=== PATIENT | female | born 1940 | race Caucasian/White ===

== ENCOUNTER 2016-12-04 13:03 | Emergency (ER) | payer MEDICARE, OTHER ==
--- NOTE | 2016-12-04 13:19 | ER Document Report ---
ED Syncope and Near Syncope - General Mode of Arrival: Wheelchair Information source: Patient, Relative TRAVEL OUTSIDE OF THE [place] IN LAST 30 DAYS: No - HPI Patient complains to provider of: Fainting Episode witnessed (by whom): Yes - nursing staff upstairs Position/Activity at time of episode: Standing Context: Collapsed, Lost consciousness Injury location: None Current symptoms: Breathing difficulty, Chest pain, Nausea Similar symptoms previously: No Recently seen / treated by doctor: No <MARTIN SUAZO - Last Filed: 12/04/16 13:48> <GRETCHEN GUERRERO - Last Filed: 12/04/16 16:18> - General Chief Complaint: Syncope Stated Complaint: SYNCOPE Time Seen by Provider: 12/04/16 13:18 Notes: Patient is a 76 year old female presenting to the ED for syncope. Patient states her is upstairs in the hospital and she got quite upset when she saw "home hospice" written on his board. Patient states her has been in the ED for 2 weeks and he is "dying." Patient states she does not quite know what her 's diagnosis is. Patient is present with a family member who states that she has been quite upset and she walked out in the hallway and was leaning on the wall. Patient then collapsed to the ground and the nursing staff came to her and were trying to wake her up. Patient is quite anxious and tearful during exam. Patient states she has not been able to stop crying. Patient states she also has had some increased difficulty breathing from her asthma and allergies. Patient has not had her inhaler refilled due to the weekend and she states she is having some tightness in her chest when she breaths. Patient has no known medical allergies. Patient's PCP is Dr. Mendez [facility] [address]. (MARTIN SUAZO) The patient was upstairs visiting her spouse who has been in the hospital about 10 days. She saw on a bed board that he was being discharged on home hospice. She felt that meant he was being sent home to . She states she has never been told his diagnosis. She had walked out of the room, leaning his alcohol and crying when she collapsed. The patient denies any pain. She complains of feeling short of breath and states she needs her inhaler. Her lungs are quite clear to auscultate. Her BUN is 58 with a creatinine of 1.46, 5 months ago the BUN was 12 with a creatinine of 0.82. I suspect she is somewhat dehydrated from spitting all her time upstairs and not caring for herself. This coupled with this sudden realization of her spouse's condition probably led to the syncope. (GRETCHEN GUERRERO) - Related Data Allergies/Adverse Reactions: No Known Allergies Allergy (Verified 11/20/16 16:32) Past Medical History - General Information source: Patient - Social History Smoking Status: Never Smoker Cigarette use (# per day): No Chew tobacco use (# tins/day): No Frequency of alcohol use: None Drug Abuse: None Family History: None Patient has suicidal ideation: No Patient has homicidal ideation: No - Past Medical History Cardiac Medical History: Reports: Hx Coronary Artery Disease, Hx Heart Attack, Hx Hypercholesterolemia, Hx Hypertension Pulmonary Medical History: Reports: Hx Asthma, Hx Sleep Apnea Neurological Medical History: Reports: Hx Migraine Endocrine Medical History: Reports: Hx Hypothyroidism GI Medical History: Reports: Hx Gastroesophageal Reflux Disease, Hx Irritable Bowel Musculoskeltal Medical History: Reports Hx Arthritis, Reports Hx Fibromyalgia Psychiatric Medical History: Reports: Hx Depression Past Surgical History: Reports: Hx Cardiac Catheterization - Stenting 2006 [place] , Hx Cholecystectomy, Hx Hysterectomy - Immunizations Hx Diphtheria, Pertussis, Tetanus Vaccination: Yes Hx Pneumococcal Vaccination: 08/25/10 <MARTIN SUAZO - Last Filed: 12/04/16 13:48> Review of Systems - Review of Systems Constitutional: No symptoms reported EENT: No symptoms reported Cardiovascular: No symptoms reported Respiratory: See HPI Gastrointestinal: No symptoms reported Genitourinary: No symptoms reported Female Genitourinary: No symptoms reported Musculoskeletal: No symptoms reported Skin: No symptoms reported Hematologic/Lymphatic: No symptoms reported Neurological/Psychological: See HPI -: Yes All other systems reviewed and negative <MARTIN SUAZO - Last Filed: 12/04/16 13:48> Physical Exam - General General appearance: Alert, Anxious In distress: Mild - HEENT Head: Normocephalic, Atraumatic Eyes: Normal Pupils: PERRL Mucous membranes: Moist - Respiratory Respiratory status: No respiratory distress Chest status: Nontender Breath sounds: Normal Chest palpation: Normal - Cardiovascular Rhythm: Regular Heart sounds: Normal auscultation Murmur: No - Abdominal Inspection: Normal Distension: No distension Bowel sounds: Normal Tenderness: Nontender Organomegaly: No organomegaly - Back Back: Normal, Nontender - Extremities General upper extremity: Normal inspection, Normal ROM, Normal strength General lower extremity: Normal inspection, Normal ROM, Normal strength - Neurological Neuro grossly intact: Yes Cognition: Normal Orientation: AAOx4 [place] Coma Scale Eye Opening: Spontaneous [place] Coma Scale Verbal: Oriented [place] Coma Scale Motor: Obeys Commands [place] Coma Scale Total: 15 Speech: Normal - Psychological Associated symptoms: Anxious, Tearful - Skin Skin Temperature: Warm Skin Moisture: Dry <MARTIN SUAZO - Last Filed: 12/04/16 13:48> Course <MARTIN SUAZO - Last Filed: 12/04/16 13:48> - Laboratory Result Diagrams: 12/04/16 13:27 12/04/16 13:27 - EKG Interpretation by Me EKG shows normal: Sinus rhythm, [place], Intervals, QRS Complexes, ST-T Waves Rate: Normal - 57 Rhythm: NSR, PVC's [place]/QRS: LAHB/LAFB <GRETCHEN GUERRERO - Last Filed: 12/04/16 16:18> - Re-evaluation Re-evalutation: 12/04/16 16:18 After the Ativan IV fluids, patient resting comfortably and does feel much better. (GRETCHEN GUERRERO) - Vital Signs Vital signs: Temp Pulse Resp BP Pulse Ox 14 134/64 H 100 12/04/16 15:03 12/04/16 15:03 12/04/16 15:03 - Laboratory Laboratory results interpreted by me: 12/04/16 13:27 Sodium 145.3 H BUN 58 H Creatinine 1.46 H Est GFR ( Amer) 42 L Est GFR (Non-Af Amer) 35 L Glucose 112 H Magnesium 2.4 H Discharge <MARTIN SUAZO - Last Filed: 12/04/16 13:48> <GRETCHEN GUERRERO - Last Filed: 12/04/16 16:18> - Discharge Clinical Impression: Syncope and collapse, Dehydration, Emotional distress Condition: Stable Disposition: HOME, SELF-CARE Additional Instructions: Your syncopal episode today was most likely due to being dehydrated and being under considerable emotional distress. You should go home and get some this rest and sleep. You should drink plenty of fluids today and eat well-balanced meals. Continue your regular medications. Follow-up with your doctor tomorrow if not feeling better. RETURN TO THE EMERGENCY ROOM IF ANY NEW OR WORSENING SYMPTOMS. Scribe Attestation: 12/04/16 16:16 I personally performed the services described in the documentation, reviewed and edited the documentation which was dictated to the scribe in my presence, and it accurately records my words and actions. (GRETCHEN GUERRERO) Scribe Documentation - Scribe Written by Scrluis daniel:: Martin Suazo 12/04/16 13:35 acting as scribe for :: Monica <MARTIN SUAZO - Last Filed: 12/04/16 13:48>
[2016-12-04] MEDS ORDERED: LORAZEPAM INJ 2 MG/1 ML VIAL IV ONE (13:31)
[2016-12-04] MEDS ORDERED: ALBUTEROL SULFATE 0.083% NEB 2.5 MG/3 ML AMPUL NEB ONE (13:31)
[2016-12-04 13:57] LABS: ABSOLUTE EOSINOPHILS # (AUTO) 0.2 10^3/uL (0.0-0.6); ABSOLUTE MONOCYTES (AUTO) 0.7 10^3/uL (0.1-1.4); ABSOLUTE NEUT (AUTO) 4.5 10^3/uL (1.7-8.2); BASOPHILS % (AUTO) 0.6 % (0-2); HEMATOCRIT 38.2 % (36.0-47.0); HEMOGLOBIN 12.9 g/dL (12.0-15.5); HGB HCT DIFFERENCE 0.5; LYMPHOCYTES % (AUTO) 15.5 % (13-45); MEAN CORPUSCULAR HEMOGLOBIN 31.7 pg (27.0-33.4); MEAN CORPUSCULAR HGB CONC 33.7 g/dL (32.0-36.0); MEAN CORPUSCULAR VOLUME 94 fl (80-97); MONOCYTES % (AUTO) 11.2 % (3-13); RED BLOOD COUNT 4.06 10^6/uL (3.72-5.28); RED CELL DISTRIBUTION WIDTH 13.3 % (11.5-14.0); SEGMENTED NEUTROPHILS % (AUTO) 69.7 % (42-78); WHITE BLOOD COUNT 6.4 10^3/uL (4.0-10.5)
[2016-12-04 14:17] LABS: ALANINE AMINOTRANSFERASE 27 U/L (9-52); ALBUMIN 4.2 g/dL (3.5-5.0); ALKALINE PHOSPHATASE 103 U/L (38-126); ANION GAP 13 (5-19); ASPARTATE AMINO TRANSFERASE 27 U/L (14-36); BILIRUBIN,DIRECT 0.2 mg/dL (0.0-0.4); BILIRUBIN,TOTAL 0.9 mg/dL (0.2-1.3); BLOOD UREA NITROGEN 58 mg/dL (7-20); CALCIUM 10.2 mg/dL (8.4-10.2); CARBON DIOXIDE 25 mmol/L (22-30); CHLORIDE 107 mmol/L (98-107); CREATINE KINASE 126 U/L (30-135); CREATININE RESULT 1.46 mg/dL (0.52-1.25); GLUCOSE 112 mg/dL (75-110); MAGNESIUM 2.4 mg/dL (1.6-2.3); POTASSIUM 4.7 mmol/L (3.6-5.0); SODIUM 145.3 mmol/L (137-145); TOTAL PROTEIN 7.5 g/dL (6.3-8.2)
[2016-12-04] MEDS ORDERED: NORMAL SALINE 1000 ML 1,000 ML IV ONE (14:35)
[2016-12-04 15:24] LABS: APPEARANCE,URINE CLEAR; BILIRUBIN,URINE NEGATIVE (NEGATIVE); GLUCOSE, URINE NEGATIVE (NEGATIVE); KETONES,URINE NEGATIVE (NEGATIVE); LEUKOCYTE ESTERASE,URINE NEGATIVE (NEGATIVE); NITRITE,URINE NEGATIVE (NEGATIVE); PROTEIN,URINE NEGATIVE (NEGATIVE); URINE SPECIFIC GRAVITY 1.011; UROBILINOGEN,URINE NEGATIVE mg/dL (<2.0)
[2016-12-04 17:44] VITALS: BP 130/70
--- NOTE | 2016-12-04 21:03 | EKG REPORT ---
SEVERITY:- ABNORMAL ECG - SINUS BRADYCARDIA VENTRICULAR BIGEMINY LEFT ANTERIOR FASCICULAR BLOCK PVC : Confirmed by: Julia Stoll MD 04-Dec-2016 21:03:09
== END 2016-12-04 17:42 | disposition home or self-care (01) ==
LOC: ER 13:03
DX: R55 Syncope and collapse (principal); E86.0 Dehydration; R06.02 Shortness of breath
CPT/HCPCS: 93005; 94640; 99284; 96374; 36415; 82962; 82550; 83735; 85025; 80053; 81001; 84484; 85379; 71010; 93010; J2060; J7030; A9270

== ENCOUNTER 2017-04-22 17:07 | Observation (INO) | payer MEDICARE, OTHER ==
[2017-04-22 17:48] LABS: ABSOLUTE EOSINOPHILS # (AUTO) 0.2 10^3/uL (0.0-0.6); ABSOLUTE LYMPHOCYTES (AUTO) 1.5 10^3/uL (0.5-4.7); ABSOLUTE MONOCYTES (AUTO) 0.6 10^3/uL (0.1-1.4); ABSOLUTE NEUT (AUTO) 3.1 10^3/uL (1.7-8.2); BASOPHILS % (AUTO) 0.9 % (0-2); EOSINOPHILS % (AUTO) 4.4 % (0-6); HEMATOCRIT 36.6 % (36.0-47.0); HEMOGLOBIN 12.7 g/dL (12.0-15.5); HGB HCT DIFFERENCE 1.5; LYMPHOCYTES % (AUTO) 26.7 % (13-45); MEAN CORPUSCULAR HEMOGLOBIN 32.9 pg (27.0-33.4); MEAN CORPUSCULAR HGB CONC 34.8 g/dL (32.0-36.0); MEAN CORPUSCULAR VOLUME 95 fl (80-97); MONOCYTES % (AUTO) 11.3 % (3-13); RED BLOOD COUNT 3.87 10^6/uL (3.72-5.28); RED CELL DISTRIBUTION WIDTH 12.7 % (11.5-14.0); SEGMENTED NEUTROPHILS % (AUTO) 56.7 % (42-78); WHITE BLOOD COUNT 5.5 10^3/uL (4.0-10.5)
--- NOTE | 2017-04-22 17:54 | ER Document Report ---
ED General - General Chief Complaint: Chest Pain Stated Complaint: CHEST PAIN Time Seen by Provider: 04/22/17 17:40 Mode of Arrival: Stretcher Information source: Patient TRAVEL OUTSIDE OF THE [place] IN LAST 30 DAYS: No - HPI Notes: 76-year-old female with past history of coronary disease, 3 cardiac stents, and atrial fibrillation (now in sinus) presents emergency department reporting she feels fullness in her chest, as though it is swelling on the inside. This is been occurring for approximately 3 days. She also reports feeling "lightheaded " with possible near syncopal type episodes. She reports occasional nausea, though none now. She reports increased dyspnea on exertion. She does have a history of using oxygen at home in the past, but she has not needed it recently. Patient reports she has had similar symptoms in the past. When she has these feelings with chest fullness and shortness of breath, she reports her voice always shifts and changes some. She denies any excess secretions. She is coughing but it is not significantly productive. She denies any fever or chills. She reports she has chronic swelling in her ankles. This is been going on for years. No acute changes. She does have a history of atrial fibrillation and is on Eliquis. - Related Data Allergies/Adverse Reactions: No Known Allergies Allergy (Verified 04/22/17 19:00) Home Medications: Current Home Medications Apixaban [Eliquis 5 mg Tablet] 5 mg PO BID 04/22/17 [History] Atorvastatin Calcium [Lipitor 10 mg Tablet] 10 mg PO QHS 04/22/17 [History] Calcium Carbonate/Vitamin D3 [Calcium 500 + Vit D Caplet] 1 each PO DAILY [History] Docusate Sodium [Colace 100 mg Capsule] 100 mg PO DAILY 04/22/17 [History] Hydrochlorothiazide 12.5 mg PO DAILY 04/22/17 [History] Sotalol HCl [Betapace 80 mg Tablet] 1 tab PO BID 04/22/17 [History] Tolterodine Tartrate [Tolterodine Tartrate ER] 2 mg PO DAILY 04/22/17 [History] Past Medical History - Social History Smoking Status: Never Smoker Chew tobacco use (# tins/day): No Frequency of alcohol use: None Drug Abuse: None Family History: None, Reviewed & Not Pertinent Patient has suicidal ideation: No Patient has homicidal ideation: No - Past Medical History Cardiac Medical History: Reports: Hx Coronary Artery Disease, Hx Heart Attack, Hx Hypercholesterolemia, Hx Hypertension Pulmonary Medical History: Reports: Hx Asthma, Hx Sleep Apnea Denies: Hx Tuberculosis Neurological Medical History: Reports: Hx Migraine Endocrine Medical History: Reports: Hx Hypothyroidism Renal/ Medical History: Denies: Hx Peritoneal Dialysis GI Medical History: Reports: Hx Gastroesophageal Reflux Disease, Hx Irritable Bowel Musculoskeltal Medical History: Reports Hx Arthritis, Reports Hx Fibromyalgia Psychiatric Medical History: Reports: Hx Depression Past Surgical History: Reports: Hx Cardiac Catheterization - Stenting 2006 [place] , Hx Cholecystectomy, Hx Hysterectomy - Immunizations Hx Diphtheria, Pertussis, Tetanus Vaccination: Yes Hx Pneumococcal Vaccination: 08/25/10 Review of Systems - Review of Systems Notes: REVIEW OF SYSTEMS: CONSTITUTIONAL : Denies fever, chills, or sweats. Denies recent illness. EENT: Denies eye, ear, or mouth pain or symptoms. Denies nasal or sinus congestion or discharge. Denies throat, tongue, or mouth swelling or difficulty swallowing. She does report she has changes in her voice, consistent with past episodes. See HPI CARDIOVASCULAR: Patient reports she has fullness in her chest as though it was swelling on the inside. Patient has a history of atrial fibrillation. She is currently in sinus with occasional PVC, which she appears to be aware of. See HPI. RESPIRATORY: Patient does report increased dyspnea on exertion and some coughing.. GASTROINTESTINAL: Denies abdominal pain or distention. Denies nausea, vomiting , or diarrhea. Denies blood in vomitus, stools, or per rectum. Denies black, tarry stools. Denies constipation. GENITOURINARY: Denies difficulty urinating, painful urination, burning, frequency, blood in urine, or discharge. MUSCULOSKELETAL: Denies back or neck pain or stiffness. Denies joint pain or swelling. SKIN: Denies rash, lesions or sores. HEMATOLOGIC : Patient is on Eliquis. LYMPHATIC: Denies swollen, enlarged glands. NEUROLOGICAL: Denies confusion or altered mental status. Denies passing out or loss of consciousness. Denies dizziness or lightheadedness. Denies headache. Denies weakness or paralysis or loss of use of either side. Denies problems with gait or speech. Denies sensory loss, numbness, or tingling. Denies seizures. PSYCHIATRIC: Denies anxiety or stress. Denies depression, suicidal ideation, or homicidal ideation. ALL OTHER SYSTEMS REVIEWED AND NEGATIVE. PHYSICAL EXAMINATION: GENERAL: Pleasant 76-year-old female who appears stated age. She has a slightly raspy voice. She has mild increased work of breathing at times, but appears in no acute distress. HEAD: Atraumatic, normocephalic. ENT: Nares patent, oropharynx clear without exudates. Moist mucous membranes. NECK: Normal range of motion, supple without lymphadenopathy LUNGS: Breath sounds clear to auscultation bilaterally and equal. No wheezes rales or rhonchi. HEART: Normal heart sounds. Overall regular rate and rhythm, but with occasional PVC. She will have long periods of time with no PVCs and then switch into multiple PVCs with occasional bigeminy. ABDOMEN: Soft, nontender, nondistended abdomen. No guarding, no rebound. No masses appreciated. Musculoskeletal: Normal range of motion, no pitting or edema. No cyanosis. NEUROLOGICAL: Cranial nerves grossly intact. Normal speech, normal gait. Normal sensory, motor exams PSYCH: Normal mood, normal affect. SKIN: Warm, Dry, no rashes or lesions noted. Physical Exam - Vital signs Vitals: Resp Pulse Ox 20 95 04/22/17 17:19 04/22/17 17:19 Course - Re-evaluation Re-evalutation: 04/22/17 17:59 76-year-old female with a known history of coronary disease with [address] She has a history of atrial fibrillation and is on Eliquis. She is not in atrial fibrillation currently, but is throwing numerous PVCs at times. This appears to be quite intermittent. Given her age and her history, it is difficult to rule out significant cardiac disease and her stay in the emergency department. While she appears stable, she may warrant admission to the hospital for further evaluation. I discussed this with the patient and she reports she does not want to be admitted to the hospital. She is concerned about her dog at home. She does live alone. She has a daughter Oswaldo Conway who is coming to the hospital soon. I have further outlined my concerns for her, that even with normal blood tests she may need further observation and evaluation. The patient is contemplating this and we will readdress the disposition once we have more clinical information. 04/22/17 19:29 Blood tests are overall unremarkable. Chest x-ray looks reasonable. Patient reports she still has fullness in her chest. Given her discomfort, history for coronary artery disease, and advanced age, we have moved to admit her to the hospital. I discussed this with Dr. Saenz. He is asking the patient to have a telemetry bed reserved. I think this is appropriate. - Vital Signs Vital signs: Temp Pulse Resp BP Pulse Ox 98.3 F 69 17 169/90 H 91 L 04/22/17 17:23 04/22/17 17:23 04/22/17 19:00 04/22/17 17:23 04/22/17 19:00 - Laboratory Result Diagrams: 04/22/17 17:15 04/22/17 17:15 Laboratory results interpreted by me: 04/22/17 17:15 Sodium 135.6 L BUN 23 H Est GFR (Non-Af Amer) 53 L Discharge - Discharge Clinical Impression: Chest discomfort, Bigeminy Disposition: ADMITTED OBSERVATION Admitting Provider: Hospitalist
[2017-04-22 18:03] LABS: ALANINE AMINOTRANSFERASE 22 U/L (9-52); ALBUMIN 3.7 g/dL (3.5-5.0); ALKALINE PHOSPHATASE 83 U/L (38-126); ANION GAP 7 (5-19); ASPARTATE AMINO TRANSFERASE 18 U/L (14-36); BILIRUBIN,DIRECT 0.3 mg/dL (0.0-0.4); BLOOD UREA NITROGEN 23 mg/dL (7-20); CALCIUM 9.7 mg/dL (8.4-10.2); CARBON DIOXIDE 29 mmol/L (22-30); CHLORIDE 100 mmol/L (98-107); CREATINE KINASE 45 U/L (30-135); CREATININE RESULT 1.01 mg/dL (0.52-1.25); GLUCOSE 94 mg/dL (75-110); POTASSIUM 4.5 mmol/L (3.6-5.0); SODIUM 135.6 mmol/L (137-145); TOTAL PROTEIN 6.3 g/dL (6.3-8.2)
[2017-04-22] MEDS ORDERED: ASPIRIN 325 MG TABLET PO ONE (18:03)
[2017-04-22 18:15] LABS: CREATINE KINASE MB 0.58 ng/mL (<4.55)
[2017-04-22 18:16] LABS: TROPONIN I < 0.012 ng/mL
--- NOTE | 2017-04-22 19:00 | RADIOLOGY REPORT (SQ) ---
EXAM DESCRIPTION: CHEST SINGLE VIEW COMPLETED DATE/TIME: 04/22/2017 6:31 pm REASON FOR STUDY: chest pain COMPARISON: AP chest 12/04/2016, 06/22/2016, 06/07/2016 EXAM PARAMETERS: NUMBER OF VIEWS: One view. TECHNIQUE: Single frontal radiographic view of the chest acquired. RADIATION DOSE: NA LIMITATIONS: None. FINDINGS: LUNGS AND PLEURA: No opacities, masses or pneumothorax. No pleural effusion. MEDIASTINUM AND HILAR STRUCTURES: No masses. Contour normal. HEART AND VASCULAR STRUCTURES: Stable mild cardiomegaly BONES: No acute findings. HARDWARE: None in the chest. OTHER: No other significant finding. IMPRESSION: NO ACUTE RADIOGRAPHIC FINDING IN THE CHEST. TECHNICAL DOCUMENTATION: JOB ID: [id number]
[2017-04-22] MEDS ORDERED: NITROGLYCERIN 0.4 MG/TAB 25 TAB/BOTTLE SL PRN (19:30)
[2017-04-22] MEDS ORDERED: ENALAPRILAT DIHYDRATE INJ/PF 1.25 MG/1 ML SDV IV PRN (19:35)
[2017-04-22 19:44] LABS: APPEARANCE,URINE CLEAR; BILIRUBIN,URINE NEGATIVE (NEGATIVE); GLUCOSE, URINE NEGATIVE (NEGATIVE); KETONES,URINE NEGATIVE (NEGATIVE); LEUKOCYTE ESTERASE,URINE NEGATIVE (NEGATIVE); NITRITE,URINE NEGATIVE (NEGATIVE); PROTEIN,URINE NEGATIVE (NEGATIVE); URINE SPECIFIC GRAVITY 1.006; UROBILINOGEN,URINE NEGATIVE mg/dL (<2.0)
[2017-04-22] MEDS ORDERED: SOTALOL HCL 80 MG TABLET PO ONE (19:45)
[2017-04-22] MEDS ORDERED: IPRATROPIUM/ALBUTEROL 0.5-2.5 MG/3 ML AMPUL NEB ONE (19:45)
[2017-04-22 20:35] VITALS: BP 151/70
[2017-04-22] MEDS ORDERED: ATORVASTATIN CALCIUM 10 MG TABLET PO SCH (22:00)
[2017-04-23] MEDS ORDERED: IPRATROPIUM/ALBUTEROL 0.5-2.5 MG/3 ML AMPUL NEB SCH
--- NOTE | 2017-04-23 07:25 | EKG REPORT ---
SEVERITY:- ABNORMAL ECG - SINUS RHYTHM FIRST DEGREE AV BLOCK INFERIOR INFARCT, OLD CONSIDER ANTERIOR INFARCT : Confirmed by: Jean Carlos Monet MD 23-Apr-2017 07:24:31
[2017-04-23] MEDS ORDERED: HYDROCHLOROTHIAZIDE 12.5 MG CAPSULE PO SCH (10:00)
[2017-04-23] MEDS ORDERED: CALCIUM CARBONATE 500 MG TABLET PO SCH (10:00)
[2017-04-23] MEDS ORDERED: SOTALOL HCL 80 MG TABLET PO SCH (10:00)
[2017-04-23] MEDS ORDERED: APIXABAN 5 MG TABLET PO SCH (10:00)
[2017-04-23] MEDS ORDERED: (PENDING PHARMACY ID) (Calcium Carbonate/Vitamin D3 [Calcium 500 + Vit D Caplet] 1 EACH) PO SCH (10:00)
[2017-04-23] MEDS ORDERED: DULOXETINE HCL 30 MG CAPSULE.DR PO SCH (10:00)
[2017-04-23] MEDS ORDERED: DOCUSATE SODIUM 100 MG CAPSULE PO SCH (10:00)
[2017-04-23] MEDS ORDERED: LISINOPRIL 5 MG TABLET PO SCH (10:00)
[2017-04-23] MEDS ORDERED: GABAPENTIN 300 MG CAPSULE PO SCH (10:00)
== END 2017-04-22 20:36 | disposition left against medical advice (07) ==
LOC: ER 17:07 → EH 19:30
PROVIDERS: ADMIT Internal Medicine; ATTEND Internal Medicine
DX: R07.89 Other chest pain (principal); R00.8 Other abnormalities of heart beat; Z53.21 Procedure and treatment not carried out due to patient leaving prior to being seen by health care provider; I25.10 Atherosclerotic heart disease of native coronary artery without angina pectoris; R42 Dizziness and giddiness; R06.09 Other forms of dyspnea; R05 Cough; I48.91 Unspecified atrial fibrillation; M25.472 Effusion, left ankle; M25.471 Effusion, right ankle; I25.2 Old myocardial infarction; I10 Essential (primary) hypertension; I49.3 Ventricular premature depolarization; E78.00 Pure hypercholesterolemia, unspecified; Z79.01 Long term (current) use of anticoagulants; Z95.5 Presence of coronary angioplasty implant and graft; Z79.899 Other long term (current) drug therapy; Z60.2 Problems related to living alone
CPT/HCPCS: 36415; 71010; 80053; 81001; 82550; 82553; 83880; 84443; 84484; 85025; 93005; 93010; 99285

== ENCOUNTER 2018-09-24 00:20 | Inpatient (IN) | payer MEDICARE, OTHER ==
[2018-09-24] MEDS ORDERED: IPRATROPIUM/ALBUTEROL 0.5-2.5 MG/3 ML AMPUL NEB ONE (00:28)
[2018-09-24] MEDS ORDERED: METHYLPREDNISOLONE INJ 125 MG/2 ML SDV IV ONE (00:29)
--- NOTE | 2018-09-24 00:35 | ER Document Report ---
ED General - General Chief Complaint: Shortness Of Breath Stated Complaint: SHORTNESS OF BREATH Time Seen by Provider: 09/24/18 00:27 Mode of Arrival: Medic Information source: Patient, Emergency Med Personnel, [facility] Records Notes: 77-year-old female with coronary artery disease, hypertension, hyperlipidemia, asthma, fibromyalgia presents via EMS from home with complaint of shortness of breath and chest pain. Patient reports a recent admission to [facility] where she was found to have an OH which required revision of already placed stent. Patient reports that she also was diagnosed with influenza and pneumonia and spent approximately 2 weeks in the hospital and was discharged 5 days prior to this visit. Patient states that she was discharged with left-sided chest pain that she experienced just prior to arrival. Patient shortness of breath has been ongoing for 3 days with worsening today. Patient was sent home on Eliquis, Plavix and Levaquin for which she has not yet completed. Upon EMS arrival patient was on 3 L which is her normal oxygen requirement and satting 91%. EMS reports after one albuterol treatment patient's oxygen saturation greatly improved. Patient reports improvement of shortness of breath and chest pain upon arrival. TRAVEL OUTSIDE OF THE [place] IN LAST 30 DAYS: No - HPI Onset: Other Onset/Duration: Gradual, Persistent, Gone Quality of pain: Pressure Severity: Moderate Pain Level: 0 Associated symptoms: Chest pain, Productive cough, Shortness of breath, Weakness. denies: Fever, Headache, Hurts to breath, Nausea, Vomiting Exacerbated by: Movement, Walking Relieved by: Remaining still Similar symptoms previously: Yes Recently seen / treated by doctor: Yes - Related Data Allergies/Adverse Reactions: No Known Allergies Allergy (Verified 09/24/18 00:29) Past Medical History - General Information source: Patient, Emergency Med Personnel, [facility] Records - Social History Smoking Status: Never Smoker Frequency of alcohol use: None Drug Abuse: None Lives with: Family Family History: None, Reviewed & Not Pertinent Patient has suicidal ideation: No Patient has homicidal ideation: No - Past Medical History Cardiac Medical History: Reports: Hx Coronary Artery Disease, Hx Heart Attack, Hx Hypercholesterolemia, Hx Hypertension Pulmonary Medical History: Reports: Hx Asthma, Hx Sleep Apnea Denies: Hx Tuberculosis Neurological Medical History: Reports: Hx Migraine Endocrine Medical History: Reports: Hx Hypothyroidism Renal/ Medical History: Denies: Hx Peritoneal Dialysis GI Medical History: Reports: Hx Gastroesophageal Reflux Disease, Hx Irritable Bowel Musculoskeletal Medical History: Reports Hx Arthritis, Reports Hx Fibromyalgia Psychiatric Medical History: Reports: Hx Depression Past Surgical History: Reports: Hx Cardiac Catheterization - Stenting 2006 [place], Hx Cholecystectomy, Hx Hysterectomy - Immunizations Hx Diphtheria, Pertussis, Tetanus Vaccination: Yes Hx Pneumococcal Vaccination: 08/25/10 Review of Systems - Review of Systems Notes: REVIEW OF SYSTEMS: CONSTITUTIONAL : Denies fever, chills, or sweats. EENT: Denies visual changes, eye pain. Denies sore throat, oral lesions, difficulty swallowing. CARDIOVASCULAR: Denies palpitations. Denies lower extremity edema. RESPIRATORY: + Cough, shortness of breath, wheezing GASTROINTESTINAL: Denies abdominal pain or distention. Denies nausea, vomiting, or diarrhea. Denies blood in vomitus, stools, or per rectum. Denies black, tarry stools. Denies constipation. GENITOURINARY: Denies difficulty urinating, painful urination, frequency, blood in urine, or vaginal discharge. MUSCULOSKELETAL: Denies back or neck pain or stiffness. Denies joint pain or swelling. SKIN: Denies rash, lesions or sores. HEMATOLOGIC : Denies easy bruising or bleeding. LYMPHATIC: Denies swollen glands. NEUROLOGICAL: Denies confusion or altered mental status. Denies loss of consciousness. Denies dizziness or lightheadedness. Denies headache. Denies weakness or paralysis. Denies problems difficulty with ambulation, slurred speech. Denies sensory loss, numbness, or tingling. Denies seizures. PSYCHIATRIC: Denies anxiety or stress. Denies depression, suicidal ideation, or homicidal ideation. Denies visual or auditory hallucinations. Physical Exam - Vital signs Vitals: Pulse Ox 91 L 09/24/18 00:27 - Notes Notes: PHYSICAL EXAMINATION: GENERAL: Presents via stretcher receiving breathing treatment moderate distress. HEAD: Atraumatic, normocephalic. EYES: Pupils equal round and reactive to light, extraocular movements intact, conjunctiva are normal. ENT: Nares patent, oropharynx clear without exudates. Moist mucous membranes. NECK: Normal range of motion, supple without lymphadenopathy LUNGS: Coarse breath sounds bilaterally with expiratory wheezing. Reproducible anterior chest wall tenderness HEART: Regular rate and rhythm without murmurs ABDOMEN: Soft, nontender, nondistended abdomen. No guarding, no rebound. No masses appreciated. Female : deferred Musculoskeletal: Normal range of motion, no pitting or edema. No cyanosis. NEUROLOGICAL: Cranial nerves grossly intact. Normal speech, normal gait. Normal sensory, motor exams PSYCH: Normal mood, normal affect. SKIN: Warm, Dry, normal turgor, no rashes or lesions noted. Course - Re-evaluation Re-evalutation: Laboratory 09/24/18 09/24/18 09/24/18 00:38 00:38 00:38 WBC 17.4 H RBC 3.62 L Hgb 11.0 L Hct 33.7 L MCV 93 MCH 30.5 MCHC 32.8 RDW 14.7 H Plt Count 475 H Total Counted 100 Seg Neutrophils % Not Reportable Seg Neuts % (Manual) 89 H Lymphocytes % Not Reportable Lymphocytes % (Manual) 6 L Monocytes % Not Reportable Monocytes % (Manual) 5 Eosinophils % Not Reportable Eosinophils % (Manual) 0 Basophils % Not Reportable Basophils % (Manual) 0 Absolute Neutrophils Not Reportable Abs Neuts (Manual) 15.5 H Absolute Lymphocytes Not Reportable Abs Lymphs (Manual) 1.0 Absolute Monocytes Not Reportable Abs Monocytes (Manual) 0.9 Absolute Eosinophils Not Reportable Absolute Eos (Manual) 0.0 Absolute Basophils Not Reportable Abs Basophils (Manual) 0.0 Toxic Granulation SLIGHT Toxic Vacuolation PRESENT Platelet Comment ADEQUATE RBC Morph Comment NORMO-CYTIC/CHROMIC PT INR APTT VBG pH VBG pCO2 VBG HCO3 VBG Base Excess Sodium 135.4 L Potassium 5.0 Chloride 98 Carbon Dioxide 32 H Anion Gap 5 BUN 24 H Creatinine 0.84 Est GFR ( Amer) > 60 Est GFR (Non-Af Amer) > 60 Glucose 134 H Calcium 9.4 Total Bilirubin 1.1 Direct Bilirubin 0.5 H Neonat Total Bilirubin Not Reportable Neonat Direct Bilirubin Not Reportable Neonat Indirect Bili Not Reportable AST 61 H ALT 35 Alkaline Phosphatase 89 Creatine Kinase 37 CK-MB (CK-2) 1.67 Troponin I 0.074 NT-Pro-B Natriuret Pep 30196 H Total Protein 7.1 Albumin 3.9 Urine Color Urine Appearance Urine pH Ur Specific Col[place] Urine Protein Urine Glucose (UA) Urine Ketones Urine Blood Urine Nitrite Urine Bilirubin Urine Urobilinogen Ur Leukocyte Esterase Urine WBC (Auto) Squamous Epi Cells Auto Urine Ascorbic Acid 09/24/18 09/24/18 09/24/18 00:38 02:35 02:35 WBC RBC Hgb Hct MCV MCH MCHC RDW Plt Count Total Counted Seg Neutrophils % Seg Neuts % (Manual) Lymphocytes % Lymphocytes % (Manual) Monocytes % Monocytes % (Manual) Eosinophils % Eosinophils % (Manual) Basophils % Basophils % (Manual) Absolute Neutrophils Abs Neuts (Manual) Absolute Lymphocytes Abs Lymphs (Manual) Absolute Monocytes Abs Monocytes (Manual) Absolute Eosinophils Absolute Eos (Manual) Absolute Basophils Abs Basophils (Manual) Toxic Granulation Toxic Vacuolation Platelet Comment RBC Morph Comment PT 13.4 INR 0.97 APTT 30.0 VBG pH 7.50 H VBG pCO2 34.3 L VBG HCO3 26.4 VBG Base Excess 3.4 Sodium Potassium Chloride Carbon Dioxide Anion Gap BUN Creatinine Est GFR ( Amer) Est GFR (Non-Af Amer) Glucose Calcium Total Bilirubin Direct Bilirubin Neonat Total Bilirubin Neonat Direct Bilirubin Neonat Indirect Bili AST ALT Alkaline Phosphatase Creatine Kinase CK-MB (CK-2) Troponin I NT-Pro-B Natriuret Pep Total Protein Albumin Urine Color YELLOW Urine Appearance CLEAR Urine pH 7.0 Ur Specific [place] 1.011 Urine Protein NEGATIVE Urine Glucose (UA) NEGATIVE Urine Ketones NEGATIVE Urine Blood NEGATIVE Urine Nitrite NEGATIVE Urine Bilirubin NEGATIVE Urine Urobilinogen NEGATIVE Ur Leukocyte Esterase NEGATIVE Urine WBC (Auto) 0 Squamous Epi Cells Auto <1 Urine Ascorbic Acid NEGATIVE 09/24/18 03:01 WBC RBC Hgb Hct MCV MCH MCHC RDW Plt Count Total Counted Seg Neutrophils % Seg Neuts % (Manual) Lymphocytes % Lymphocytes % (Manual) Monocytes % Monocytes % (Manual) Eosinophils % Eosinophils % (Manual) Basophils % Basophils % (Manual) Absolute Neutrophils Abs Neuts (Manual) Absolute Lymphocytes Abs Lymphs (Manual) Absolute Monocytes Abs Monocytes (Manual) Absolute Eosinophils Absolute Eos (Manual) Absolute Basophils Abs Basophils (Manual) Toxic Granulation Toxic Vacuolation Platelet Comment RBC Morph Comment PT INR APTT VBG pH VBG pCO2 VBG HCO3 VBG Base Excess Sodium Potassium Chloride Carbon Dioxide Anion Gap BUN Creatinine Est GFR ( Amer) Est GFR (Non-Af Amer) Glucose Calcium Total Bilirubin Direct Bilirubin Neonat Total Bilirubin Neonat Direct Bilirubin Neonat Indirect Bili AST ALT Alkaline Phosphatase Creatine Kinase CK-MB (CK-2) Troponin I 0.078 NT-Pro-B Natriuret Pep Total Protein Albumin Urine Color Urine Appearance Urine pH Ur Specific [place] Urine Protein Urine Glucose (UA) Urine Ketones Urine Blood Urine Nitrite Urine Bilirubin Urine Urobilinogen Ur Leukocyte Esterase Urine WBC (Auto) Squamous Epi Cells Auto Urine Ascorbic Acid Chest X-Ray 09/24/18 00:27 IMPRESSION: Moderate mixed interstitial and airpace opacities. Differential diagnosis includes pulmonary edema, multifocal pneumonia, and chronic interstitial lung disease. Recommend CR/CT surveillance including at 7-12 weeks following initiation of any clinically warranted therapy. 09/24/18 00:40 77-year-old female presents via EMS from home with complaint of shortness of breath that has been ongoing since discharge from the hospital last week. EMS reported that upon arrival patient was on her normal 3 L of home oxygen and satting 90-91%. They report that after increasing her oxygen to 4 L and administering a breathing treatment patient's oxygen saturation improved. Patient reports that she has been having left-sided chest pain since being discharged from the hospital 5 days ago. She states that the cma or lpn was aware and told her that she would likely continue to have some pain for the next few weeks. At that time patient was diagnosed with an OH and stent placement was performed. She later was diagnosed with pneumonia and influenza for which she has completed most of her antibiotic treatment. 09/24/18 01:33 Patient reevaluated and is alert, awake but with total body shaking. Patient states that this has occurred before and started during her last hospital admission. Patient did receive 0.5 mg of Ativan and had improvement of her shaking. 09/24/18 01:42 Patient with mildly elevated troponin. I did reach out to [facility] since she was just discharged after cardiac cath placement to see if this was an improvement or worsening but they were unable to tell me the patient's last troponin was upon discharge. 09/24/18 02:04 Spoke to the nurse practitioner covering cardiology [facility] who states that the patient had an echocardiogram which was performed during her recent admission and showed a ejection fraction of 75%. BNP was not drawn during her course so I cannot compare. He reports negative troponins upon discharge. He does state that she had no home-going diagnosis of congestive heart failure. He also reports that home-going white count was 8. Patient was discharged home on Eliquis, Plavix, doxycycline, Augmentin,, Lipitor. Bedside ultrasound was performed and significant for B-lines in all lung avalos. Patient was placed on BiPAP, Lasix was administered, Nitropaste paste given. 09/24/18 02:44 [address] did attempt to [address] BiPAP on the patient but she was intolerant of it. She is a very anxious. I did explain to her that this was necessary to help remove the fluid on her lungs but she states that she is claustrophobic and cannot even wear her home CPAP machine. 09/24/18 04:21 Patient has been accepted by Dr. Saenz the hospitalist for new onset heart failure and healthcare associated pneumonia. Patient will be admitted to the [facility] 09/24/18 04:23 - Vital Signs Vital signs: Temp Pulse Resp BP Pulse Ox 32 H 117/63 96 09/24/18 04:01 09/24/18 04:01 09/24/18 04:01 - Laboratory Result Diagrams: 09/24/18 00:38 09/24/18 00:38 Laboratory results interpreted by me: 09/24/18 09/24/18 09/24/18 00:38 00:38 00:38 WBC 17.4 H RBC 3.62 L Hgb 11.0 L Hct 33.7 L RDW 14.7 H Plt Count 475 H Seg Neuts % (Manual) 89 H Lymphocytes % (Manual) 6 L Abs Neuts (Manual) 15.5 H VBG pH VBG pCO2 Sodium 135.4 L Carbon Dioxide 32 H BUN 24 H Glucose 134 H Direct Bilirubin 0.5 H AST 61 H NT-Pro-B Natriuret Pep 90056 H 09/24/18 02:35 WBC RBC Hgb Hct RDW Plt Count Seg Neuts % (Manual) Lymphocytes % (Manual) Abs Neuts (Manual) VBG pH 7.50 H VBG pCO2 34.3 L Sodium Carbon Dioxide BUN Glucose Direct Bilirubin AST NT-Pro-B Natriuret Pep - Diagnostic Test Radiology reviewed: Image reviewed, Reports reviewed - EKG Interpretation by Me Rate: Normal Rhythm: PVC's [place]/QRS: Left axis deviation When compared to previous EKG there are: Changes noted Procedures - Ultrasound/Bedside Ultrasound/Bedside Time completed: 04:26 - Cardiac bedside ultrasound was performed and without pericardial effusion. Patient did have B-lines diffusely in both the right and left lung avalos consistent with interstitial edema. Critical Care Note - Critical Care Note Total time excluding time spent on procedures (mins): 45 - Minutes of critical care time spent in direct contact evaluating and reevaluating the patient, treating symptoms, reviewing labs and studies and speaking with family and consultants excluding any procedures Discharge - Discharge Clinical Impression: New onset of congestive heart failure, Hospital-acquired pneumonia, Shortness of breath, Bilateral pleural effusion, Respiratory distress Leukocytosis Qualifiers: Leukocytosis type: unspecified Qualified Code(s): D72.829 - Elevated white blood cell count, unspecified Chest pain Qualifiers: Chest pain type: unspecified Qualified Code(s): R07.9 - Chest pain, unspecified Condition: Fair Disposition: ADMITTED INPATIENT Admitting Provider: Hospitalist Unit Admitted: IMCU Referrals: TAQUERIA RICHARDS MD [Primary Care Provider] - Follow up as needed
[2018-09-24 00:50] LABS: HEMATOCRIT 33.7 % (36.0-47.0); MEAN CORPUSCULAR HEMOGLOBIN 30.5 pg (27.0-33.4); MEAN CORPUSCULAR HGB CONC 32.8 g/dL (32.0-36.0); MEAN CORPUSCULAR VOLUME 93 fl (80-97); PLATELET COUNT 475 10^3/uL (150-450); RED BLOOD COUNT 3.62 10^6/uL (3.72-5.28); RED CELL DISTRIBUTION WIDTH 14.7 % (11.5-14.0); WHITE BLOOD COUNT 17.4 10^3/uL (4.0-10.5)
[2018-09-24 00:53] LABS: INTERNATIONAL RATION (INR) 0.97; PROTHROMBIN TIME 13.4 SEC (11.4-15.4)
[2018-09-24 01:11] LABS: ALANINE AMINOTRANSFERASE 35 U/L (9-52); ALBUMIN 3.9 g/dL (3.5-5.0); ALKALINE PHOSPHATASE 89 U/L (38-126); ANION GAP 5 (5-19); ASPARTATE AMINO TRANSFERASE 61 U/L (14-36); BILIRUBIN,DIRECT 0.5 mg/dL (0.0-0.4); BILIRUBIN,TOTAL 1.1 mg/dL (0.2-1.3); BLOOD UREA NITROGEN 24 mg/dL (7-20); CALCIUM 9.4 mg/dL (8.4-10.2); CARBON DIOXIDE 32 mmol/L (22-30); CHLORIDE 98 mmol/L (98-107); CREATINE KINASE 37 U/L (30-135); GLUCOSE 134 mg/dL (75-110); SODIUM 135.4 mmol/L (137-145); TOTAL PROTEIN 7.1 g/dL (6.3-8.2)
[2018-09-24 01:13] LABS: ABSOLUTE MONOCYTES # (MANUAL) 0.9 10^3/uL (0.1-1.4); ABSOLUTE NEUTROPHILS# (MANUAL) 15.5 10^3/uL (1.7-8.2); BASOPHILS % (MANUAL) 0 % (0-2); EOSINOPHILS % (MANUAL) 0 % (0-6); LYMPHOCYTES % (MANUAL) 6 % (13-45); MONOCYTES % (MANUAL) 5 % (3-13); SEGMENTED NEUTROPHILS % (MAN) 89 % (42-78); TOTAL CELLS COUNTED 100
[2018-09-24 01:14] LABS: TOXIC GRANULATION SLIGHT; TOXIC VACUOLATION PRESENT
[2018-09-24 01:15] LABS: PLATELET COMMENT ADEQUATE; RBC MORPHOLOGY COMMENT NORMO-CYTIC/CHROMIC
[2018-09-24] MEDS ORDERED: LORAZEPAM INJ 2 MG/1 ML VIAL IV ONE ×2 (01:17→01:42)
[2018-09-24 01:23] LABS: CREATINE KINASE MB 1.67 ng/mL (<4.55)
[2018-09-24 01:25] LABS: TROPONIN I 0.074 ng/mL
--- NOTE | 2018-09-24 01:25 | RADIOLOGY REPORT (SQ) ---
EXAM DESCRIPTION: XR CHEST 1 VIEW COMPLETED DATE/TME: 09/24/2018 00:27 CLINICAL HISTORY: 77 years Female, sob chest pain COMPARISON: 05/23/2017 NUMBER OF VIEWS/TECHNIQUE: 1/AP FINDINGS: Moderate mixed airspace and interstitial opacities. Adequate lung volume, normal cardiac silhouette, and intact bony thorax. IMPRESSION: Moderate mixed interstitial and airpace opacities. Differential diagnosis includes pulmonary edema, multifocal pneumonia, and chronic interstitial lung disease. Recommend CR/CT surveillance including at 7-12 weeks following initiation of any clinically warranted therapy.
[2018-09-24] MEDS ORDERED: NITROGLYCERIN 2% OINTMENT 1 GM PACKET TP ONE (01:47)
[2018-09-24] MEDS ORDERED: FUROSEMIDE INJ/PF 20 MG/2 ML SDV IV ONE (01:47)
[2018-09-24 02:49] LABS: VENOUS BLOOD BASE EXCESS 3.4 mmol/L; VENOUS BLOOD HCO3 26.4 mmol/L (20-32); VENOUS BLOOD PCO2 34.3 mmHg (35-63); VENOUS BLOOD PH 7.5 (7.30-7.42)
[2018-09-24 03:20] LABS: APPEARANCE,URINE CLEAR; BILIRUBIN,URINE NEGATIVE (NEGATIVE); COLOR,URINE YELLOW; GLUCOSE, URINE NEGATIVE (NEGATIVE); KETONES,URINE NEGATIVE (NEGATIVE); LEUKOCYTE ESTERASE,URINE NEGATIVE (NEGATIVE); NITRITE,URINE NEGATIVE (NEGATIVE); PROTEIN,URINE NEGATIVE (NEGATIVE); URINE SPECIFIC GRAVITY 1.011; UROBILINOGEN,URINE NEGATIVE mg/dL (<2.0)
--- NOTE | 2018-09-24 03:46 | RADIOLOGY REPORT (SQ) ---
EXAM DESCRIPTION: CT ABDOMEN PELVIS WITH IV CONTRAST, CT CHEST ANGIOGRAPHY WITHOUT THEN WITH IV CONTRAST COMPLETED DATE/TME: 09/24/2018 02:22 CLINICAL HISTORY: 77 years Female, sob fluid overload Comparison: None. Technique: IV contrast. Coronal and sagittal reformat. 3d reconstruction. This exam was performed according to our departmental dose-optimization program, which includes automated exposure control, adjustment of the mA and/or kV according to patient size and/or use of iterative reconstruction technique.[facility]: Dose Right [facility]: CareDose [facility]: Dose Right [facility]: Teradose 4D [facility]: Smart Boost My Ads LIMITATIONS: Motion artifact. Findings: Moderate mixed airspace and interstitial opacity and small bilateral pleural effusions. No pulmonary embolus. Mild dilated cardiomyopathy. Coronary arterial calcification/stent. Atherosclerotic vascular disease. Cholecystectomy. Old granulomatous disease. Degenerative disc disease. Perdue appears adequate. Mild fat streaking of the mid abdomen. Colonic diverticulosis. No ascites. No pneumoperitoneum. No bowel obstruction. No hydronephrosis or hydroureter. No renal/ureteral stone. No evidence of appendicitis. Appendix not definitively discerned. Inferior neck, axillae, mediastinum, airway, heart, liver, pancreas, spleen, adrenals, renal system, gastrointestinal tract, pelvic organs, lymphatics, vasculature, and musculoskeleton appear otherwise unremarkable. . Impression: 1. Moderate mixed interstitial and airpace opacities. Differential diagnosis includes pulmonary edema, multifocal pneumonia, and chronic interstitial lung disease. 2. No acute abdominal or pelvic process.
[2018-09-24] MEDS ORDERED: PIPERACILLIN/TAZOBACTAM 3.375 GM VIAL IV ONE (04:16)
[2018-09-24] MEDS ORDERED: CIPROFLOXACIN 400 MG/D5W RTU 400 MG/200 ML RTUPB IV SCH ×3 (04:30→18:00)
[2018-09-24] MEDS ORDERED: LACTULOSE SYRUP 20 GM/30 ML UDCUP PO ONE (04:35)
[2018-09-24] MEDS ORDERED: HYDRALAZINE HCL INJ/PF 20 MG/1 ML SDV IV PRN (04:35)
[2018-09-24] MEDS ORDERED: GUAIFENESIN SYRP 200 MG/10 ML UDC PO PRN (04:38)
[2018-09-24] MEDS ORDERED: IPRATROPIUM/ALBUTEROL 0.5-2.5 MG/3 ML AMPUL NEB PRN (04:38)
[2018-09-24] MEDS ORDERED: VANCOMYCIN HCL 1,000 MG in DEXTROSE 5%-WATER 250 ML IV ONE (04:44)
[2018-09-24] MEDS ORDERED: VANCOMYCIN HCL 0 MG in DEXTROSE 5%-WATER 250 ML IV NR (04:45)
[2018-09-24] MEDS ORDERED: FLUTICASONE NASAL SPRAY 50 MCG/SPRY 120 SPRAY/16 GM NASL ONE (05:00)
[2018-09-24] MEDS ORDERED: VANCOMYCIN HCL INJ 1000 MG VIAL IV PRN (05:02)
[2018-09-24] MEDS ORDERED: VANCOMYCIN HCL 1,500 MG in DEXTROSE 5%-WATER 250 ML IV ONE (05:15)
[2018-09-24] MEDS: HEPARIN SOD (PORCINE) 5,000 UNIT/ML 1 ML SYRINGE SUBCUT SCH ×3 (05:18→21:07)
[2018-09-24] MEDS ORDERED: FLUTICASONE NASAL SPRAY 50 MCG/SPRY 120 SPRAY/16 GM ONE (05:30)
[2018-09-24] MEDS ORDERED: CEFEPIME 2 GM/D5W RTU 2 GM/50 ML RTUPB IV SCH (06:00)
[2018-09-24 06:15] LABS: HEMATOCRIT 31.4 % (36.0-47.0); HEMOGLOBIN 10.4 g/dL (12.0-15.5); MEAN CORPUSCULAR HEMOGLOBIN 30.7 pg (27.0-33.4); MEAN CORPUSCULAR HGB CONC 33.1 g/dL (32.0-36.0); MEAN CORPUSCULAR VOLUME 93 fl (80-97); PLATELET COUNT 399 10^3/uL (150-450); RED BLOOD COUNT 3.39 10^6/uL (3.72-5.28); RED CELL DISTRIBUTION WIDTH 14.5 % (11.5-14.0)
[2018-09-24 06:33] LABS: ALANINE AMINOTRANSFERASE 41 U/L (9-52); ALBUMIN 3.5 g/dL (3.5-5.0); ALKALINE PHOSPHATASE 92 U/L (38-126); ANION GAP 11 (5-19); ASPARTATE AMINO TRANSFERASE 27 U/L (14-36); BILIRUBIN,DIRECT 0.4 mg/dL (0.0-0.4); BILIRUBIN,TOTAL 1.2 mg/dL (0.2-1.3); BLOOD UREA NITROGEN 22 mg/dL (7-20); CALCIUM 9.1 mg/dL (8.4-10.2); CARBON DIOXIDE 29 mmol/L (22-30); CHLORIDE 97 mmol/L (98-107); GLUCOSE 184 mg/dL (75-110); SODIUM 136.9 mmol/L (137-145); TOTAL PROTEIN 6.2 g/dL (6.3-8.2)
[2018-09-24 06:48] LABS: FREE T4 (FREE THYROXINE) 1.5 ng/dL (0.78-2.19)
--- NOTE | 2018-09-24 06:51 | PDOC H&P ---
History of Present Illness Admission Date/PCP: 09/24/18 04:27 TAQUERIA RICHARDS MD Patient complains of: Shortness of breath and nonproductive cough History of Present Illness: BENJI MCGEE is a 77 year old female with a past medical history of sleep apnea, hypothyroidism, hypertension, coronary artery disease with stent revision 7 days ago at [facility] where she was admitted with chest pain. During her admission she was also diagnosed with influenza pneumonia and subsequently discharged 5 days ago with Augmentin. She complains of worsening shortness of breath and nonproductive cough prompting evaluation emergency room where she is found to have bilateral infiltrates, leukocytosis of 17,000, and a chest CT suggestive of pulmonary edema in addition to pneumonia. She is started on BiPAP, Lasix, empiric antibiotics and referred to the hospitalist for admission. Patient admits to noncompliance with BiPAP at home and is unclear whether or not she filled her prescription for Augmentin. Past Medical History Cardiac Medical History: Reports: Atrial Fibrillation, Coronary Artery Disease, Myocardial Infarction, Hyperlipidema, Hypertension Pulmonary Medical History: Reports: Asthma, Sleep Apnea Denies: Tuberculosis Neurological Medical History: Reports: Migraine Endocrine Medical History: Reports: Hypothyroidism GI Medical History: Reports: Gastroesophageal Reflux Disease Musculoskeltal Medical History: Reports: Arthritis, Fibromyalgia Psychiatric Medical History: Reports: Depression Hematology: Reports: Anemia Past Surgical History Past Surgical History: Reports: Cardiac Catheterization - Stenting 2007 [place], Cholecystectomy, Hysterectomy Social History Information Source: Patient Lives with: Family Smoking Status: Never Smoker Hx Recreational Drug Use: No Hx Prescription Drug Abuse: No - Advance Directive Resuscitation Status: Full Code Family History Family History: COPD Parental Family History Reviewed: Yes Children Family History Reviewed: Yes Sibling(s) Family History Reviewed.: Yes Medication/Allergy Home Medications: Lisinopril [Prinivil 5 mg Tablet] 10 mg PO BID 09/18/11 Celecoxib [Celebrex 200 mg Capsule] 200 mg PO DAILY 08/25/12 Ropinirole HCl [Requip] 4 mg PO QHS 08/25/12 Duloxetine HCl [Cymbalta 30 mg Capsule.dr] 30 mg PO DAILY 05/25/13 Gabapentin 600 mg PO TID 05/25/13 Apixaban [Eliquis 5 mg Tablet] 5 mg PO BID 04/22/17 Atorvastatin Calcium [Lipitor 10 mg Tablet] 10 mg PO QHS 04/22/17 Calcium Carbonate/Vitamin D3 [Calcium 500 + Vit D Caplet] 1 each PO DAILY 04/22/17 Docusate Sodium [Colace 100 mg Capsule] 100 mg PO DAILY 04/22/17 Hydrochlorothiazide 12.5 mg PO DAILY 04/22/17 Sotalol HCl [Betapace 80 mg Tablet] 1 tab PO BID 04/22/17 Tolterodine Tartrate [Tolterodine Tartrate ER] 2 mg PO DAILY 04/22/17 Allergies/Adverse Reactions: No Known Allergies Allergy (Verified 09/24/18 00:29) Review of Systems Constitutional: PRESENT: as per HPI, fatigue, fever(s), weakness, weight gain Eyes: ABSENT: visual disturbances Ears: ABSENT: hearing changes Cardiovascular: PRESENT: as per HPI, dyspnea on exertion, edema, palpitations Respiratory: PRESENT: as per HPI, cough, dyspnea. ABSENT: sputum Gastrointestinal: PRESENT: constipation. ABSENT: abdominal pain, diarrhea, hematemesis, hematochezia, nausea, vomiting Genitourinary: ABSENT: dysuria, hematuria Musculoskeletal: ABSENT: joint swelling Integumentary: ABSENT: rash, wounds Neurological: ABSENT: abnormal gait, abnormal speech, confusion, dizziness, focal weakness, syncope Psychiatric: ABSENT: anxiety, depression, homidical ideation, suicidal ideation Endocrine: ABSENT: cold intolerance, heat intolerance, polydipsia, polyuria Hematologic/Lymphatic: ABSENT: easy bleeding, easy bruising Physical Exam Vital Signs: Temp Pulse Resp BP Pulse Ox 17 128/79 H 97 09/24/18 05:31 09/24/18 05:31 09/24/18 05:31 Intake & Output 09/22/18 09/23/18 09/24/18 11:59 11:59 11:59 Output Total 650 Balance -650 Weight 94.7 kg General appearance: PRESENT: cooperative, mild distress, morbidly obese Head exam: PRESENT: atraumatic, normocephalic Eye exam: PRESENT: conjunctiva pink, EOMI, PERRLA. ABSENT: scleral icterus Ear exam: PRESENT: normal external ear exam Mouth exam: PRESENT: moist, tongue midline Neck exam: ABSENT: carotid bruit, JVD, lymphadenopathy, thyromegaly Respiratory exam: PRESENT: accessory muscle use, crackles, decreased breath sounds, prolonged expiratory phas, retraction, rhonchi Cardiovascular exam: PRESENT: irregular rhythm, +S1, +S2, tachycardia Pulses: PRESENT: normal dorsalis pedis pul Vascular exam: PRESENT: normal capillary refill GI/Abdominal exam: PRESENT: hypoactive bowel sounds, normal bowel sounds, soft. ABSENT: distended, guarding, mass, organolmegaly, rebound, tenderness Rectal exam: PRESENT: deferred Extremities exam: PRESENT: full ROM, +1 edema. ABSENT: calf tenderness, c lubbing, pedal edema Neurological exam: PRESENT: alert, awake, oriented to person, oriented to place, oriented to time, oriented to situation, CN II-XII grossly intact. ABSENT: motor sensory deficit Psychiatric exam: PRESENT: appropriate affect, normal mood. ABSENT: homicidal ideation, suicidal ideation Skin exam: PRESENT: dry, intact, warm. ABSENT: cyanosis, rash Results Laboratory Results: 09/24/18 09/24/18 09/24/18 00:38 00:38 02:35 WBC 17.4 H RBC 3.62 L Hgb 11.0 L Hct 33.7 L MCV 93 MCH 30.5 MCHC 32.8 RDW 14.7 H Plt Count 475 H Seg Neutrophils % Not Reportable Lymphocytes % Not Reportable Monocytes % Not Reportable Eosinophils % Not Reportable Basophils % Not Reportable Absolute Neutrophils Not Reportable Absolute Lymphocytes Not Reportable Absolute Monocytes Not Reportable Absolute Eosinophils Not Reportable Absolute Basophils Not Reportable VBG pH 7.50 H VBG pCO2 34.3 L VBG HCO3 26.4 VBG Base Excess 3.4 Sodium 135.4 L Potassium 5.0 Chloride 98 Carbon Dioxide 32 H Anion Gap 5 BUN 24 H Creatinine 0.84 Est GFR ( Amer) > 60 Est GFR (Non-Af Amer) > 60 Glucose 134 H Calcium 9.4 Total Bilirubin 1.1 AST 61 H ALT 35 Alkaline Phosphatase 89 Total Protein 7.1 Albumin 3.9 Urine Color Urine Appearance Urine pH Ur Specific [place] Urine Protein Urine Glucose (UA) Urine Ketones Urine Blood Urine Nitrite Ur Leukocyte Esterase Urine WBC (Auto) 09/24/18 02:35 WBC RBC Hgb Hct MCV MCH MCHC RDW Plt Count Seg Neutrophils % Lymphocytes % Monocytes % Eosinophils % Basophils % Absolute Neutrophils Absolute Lymphocytes Absolute Monocytes Absolute Eosinophils Absolute Basophils VBG pH VBG pCO2 VBG HCO3 VBG Base Excess Sodium Potassium Chloride Carbon Dioxide Anion Gap BUN Creatinine Est GFR ( Amer) Est GFR (Non-Af Amer) Glucose Calcium Total Bilirubin AST ALT Alkaline Phosphatase Total Protein Albumin Urine Color YELLOW Urine Appearance CLEAR Urine pH 7.0 Ur Specific [place] 1.011 Urine Protein NEGATIVE Urine Glucose (UA) NEGATIVE Urine Ketones NEGATIVE Urine Blood NEGATIVE Urine Nitrite NEGATIVE Ur Leukocyte Esterase NEGATIVE Urine WBC (Auto) 0 09/24/18 09/24/18 09/24/18 00:38 00:38 03:01 Creatine Kinase 37 CK-MB (CK-2) 1.67 Troponin I 0.074 0.078 NT-Pro-B Natriuret Pep 10750 H Impressions: Chest X-Ray 09/24/18 00:27 IMPRESSION: Moderate mixed interstitial and airpace opacities. Differential diagnosis includes pulmonary edema, multifocal pneumonia, and chronic interstitial lung disease. Recommend CR/CT surveillance including at 7-12 weeks following initiation of any clinically warranted therapy. Assessment & Plan - Diagnosis (1) Hospital-acquired pneumonia Is this a current diagnosis for this admission?: Yes Plan: Patient received treatment for influenza pneumonia 6 days ago while hospitalized and was initially improved however had a significant worsening over the last 3 days. Will treat for nosocomial pneumonia. Pneumonia care set deployed. Incentive spirometry. Follow-up CBC and blood culture (2) New onset of congestive heart failure Is this a current diagnosis for this admission?: Yes Plan: Likely secondary to #1, uncontrolled hypertension and decompensated obstructive sleep apnea. BiPAP and blood pressure control initiated. (3) Obstructive sleep apnea Is this a current diagnosis for this admission?: Yes Plan: BiPAP. - Time Time Spent: 50 to 70 Minutes - Inpatient Certification Medical Necessity: Need Close Monitoring Due to Risk of Patient Decompensation
[2018-09-24 06:58] LABS: ABSOLUTE LYMPHOCYTES# (MANUAL) 0.2 10^3/uL (0.5-4.7); ABSOLUTE MONOCYTES # (MANUAL) 0.5 10^3/uL (0.1-1.4); ABSOLUTE NEUTROPHILS# (MANUAL) 16.3 10^3/uL (1.7-8.2); BASOPHILS % (MANUAL) 0 % (0-2); EOSINOPHILS % (MANUAL) 0 % (0-6); LYMPHOCYTES % (MANUAL) 1 % (13-45); MONOCYTES % (MANUAL) 3 % (3-13); SEGMENTED NEUTROPHILS % (MAN) 96 % (42-78); TOTAL CELLS COUNTED 100
[2018-09-24 07:00] LABS: ANISOCYTOSIS SLIGHT; OVALOCYTES SLIGHT; PLATELET COMMENT ADEQUATE; POIKILOCYTOSIS SLIGHT; TOXIC GRANULATION SLIGHT
--- NOTE | 2018-09-24 07:00 | EKG REPORT ---
SEVERITY:- ABNORMAL ECG - A FIB LEFT AXIS DEVIATION ANTERIOR INFARCT, AGE INDETERMINATE : Confirmed by: Baltazar Mcnulty 24-Sep-2018 06:59:26
--- NOTE | 2018-09-24 07:01 | EKG REPORT ---
SEVERITY:- ABNORMAL ECG - PROBABLE SINUS WITH FREQUENT APCs, CANNOT R/O A FIB, REC REPEAT EKG LEFT AXIS DEVIATION ANTERIOR INFARCT, AGE INDETERMINATE : Confirmed by: Baltazar Mcnulty 24-Sep-2018 07:01:11
[2018-09-24 07:02] LABS: THYROID STIMULATING HORMONE 3.49 uIU/mL (0.47-4.68)
[2018-09-24] MEDS: IPRATROPIUM/ALBUTEROL 0.5-2.5 MG/3 ML AMPUL NEB SCH ×3 (08:05→23:43)
[2018-09-24 10:22] LABS: ARTERIAL BLOOD BASE EXCESS 8.5 mmol/L; ARTERIAL BLOOD H2CO3 1.38 mmol/L (1.05-1.35); ARTERIAL BLOOD O2 SATURATION 96.1 % (94-98); ARTERIAL BLOOD PCO2 45.9 mmHg (35-45); ARTERIAL BLOOD PH 7.48 (7.35-7.45); ARTERIAL BLOOD PO2 77.6 mmHg (80-100); ARTERIAL BLOOD TOTAL CO2 34.4 mmol/L (21-25)
[2018-09-24 10:23] LABS: ARTERIAL BLOOD FIO2 30%
[2018-09-24] MEDS: CEFEPIME 2 GM/D5W RTU 2 GM/50 ML RTUPB IV SCH ×2 (11:45→21:07)
[2018-09-24 16:03] LABS: ARTERIAL BLOOD BASE EXCESS 10.6 mmol/L; ARTERIAL BLOOD FIO2 32%; ARTERIAL BLOOD H2CO3 1.63 mmol/L (1.05-1.35); ARTERIAL BLOOD HCO3 36.2 mmol/L (20-24); ARTERIAL BLOOD O2 SATURATION 97.2 % (94-98); ARTERIAL BLOOD PCO2 54.2 mmHg (35-45); ARTERIAL BLOOD PH 7.44 (7.35-7.45); ARTERIAL BLOOD TOTAL CO2 37.8 mmol/L (21-25)
--- NOTE | 2018-09-24 18:16 | Progress Note ---
Provider Note Provider Note: patient admitted after midnight- please see H&P for full A&P went to see patient briefly at bedside- she's sitting up- tells me "i feel much much better now". daughter at bedside. tells me her legs are swollen- tells me she had stent placed recently at [facility] and was there for over a week- i have asked our nursing to get records. she has no complaints at this time. she denies chest pain, SOB, abdominal pain, n/v or dizziness. she's on oxygen at home c/w ABx for suspected HCAP will consider given lasix as needed for fluid overload repeat labs in AM will f/u with patient in AM
[2018-09-24] MEDS: FLUTICASONE NASAL SPRAY 50 MCG/SPRY 120 SPRAY/16 GM NASL SCH (21:07)
[2018-09-24] MEDS: VANCOMYCIN HCL 750 MG in DEXTROSE 5%-WATER 250 ML IV SCH (21:08)
[2018-09-25 05:03] LABS: ABSOLUTE LYMPHOCYTES (AUTO) 0.9 10^3/uL (0.5-4.7); ABSOLUTE MONOCYTES (AUTO) 1.2 10^3/uL (0.1-1.4); ABSOLUTE NEUT (AUTO) 12.9 10^3/uL (1.7-8.2); BASOPHILS % (AUTO) 0.1 % (0-2); EOSINOPHILS % (AUTO) 0.1 % (0-6); HEMATOCRIT 28.6 % (36.0-47.0); HEMOGLOBIN 9.7 g/dL (12.0-15.5); LYMPHOCYTES % (AUTO) 5.9 % (13-45); MEAN CORPUSCULAR HEMOGLOBIN 31.3 pg (27.0-33.4); MEAN CORPUSCULAR VOLUME 92 fl (80-97); MONOCYTES % (AUTO) 8.2 % (3-13); PLATELET COUNT 350 10^3/uL (150-450); RED BLOOD COUNT 3.11 10^6/uL (3.72-5.28); RED CELL DISTRIBUTION WIDTH 14.4 % (11.5-14.0); SEGMENTED NEUTROPHILS % (AUTO) 85.7 % (42-78); TOTAL CELLS COUNTED % (AUTO) 100 %
[2018-09-25] MEDS: HEPARIN SOD (PORCINE) 5,000 UNIT/ML 1 ML SYRINGE SUBCUT SCH (05:10)
[2018-09-25 05:40] LABS: ALANINE AMINOTRANSFERASE 35 U/L (9-52); ALBUMIN 3.4 g/dL (3.5-5.0); ALKALINE PHOSPHATASE 81 U/L (38-126); ANION GAP 5 (5-19); ASPARTATE AMINO TRANSFERASE 24 U/L (14-36); BILIRUBIN,DIRECT 0.4 mg/dL (0.0-0.4); BILIRUBIN,TOTAL 1.1 mg/dL (0.2-1.3); BLOOD UREA NITROGEN 24 mg/dL (7-20); CARBON DIOXIDE 33 mmol/L (22-30); CHLORIDE 98 mmol/L (98-107); GLUCOSE 110 mg/dL (75-110); POTASSIUM 4.2 mmol/L (3.6-5.0); SODIUM 135.9 mmol/L (137-145); TOTAL PROTEIN 5.9 g/dL (6.3-8.2)
[2018-09-25] MEDS: IPRATROPIUM/ALBUTEROL 0.5-2.5 MG/3 ML AMPUL NEB SCH ×2 (08:30→16:09)
[2018-09-25] MEDS ORDERED: MORPHINE SULFATE 10 MG/ML INJ IV PRN (09:14)
[2018-09-25] MEDS ORDERED: NITROGLYCERIN 0.4 MG/TAB 25 TAB/BOTTLE ONE (09:16)
[2018-09-25] MEDS ORDERED: MORPHINE SULFATE 10 MG/ML INJ ONE (09:17)
[2018-09-25] MEDS: AMIODARONE HCL 200 MG TABLET PO SCH (09:40)
[2018-09-25] MEDS: CLOPIDOGREL BISULFATE 75 MG TABLET PO SCH (09:41)
[2018-09-25] MEDS: ASPIRIN 81 MG TABLET, ENT COATED PO SCH (09:41)
[2018-09-25] MEDS: APIXABAN 5 MG TABLET PO SCH ×2 (09:41→23:44)
--- NOTE | 2018-09-25 09:43 | RADIOLOGY REPORT (SQ) ---
EXAM DESCRIPTION: CHEST SINGLE VIEW COMPLETED DATE/TIME: 09/25/2018 9:23 am REASON FOR STUDY: chest pain COMPARISON: 09/24/2018 EXAM PARAMETERS: NUMBER OF VIEWS: One view. TECHNIQUE: Single frontal radiographic view of the chest acquired. RADIATION DOSE: NA LIMITATIONS: None. FINDINGS: LUNGS AND PLEURA: Lungs demonstrate grossly stable mixed interstitial and airspace opaciti es greatest within the left mid lung. No significant pleural effusion. No pneumothorax. MEDIASTINUM AND HILAR STRUCTURES: No masses. Contour normal. HEART AND VASCULAR STRUCTURES: Stable heart size. Atherosclerotic aorta. BONES: No acute findings. HARDWARE: None in the chest. OTHER: No other significant finding. IMPRESSION: Grossly stable mixed interstitial and alveolar opacities bilaterally. TECHNICAL DOCUMENTATION: JOB ID: [id number] [employer]- All Rights Reserved Reading location - IP/workstation name: [email or web address]
[2018-09-25] MEDS: FLUTICASONE NASAL SPRAY 50 MCG/SPRY 120 SPRAY/16 GM NASL SCH ×2 (09:44→23:45)
[2018-09-25] MEDS: CEFEPIME 2 GM/D5W RTU 2 GM/50 ML RTUPB IV SCH ×2 (09:44→23:45)
--- NOTE | 2018-09-25 09:47 | PDOC PROGRESS REPORT ---
Subjective Progress Note for:: 09/25/18 Subjective:: c/o chest pain - center of chest- pressure like- states its not like her chest pain that she had when she had a Heart attack. denies sob, jaw pain, dizziness, abdominal pain, or n/v. Reason For Visit: PNEUMONIA,DIASTOLIC HF Physical Exam Vital Signs: Temp Pulse Resp BP Pulse Ox 98.5 F 101 H 22 H 140/55 H 91 L 09/25/18 08:57 09/25/18 08:57 09/25/18 08:57 09/25/18 08:57 09/25/18 08:57 Intake & Output 09/24/18 09/25/18 09/26/18 06:59 06:59 06:59 Intake Total 1655 Output Total 650 1200 Balance -650 455 Weight 208 lb 12.444 oz 459 lb 10.621 oz General appearance: PRESENT: no acute distress Head exam: PRESENT: atraumatic, normocephalic Eye exam: PRESENT: EOMI. ABSENT: conjunctival injection, scleral icterus Ear exam: PRESENT: normal external ear exam Mouth exam: PRESENT: moist, tongue midline Neck exam: ABSENT: tracheal deviation Respiratory exam: PRESENT: clear to auscultation maci, symmetrical Cardiovascular exam: PRESENT: +S1, +S2 Pulses: PRESENT: +1 pedal pulses bilateral GI/Abdominal exam: PRESENT: normal bowel sounds, soft. ABSENT: tenderness Extremities exam: PRESENT: pedal edema - minimal bilaterally Neurological exam: PRESENT: alert, awake, oriented to person, oriented to place, oriented to time, oriented to situation, CN II-XII grossly intact Skin exam: PRESENT: dry, warm Results Laboratory Results: 09/25/18 04:35 09/25/18 04:35 09/24/18 09/24/18 09/25/18 10:05 14:30 04:35 WBC 15.0 H RBC 3.11 L Hgb 9.7 L Hct 28.6 L MCV 92 MCH 31.3 MCHC 34.0 RDW 14.4 H Plt Count 350 Seg Neutrophils % 85.7 H Lymphocytes % 5.9 L Monocytes % 8.2 Eosinophils % 0.1 Basophils % 0.1 Absolute Neutrophils 12.9 H Absolute Lymphocytes 0.9 Absolute Monocytes 1.2 Absolute Eosinophils 0.0 Absolute Basophils 0.0 Carbonic Acid 1.38 H 1.63 H HCO3/H2CO3 Ratio 23:1 22:1 ABG pH 7.48 H 7.44 ABG pCO2 45.9 H 54.2 H ABG pO2 77.6 L 93.0 ABG HCO3 33.0 H 36.2 H ABG O2 Saturation 96.1 97.2 ABG Base Excess 8.5 10.6 FiO2 30% 32% Sodium Potassium Chloride Carbon Dioxide Anion Gap BUN Creatinine Est GFR ( Amer) Est GFR (Non-Af Amer) Glucose Calcium Magnesium Total Bilirubin AST ALT Alkaline Phosphatase Total Protein Albumin 09/25/18 04:35 WBC RBC Hgb Hct MCV MCH MCHC RDW Plt Count Seg Neutrophils % Lymphocytes % Monocytes % Eosinophils % Basophils % Absolute Neutrophils Absolute Lymphocytes Absolute Monocytes Absolute Eosinophils Absolute Basophils Carbonic Acid HCO3/H2CO3 Ratio ABG pH ABG pCO2 ABG pO2 ABG HCO3 ABG O2 Saturation ABG Base Excess FiO2 Sodium 135.9 L Potassium 4.2 Chloride 98 Carbon Dioxide 33 H Anion Gap 5 BUN 24 H Creatinine 0.96 Est GFR ( Amer) > 60 Est GFR (Non-Af Amer) 56 L Glucose 110 Calcium 9.0 Magnesium 1.9 Total Bilirubin 1.1 AST 24 ALT 35 Alkaline Phosphatase 81 Total Protein 5.9 L Albumin 3.4 L 09/24/18 09/24/18 09/24/18 00:38 00:38 03:01 Creatine Kinase 37 CK-MB (CK-2) 1.67 Troponin I 0.074 0.078 NT-Pro-B Natriuret Pep 41080 H Assessment & Plan - Diagnosis (1) Hospital-acquired pneumonia Is this a current diagnosis for this admission?: Yes Plan: she was recently admitted in [facility] for chest pain, AZ and stents placement her patient. pending records. she's on cefepime and vanco for now. will get MRSA screen- if she neg then we can d/c vanco. at [facility] she was diagnosed with flu and pneumonia and had been on amoxicillin after discharge. (2) Obstructive sleep apnea Is this a current diagnosis for this admission?: Yes Plan: noted- will likely need cpap at night (3) Hypertension Qualifiers: Hypertension type: unspecified secondary hypertension Qualified Code(s): I15.9 - Secondary hypertension, unspecified Is this a current diagnosis for this admission?: Yes Plan: stable, noted (4) Atrial fibrillation Qualifiers: Atrial fibrillation type: paroxysmal Qualified Code(s): I48.0 - Paroxysmal atrial fibrillation Is this a current diagnosis for this admission?: Yes Plan: she tells me she was in Atrial fib at [facility] about 2-3 weeks- per patient she was going to get cardioverted but she converted to sinus on her own- states she goes in and out of atrial fib. her amio was not started after admission- med rec was pending- i have restarted her home meds of amio, eliquis, plavix and ASA. (5) CAD (coronary artery disease) Is this a current diagnosis for this admission?: Yes Plan: per patient she was in [facility] about 2-3 weeks ago- had AZ and had ?stents place. i have ordered her records-still pending. will consult cardiology (6) New onset of congestive heart failure Is this a current diagnosis for this admission?: Yes Plan: i do not appreciate much edema of the LE- per patient she's volume overloaded. she had ECHO at [facility] within last month when she as admitted. i have [facility] records- still pending. she had one dose of lasix IV 20mg. without knowing her ECHO results it is difficult to start her on lasix scheduled. will monitor her volume status. CXR ordered and pending read this morning. (7) Chest pain Qualifiers: Chest pain type: unspecified Qualified Code(s): R07.9 - Chest pain, unspecified Is this a current diagnosis for this admission?: Yes Plan: having chest pain this morning- got EKG, Chest xray and troponin stat. gave her 1mg IV morphine and Nitro stat. her home meds were not ordered on admission- i have reordered her home meds of amio, plavix, eliquis, statin, and ASA. will consult cardiology for assistance. - Time Time Spent with patient: 35 or more minutes
[2018-09-25] MEDS ORDERED: (PENDING PHARMACY ID) (Ranitidine Hcl [Zantac 150 Mg Tablet] 150 MG) PO SCH (10:00)
[2018-09-25] MEDS ORDERED: CELECOXIB 200 MG CAPSULE PO SCH ×2 (10:00)
[2018-09-25] MEDS: NITROGLYCERIN 0.4 MG/TAB 25 TAB/BOTTLE SL PRN ×2 (10:19→20:22)
[2018-09-25] MEDS: VANCOMYCIN HCL 750 MG in DEXTROSE 5%-WATER 250 ML IV SCH ×2 (10:25→23:46)
[2018-09-25] MEDS: FAMOTIDINE 20 MG TABLET PO SCH ×2 (10:53→23:44)
[2018-09-25 11:15] LABS: CREATINE KINASE MB 1.63 ng/mL (<4.55); TROPONIN I 0.074 ng/mL
[2018-09-25] MEDS: ALPRAZOLAM 0.25 MG TABLET PO PRN (14:45)
[2018-09-25] MEDS: GABAPENTIN 300 MG CAPSULE PO SCH (17:13)
--- NOTE | 2018-09-25 19:36 | EKG REPORT ---
SEVERITY:- DEFECTIVE ECG - VENTRICULAR PREMATURE COMPLEX LEFT ANTERIOR FASCICULAR BLOCK ANTERIOR INFARCT, AGE INDETERMINATE MOST LIKELY SINUS RHYTHM.BASELINE ARTIFACT.REPEAT EKG. : Confirmed by: Julia Stoll MD 25-Sep-2018 19:35:33
[2018-09-25] MEDS: ACETAMINOPHEN 325 MG TABLET PO PRN (20:30)
[2018-09-25] MEDS ORDERED: ROPINIROLE HCL 4 MG PO SCH (22:00)
--- NOTE | 2018-09-25 23:27 | PDOC CONSULTATION ---
Consultation-Blank Consultation: CARDIOLOGY CONSULTATION by Dr. Julia Stoll. Patient at seen at 10:30 AM on 09/25/2018. 60 minutes spent on this patient, with more than 50% of time spent in direct patient care. REASON FOR CONSULTATION: Patient had a history of LAD stent after unstable angina with chest pain. HISTORY OF PRESENT ILLNESS: Patient is a 77-year-old female with known history of hypertension, history of asthma, history of sleep apnea and hypothyroidism, and history of coronary artery disease who recently about 7 days prior to this admission was admitted to [facility] with chest pain and symptoms suggestive of unstable angina. It is not clear if she had a non-ST elevation [place] or not. At that time she had a cardiac catheterization and had a stent placed in the distal LAD. The hospital course was complicated by her developing influenza pneumonia for which she had treatment, and also had atrial fibrillation which converted to sinus rhythm on amiodarone. The patient states since the past 3 days prior to this admission here and also she started having increasing shortness of breath with wheezing and cough which is nonproductive. She has orthopnea but no PND. She came she had wheezing, and cough which is nonproductive of any sputum. There is no hemoptysis. There is no pleuritic chest pain. There is no fever chills or rigors. And the patient has been admitted and was found to have a high white count, with leukocytosis, and chest x-ray consistent with bilateral pneumonia with superadded pneumonia congestive heart failure. She was treated with Lasix breathing treatments antibiotics. The patient this morning states had some chest pain in the lower front of the chest which lasted for about few for a few hours. She states that movements of the extremities or the chest wall did not increase the pain. She states that this chest pain which is like a heavy sens ation was different from her symptoms that led to her stent placement in the LAD. At that time she had left bilateral arm pain which led to having a stent to the LAD. The patient states that she was given 3 units sublingual nitroglycerin and also morphine with no relief. Subsequently 45 minutes after the third nitroglycerin the pain spontaneous subsided. She definitely states that this chest pain is different from her other pain. She is she does have shortness of breath. She does have orthopnea but no PND and no leg edema.. She denies any fevers or chills or chills. PAST MEDICAL HISTORY: History of coronary artery disease as per patient she states that she had an myocardial infarction about 7 days ago [not documented by her by me go to medical records obtained] and had a stent placed in the distal LAD. She also had proximal atrial fibrillation converted to sinus rhythm on amiodarone. She has a history of hypertension. She has a history of hypothyroidism. She has a history of asthma and also has sleep apnea but is noncompliant with CPAP. She has no history of TIA or CVA. She does seem to have some depression and anxiety. Although there is no prior history of chronic kidney disease her GFR today is 56 from 60 mL on admission. This may be due to overdiuresis. The patient recently was diagnosed with influenza pneumonia and treated for that in [facility]. Past surgical history cholecystectomy hysterectomy, she had a cardiac catheterization and stent in 2006 at [facility]. She also had most likely restenosis in stenting of the distal LAD about 7 days ago in [facility]. FAMILY HISTORY is positive for coronary artery disease and multiple members of the family. ALLERGIES: She has no known allergies. SOCIAL HISTORY: The patient is a non-smoker. There is no history of EtOH abuse. DISPOSITION the patient is a full code her daughter is her surrogate healthcare decision maker. REVIEW OF SYSTEMS: CONSTITUTIONAL: Complains of generalized fatigue and weakness, but no fever chills or rigors. HEAD: Denies headaches or head injury. EYES: No history of amblyopia or diplopia, and no amaurosis fugax. EARS: No history of hearing loss. No history of tinnitus. No history of vertigo. NOSE: No history of hayfever. No history of nosebleeds. MOUTH: No history of altered taste sensation. No ulcers in the mouth. THROAT: No history of odynophagia or dysphagia. No history of recurrent sore throats. SKIN: No history of psoriasis. No history of pruritus. No history of yellowish discoloration of the skin. No history of skin cancer. NECK: No history of neck pain. No swelling in the neck. LUNGS: History of asthma and COPD. Recent influenza pneumonia. Patient now admitted with bilateral pneumonia. History of sleep apnea noncompliant with CPAP. No history of pulmonary embolism. No history of pleuritic chest pain or hemoptysis. History of wheezing and shortness of breath with orthopnea. History of cough which is nonproductive of any sputum. HEART: History of hypertension present history of proximal atrial fibrillation present. History of coronary artery disease history of stents as mentioned earlier. Noncardiac chest pain this admission. Her anginal symptoms are bilateral arm pain and weakness and shortness of breath. There is orthopnea present but no PND or leg edema. No history of congestive heart failure. No history of syncope. No recurrence of atrial fibrillation. No history of sudden . No history of leg edema. GI: No history of GI bleed. No history of fatty food intolerance. No history of ascites. No history of jaundice. No history of altered bowel movements. No history of peptic ulcer disease or GERD. No history of GI bleed. RENAL: No prior history of chronic kidney disease, but her GFR today is slightly reduced at 56 mL/min. This may be due to overdiuresis. No symptoms a UTI. No history of hematuria pyuria or dysuria. MUSCULOSKELETAL: Denies arthritis or collagen vascular disease. ENDOCRINE: Denies diabetes mellitus. History of hypothyroidism on replacement. No polydipsia polyuria. No history of heat or cold intolerance. No hirsutism. No history of excessive sweating. HADOOP CONSULTANT: No history of TIA CVA no history of headaches migraines or seizures. PSYCHIATRIC: Patient appears to be slightly anxious. Also appears to be depressed. No history of suicidal ideation. No history of homicidal ideation. VASCULAR: No history of calf or buttock claudication. No history of peripheral vascular disease. No history of DVT. Hematological: No history of bleeding diathesis. No history of cardiac disorders. REVIEW of her recent medical records from [facility]: History of stenting in the distal LAD, most likely [id number]. Patient on dual antiplatelet therapy. Her echocardiogram showed normal left atrial systolic function., With LV diastolic dysfunction. No aortic stenosis or aortic regurgitation. There is trivial pericardial effusion seen. There is trivial tricuspid regurgitation and no pulmonary hypertension. There is trace mitral regurgitation. And mitral valve is structurally normal. PHYSICAL EXAMINATION: The patient is moderately obese. In no acute distress. At present has no chest pain. She is well-groomed. Selected Entries 09/25/18 10:38 Temperature 98.5 F Temperature Oral Source Pulse Rate 89 Respiratory 18 Rate Blood Pressure 114/45 L Blood Pressure 68 Mean BP Location Left Arm BP Position Supine O2 Sat by Pulse 95 Oximetry Oxygen Flow 5.00 Rate Oxygen Delivery Nasal Cannula Method HEAD: Head is atraumatic normocephalic. EYES: Pupils are equal round regular react to light and accommodation. Extraocular movements are normal. There is no conjunctival pallor. There is no scleral icterus. EARS: Tympanic membranes are intact. External auditory canals are clear. NOSE: There is no deviated nasal septum. There is no inflammation and there is a mucous membrane. MOUTH: Mucous membranes of the mouth are slightly dry. Tongue is slightly dry. There is no ulcers in the mouth. There is no bleeding from the gums. THROAT: There is no redness of the oropharynx. There is no exudates. SKIN: There is no skin lesions or skin rashes. There is no petechia or ecchymosis. NECK: Is supple. There is no JVD carotids are equal there is no bruit. There is no lymphadenopathy. There is no goiter. There is no accessory muscles of respiration use. Trachea central. LUNGS: There is bilateral dry crackles present there is no rales of CHF. There is no chest wall tenderness. There is no rhonchi or wheezing. HEART: S1-S2 is heard there is no S3 gallop. There is no S4 gallop. There is systolic murmur left sternal border and the apex without radiation. There is no rub. ABDOMEN: Is obese. Nontender. Bowel sounds are well heard. There is no hepatosplenomegaly. THERE IS NO REBOUND GUARDING OR RIGIDITY. EXTREMITIES: FEMORALS ARE SLIGHTLY DIMINISHED THERE IS NO FEMORAL BRUITS LEG PULSES ARE WELL FELT. THERE IS NO PEDAL EDEMA THERE IS NO DVT OR CELLULITIS PRESENT. THERE IS NO CYANOSIS OR CLUBBING. CAPILLARY REFILL IS NORMAL. HADOOP CONSULTANT: THE PATIENT IS CONSCIOUS AWAKE ALERT ORIENTED X3 WITH NO FOCAL DEFICITS. Psychiatric: The patient appears to be slightly anxious and depressed. But she is in no major distress.. In spite of this a judgment and insight are intact. Affect is normal. 09/24/18 09/24/18 09/24/18 00:38 03:01 06:00 WBC RBC Hgb Hct MCV MCH MCHC RDW Plt Count Total Counted Seg Neutrophils % Carbonic Acid HCO3/H2CO3 Ratio ABG pH ABG pCO2 ABG pO2 ABG HCO3 ABG Total CO2 ABG O2 Saturation ABG Base Excess FiO2 Sodium Potassium Chloride Carbon Dioxide Anion Gap BUN Creatinine Est GFR (Non-Af Amer) Glucose Calcium Total Bilirubin Direct Bilirubin Neonat Total Bilirubin Neonat Direct Bilirubin Neonat Indirect Bili AST ALT Alkaline Phosphatase Creatine Kinase CK-MB (CK-2) 1.67 Troponin I 0.074 0.078 NT-Pro-B Natriuret Pep 70468 H Total Protein Albumin TSH 3.49 Free T4 1.50 09/24/18 09/24/18 09/24/18 06:00 06:00 10:05 WBC 17.0 H RBC 3.39 L Hgb 10.4 L Hct 31.4 L MCV 93 MCH 30.7 MCHC 33.1 RDW 14.5 H Plt Count 399 Total Counted 100 Seg Neutrophils % Carbonic Acid 1.38 H HCO3/H2CO3 Ratio 23:1 ABG pH 7.48 H ABG pCO2 45.9 H ABG pO2 77.6 L ABG HCO3 33.0 H ABG Total CO2 34.4 H ABG O2 Saturation 96.1 ABG Base Excess 8.5 FiO2 30% Sodium 136.9 L Potassium 4.0 D Chloride Carbon Dioxide 29 Anion Gap 11 BUN 22 H Creatinine 0.90 Est GFR (Non-Af Amer) > 60 Glucose 184 H Calcium 9.1 Total Bilirubin 1.2 Direct Bilirubin 0.4 Neonat Total Bilirubin Not Reportable Neonat Direct Bilirubin Not Reportable Neonat Indirect Bili Not Reportable AST 27 ALT 41 Alkaline Phosphatase 92 Creatine Kinase CK-MB (CK-2) Troponin I NT-Pro-B Natriuret Pep Total Protein 6.2 L Albumin 3.5 TSH Free T4 09/24/18 09/25/18 09/25/18 14:30 04:35 04:35 WBC 15.0 H RBC 3.11 L Hgb 9.7 L Hct 28.6 L MCV 92 MCH 31.3 MCHC 34.0 RDW 14.4 H Plt Count 350 Total Counted Seg Neutrophils % 85.7 H Carbonic Acid 1.63 H HCO3/H2CO3 Ratio 22:1 ABG pH 7.44 ABG pCO2 54.2 H ABG pO2 93.0 ABG HCO3 36.2 H ABG Total CO2 37.8 H ABG O2 Saturation 97.2 ABG Base Excess 10.6 FiO2 32% Sodium 135.9 L Potassium 4.2 Chloride 98 Carbon Dioxide 33 H Anion Gap 5 BUN 24 H Creatinine 0.96 Est GFR (Non-Af Amer) 56 L Glucose Calcium Total Bilirubin Direct Bilirubin Neonat Total Bilirubin Not Reportable Neonat Direct Bilirubin Not Reportable Neonat Indirect Bili Not Reportable AST 24 ALT 35 Alkaline Phosphatase 81 Creatine Kinase CK-MB (CK-2) Troponin I NT-Pro-B Natriuret Pep Total Protein 5.9 L Albumin 3.4 L TSH Free T4 09/25/18 09/25/18 09/25/18 10:13 10:13 19:16 WBC RBC Hgb Hct MCV MCH MCHC RDW Plt Count Total Counted Seg Neutrophils % Carbonic Acid HCO3/H2CO3 Ratio ABG pH ABG pCO2 ABG pO2 ABG HCO3 ABG Total CO2 ABG O2 Saturation ABG Base Excess FiO2 Sodium Potassium Chloride Carbon Dioxide Anion Gap BUN Creatinine Est GFR (Non-Af Amer) Glucose Calcium Total Bilirubin Direct Bilirubin Neonat Total Bilirubin Neonat Direct Bilirubin Neonat Indirect Bili AST ALT Alkaline Phosphatase Creatine Kinase 22 L CK-MB (CK-2) 1.63 Troponin I 0.074 0.073 NT-Pro-B Natriuret Pep Total Protein Albumin TSH Free T4 09/24/18 00:28 Ipratropium/Albuterol Sulfate [Duoneb 3 ml Ampul] 6 ml NEB NOW ONE 09/24/18 00:29 Methylprednisolone Sod Succ/Pf [Solu-Medrol Inj/Pf 125 mg/2 ml Sdv] 125 mg IV NOW ONE 09/24/18 01:17 Lorazepam [Ativan Inj 2 mg/1 ml Vial] 0.5 mg IV NOW ONE 09/24/18 01:42 Lorazepam [Ativan Inj 2 mg/1 ml Vial] 0.5 mg IV NOW ONE 09/24/18 01:47 Furosemide [Lasix Inj/Pf 20 mg/2 ml Sdv] 20 mg IV NOW ONE Nitroglycerin [Nitrol 2% Ointment 1Gm Packet] 1 gm TP NOW ONE 09/24/18 04:16 Piperacillin Sodium/Tazobactam [Zosyn Inj 3.375 gm Vial] 3.375 gm IV IVBAG (ED) ONE 09/24/18 04:35 Hydralazine HCl [Apresoline Inj/Pf 20 mg/1 ml Sdv] 10 mg IV Q6HP PRN Lactulose [Cephulac Syrup 20 gm/30 ml Udcup] 20 gm PO NOW ONE 09/24/18 04:38 Acetaminophen [Tylenol 325 mg Tablet] 650 mg PO Q4HP PRN Guaifenesin [Robitussin Syrup 200 mg/10 ml Ud Cup] 200 mg PO Q4HP PRN Ipratropium/Albuterol Sulfate [Duoneb 3 ml Ampul] 3 ml NEB [id number] PRN 09/24/18 05:00 Fluticasone Propionate [Flonase Nasal Zoe 50 Mcg/Zoe 16 gm] 2 spray NASL NOW ONE 09/24/18 05:15 Vancomycin HCl [Vancocin Inj 1000 mg Vial] 1,500 mg Dextrose 5%-Water [D5w 250 ml IV Soln] 250 ml IV NOW 09/24/18 05:30 Fluticasone Propionate [Flonase Nasal Zoe 50 Mcg/Zoe 16 gm] 120 spray .ROUTE .STK-MED ONE 09/24/18 06:00 Normal Saline [Saline Flush 2.5 ml Monoject Prefil Syrin] 2.5 ml IV Q8 09/24/18 08:00 Ipratropium/Albuterol Sulfate [Duoneb 3 ml Ampul] 3 ml NEB RTQ8 09/24/18 10:00 Cefepime 2 gm/D5w RTU [Maxipime RTU 2 gm-D5w 50 ml Premix Bag] 2 gm in 50 ml IV Q12 09/24/18 14:00 Flu Vacc [id number](6Mos Up)/Pf [Fluarix Adlt Quad Vac 0.5 ml Syr] 0.5 ml IM .DISCHARGE PRN 09/24/18 22:00 Fluticasone Propionate [Flonase Nasal Zoe 50 Mcg/Zoe 16 gm] 2 spray NASL Q12 Vancomycin HCl [Vancocin Inj 1000 mg Vial] 750 mg Dextrose 5%-Water [D5w 250 ml IV Soln] 250 ml IV Q12 09/25/18 09:14 Morphine Sulfate [Morphine 10 mg/ml Inj] 1 mg IV Q4HP PRN Nitroglycerin [Nitrostat 0.4 mg (1/150 Gr) Tabs 25/Bottle] 1 tab SL Q5MP PRN 09/25/18 09:16 Nitroglycerin [Nitrostat 0.4 mg (1/150 Gr) Tabs 25/Bottle] 25 tab .ROUTE .[facility] ONE 09/25/18 09:17 Morphine Sulfate [Morphine 10 mg/ml Inj] 10 mg .ROUTE .[facility] ONE 09/25/18 10:00 Amiodarone HCl [Cordarone 200 mg Tablet] 200 mg PO DAILY Apixaban [Eliquis 5 mg Tablet] 5 mg PO Q12 Aspirin [Ecotrin 81 mg EC Tablet] 81 mg PO DAILY Clopidogrel Bisulfate [Plavix 75 mg Tablet] 75 mg PO DAILY Famotidine [Pepcid 20 mg Tablet] 20 mg PO Q12 09/25/18 14:18 Alprazolam [Xanax 0.25 mg Tablet] 0.25 mg PO BIDP PRN 09/25/18 18:00 Gabapentin [Neurontin 300 mg Capsule] 600 mg PO QPM 09/25/18 22:00 Atorvastatin Calcium [Lipitor 40 mg Tablet] 40 mg PO QHS Ropinirole HCl [Requip 2 mg Tablet] 4 mg PO QHS IMPRESSION/RECOMMENDATION: 1. Noncardiac chest pain. 2. Acute hypercapnic and hypoxic respiratory failure: Improving 3. Bilateral pneumonia: Continue antibiotics. Would recommend switch to Xopenex instead of DuoNeb's. 4. History of coronary artery disease history of [place] in the past. History of LAD stent. Continue the patient and and dual antiplatelet therapy such as Plavix and aspirin. Would recommend adding a small dose of amlodipine 2.5 mg p.o. daily. Continue the patient sublingual nitroglycerin. 5. Paroxysmal atrial fibrillation: Patient on amiodarone. Continue the patient's Eliquis. 6. Hypertension: Seems to be well-controlled 7. Hypothyroidism: Continue thyroid replacement. 8. History of obstructive sleep apnea: Noncompliant to CPAP. 9. History of asthma: Uses nebulizer treatments as needed. 10. History of anxiety and depression: Continue anti-anxiolytics. 11. Mild prerenal azotemia: Would avoid diuretics. Gently rehydrate the patient orally. Medications reviewed. Management plan discussed with attending physicians, and also changes in medication discussed. Medical decision making is of a car of high complexity. 60 minutes spent on this patient, with more than 50% time spent in direct patient care. We will follow with you
[2018-09-25] MEDS: ROPINIROLE HCL 2 MG TABLET PO SCH (23:44)
[2018-09-25] MEDS: ATORVASTATIN CALCIUM 40 MG TABLET PO SCH (23:44)
[2018-09-26] MEDS: IPRATROPIUM/ALBUTEROL 0.5-2.5 MG/3 ML AMPUL NEB SCH ×3 (00:30→16:03)
[2018-09-26] MEDS: ACETAMINOPHEN 325 MG TABLET PO PRN ×2 (02:42→14:58)
[2018-09-26] MEDS: FAMOTIDINE 20 MG TABLET PO SCH ×2 (09:18→22:22)
[2018-09-26] MEDS: ASPIRIN 81 MG TABLET, ENT COATED PO SCH (09:19)
[2018-09-26] MEDS: CLOPIDOGREL BISULFATE 75 MG TABLET PO SCH (09:19)
[2018-09-26] MEDS: AMIODARONE HCL 200 MG TABLET PO SCH (09:19)
[2018-09-26] MEDS: AMLODIPINE BESYLATE 2.5 MG TABLET PO SCH (09:19)
[2018-09-26] MEDS: FLUTICASONE NASAL SPRAY 50 MCG/SPRY 120 SPRAY/16 GM NASL SCH ×2 (09:20→22:23)
[2018-09-26] MEDS: APIXABAN 5 MG TABLET PO SCH ×2 (09:20→22:22)
[2018-09-26] MEDS: CEFEPIME 2 GM/D5W RTU 2 GM/50 ML RTUPB IV SCH ×2 (09:21→22:21)
[2018-09-26 10:31] LABS: ABSOLUTE EOSINOPHILS # (AUTO) 0.1 10^3/uL (0.0-0.6); ABSOLUTE NEUT (AUTO) 7.8 10^3/uL (1.7-8.2); BASOPHILS % (AUTO) 0.3 % (0-2); EOSINOPHILS % (AUTO) 1.1 % (0-6); HEMATOCRIT 29.7 % (36.0-47.0); LYMPHOCYTES % (AUTO) 10.2 % (13-45); MEAN CORPUSCULAR HEMOGLOBIN 31.2 pg (27.0-33.4); MEAN CORPUSCULAR HGB CONC 33.7 g/dL (32.0-36.0); MEAN CORPUSCULAR VOLUME 93 fl (80-97); MONOCYTES % (AUTO) 9.6 % (3-13); PLATELET COUNT 292 10^3/uL (150-450); RED CELL DISTRIBUTION WIDTH 14.7 % (11.5-14.0); SEGMENTED NEUTROPHILS % (AUTO) 78.8 % (42-78); TOTAL CELLS COUNTED % (AUTO) 100 %; WHITE BLOOD COUNT 9.9 10^3/uL (4.0-10.5)
[2018-09-26] MEDS: VANCOMYCIN HCL 750 MG in DEXTROSE 5%-WATER 250 ML IV SCH (10:38)
[2018-09-26 10:54] LABS: ANION GAP 5 (5-19); BLOOD UREA NITROGEN 26 mg/dL (7-20); CALCIUM 8.9 mg/dL (8.4-10.2); CARBON DIOXIDE 32 mmol/L (22-30); CHLORIDE 97 mmol/L (98-107); GLUCOSE 120 mg/dL (75-110); POTASSIUM 3.6 mmol/L (3.6-5.0); SODIUM 134.1 mmol/L (137-145)
[2018-09-26 10:59] LABS: VANCOMYCIN,TROUGH 17.8 ug/mL (5.0-20.0)
[2018-09-26] MEDS: ALPRAZOLAM 0.25 MG TABLET PO PRN (16:46)
--- NOTE | 2018-09-26 17:35 | PDOC PROGRESS REPORT ---
Subjective Progress Note for:: 09/26/18 Subjective:: Saw patient at bedside today. She had no complaints of chest pain today. She states she had a good night. States that she said she is in the hospital again. Otherwise she denies shortness of breath, abdominal pain, nausea/vomiting or dizziness. I discussed with her about her pneumonia and our plan of care. Reason For Visit: PNEUMONIA,DIASTOLIC HF Physical Exam Vital Signs: Temp Pulse Resp BP Pulse Ox 99.4 F 81 16 127/63 H 93 09/26/18 15:41 09/26/18 16:03 09/26/18 16:03 09/26/18 15:41 09/26/18 16:03 Intake & Output 09/25/18 09/26/18 09/27/18 06:59 06:59 06:59 Intake Total 1655 1675 655 Output Total 1200 500 500 Balance 455 1175 155 Weight 459 lb 10.621 oz Results Laboratory Results: 09/26/18 10:03 09/26/18 10:03 09/26/18 09/26/18 09/26/18 10:03 10:03 10:03 WBC 9.9 RBC 3.20 L Hgb 10.0 L Hct 29.7 L MCV 93 MCH 31.2 MCHC 33.7 RDW 14.7 H Plt Count 292 Seg Neutrophils % 78.8 H Lymphocytes % 10.2 L Monocytes % 9.6 Eosinophils % 1.1 Basophils % 0.3 Absolute Neutrophils 7.8 Absolute Lymphocytes 1.0 Absolute Monocytes 1.0 Absolute Eosinophils 0.1 Absolute Basophils 0.0 Sodium 134.1 L Potassium 3.6 Chloride 97 L Carbon Dioxide 32 H Anion Gap 5 BUN 26 H Creatinine 0.95 0.95 Est GFR ( Amer) > 60 > 60 Est GFR (Non-Af Amer) 57 L 57 L Glucose 120 H Calcium 8.9 09/24/18 09/24/18 09/24/18 00:38 00:38 03:01 Creatine Kinase 37 CK-MB (CK-2) 1.67 Troponin I 0.074 0.078 NT-Pro-B Natriuret Pep 01950 H 09/25/18 09/25/18 09/25/18 10:13 10:13 19:16 Creatine Kinase 22 L CK-MB (CK-2) 1.63 Troponin I 0.074 0.073 NT-Pro-B Natriuret Pep Impressions: Chest X-Ray 09/25/18 08:57 IMPRESSION: Grossly stable mixed interstitial and alveolar opacities bilaterally. Assessment & Plan - Diagnosis (1) Hospital-acquired pneumonia Is this a current diagnosis for this admission?: Yes Plan: she was recently admitted in [facility] for chest pain, LA and stents placement her patient. pending records. she's on cefepime and today I will de-escalate her care and stop vancomycin. She tells me that at [facility] she was diagnosed with flu and pneumonia and had been on amoxicillin after discharge. (2) Obstructive sleep apnea Is this a current diagnosis for this admission?: Yes Plan: noted- will likely need cpap at night (3) Hypertension Qualifiers: Hypertension type: unspecified secondary hypertension Qualified Code(s): I15.9 - Secondary hypertension, unspecified Is this a current diagnosis for this admission?: Yes Plan: stable, noted, continue with antihypertensive regimen (4) Atrial fibrillation Qualifiers: Atrial fibrillation type: paroxysmal Qualified Code(s): I48.0 - Paroxysmal atrial fibrillation Is this a current diagnosis for this admission?: Yes Plan: Continue with amiodarone and Eliquis. She tells me she was in Atrial fib at [facility] about 2-3 weeks- per patient she was going to get cardioverted but she converted to sinus on her own- states she goes in and out of atrial fib. (5) CAD (coronary artery disease) Is this a current diagnosis for this admission?: Yes Plan: Continue with Plavix and aspirin. Per patient she was in [facility] about 2-3 weeks ago- had LA and had ?stents placed. i have ordered her records- still pending. I have consulted cardiology and I appreciate their assistance. (6) New onset of congestive heart failure Is this a current diagnosis for this admission?: Yes Plan: She is not on any diuretics at home-I do not appreciate much edema of the LE- per patient she's volume overloaded. she had ECHO at [facility] within last month when she as admitted. i have ordered records- still pending. she had one dose of lasix IV 20mg. without knowing her ECHO results it is difficult to start her on lasix scheduled. will monitor her volume status. Chest x-ray done yesterday showed mixed interstitial opacities-? Pulmonary edema (7) Chest pain Qualifiers: Chest pain type: unspecified Qualified Code(s): R07.9 - Chest pain, unspecified Is this a current diagnosis for this admission?: Yes Plan: Yesterday she did have some chest pain in the morning but which resolved with morphine and nitro. Continue with nitro as needed. We have restarted all her home meds and she had no repeat episodes of chest pain in the last 24 hours. (8) Acute and chronic respiratory failure with hypoxia Is this a current diagnosis for this admission?: Yes Plan: At home she was discharged on 2-3 L of oxygen after she left the hospital [facility] a few weeks ago. Here she is requiring a little bit more at 3-4 L. We will try to wean her off of the oxygen as much as we can back to her baseline of 2-3 L. I think her exacerbation secondary to pneumonia and hopefully once that her pneumonia resolved that she will feel better. Still also try to find her records for echocardiogram to evaluate her EF to see if she has heart failure or not.
[2018-09-26] MEDS ORDERED: POTASSIUM CHLORIDE 10 MEQ CAPSULE.ER PO ONE (18:10)
[2018-09-26] MEDS: GABAPENTIN 300 MG CAPSULE PO SCH (18:23)
--- NOTE | 2018-09-26 22:15 | Progress Note ---
Provider Note Provider Note: CARDIOLOGY PROGRESS NOTE by Dr. Julia Stoll on 09/26/2018. SUBJECTIVE: The patient continues to be short of breath and has orthopnea. She is on a BiPAP intermittently. She is now on nasal cannula. She does have occasional wheezing. She has cough but not able to produce any sputum. The patient has no anginal symptoms or chest pain cardiac or noncardiac. She has no PND. There is no leg edema. As per records from [facility] they recommended that the patient be on a short term of amiodarone. In view the patient's lung problems, would recommend discontinuing amiodarone since this could add to the patient's lung problems. The patient's troponin I is not consistent with a non-ST elevation FL. There is no heart failure on exam. There is no TIA CVA symptoms. PHYSICAL EXAMINATION: The patient is moderately obese. She appears to be chronically ill. Selected Entries 09/26/18 12:17 Temperature 98.9 F Temperature Oral Source Pulse Rate 82 Respiratory 16 Rate Blood Pressure 116/50 L Blood Pressure 72 Mean BP Location Left Arm BP Position Supine O2 Sat by Pulse 96 Oximetry Oxygen Flow 2.50 Rate Oxygen Delivery Nasal Cannula Method HEAD: Head is atraumatic normocephalic. EYES: Pupils are equal round regular react to light and accommodation. Extraocular movements are normal. There is no conjunctival pallor. There is no scleral icterus. EARS: Tympanic membranes are intact. External auditory canals are clear. NOSE: There is no deviated nasal septum. There is no inflammation and there is a mucous membrane. MOUTH: Mucous membranes of the mouth are slightly dry. Tongue is slightly dry. There is no ulcers in the mouth. There is no bleeding from the gums. THROAT: There is no redness of the oropharynx. There is no exudates. SKIN: There is no skin lesions or skin rashes. There is no petechia or ecchymosis. NECK: Is supple. There is no JVD carotids are equal there is no bruit. There is no lymphadenopathy. There is no goiter. There is no accessory muscles of respiration use. Trachea central. LUNGS: There is bilateral dry crackles present there is no rales of CHF. There is no chest wall tenderness. There is no rhonchi or wheezing. HEART: S1-S2 is heard there is no S3 gallop. There is no S4 gallop. There is systolic murmur left sternal border and the apex without radiation. There is no rub. ABDOMEN: Is obese. Nontender. Bowel sounds are well heard. There is no hepatosplenomegaly. THERE IS NO REBOUND GUARDING OR RIGIDITY. EXTREMITIES: FEMORALS ARE SLIGHTLY DIMINISHED THERE IS NO FEMORAL BRUITS LEG PULSES ARE WELL FELT. THERE IS NO PEDAL EDEMA THERE IS NO DVT OR CELLULITIS PRESENT. THERE IS NO CYANOSIS OR CLUBBING. CAPILLARY REFILL IS NORMAL. CORPORATE SPECIALIST: THE PATIENT IS CONSCIOUS AWAKE ALERT ORIENTED X3 WITH NO FOCAL DEFICITS. Psychiatric: The patient appears to be slightly anxious and depressed. But she is in no major distress.. In spite of this a judgment and insight are intact. Affect is normal 09/25/18 09/25/18 09/25/18 10:13 10:13 19:16 WBC RBC Hgb Hct MCV MCH MCHC RDW Plt Count Seg Neutrophils % Lymphocytes % Monocytes % Eosinophils % Basophils % Absolute Neutrophils Absolute Lymphocytes Absolute Monocytes Absolute Eosinophils Absolute Basophils Sodium Potassium Chloride Carbon Dioxide BUN Creatinine Est GFR (Non-Af Amer) Glucose Calcium Creatine Kinase 22 L CK-MB (CK-2) 1.63 Troponin I 0.074 0.073 09/26/18 09/26/18 10:03 10:03 WBC 9.9 RBC 3.20 L Hgb 10.0 L Hct 29.7 L MCV 93 MCH 31.2 MCHC 33.7 RDW 14.7 H Plt Count 292 Seg Neutrophils % 78.8 H Lymphocytes % 10.2 L Monocytes % 9.6 Eosinophils % 1.1 Basophils % 0.3 Absolute Neutrophils 7.8 Absolute Lymphocytes 1.0 Absolute Monocytes 1.0 Absolute Eosinophils 0.1 Absolute Basophils 0.0 Sodium 134.1 L Potassium 3.6 Chloride 97 L Carbon Dioxide 32 H BUN 26 H Creatinine 0.95 Est GFR (Non-Af Amer) 57 L Glucose 120 H Calcium 8.9 Creatine Kinase CK-MB (CK-2) Troponin I IMPRESSION/RECOMMENDATION: 1. Noncardiac chest pain. No evidence of non-ST elevation FL. 2. Acute hypercapnic and hypoxic respiratory failure: Improving 3. Bilateral pneumonia: Continue antibiotics. Would recommend switch to Xop enex instead of DuoNeb's. 4. History of coronary artery disease history of FL in the past. History of LAD stent. Continue the patient and and dual antiplatelet therapy such as Plavix and aspirin. Would recommend adding a small dose of amlodipine 2.5 mg p.o. daily. Continue the patient sublingual nitroglycerin. 5. Paroxysmal atrial fibrillation: Patient on amiodarone. Continue the patient's Eliquis. Would recommend discontinue the patient's amiodarone. Since in view of the patient's existing lung condition, amiodarone may provoke further pulmonary toxicity. 6. Hypertension: Seems to be well-controlled 7. Hypothyroidism: Continue thyroid replacement. 8. History of obstructive sleep apnea: Noncompliant to CPAP. 9. History of asthma: Patient has severe COPD. Uses nebulizer treatments as needed. Pulmonary on consult 10. History of anxiety and depression: Continue anti-anxiolytics. 11. Mild prerenal azotemia: Would avoid diuretics. Gently rehydrate the patient orally. 12. Clinically no evidence of congestive heart failure. Medications reviewed. Management plan discussed with attending physicians, and also changes in medication discussed. Medical decision making is of a car of high complexity cardiac status appears to be stable. Will sign off. Please call me if my services are required. Discussed this with the hospitalist. 40 minutes spent with patient with more than 50% of the time spent in direct patient care cardiology medical decision making is of moderate complexity.
[2018-09-26] MEDS: ATORVASTATIN CALCIUM 40 MG TABLET PO SCH (22:22)
[2018-09-26] MEDS: ROPINIROLE HCL 2 MG TABLET PO SCH (22:22)
[2018-09-27] MEDS: ACETAMINOPHEN 325 MG TABLET PO PRN ×2 (04:11→15:05)
[2018-09-27] MEDS: LEVALBUTEROL HCL NEB 0.63 MG/3 ML AMPUL NEB SCH ×2 (08:14→16:19)
[2018-09-27] MEDS: AMLODIPINE BESYLATE 2.5 MG TABLET PO SCH (09:00)
[2018-09-27] MEDS: FAMOTIDINE 20 MG TABLET PO SCH ×2 (09:00→23:31)
[2018-09-27] MEDS: FLUTICASONE NASAL SPRAY 50 MCG/SPRY 120 SPRAY/16 GM NASL SCH ×2 (09:00→23:30)
[2018-09-27] MEDS: CLOPIDOGREL BISULFATE 75 MG TABLET PO SCH (09:00)
[2018-09-27] MEDS: ASPIRIN 81 MG TABLET, ENT COATED PO SCH (09:00)
[2018-09-27] MEDS: AMIODARONE HCL 200 MG TABLET PO SCH (09:00)
[2018-09-27] MEDS: APIXABAN 5 MG TABLET PO SCH ×2 (09:00→23:31)
[2018-09-27] MEDS: CEFEPIME 2 GM/D5W RTU 2 GM/50 ML RTUPB IV SCH ×2 (09:01→23:30)
--- NOTE | 2018-09-27 14:40 | PDOC PROGRESS REPORT ---
Subjective Progress Note for:: 09/27/18 Subjective:: Slowly doing better, but still feels "sick." Feels tired and rundown. Still with cough, but improving. No fever or chills, no nausea or vomiting. She is excited that she will be 78 years old tomorrow. Reason For Visit: PNEUMONIA,DIASTOLIC HF Physical Exam Vital Signs: Temp Pulse Resp BP Pulse Ox 98.7 F 75 18 120/42 L 98 09/27/18 11:39 09/27/18 11:39 09/27/18 11:39 09/27/18 11:39 09/27/18 11:39 Intake & Output 09/26/18 09/27/18 09/28/18 06:59 06:59 06:59 Intake Total 1675 1642 536 Output Total 500 1700 Balance 1175 -58 536 Weight 97.2 kg GEN: NAD, well-developed, well-nourished CV: RRR, NL S1S2 LUNGS: Few expiratory wheezings bilaterally ABDOMEN Soft, NT, +BS EXTERMITIES: No e/c/c NEURO: Alert, oriented x3, nonfocal Results Laboratory Results: 09/26/18 10:03 09/26/18 10:03 09/24/18 09/24/18 09/24/18 00:38 00:38 03:01 Creatine Kinase 37 CK-MB (CK-2) 1.67 Troponin I 0.074 0.078 NT-Pro-B Natriuret Pep [id number] H 09/25/18 09/25/18 09/25/18 10:13 10:13 19:16 Creatine Kinase 22 L CK-MB (CK-2) 1.63 Troponin I 0.074 0.073 NT-Pro-B Natriuret Pep Impressions: Chest X-Ray 09/25/18 08:57 IMPRESSION: Grossly stable mixed interstitial and alveolar opacities bilaterally. Assessment & Plan - Diagnosis (1) Hospital-acquired pneumonia Is this a current diagnosis for this admission?: Yes (2) Paroxysmal A-fib Is this a current diagnosis for this admission?: Yes (3) CAD (coronary artery disease) Is this a current diagnosis for this admission?: Yes (4) New onset of congestive heart failure Is this a current diagnosis for this admission?: Yes (5) Obstructive sleep apnea Is this a current diagnosis for this admission?: Yes (6) Hypertension Qualifiers: Hypertension type: unspecified secondary hypertension Qualified Code(s): I15.9 - Secondary hypertension, unspecified Is this a current diagnosis for this admission?: Yes - Plan Summary Plan Summary: Continue cefepime for now. Blood cultures no growth times 72 hours. Leukocytosis has also improved. Unsure of patient's EF, recent echo result pending. Cardiology follow-up appreciated. Follow-up CBC in Chem-7 in a.m. Patient reports history of asthma, will continue nebulizers as tolerated. Will add low-dose steroids, giving wheezing.
[2018-09-27] MEDS: PREDNISONE 20 MG TABLET PO SCH (15:29)
[2018-09-27] MEDS: GABAPENTIN 300 MG CAPSULE PO SCH (17:35)
[2018-09-27] MEDS: ROPINIROLE HCL 2 MG TABLET PO SCH (23:30)
[2018-09-27] MEDS: ATORVASTATIN CALCIUM 40 MG TABLET PO SCH (23:30)
[2018-09-28] MEDS: LEVALBUTEROL HCL NEB 0.63 MG/3 ML AMPUL NEB SCH ×3 (00:14→16:46)
[2018-09-28 05:23] LABS: HEMATOCRIT 29.1 % (36.0-47.0); HEMOGLOBIN 9.7 g/dL (12.0-15.5); MEAN CORPUSCULAR HEMOGLOBIN 31.2 pg (27.0-33.4); MEAN CORPUSCULAR HGB CONC 33.5 g/dL (32.0-36.0); MEAN CORPUSCULAR VOLUME 93 fl (80-97); PLATELET COUNT 250 10^3/uL (150-450); RED BLOOD COUNT 3.12 10^6/uL (3.72-5.28); RED CELL DISTRIBUTION WIDTH 14.9 % (11.5-14.0); WHITE BLOOD COUNT 13.1 10^3/uL (4.0-10.5)
[2018-09-28 05:40] LABS: ANION GAP 5 (5-19); BLOOD UREA NITROGEN 19 mg/dL (7-20); CALCIUM 9.1 mg/dL (8.4-10.2); CARBON DIOXIDE 29 mmol/L (22-30); CHLORIDE 101 mmol/L (98-107); GLUCOSE 154 mg/dL (75-110); POTASSIUM 4.2 mmol/L (3.6-5.0); SODIUM 135.3 mmol/L (137-145)
[2018-09-28 05:51] LABS: ABSOLUTE LYMPHOCYTES# (MANUAL) 0.4 10^3/uL (0.5-4.7); ABSOLUTE MONOCYTES # (MANUAL) 0.8 10^3/uL (0.1-1.4); ABSOLUTE NEUTROPHILS# (MANUAL) 11.8 10^3/uL (1.7-8.2); BASOPHILS % (MANUAL) 0 % (0-2); EOSINOPHILS % (MANUAL) 1 % (0-6); LYMPHOCYTES % (MANUAL) 3 % (13-45); MONOCYTES % (MANUAL) 6 % (3-13); SEGMENTED NEUTROPHILS % (MAN) 90 % (42-78); TOTAL CELLS COUNTED 100
[2018-09-28 05:52] LABS: ANISOCYTOSIS SLIGHT; PLATELET CLUMPS PRESENT; PLATELET COMMENT ADEQUATE; TOXIC VACUOLATION PRESENT
[2018-09-28] MEDS: ONDANSETRON HCL INJ/PF 4 MG/2 ML SDV IV PRN (06:36)
[2018-09-28] MEDS: ALPRAZOLAM 0.25 MG TABLET PO PRN (06:39)
[2018-09-28] MEDS: CEFEPIME 2 GM/D5W RTU 2 GM/50 ML RTUPB IV SCH ×2 (12:03→21:32)
[2018-09-28] MEDS: AMLODIPINE BESYLATE 2.5 MG TABLET PO SCH (12:04)
[2018-09-28] MEDS: CLOPIDOGREL BISULFATE 75 MG TABLET PO SCH (12:04)
[2018-09-28] MEDS: FAMOTIDINE 20 MG TABLET PO SCH ×2 (12:04→21:32)
[2018-09-28] MEDS: APIXABAN 5 MG TABLET PO SCH ×2 (12:05→21:32)
[2018-09-28] MEDS: FLUTICASONE NASAL SPRAY 50 MCG/SPRY 120 SPRAY/16 GM NASL SCH ×2 (12:05→21:32)
[2018-09-28] MEDS: ASPIRIN 81 MG TABLET, ENT COATED PO SCH (12:05)
[2018-09-28] MEDS: PREDNISONE 20 MG TABLET PO SCH (12:05)
[2018-09-28] MEDS: AMIODARONE HCL 200 MG TABLET PO SCH (12:05)
--- NOTE | 2018-09-28 18:25 | PDOC PROGRESS REPORT ---
Subjective Progress Note for:: 09/28/18 Subjective:: She reports feeling tired and rundown. She gets short of breath with minimal activities. Still with cough, but nonproductive. No fever or chills, no nausea or vomiting. I congratulated her on today being her birthday and wished her a happy birthday--she turned 78 today. Reason For Visit: PNEUMONIA,DIASTOLIC HF Physical Exam Vital Signs: Temp Pulse Resp BP Pulse Ox 97.6 F 77 20 117/74 99 09/28/18 11:45 09/28/18 11:45 09/28/18 11:45 09/28/18 11:45 09/28/18 11:45 Intake & Output 09/27/18 09/28/18 09/29/18 06:59 06:59 06:59 Intake Total 1642 1295 350 Output Total 1700 Balance -58 1295 350 Weight 97.2 kg 94.4 kg GEN: NAD, well-developed, well-nourished CV: RRR, NL S1S2 LUNGS: Few basilar crackles, good air movement ABDOMEN Soft, NT, +BS EXTERMITIES: No e/c/c NEURO: Alert, oriented x3, generalized weakness, but no focal weakness Results Laboratory Results: 09/28/18 04:57 09/28/18 04:57 09/28/18 09/28/18 04:57 04:57 WBC 13.1 H RBC 3.12 L Hgb 9.7 L Hct 29.1 L MCV 93 MCH 31.2 MCHC 33.5 RDW 14.9 H Plt Count 250 Seg Neutrophils % Not Reportable Lymphocytes % Not Reportable Monocytes % Not Reportable Eosinophils % Not Reportable Basophils % Not Reportable Absolute Neutrophils Not Reportable Absolute Lymphocytes Not Reportable Absolute Monocytes Not Reportable Absolute Eosinophils Not Reportable Absolute Basophils Not Reportable Sodium 135.3 L Potassium 4.2 Chloride 101 Carbon Dioxide 29 Anion Gap 5 BUN 19 Creatinine 0.85 Est GFR ( Amer) > 60 Est GFR (Non-Af Amer) > 60 Glucose 154 H Calcium 9.1 09/24/18 09/24/18 09/24/18 00:38 00:38 03:01 Creatine Kinase 37 CK-MB (CK-2) 1.67 Troponin I 0.074 0.078 NT-Pro-B Natriuret Pep [id number] H 09/25/18 09/25/18 09/25/18 10:13 10:13 19:16 Creatine Kinase 22 L CK-MB (CK-2) 1.63 Troponin I 0.074 0.073 NT-Pro-B Natriuret Pep Impressions: Chest X-Ray 09/25/18 08:57 IMPRESSION: Grossly stable mixed interstitial and alveolar opacities bilaterally. Assessment & Plan - Diagnosis (1) Hospital-acquired pneumonia Is this a current diagnosis for this admission?: Yes (2) Paroxysmal A-fib Is this a current diagnosis for this admission?: Yes (3) CAD (coronary artery disease) Is this a current diagnosis for this admission?: Yes (4) New onset of congestive heart failure Is this a current diagnosis for this admission?: Yes (5) Obstructive sleep apnea Is this a current diagnosis for this admission?: Yes (6) Hypertension Qualifiers: Hypertension type: unspecified secondary hypertension Qualified Code(s): I15.9 - Secondary hypertension, unspecified Is this a current diagnosis for this admission?: Yes - Plan Summary Plan Summary: Continue cefepime for now. Blood cultures no growth times 4 days. Leukocytosis, which had improved, went up today, but patient was started on steroids yesterday for wheezing and a history of asthma. Follow-up chest x-ray in a.m. Patient with debility, will order PT/OT. Discussed possible placement intermediate facility but she seems more interested in being discharged home with home health PT when she is ready, although she feels she is not ready right now. Cardiology follow-up appreciated. Follow-up CBC in Chem-7 in a.m.
[2018-09-28] MEDS: GABAPENTIN 300 MG CAPSULE PO SCH (18:31)
[2018-09-28] MEDS: ROPINIROLE HCL 2 MG TABLET PO SCH (21:31)
[2018-09-28] MEDS: ATORVASTATIN CALCIUM 40 MG TABLET PO SCH (21:32)
[2018-09-29] MEDS: LEVALBUTEROL HCL NEB 0.63 MG/3 ML AMPUL NEB SCH ×4 (00:24→23:41)
[2018-09-29 05:32] LABS: HEMATOCRIT 26.5 % (36.0-47.0); HEMOGLOBIN 8.8 g/dL (12.0-15.5); MEAN CORPUSCULAR HEMOGLOBIN 31.5 pg (27.0-33.4); MEAN CORPUSCULAR HGB CONC 33.3 g/dL (32.0-36.0); MEAN CORPUSCULAR VOLUME 95 fl (80-97); PLATELET COUNT 225 10^3/uL (150-450); RED BLOOD COUNT 2.81 10^6/uL (3.72-5.28); RED CELL DISTRIBUTION WIDTH 15.1 % (11.5-14.0); WHITE BLOOD COUNT 13.9 10^3/uL (4.0-10.5)
[2018-09-29 05:49] LABS: BLOOD UREA NITROGEN 20 mg/dL (7-20); CALCIUM 8.8 mg/dL (8.4-10.2); GLUCOSE 120 mg/dL (75-110); POTASSIUM 4.7 mmol/L (3.6-5.0)
[2018-09-29 05:56] LABS: CARBON DIOXIDE 30 mmol/L (22-30); CHLORIDE 102 mmol/L (98-107); SODIUM 135.4 mmol/L (137-145)
[2018-09-29 06:19] LABS: ABSOLUTE LYMPHOCYTES# (MANUAL) 0.7 10^3/uL (0.5-4.7); ABSOLUTE MONOCYTES # (MANUAL) 1.1 10^3/uL (0.1-1.4); ABSOLUTE NEUTROPHILS# (MANUAL) 12.1 10^3/uL (1.7-8.2); ANISOCYTOSIS SLIGHT; BASOPHILS % (MANUAL) 0 % (0-2); EOSINOPHILS % (MANUAL) 0 % (0-6); LYMPHOCYTES % (MANUAL) 5 % (13-45); MONOCYTES % (MANUAL) 8 % (3-13); SEGMENTED NEUTROPHILS % (MAN) 87 % (42-78); TOTAL CELLS COUNTED 100
[2018-09-29 06:20] LABS: PLATELET COMMENT ADEQUATE
[2018-09-29 06:24] LABS: ANION GAP 3 (5-19)
[2018-09-29] MEDS: FAMOTIDINE 20 MG TABLET PO SCH ×2 (10:28→22:00)
[2018-09-29] MEDS: AMLODIPINE BESYLATE 2.5 MG TABLET PO SCH (10:29)
[2018-09-29] MEDS: APIXABAN 5 MG TABLET PO SCH (10:29)
[2018-09-29] MEDS: CEFEPIME 2 GM/D5W RTU 2 GM/50 ML RTUPB IV SCH ×2 (10:29→22:01)
[2018-09-29] MEDS: PREDNISONE 20 MG TABLET PO SCH (10:29)
[2018-09-29] MEDS: AMIODARONE HCL 200 MG TABLET PO SCH (10:29)
[2018-09-29] MEDS: FLUTICASONE NASAL SPRAY 50 MCG/SPRY 120 SPRAY/16 GM NASL SCH ×2 (10:29→22:00)
[2018-09-29] MEDS: CLOPIDOGREL BISULFATE 75 MG TABLET PO SCH (10:29)
--- NOTE | 2018-09-29 13:15 | RADIOLOGY REPORT (SQ) ---
EXAM DESCRIPTION: CHEST SINGLE VIEW COMPLETED DATE/TIME: 09/29/2018 12:11 pm REASON FOR STUDY: pneumonia COMPARISON: [facility] chest 04/22/2017, 09/24/2018, 09/25/2018 CT chest 09/24/2018 EXAM PARAMETERS: NUMBER OF VIEWS: One view. TECHNIQUE: Single frontal radiographic view of the chest acquired. RADIATION DOSE: NA LIMITATIONS: None. FINDINGS: LUNGS AND PLEURA: Increasing density and extent of the bilateral alveolar infiltrates comp ared to 09/25/2018 worrisome for worsening pneumonia. No gross pleural effusions or pneumothorax. MEDIASTINUM AND HILAR STRUCTURES: No masses. Contour normal. HEART AND VASCULAR STRUCTURES: Stable mild cardiomegaly BONES: No acute findings. HARDWARE: None in the chest. OTHER: No other significant finding. IMPRESSION: Increasing density and extent of bilateral alveolar infiltrates worrisome for worsening pneumonia or congestive failure. TECHNICAL DOCUMENTATION: JOB ID: [id number] [employer]- All Rights Reserved Reading location - IP/workstation name: [email or web address]
[2018-09-29 15:09] LABS: ARTERIAL BLOOD BASE EXCESS 1.9 mmol/L; ARTERIAL BLOOD H2CO3 1.29 mmol/L (1.05-1.35); ARTERIAL BLOOD HCO3 26.8 mmol/L (20-24); ARTERIAL BLOOD O2 SATURATION 95.1 % (94-98); ARTERIAL BLOOD PH 7.41 (7.35-7.45); ARTERIAL BLOOD PO2 74.4 mmHg (80-100); ARTERIAL BLOOD TOTAL CO2 28.1 mmol/L (21-25)
[2018-09-29 15:12] LABS: ARTERIAL BLOOD FIO2 6L
--- NOTE | 2018-09-29 15:27 | PDOC PROGRESS REPORT ---
Subjective Progress Note for:: 09/29/18 Subjective:: Patient was seen and examined today. She continued to have shortness of breath. She also hypoxic. Now she is on facemask 50% FiO2. Has persistent epistaxis. Reason For Visit: PNEUMONIA,DIASTOLIC HF Physical Exam Vital Signs: Temp Pulse Resp BP Pulse Ox 97.9 F 71 30 H 122/54 L 93 09/29/18 12:06 09/29/18 12:06 09/29/18 12:06 09/29/18 12:06 09/29/18 12:06 Intake & Output 09/28/18 09/29/18 09/30/18 06:59 06:59 06:59 Intake Total 1295 1237 50 Output Total 0 Balance 1295 1237 50 Weight 208 lb 1.862 oz 212 lb 4.882 oz General appearance: PRESENT: mild distress, obese Head exam: PRESENT: atraumatic, normocephalic Mouth exam: PRESENT: moist, neck supple Neck exam: ABSENT: meningismus, tenderness Respiratory exam: PRESENT: accessory muscle use, rales Cardiovascular exam: PRESENT: irregular rhythm GI/Abdominal exam: PRESENT: soft. ABSENT: mass, tenderness Extremities exam: PRESENT: pedal edema Musculoskeletal exam: PRESENT: normal inspection Neurological exam: PRESENT: alert, awake, oriented to person, oriented to place, oriented to time, oriented to situation Psychiatric exam: ABSENT: agitated, anxious Results Laboratory Results: 09/29/18 05:20 09/29/18 05:20 09/29/18 09/29/18 09/29/18 05:20 05:20 14:55 WBC 13.9 H RBC 2.81 L Hgb 8.8 L Hct 26.5 L MCV 95 MCH 31.5 MCHC 33.3 RDW 15.1 H Plt Count 225 Seg Neutrophils % Not Reportable Lymphocytes % Not Reportable Monocytes % Not Reportable Eosinophils % Not Reportable Basophils % Not Reportable Absolute Neutrophils Not Reportable Absolute Lymphocytes Not Reportable Absolute Monocytes Not Reportable Absolute Eosinophils Not Reportable Absolute Basophils Not Reportable Carbonic Acid 1.29 HCO3/H2CO3 Ratio 20:1 ABG pH 7.41 ABG pCO2 43.0 ABG pO2 74.4 L ABG HCO3 26.8 H ABG O2 Saturation 95.1 ABG Base Excess 1.9 FiO2 6L Sodium 135.4 L Potassium 4.7 Chloride 102 Carbon Dioxide 30 Anion Gap 3 L BUN 20 Creatinine 0.83 Est GFR ( Amer) > 60 Est GFR (Non-Af Amer) > 60 Glucose 120 H Calcium 8.8 09/24/18 00:24 Blood Blood Culture - Final NO GROWTH IN 5 DAYS 09/24/18 05:08 Blood Blood Culture - Final NO GROWTH IN 5 DAYS 09/24/18 09/24/18 09/24/18 00:38 00:38 03:01 Creatine Kinase 37 CK-MB (CK-2) 1.67 Troponin I 0.074 0.078 NT-Pro-B Natriuret Pep 47625 H 09/25/18 09/25/18 09/25/18 10:13 10:13 19:16 Creatine Kinase 22 L CK-MB (CK-2) 1.63 Troponin I 0.074 0.073 NT-Pro-B Natriuret Pep Impressions: Chest X-Ray 09/29/18 11:16 IMPRESSION: Increasing density and extent of bilateral alveolar infiltrates worrisome for worsening pneumonia or congestive failure. Assessment & Plan - Diagnosis (1) Acute and chronic respiratory failure with hypoxia Is this a current diagnosis for this admission?: Yes Plan: Likely due to CHF. Start IV Lasix. Check echocardiogram. Continue oxygen supplements as needed. (2) Atrial fibrillation Qualifiers: Atrial fibrillation type: paroxysmal Qualified Code(s): I48.0 - Paroxysmal atrial fibrillation Is this a current diagnosis for this admission?: Yes Plan: Currently rate controlled. Continue current treatment. Hold Eliquis for now due to epistaxis. (3) CAD (coronary artery disease) Is this a current diagnosis for this admission?: Yes Plan: Continue current management with aspirin and Plavix. She is status post stent in LAD recently. (4) New onset of congestive heart failure Is this a current diagnosis for this admission?: Yes Plan: Start IV Lasix. Check echocardiogram. Check I's and O's. Check daily weight (5) Obstructive sleep apnea Is this a current diagnosis for this admission?: Yes Plan: Continue current management. (6) Hypertension Qualifiers: Hypertension type: unspecified secondary hypertension Qualified Code(s): I15.9 - Secondary hypertension, unspecified Is this a current diagnosis for this admission?: Yes Plan: Continue current medications. Monitor blood pressure.
[2018-09-29] MEDS ORDERED: FUROSEMIDE INJ/PF 40 MG/4 ML SDV IV ONE (16:00)
[2018-09-29] MEDS: ASPIRIN 81 MG TABLET, ENT COATED PO SCH (16:11)
[2018-09-29] MEDS: GABAPENTIN 300 MG CAPSULE PO SCH (17:11)
[2018-09-29] MEDS: ROPINIROLE HCL 2 MG TABLET PO SCH (22:00)
[2018-09-29] MEDS: ATORVASTATIN CALCIUM 40 MG TABLET PO SCH (22:00)
[2018-09-30 05:39] LABS: HEMOGLOBIN 8.7 g/dL (12.0-15.5); MEAN CORPUSCULAR HEMOGLOBIN 31.4 pg (27.0-33.4); MEAN CORPUSCULAR HGB CONC 33.4 g/dL (32.0-36.0); MEAN CORPUSCULAR VOLUME 94 fl (80-97); PLATELET COUNT 228 10^3/uL (150-450); RED BLOOD COUNT 2.76 10^6/uL (3.72-5.28); RED CELL DISTRIBUTION WIDTH 15.1 % (11.5-14.0); WHITE BLOOD COUNT 12.6 10^3/uL (4.0-10.5)
[2018-09-30 06:10] LABS: ANION GAP 6 (5-19); BLOOD UREA NITROGEN 22 mg/dL (7-20); CALCIUM 8.9 mg/dL (8.4-10.2); CARBON DIOXIDE 32 mmol/L (22-30); CHLORIDE 98 mmol/L (98-107); GLUCOSE 88 mg/dL (75-110); POTASSIUM 4.1 mmol/L (3.6-5.0); SODIUM 135.6 mmol/L (137-145)
[2018-09-30] MEDS: LEVALBUTEROL HCL NEB 0.63 MG/3 ML AMPUL NEB SCH ×3 (08:15→23:56)
[2018-09-30] MEDS ORDERED: FUROSEMIDE INJ/PF 20 MG/2 ML SDV IV SCH (10:00)
[2018-09-30] MEDS: FAMOTIDINE 20 MG TABLET PO SCH ×2 (11:44→21:36)
[2018-09-30] MEDS: CLOPIDOGREL BISULFATE 75 MG TABLET PO SCH (11:44)
[2018-09-30] MEDS: ASPIRIN 81 MG TABLET, ENT COATED PO SCH (11:44)
[2018-09-30] MEDS: AMIODARONE HCL 200 MG TABLET PO SCH (11:44)
[2018-09-30] MEDS: PREDNISONE 20 MG TABLET PO SCH (11:44)
[2018-09-30] MEDS: CEFEPIME 2 GM/D5W RTU 2 GM/50 ML RTUPB IV SCH ×2 (11:45→21:35)
[2018-09-30] MEDS: AMLODIPINE BESYLATE 2.5 MG TABLET PO SCH (11:50)
[2018-09-30] MEDS: FLUTICASONE NASAL SPRAY 50 MCG/SPRY 120 SPRAY/16 GM NASL SCH ×2 (11:50→21:36)
--- NOTE | 2018-09-30 15:01 | PDOC PROGRESS REPORT ---
Subjective Progress Note for:: 09/30/18 Subjective:: Patient was seen and examined today. She improved with diuretics. we are holding eliquis due to persistent epistaxis. she has rodriguez and urine is slightly bloody Reason For Visit: PNEUMONIA,DIASTOLIC HF Physical Exam Vital Signs: Temp Pulse Resp BP Pulse Ox 97.6 F 81 24 H 127/54 H 100 09/30/18 08:31 09/30/18 08:31 09/30/18 08:31 09/30/18 08:31 09/30/18 08:31 Intake & Output 09/29/18 09/30/18 10/01/18 06:59 06:59 06:59 Intake Total 1237 587 50 Output Total 0 3130 Balance 1237 -2543 50 Weight 212 lb 4.882 oz 202 lb 13.204 oz General appearance: PRESENT: no acute distress, cooperative Head exam: PRESENT: atraumatic, normocephalic Eye exam: ABSENT: conjunctival injection Mouth exam: PRESENT: moist, neck supple Neck exam: ABSENT: meningismus, tenderness Respiratory exam: PRESENT: rales. ABSENT: accessory muscle use Cardiovascular exam: PRESENT: irregular rhythm Pulses: PRESENT: normal radial pulses GI/Abdominal exam: PRESENT: normal bowel sounds, soft. ABSENT: mass, tenderness Rectal exam: PRESENT: deferred Neurological exam: PRESENT: alert, awake, oriented to person, oriented to place, oriented to time, oriented to situation Psychiatric exam: ABSENT: agitated, anxious Results Laboratory Results: 09/30/18 05:28 09/30/18 05:28 09/29/18 09/30/18 09/30/18 14:55 05:28 05:28 WBC 12.6 H RBC 2.76 L Hgb 8.7 L Hct 26.0 L MCV 94 MCH 31.4 MCHC 33.4 RDW 15.1 H Plt Count 228 Carbonic Acid 1.29 HCO3/H2CO3 Ratio 20:1 ABG pH 7.41 ABG pCO2 43.0 ABG pO2 74.4 L ABG HCO3 26.8 H ABG O2 Saturation 95.1 ABG Base Excess 1.9 FiO2 6L Sodium 135.6 L Potassium 4.1 Chloride 98 Carbon Dioxide 32 H Anion Gap 6 BUN 22 H Creatinine 0.88 Est GFR ( Amer) > 60 Est GFR (Non-Af Amer) > 60 Glucose 88 Calcium 8.9 09/24/18 09/24/18 09/24/18 00:38 00:38 03:01 Creatine Kinase 37 CK-MB (CK-2) 1.67 Troponin I 0.074 0.078 NT-Pro-B Natriuret Pep 43190 H 09/25/18 09/25/18 09/25/18 10:13 10:13 19:16 Creatine Kinase 22 L CK-MB (CK-2) 1.63 Troponin I 0.074 0.073 NT-Pro-B Natriuret Pep Impressions: Chest X-Ray 09/29/18 11:16 IMPRESSION: Increasing density and extent of bilateral alveolar infiltrates worrisome for worsening pneumonia or congestive failure. Assessment & Plan - Diagnosis (1) Acute and chronic respiratory failure with hypoxia Is this a current diagnosis for this admission?: Yes Plan: Likely due to CHF. continue IV Lasix. follow echocardiogram results. Continue oxygen supplements as needed. (2) Atrial fibrillation Qualifiers: Atrial fibrillation type: paroxysmal Qualified Code(s): I48.0 - Paroxysmal atrial fibrillation Is this a current diagnosis for this admission?: Yes Plan: Currently rate controlled. Continue current treatment. continue to hold Eliquis for now due to epistaxis and hematuria. (3) CAD (coronary artery disease) Is this a current diagnosis for this admission?: Yes Plan: Continue current management with aspirin and Plavix. She is status post stent in LAD recently. (4) New onset of congestive heart failure Is this a current diagnosis for this admission?: Yes Plan: continue IV Lasix. follow results from echocardiogram. Check I's and O's. Check daily weight (5) Obstructive sleep apnea Is this a current diagnosis for this admission?: Yes Plan: Continue current management. (6) Hypertension Qualifiers: Hypertension type: unspecified secondary hypertension Qualified Code(s): I15.9 - Secondary hypertension, unspecified Is this a current diagnosis for this admission?: Yes Plan: Continue current medications. Monitor blood pressure.
--- NOTE | 2018-09-30 16:00 | XCELERA REPORT ---
[address] [address] Transthoracic Echocardiogram Report Name: BENJI MCGEE Age: 78 yrs Gender: Female : 1940 Patient Status: Inpatient Patient Location: [address] [place] [address] Study Date: 09/30/2018 11:44 AM Reason For Study: chf Ordering Physician: ANDRÉS NICOLE Performed By: Karl Miles Interpretation Summary Technologist Comment: patient extremely difficult to scan, heavy breathing, snoring and talking in sleep, moving arms constantly as well. Suboptimal study with off axis views and lack of contrast limits evaluation for thormbus/mass. LVEF appaers normal at 55-60% visually. RV size and systolic function appears normal. There is a trace amount of mitral regurgitation The aortic valve opens well. RVSP could not be estimated. There is a trace amount of pulmonic regurgitation There is no pericardial effusion. IVC not well visualized but likely normal sized. The aortic root is normal size. MMode/2D Measurements & Calculations RVDd: 3.3 cm LVIDd: 4.3 cm FS: 37.7 % Ao root diam: 3.0 cm IVSd: 1.0 cm LVIDs: 2.7 cm EDV(Teich): 83.5 ml Ao root area: LVPWd: 1.1 cm ESV(Teich): 26.6 ml 7.2 cm2 EF(Teich): 68.1 % LVOT diam: 1.5 cm EDV(MOD-sp4): SV(MOD-sp4): LVOT area: 40.3 ml 31.2 ml 1.8 cm2 ESV(MOD-sp4): 9.2 ml EF(MOD-sp4): 77.3 % Doppler Measurements & Calculations MV E max jose david: MV dec slope: Ao V2 max: LV V1 max P.5 cm/sec 571.7 cm/sec2 139.8 cm/sec 4.7 mmHg MV A max jose david: MV dec time: Ao max P.8 mmHg LV V1 mean P.3 cm/sec 0.19 sec Ao V2 mean: 3.1 mmHg MV E/A: 1.3 100.6 cm/sec LV V1 max: Ao mean P.4 cm/sec 4.4 mmHg LV V1 mean: Ao V2 VTI: 26.7 cm 85.8 cm/sec RANDY(I,D): 1.6 cm2 LV V1 VTI: 22.8 cm RANDY(V,D): 1.4 cm2 MR max jose david: SV(LVOT): 42.0 ml PI end-d jose david: 379.5 cm/sec 125.9 cm/sec MR max P.6 mmHg Left Ventricle The left ventricular ejection fraction is normal. Suboptimal doppler data provided. Right Ventricle A moderator band is seen in the right ventricle. The right ventricle is normal size. The right ventricular systolic function is normal. Atria The right atrium is normal. Mitral Valve MV leaflets appear thickened with preserved opening. There is a trace amount of mitral regurgitation. Aortic Valve The aortic valve is not well visualized secondary to technical limitations. The aortic valve opens well. There is a peak gradient of 7.82 mm of Hg. Tricuspid Valve The tricuspid valve is not well visualized secondary to technical limitations. Tricuspid regurgitation jet envelope not well defined to measure RV systolic pressure accurately. RVSP could not be estimated. Pulmonic Valve The pulmonic valve is not well visualized. There is a trace amount of pulmonic regurgitation. Great Vessels The aortic root is normal size. IVC not well visualized but likely normal sized. Effusions There is no pericardial effusion. : ANDRÉS NICOLE > Kvng Finney
[2018-09-30] MEDS: GABAPENTIN 300 MG CAPSULE PO SCH (17:44)
[2018-09-30] MEDS: FUROSEMIDE INJ/PF 20 MG/2 ML SDV IV SCH (21:35)
[2018-09-30] MEDS: ROPINIROLE HCL 2 MG TABLET PO SCH (21:36)
[2018-09-30] MEDS: ATORVASTATIN CALCIUM 40 MG TABLET PO SCH (21:36)
[2018-10-01 05:49] LABS: HEMATOCRIT 27.9 % (36.0-47.0); HEMOGLOBIN 9.3 g/dL (12.0-15.5); MEAN CORPUSCULAR HEMOGLOBIN 31.2 pg (27.0-33.4); MEAN CORPUSCULAR HGB CONC 33.5 g/dL (32.0-36.0); MEAN CORPUSCULAR VOLUME 93 fl (80-97); PLATELET COUNT 231 10^3/uL (150-450); WHITE BLOOD COUNT 11.7 10^3/uL (4.0-10.5)
[2018-10-01 06:10] LABS: ANION GAP 10 (5-19); BLOOD UREA NITROGEN 26 mg/dL (7-20); CALCIUM 8.8 mg/dL (8.4-10.2); CARBON DIOXIDE 33 mmol/L (22-30); CHLORIDE 95 mmol/L (98-107); GLUCOSE 101 mg/dL (75-110); POTASSIUM 3.8 mmol/L (3.6-5.0); SODIUM 137.5 mmol/L (137-145)
[2018-10-01] MEDS: ALPRAZOLAM 0.25 MG TABLET PO PRN ×2 (06:44→22:22)
[2018-10-01] MEDS: ONDANSETRON HCL INJ/PF 4 MG/2 ML SDV IV PRN ×2 (06:45→19:00)
[2018-10-01] MEDS: LEVALBUTEROL HCL NEB 0.63 MG/3 ML AMPUL NEB SCH ×2 (08:43→16:35)
[2018-10-01] MEDS: CLOPIDOGREL BISULFATE 75 MG TABLET PO SCH (09:40)
[2018-10-01] MEDS: AMIODARONE HCL 200 MG TABLET PO SCH (09:40)
[2018-10-01] MEDS: AMLODIPINE BESYLATE 2.5 MG TABLET PO SCH (09:40)
[2018-10-01] MEDS: ASPIRIN 81 MG TABLET, ENT COATED PO SCH (09:40)
[2018-10-01] MEDS: FLUTICASONE NASAL SPRAY 50 MCG/SPRY 120 SPRAY/16 GM NASL SCH ×2 (09:40→22:18)
[2018-10-01] MEDS: FAMOTIDINE 20 MG TABLET PO SCH ×2 (09:41→22:18)
[2018-10-01] MEDS: FUROSEMIDE INJ/PF 20 MG/2 ML SDV IV SCH ×3 (09:41→22:18)
[2018-10-01] MEDS: PREDNISONE 20 MG TABLET PO SCH (09:41)
[2018-10-01 11:11] LABS: ARTERIAL BLOOD BASE EXCESS 6.2 mmol/L; ARTERIAL BLOOD HCO3 31.2 mmol/L (20-24); ARTERIAL BLOOD O2 SATURATION 94.3 % (94-98); ARTERIAL BLOOD PCO2 46.4 mmHg (35-45); ARTERIAL BLOOD PH 7.45 (7.35-7.45); ARTERIAL BLOOD PO2 68.6 mmHg (80-100); ARTERIAL BLOOD TOTAL CO2 32.6 mmol/L (21-25)
[2018-10-01 11:12] LABS: ARTERIAL BLOOD FIO2 6L
--- NOTE | 2018-10-01 12:03 | RADIOLOGY REPORT (SQ) ---
EXAM DESCRIPTION: CHEST 2 VIEWS COMPLETED DATE/TIME: 10/01/2018 11:52 am REASON FOR STUDY: sob COMPARISON: 09/29/2018 NUMBER OF VIEWS: Two view TECHNIQUE: Frontal and lateral radiographic images of the chest acquired. LIMITATIONS: None. FINDINGS: LUNGS AND PLEURA: Bilateral airspace disease with relative sparing of the left apex not si gnificantly changed allowing for differences in technique. No large effusions. MEDIASTINUM AND HILAR STRUCTURES: Stable heart size and mediastinal structures. HEART AND VASCULAR STRUCTURES: Stable appearance. BONES: No acute findings. HARDWARE: None in the chest. OTHER: No other significant finding. IMPRESSION: Bilateral pneumonia or asymmetric edema. No significant change. TECHNICAL DOCUMENTATION: JOB ID: [id number] [employer]- All Rights Reserved Reading location - IP/workstation name: [email or web address]
--- NOTE | 2018-10-01 14:44 | PDOC PROGRESS REPORT ---
Subjective Progress Note for:: 10/01/18 Subjective:: Patient was seen and examined today. She was feeling better yesterday but today she is worse. She states she is weak and gets winded with minimal exertion. Is improving on diuretics. We are holding Eliquis due to persistent epistaxis. She had an episode of epistaxis again today. Her urine and Perdue catheter is clear now. Reason For Visit: PNEUMONIA,DIASTOLIC HF Physical Exam Vital Signs: Temp Pulse Resp BP Pulse Ox 97.7 F 77 20 101/56 L 91 L 10/01/18 11:40 10/01/18 11:40 10/01/18 11:40 10/01/18 11:40 10/01/18 11:40 Intake & Output 09/30/18 10/01/18 10/02/18 06:59 06:59 06:59 Intake Total 587 974 236 Output Total 3130 3200 1000 Balance -2543 -2226 -764 Weight 202 lb 13.204 oz 204 lb 12.951 oz General appearance: PRESENT: mild distress, obese Head exam: PRESENT: atraumatic, normocephalic Mouth exam: PRESENT: moist, neck supple Neck exam: ABSENT: meningismus, tenderness Respiratory exam: PRESENT: accessory muscle use, rales Cardiovascular exam: PRESENT: irregular rhythm Pulses: PRESENT: normal radial pulses GI/Abdominal exam: PRESENT: normal bowel sounds, soft. ABSENT: tenderness Rectal exam: PRESENT: deferred Neurological exam: PRESENT: alert, awake, oriented to person, oriented to place, oriented to time, oriented to situation Results Laboratory Results: 10/01/18 05:08 10/01/18 05:08 10/01/18 10/01/18 10/01/18 05:08 05:08 10:48 WBC 11.7 H RBC 3.00 L Hgb 9.3 L Hct 27.9 L MCV 93 MCH 31.2 MCHC 33.5 RDW 15.0 H Plt Count 231 Carbonic Acid 1.40 H HCO3/H2CO3 Ratio 22:1 ABG pH 7.45 ABG pCO2 46.4 H ABG pO2 68.6 L ABG HCO3 31.2 H ABG O2 Saturation 94.3 ABG Base Excess 6.2 FiO2 6L Sodium 137.5 Potassium 3.8 Chloride 95 L Carbon Dioxide 33 H Anion Gap 10 BUN 26 H Creatinine 0.95 Est GFR ( Amer) > 60 Est GFR (Non-Af Amer) 57 L Glucose 101 Calcium 8.8 09/24/18 09/24/18 09/24/18 00:38 00:38 03:01 Creatine Kinase 37 CK-MB (CK-2) 1.67 Troponin I 0.074 0.078 NT-Pro-B Natriuret Pep 21964 H 09/25/18 09/25/18 09/25/18 10:13 10:13 19:16 Creatine Kinase 22 L CK-MB (CK-2) 1.63 Troponin I 0.074 0.073 NT-Pro-B Natriuret Pep Impressions: Chest X-Ray 10/01/18 00:00 IMPRESSION: Bilateral pneumonia or asymmetric edema. No significant change. Assessment & Plan - Diagnosis (1) Acute and chronic respiratory failure with hypoxia Is this a current diagnosis for this admission?: Yes Plan: Likely due to CHF. continue IV Lasix. Normal EF on echocardiogram. Continue oxygen supplements as needed. (2) Atrial fibrillation Qualifiers: Atrial fibrillation type: paroxysmal Qualified Code(s): I48.0 - Paroxysmal atrial fibrillation Is this a current diagnosis for this admission?: Yes Plan: Currently rate controlled. Continue current treatment. continue to hold Eliquis for now due to epistaxis and hematuria. (3) CAD (coronary artery disease) Is this a current diagnosis for this admission?: Yes Plan: Continue current management with aspirin and Plavix. She is status post stent in LAD recently. (4) New onset of congestive heart failure Is this a current diagnosis for this admission?: Yes Plan: Increase IV Lasix to 20 mg 3 times daily. Normal EF on echocardiogram. Check I's and O's. Check daily weight (5) Obstructive sleep apnea Is this a current diagnosis for this admission?: Yes Plan: Continue current management. (6) Hypertension Qualifiers: Hypertension type: unspecified secondary hypertension Qualified Code(s): I 15.9 - Secondary hypertension, unspecified Is this a current diagnosis for this admission?: Yes Plan: Continue current medications. Monitor blood pressure.
[2018-10-01] MEDS: GABAPENTIN 300 MG CAPSULE PO SCH (17:29)
[2018-10-01] MEDS: ATORVASTATIN CALCIUM 40 MG TABLET PO SCH (22:18)
[2018-10-01] MEDS: ROPINIROLE HCL 2 MG TABLET PO SCH (22:18)
[2018-10-02] MEDS: LEVALBUTEROL HCL NEB 0.63 MG/3 ML AMPUL NEB SCH ×3 (00:48→19:57)
[2018-10-02 05:22] LABS: HEMATOCRIT 27.1 % (36.0-47.0); HEMOGLOBIN 9.1 g/dL (12.0-15.5); MEAN CORPUSCULAR HEMOGLOBIN 31.2 pg (27.0-33.4); MEAN CORPUSCULAR HGB CONC 33.5 g/dL (32.0-36.0); MEAN CORPUSCULAR VOLUME 93 fl (80-97); PLATELET COUNT 247 10^3/uL (150-450); RED BLOOD COUNT 2.91 10^6/uL (3.72-5.28); WHITE BLOOD COUNT 11.9 10^3/uL (4.0-10.5)
[2018-10-02] MEDS: FUROSEMIDE INJ/PF 20 MG/2 ML SDV IV SCH ×3 (05:45→21:20)
[2018-10-02 05:47] LABS: ANION GAP 9 (5-19); BLOOD UREA NITROGEN 29 mg/dL (7-20); CALCIUM 8.5 mg/dL (8.4-10.2); CARBON DIOXIDE 35 mmol/L (22-30); CHLORIDE 92 mmol/L (98-107); GLUCOSE 92 mg/dL (75-110); POTASSIUM 3.9 mmol/L (3.6-5.0); SODIUM 135.7 mmol/L (137-145)
[2018-10-02] MEDS: AMIODARONE HCL 200 MG TABLET PO SCH (09:48)
[2018-10-02] MEDS: AMLODIPINE BESYLATE 2.5 MG TABLET PO SCH (09:48)
[2018-10-02] MEDS: CLOPIDOGREL BISULFATE 75 MG TABLET PO SCH (09:48)
[2018-10-02] MEDS: FAMOTIDINE 20 MG TABLET PO SCH ×2 (09:48→21:22)
[2018-10-02] MEDS: PREDNISONE 20 MG TABLET PO SCH (09:49)
[2018-10-02] MEDS: ASPIRIN 81 MG TABLET, ENT COATED PO SCH (09:49)
[2018-10-02] MEDS: FLUTICASONE NASAL SPRAY 50 MCG/SPRY 120 SPRAY/16 GM NASL SCH ×2 (09:49→21:19)
--- NOTE | 2018-10-02 14:06 | PDOC PROGRESS REPORT ---
Subjective Progress Note for:: 10/02/18 Subjective:: Patient was seen and examined today. Patient continues to improve. She still has epistaxis but improved. Urine in the Perdue catheter has blood-tinged to it. We are holding Eliquis. Her rate is improved. She says she feels better and her lung cleared up when she received inhaled treatment. She received Xopenex every 8 hours will increase to every 6 hours. Reason For Visit: PNEUMONIA,DIASTOLIC HF Physical Exam Vital Signs: Temp Pulse Resp BP Pulse Ox 98.1 F 78 20 112/45 L 90 L 10/02/18 12:10 10/02/18 12:10 10/02/18 12:10 10/02/18 12:10 10/02/18 12:10 Intake & Output 10/01/18 10/02/18 10/03/18 06:59 06:59 06:59 Intake Total 974 1451 400 Output Total 3200 3350 775 Balance -2226 -1899 -375 Weight 204 lb 12.951 oz 203 lb 14.841 oz General appearance: PRESENT: cooperative, mild distress, obese Head exam: PRESENT: atraumatic, normocephalic Eye exam: ABSENT: conjunctival injection Mouth exam: PRESENT: moist, neck supple Neck exam: ABSENT: meningismus, tenderness Respiratory exam: PRESENT: rales. ABSENT: accessory muscle use Cardiovascular exam: PRESENT: irregular rhythm Pulses: PRESENT: normal radial pulses GI/Abdominal exam: PRESENT: normal bowel sounds, soft Rectal exam: PRESENT: deferred Musculoskeletal exam: ABSENT: deformity Neurological exam: PRESENT: alert, awake, oriented to person, oriented to place, oriented to time, oriented to situation Results Laboratory Results: 10/02/18 04:45 10/02/18 04:45 10/02/18 10/02/18 04:45 04:45 WBC 11.9 H RBC 2.91 L Hgb 9.1 L Hct 27.1 L MCV 93 MCH 31.2 MCHC 33.5 RDW 15.0 H Plt Count 247 Sodium 135.7 L Potassium 3.9 Chloride 92 L Carbon Dioxide 35 H Anion Gap 9 BUN 29 H Creatinine 1.04 Est GFR ( Amer) > 60 Est GFR (Non-Af Amer) 51 L Glucose 92 Calcium 8.5 Magnesium 2.1 09/24/18 09/24/18 09/24/18 00:38 00:38 03:01 Creatine Kinase 37 CK-MB (CK-2) 1.67 Troponin I 0.074 0.078 NT-Pro-B Natriuret Pep [id number] H 09/25/18 09/25/18 09/25/18 10:13 10:13 19:16 Creatine Kinase 22 L CK-MB (CK-2) 1.63 Troponin I 0.074 0.073 NT-Pro-B Natriuret Pep Impressions: Chest X-Ray 10/01/18 00:00 IMPRESSION: Bilateral pneumonia or asymmetric edema. No significant change. Assessment & Plan - Diagnosis (1) Acute and chronic respiratory failure with hypoxia Is this a current diagnosis for this admission?: Yes Plan: Likely due to CHF. continue IV Lasix. Normal EF on echocardiogram. Continue oxygen supplements as needed. Check chest x-ray in the morning. (2) Atrial fibrillation Qualifiers: Atrial fibrillation type: paroxysmal Qualified Code(s): I48.0 - Paroxysmal atrial fibrillation Is this a current diagnosis for this admission?: Yes Plan: Currently rate controlled. Continue current treatment. continue to hold Eliquis for now due to epistaxis and hematuria. (3) CAD (coronary artery disease) Is this a current diagnosis for this admission?: Yes Plan: Continue current management with aspirin and Plavix. She is status post stent in LAD recently. (4) New onset of congestive heart failure Is this a current diagnosis for this admission?: Yes Plan: Continue IV Lasix to 20 mg 3 times daily. Normal EF on echocardiogram. Check I's and O's. Check daily weight (5) Obstructive sleep apnea Is this a current diagnosis for this admission?: Yes Plan: Continue current management. (6) Hypertension Qualifiers: Hypertension type: unspecified secondary hypertension Qualified Code(s): I15.9 - Secondary hypertension, unspecified Is this a current diagnosis for this admission?: Yes Plan: Continue current medications. Monitor blood pressure.
[2018-10-02] MEDS: GABAPENTIN 300 MG CAPSULE PO SCH (17:00)
[2018-10-02] MEDS: ATORVASTATIN CALCIUM 40 MG TABLET PO SCH (21:21)
[2018-10-02] MEDS: ROPINIROLE HCL 2 MG TABLET PO SCH (21:23)
[2018-10-02] MEDS: ALPRAZOLAM 0.25 MG TABLET PO PRN (21:24)
[2018-10-03] MEDS: LEVALBUTEROL HCL NEB 0.63 MG/3 ML AMPUL NEB SCH ×4 (02:19→20:00)
[2018-10-03 05:04] LABS: HEMOGLOBIN 9.6 g/dL (12.0-15.5); MEAN CORPUSCULAR HEMOGLOBIN 30.8 pg (27.0-33.4); MEAN CORPUSCULAR HGB CONC 33.1 g/dL (32.0-36.0); MEAN CORPUSCULAR VOLUME 93 fl (80-97); PLATELET COUNT 288 10^3/uL (150-450); RED BLOOD COUNT 3.12 10^6/uL (3.72-5.28); RED CELL DISTRIBUTION WIDTH 14.9 % (11.5-14.0)
[2018-10-03 05:34] LABS: ANION GAP 9 (5-19); BLOOD UREA NITROGEN 37 mg/dL (7-20); CALCIUM 8.7 mg/dL (8.4-10.2); CARBON DIOXIDE 37 mmol/L (22-30); CHLORIDE 92 mmol/L (98-107); GLUCOSE 100 mg/dL (75-110); POTASSIUM 3.8 mmol/L (3.6-5.0); SODIUM 138.4 mmol/L (137-145)
[2018-10-03] MEDS: FUROSEMIDE INJ/PF 20 MG/2 ML SDV IV SCH ×3 (05:41→21:51)
[2018-10-03] MEDS: MORPHINE SULFATE 10 MG/ML INJ IV PRN ×2 (05:43→21:50)
--- NOTE | 2018-10-03 09:32 | RADIOLOGY REPORT (SQ) ---
EXAM DESCRIPTION: CHEST 2 VIEWS COMPLETED DATE/TIME: 10/03/2018 9:19 am REASON FOR STUDY: chf COMPARISON: CT chest 09/24/2018 Chest films 04/22/2017, 09/24/2018, 09/29/2018, 10/01/2018 EXAM PARAMETERS: NUMBER OF VIEWS: two views TECHNIQUE: Digital Frontal and Lateral radiographic views of the chest acquired. RADIATION DOSE: NA LIMITATIONS: none FINDINGS: LUNGS AND PLEURA: Volume loss with increased interstitial markings in the right upper lobe , left upper lobe, and both lung bases progressive since 2017. Question atypical pneumonia versus in terstitial lung disease with fibrosis which has developed since 2017. No pleural effusions. No pneumothorax. MEDIASTINUM AND HILAR STRUCTURES: No masses or contour abnormalities. HEART AND VASCULAR STRUCTURES: Heart normal size. No evidence for failure. BONES: No acute findings. HARDWARE: Clips right upper quadrant post cholecystectomy. OTHER: No other significant finding. IMPRESSION: Persistent bilateral alveolar and interstitial infiltrates unchanged from 10/01/[address] chest 09/24/2018. TECHNICAL DOCUMENTATION: JOB ID: [id number] [employer]- All Rights Reserved Reading location - IP/workstation name: [email or web address] [email or web address]
[2018-10-03] MEDS: AMIODARONE HCL 200 MG TABLET PO SCH (10:41)
[2018-10-03] MEDS: ASPIRIN 81 MG TABLET, ENT COATED PO SCH (10:41)
[2018-10-03] MEDS: PREDNISONE 20 MG TABLET PO SCH (10:41)
[2018-10-03] MEDS: CLOPIDOGREL BISULFATE 75 MG TABLET PO SCH (10:41)
[2018-10-03] MEDS: AMLODIPINE BESYLATE 2.5 MG TABLET PO SCH (10:41)
[2018-10-03] MEDS: FLUTICASONE NASAL SPRAY 50 MCG/SPRY 120 SPRAY/16 GM NASL SCH ×2 (10:41→21:55)
[2018-10-03] MEDS: FAMOTIDINE 20 MG TABLET PO SCH ×2 (10:48→21:50)
--- NOTE | 2018-10-03 18:12 | PDOC PROGRESS REPORT ---
Subjective Progress Note for:: 10/03/18 Subjective:: Patient was seen and examined today. Patient continues to improve. Eliquis was held due to epistaxis and transient hematuria. Her A. fib is controlled now. Creatinine is more elevated today. Reason For Visit: PNEUMONIA,DIASTOLIC HF Physical Exam Vital Signs: Temp Pulse Resp BP Pulse Ox 98.7 F 80 17 123/38 L 94 10/03/18 11:49 10/03/18 14:00 10/03/18 13:55 10/03/18 11:49 10/03/18 13:55 Intake & Output 10/02/18 10/03/18 10/04/18 06:59 06:59 06:59 Intake Total 1451 1114 50 Output Total 3350 2400 575 Balance -1899 -1286 -525 Weight 203 lb 14.841 oz 201 lb 11.567 oz General appearance: PRESENT: no acute distress, cooperative, obese, other - On 5 L of oxygen via nasal cannula Head exam: PRESENT: atraumatic, normocephalic Eye exam: PRESENT: EOMI. ABSENT: conjunctival injection Mouth exam: PRESENT: moist, neck supple Neck exam: ABSENT: meningismus, tenderness Respiratory exam: PRESENT: crackles, wheezes. ABSENT: accessory muscle use Cardiovascular exam: PRESENT: irregular rhythm Pulses: PRESENT: normal radial pulses GI/Abdominal exam: PRESENT: normal bowel sounds, soft. ABSENT: tenderness Rectal exam: PRESENT: deferred Neurological exam: PRESENT: alert, awake, oriented to person, oriented to place, oriented to time, oriented to situation Psychiatric exam: PRESENT: appropriate affect Results Laboratory Results: 10/03/18 04:33 10/03/18 04:33 10/03/18 10/03/18 04:33 04:33 WBC 12.0 H RBC 3.12 L Hgb 9.6 L Hct 29.0 L MCV 93 MCH 30.8 MCHC 33.1 RDW 14.9 H Plt Count 288 Sodium 138.4 Potassium 3.8 Chloride 92 L Carbon Dioxide 37 H Anion Gap 9 BUN 37 H Creatinine 1.27 H Est GFR ( Amer) 49 L Est GFR (Non-Af Amer) 40 L Glucose 100 Calcium 8.7 09/24/18 09/24/18 09/24/18 00:38 00:38 03:01 Creatine Kinase 37 CK-MB (CK-2) 1.67 Troponin I 0.074 0.078 NT-Pro-B Natriuret Pep 20557 H 09/25/18 09/25/18 09/25/18 10:13 10:13 19:16 Creatine Kinase 22 L CK-MB (CK-2) 1.63 Troponin I 0.074 0.073 NT-Pro-B Natriuret Pep Impressions: Chest X-Ray 10/03/18 06:00 IMPRESSION: Persistent bilateral alveolar and interstitial infiltrates unchanged from 10/01/[address] chest 09/24/2018. Assessment & Plan - Diagnosis (1) Acute and chronic respiratory failure with hypoxia Is this a current diagnosis for this admission?: Yes Plan: Likely due to CHF. Decrease dose of IV Lasix to 20 mg twice daily due to elevated creatinine. Normal EF on echocardiogram. Continue oxygen supplements as needed. Check chest x-ray in the morning. (2) Atrial fibrillation Qualifiers: Atrial fibrillation type: paroxysmal Qualified Code(s): I48.0 - Paroxysmal atrial fibrillation Is this a current diagnosis for this admission?: Yes Plan: Currently rate controlled. Continue current treatment. Resume Eliquis. Was held due to epistaxis and hematuria. (3) CAD (coronary artery disease) Is this a current diagnosis for this admission?: Yes Plan: Continue current management with aspirin and Plavix. She is status post stent in LAD recently. (4) New onset of congestive heart failure Is this a current diagnosis for this admission?: Yes Plan: Decrease IV Lasix to 20 mg twice daily due to increased creatinine. Normal EF on echocardiogram. Check I's and O's. Check daily weight (5) Obstructive sleep apnea Is this a current diagnosis for this admission?: Yes Plan: Continue current management. (6) Hypertension Qualifiers: Hypertension type: unspecified secondary hypertension Qualified Code(s): I15.9 - Secondary hypertension, unspecified Is this a current diagnosis for this admission?: Yes Plan: Continue current medications. Monitor blood pressure.
[2018-10-03] MEDS: GABAPENTIN 300 MG CAPSULE PO SCH (18:31)
[2018-10-03] MEDS: ROPINIROLE HCL 2 MG TABLET PO SCH (21:49)
[2018-10-03] MEDS: ALPRAZOLAM 0.25 MG TABLET PO PRN (21:49)
[2018-10-03] MEDS: ATORVASTATIN CALCIUM 40 MG TABLET PO SCH (21:50)
[2018-10-03] MEDS: APIXABAN 5 MG TABLET PO SCH (21:53)
[2018-10-04] MEDS: LEVALBUTEROL HCL NEB 0.63 MG/3 ML AMPUL NEB SCH ×4 (02:50→20:11)
[2018-10-04 05:38] LABS: HEMATOCRIT 30.9 % (36.0-47.0); HEMOGLOBIN 10.3 g/dL (12.0-15.5); MEAN CORPUSCULAR HEMOGLOBIN 30.9 pg (27.0-33.4); MEAN CORPUSCULAR HGB CONC 33.4 g/dL (32.0-36.0); MEAN CORPUSCULAR VOLUME 92 fl (80-97); PLATELET COUNT 268 10^3/uL (150-450); RED BLOOD COUNT 3.35 10^6/uL (3.72-5.28); RED CELL DISTRIBUTION WIDTH 14.7 % (11.5-14.0); WHITE BLOOD COUNT 11.3 10^3/uL (4.0-10.5)
[2018-10-04 05:58] LABS: ARTERIAL BLOOD BASE EXCESS 14.4 mmol/L; ARTERIAL BLOOD H2CO3 1.69 mmol/L (1.05-1.35); ARTERIAL BLOOD O2 SATURATION 93.1 % (94-98); ARTERIAL BLOOD PCO2 56.3 mmHg (35-45); ARTERIAL BLOOD PH 7.47 (7.35-7.45); ARTERIAL BLOOD PO2 63.9 mmHg (80-100); ARTERIAL BLOOD TOTAL CO2 41.7 mmol/L (21-25)
[2018-10-04 06:01] LABS: ARTERIAL BLOOD FIO2 40%
[2018-10-04 06:05] LABS: BLOOD UREA NITROGEN 40 mg/dL (7-20); CALCIUM 8.9 mg/dL (8.4-10.2); CHLORIDE 92 mmol/L (98-107); GLUCOSE 97 mg/dL (75-110); SODIUM 139.8 mmol/L (137-145)
[2018-10-04 06:12] LABS: ANION GAP 8 (5-19)
[2018-10-04 06:17] LABS: CARBON DIOXIDE 40 mmol/L (22-30)
[2018-10-04] MEDS: ASPIRIN 81 MG TABLET, ENT COATED PO SCH (10:34)
[2018-10-04] MEDS: AMLODIPINE BESYLATE 2.5 MG TABLET PO SCH (10:34)
[2018-10-04] MEDS: CLOPIDOGREL BISULFATE 75 MG TABLET PO SCH (10:34)
[2018-10-04] MEDS: FUROSEMIDE INJ/PF 20 MG/2 ML SDV IV SCH (10:34)
[2018-10-04] MEDS: APIXABAN 5 MG TABLET PO SCH ×2 (10:34→21:45)
[2018-10-04] MEDS: AMIODARONE HCL 200 MG TABLET PO SCH (10:34)
[2018-10-04] MEDS: FAMOTIDINE 20 MG TABLET PO SCH ×2 (10:34→21:44)
[2018-10-04] MEDS: FLUTICASONE NASAL SPRAY 50 MCG/SPRY 120 SPRAY/16 GM NASL SCH ×2 (10:35→21:45)
[2018-10-04] MEDS: PREDNISONE 20 MG TABLET PO SCH (10:35)
--- NOTE | 2018-10-04 14:50 | PDOC PROGRESS REPORT ---
Subjective Progress Note for:: 10/04/18 Subjective:: Patient was seen and examined today. Patient continues to improve. Creatinine is improving after we decreased Lasix dose. She says she is feeling better and able to get out of bed and not feel very winded. Reason For Visit: PNEUMONIA,DIASTOLIC HF Physical Exam Vital Signs: Temp Pulse Resp BP Pulse Ox 97.9 F 81 17 114/32 L 92 10/04/18 11:55 10/04/18 14:32 10/04/18 14:32 10/04/18 11:55 10/04/18 14:32 Intake & Output 10/03/18 10/04/18 10/05/18 06:59 06:59 06:59 Intake Total 1114 1087 Output Total 2400 2275 300 Balance -1286 -1188 -300 Weight 201 lb 11.567 oz 202 lb 9.677 oz General appearance: PRESENT: no acute distress, cooperative Head exam: PRESENT: atraumatic, normocephalic Mouth exam: PRESENT: moist, neck supple Neck exam: ABSENT: meningismus, tenderness Respiratory exam: PRESENT: clear to auscultation maci. ABSENT: accessory muscle use Cardiovascular exam: PRESENT: irregular rhythm Pulses: PRESENT: normal radial pulses GI/Abdominal exam: PRESENT: normal bowel sounds, soft. ABSENT: tenderness Rectal exam: PRESENT: deferred Neurological exam: PRESENT: alert, awake, oriented to person, oriented to place, oriented to time, oriented to situation Psychiatric exam: ABSENT: agitated, anxious Results Laboratory Results: 10/04/18 05:11 10/04/18 05:11 10/04/18 10/04/18 10/04/18 05:11 05:11 05:42 WBC 11.3 H RBC 3.35 L Hgb 10.3 L Hct 30.9 L MCV 92 MCH 30.9 MCHC 33.4 RDW 14.7 H Plt Count 268 Carbonic Acid 1.69 H HCO3/H2CO3 Ratio 23:1 ABG pH 7.47 H ABG pCO2 56.3 H ABG pO2 63.9 L ABG HCO3 40.0 H ABG O2 Saturation 93.1 L ABG Base Excess 14.4 FiO2 40% Sodium 139.8 Potassium 4.0 Chloride 92 L Carbon Dioxide 40 H* Anion Gap 8 BUN 40 H Creatinine 1.16 Est GFR ( Amer) 54 L Est GFR (Non-Af Amer) 45 L Glucose 97 Calcium 8.9 Magnesium 2.2 09/24/18 09/24/18 09/24/18 00:38 00:38 03:01 Creatine Kinase 37 CK-MB (CK-2) 1.67 Troponin I 0.074 0.078 NT-Pro-B Natriuret Pep [id number] H 09/25/18 09/25/18 09/25/18 10:13 10:13 19:16 Creatine Kinase 22 L CK-MB (CK-2) 1.63 Troponin I 0.074 0.073 NT-Pro-B Natriuret Pep Impressions: Chest X-Ray 10/03/18 06:00 IMPRESSION: Persistent bilateral alveolar and interstitial infiltrates unchange d from 10/01/[address] chest 09/24/2018. Assessment & Plan - Diagnosis (1) Acute and chronic respiratory failure with hypoxia Is this a current diagnosis for this admission?: Yes Plan: Likely due to CHF. Decreased dose of IV Lasix to 20 mg twice daily yesterday due to elevated creatinine. Normal EF on echocardiogram. Continue oxygen supplements as needed. Check chest x-ray in the morning. (2) Atrial fibrillation Qualifiers: Atrial fibrillation type: paroxysmal Qualified Code(s): I48.0 - Paroxysmal atrial fibrillation Is this a current diagnosis for this admission?: Yes Plan: Currently rate controlled. Continue current treatment. Resumed Eliquis yesterday. Was held due to epistaxis and hematuria. (3) CAD (coronary artery disease) Is this a current diagnosis for this admission?: Yes Plan: Continue current management with aspirin and Plavix. She is status post stent in LAD recently. (4) New onset of congestive heart failure Is this a current diagnosis for this admission?: Yes Plan: Decreased IV Lasix to 20 mg twice daily due to increased creatinine. We will switch to p.o. Lasix. Normal EF on echocardiogram. Check I's and O's. Check daily weight (5) Obstructive sleep apnea Is this a current diagnosis for this admission?: Yes Plan: Continue current management. (6) Hypertension Qualifiers: Hypertension type: unspecified secondary hypertension Qualified Code(s): I15.9 - Secondary hypertension, unspecified Is this a current diagnosis for this admission?: Yes Plan: Continue current medications. Monitor blood pressure.
--- NOTE | 2018-10-04 15:56 | RADIOLOGY REPORT (SQ) ---
EXAM DESCRIPTION: CHEST 2 VIEWS COMPLETED DATE/TIME: 10/04/2018 3:38 pm REASON FOR STUDY: chf COMPARISON: CT chest 10/02/2018 Chest films 09/25/2018, 09/29/2018, 10/01/2018, 10/03/2018 EXAM PARAMETERS: NUMBER OF VIEWS: two views TECHNIQUE: Digital Frontal and Lateral radiographic views of the chest acquired. RADIATION DOSE: NA LIMITATIONS: none FINDINGS: LUNGS AND PLEURA: Increased interstitial markings bilaterally, unchanged from prior studie s. No pleural effusion. No pneumothorax. MEDIASTINUM AND HILAR STRUCTURES: No masses or contour abnormalities. HEART AND VASCULAR STRUCTURES: Heart normal size. No evidence for failure. BONES: No acute findings. HARDWARE: Clips right upper quadrant post cholecystectomy OTHER: No other significant finding. IMPRESSION: NO ACUTE RADIOGRAPHIC FINDING IN THE CHEST. TECHNICAL DOCUMENTATION: JOB ID: [id number] [employer]- All Rights Reserved Reading location - IP/workstation name: [email or web address]
[2018-10-04] MEDS: FUROSEMIDE 20 MG TABLET PO SCH (17:55)
[2018-10-04] MEDS: GABAPENTIN 300 MG CAPSULE PO SCH (17:55)
[2018-10-04] MEDS: ATORVASTATIN CALCIUM 40 MG TABLET PO SCH (21:44)
[2018-10-04] MEDS: ALPRAZOLAM 0.25 MG TABLET PO PRN (21:44)
[2018-10-04] MEDS: CARVEDILOL 3.125 MG TABLET PO SCH (21:45)
[2018-10-04] MEDS: ROPINIROLE HCL 2 MG TABLET PO SCH (21:47)
[2018-10-05] MEDS: LEVALBUTEROL HCL NEB 0.63 MG/3 ML AMPUL NEB SCH ×4 (02:23→20:45)
[2018-10-05 06:28] LABS: HEMOGLOBIN 9.4 g/dL (12.0-15.5); MEAN CORPUSCULAR HEMOGLOBIN 31.3 pg (27.0-33.4); MEAN CORPUSCULAR HGB CONC 33.4 g/dL (32.0-36.0); MEAN CORPUSCULAR VOLUME 94 fl (80-97); PLATELET COUNT 248 10^3/uL (150-450); RED CELL DISTRIBUTION WIDTH 14.9 % (11.5-14.0); WHITE BLOOD COUNT 9.8 10^3/uL (4.0-10.5)
[2018-10-05 06:28] LABS: ARTERIAL BLOOD BASE EXCESS 13.3 mmol/L; ARTERIAL BLOOD H2CO3 1.61 mmol/L (1.05-1.35); ARTERIAL BLOOD HCO3 38.7 mmol/L (20-24); ARTERIAL BLOOD PCO2 53.4 mmHg (35-45); ARTERIAL BLOOD PH 7.48 (7.35-7.45); ARTERIAL BLOOD PO2 59.8 mmHg (80-100); ARTERIAL BLOOD TOTAL CO2 40.3 mmol/L (21-25)
[2018-10-05 06:29] LABS: ARTERIAL BLOOD FIO2 6L
[2018-10-05 06:49] LABS: ANION GAP 6 (5-19); BLOOD UREA NITROGEN 36 mg/dL (7-20); CALCIUM 8.6 mg/dL (8.4-10.2); CARBON DIOXIDE 39 mmol/L (22-30); CHLORIDE 93 mmol/L (98-107); GLUCOSE 93 mg/dL (75-110); SODIUM 137.5 mmol/L (137-145)
--- NOTE | 2018-10-05 09:04 | RADIOLOGY REPORT (SQ) ---
EXAM DESCRIPTION: CHEST SINGLE VIEW COMPLETED DATE/TIME: 10/05/2018 8:54 am REASON FOR STUDY: chf COMPARISON: 10/04/2018 NUMBER OF VIEWS: One view. TECHNIQUE: Single frontal radiographic image of the chest acquired. LIMITATIONS: None. FINDINGS: LUNGS AND PLEURA: Stable appearance. MEDIASTINUM AND HILAR STRUCTURES: Stable heart size and mediastinal structures. HEART AND VASCULAR STRUCTURES: Stable appearance. BONES: No acute findings. HARDWARE: None in the chest. OTHER: No other significant finding. IMPRESSION: No interval change in the chest allowing for slight differences in technique. TECHNICAL DOCUMENTATION: JOB ID: [id number] [employer]- All Rights Reserved Reading location - IP/workstation name: [email or web address]
[2018-10-05] MEDS: CARVEDILOL 3.125 MG TABLET PO SCH ×2 (11:14→21:08)
[2018-10-05] MEDS: AMIODARONE HCL 200 MG TABLET PO SCH (11:14)
[2018-10-05] MEDS: PREDNISONE 20 MG TABLET PO SCH (11:15)
[2018-10-05] MEDS: ASPIRIN 81 MG TABLET, ENT COATED PO SCH (11:16)
[2018-10-05] MEDS: APIXABAN 5 MG TABLET PO SCH (11:16)
[2018-10-05] MEDS: FAMOTIDINE 20 MG TABLET PO SCH ×3 (11:16→21:09)
[2018-10-05] MEDS: AMLODIPINE BESYLATE 2.5 MG TABLET PO SCH (11:16)
[2018-10-05] MEDS: CLOPIDOGREL BISULFATE 75 MG TABLET PO SCH (11:16)
[2018-10-05] MEDS: FUROSEMIDE 20 MG TABLET PO SCH ×2 (11:17→21:09)
[2018-10-05] MEDS: FLUTICASONE NASAL SPRAY 50 MCG/SPRY 120 SPRAY/16 GM NASL SCH ×2 (14:38→21:08)
[2018-10-05] MEDS: ALPRAZOLAM 0.25 MG TABLET PO PRN (15:31)
--- NOTE | 2018-10-05 17:02 | PDOC PROGRESS REPORT ---
Subjective Progress Note for:: 10/05/18 Subjective:: Patient was seen and examined today. Creatinine is improving after we decreased Lasix dose. She still requires a lot of oxygen. She continues to have persistent epistaxis. Reason For Visit: PNEUMONIA,DIASTOLIC HF Physical Exam Vital Signs: Temp Pulse Resp BP Pulse Ox 99.1 F 57 L 22 H 113/50 L 93 10/05/18 15:29 10/05/18 15:29 10/05/18 15:29 10/05/18 15:29 10/05/18 15:29 Intake & Output 10/04/18 10/05/18 10/06/18 06:59 06:59 06:59 Intake Total 1087 687 Output Total 2275 2150 150 Balance -1188 -1463 -150 Weight 202 lb 9.677 oz 198 lb 6.656 oz General appearance: PRESENT: cooperative, obese Head exam: PRESENT: atraumatic, normocephalic Mouth exam: PRESENT: moist, neck supple Throat exam: ABSENT: tonsillar exudate, tonsillogmegaly Neck exam: ABSENT: meningismus, tenderness Respiratory exam: PRESENT: accessory muscle use, crackles, rhonchi, wheezes Cardiovascular exam: PRESENT: irregular rhythm GI/Abdominal exam: PRESENT: normal bowel sounds, soft Rectal exam: PRESENT: deferred Neurological exam: PRESENT: alert, awake, oriented to person, oriented to place, oriented to time, oriented to situation Results Laboratory Results: 10/05/18 05:39 10/05/18 05:39 10/05/18 10/05/18 10/05/18 05:39 05:39 06:05 WBC 9.8 RBC 3.00 L Hgb 9.4 L Hct 28.0 L MCV 94 MCH 31.3 MCHC 33.4 RDW 14.9 H Plt Count 248 Carbonic Acid 1.61 H HCO3/H2CO3 Ratio 24:1 ABG pH 7.48 H ABG pCO2 53.4 H ABG pO2 59.8 L ABG HCO3 38.7 H ABG O2 Saturation 92.0 L ABG Base Excess 13.3 FiO2 6L Sodium 137.5 Potassium 4.0 Chloride 93 L Carbon Dioxide 39 H Anion Gap 6 BUN 36 H Creatinine 0.89 Est GFR ( Amer) > 60 Est GFR (Non-Af Amer) > 60 Glucose 93 Calcium 8.6 09/24/18 09/24/18 09/24/18 00:38 00:38 03:01 Creatine Kinase 37 CK-MB (CK-2) 1.67 Troponin I 0.074 0.078 NT-Pro-B Natriuret Pep [id number] H 09/25/18 09/25/18 09/25/18 10:13 10:13 19:16 Creatine Kinase 22 L CK-MB (CK-2) 1.63 Troponin I 0.074 0.073 NT-Pro-B Natriuret Pep Impressions: Chest X-Ray 10/05/18 06:00 IMPRESSION: No interval change in the chest allowing for slight differences in technique. Assessment & Plan - Diagnosis (1) Acute and chronic respiratory failure with hypoxia Is this a current diagnosis for this admission?: Yes Plan: Likely due to CHF. Decreased dose of IV Lasix to 20 mg twice daily yesterday due to elevated creatinine. Normal EF on echocardiogram. Continue oxygen supplements as needed. We will switch to p.o. Lasix yesterday 20 mg twice daily, increase dose to 3 times daily. (2) Atrial fibrillation Qualifiers: Atrial fibrillation type: paroxysmal Qualified Code(s): I48.0 - Paroxysmal atrial fibrillation Is this a current diagnosis for this admission?: Yes Plan: Currently rate controlled. Continue current treatment. Hold Eliquis due to persistent epistaxis. Hematuria resolved. (3) CAD (coronary artery disease) Is this a current diagnosis for this admission?: Yes Plan: Continue current management with aspirin and Plavix. She is status post stent in LAD recently. (4) New onset of congestive heart failure Is this a current diagnosis for this admission?: Yes Plan: As above. The need to check I's and O's and daily weight (5) Obstructive sleep apnea Is this a current diagnosis for this admission?: Yes Plan: Continue current management. (6) Hypertension Qualifiers: Hypertension type: unspecified secondary hypertension Qualified Code(s): I15.9 - Secondary hypertension, unspecified Is this a current diagnosis for this admission?: Yes Plan: Continue current medications. Monitor blood pressure.
[2018-10-05] MEDS: GABAPENTIN 300 MG CAPSULE PO SCH (17:57)
[2018-10-05] MEDS ORDERED: FUROSEMIDE 20 MG TABLET PO SCH (18:00)
[2018-10-05] MEDS: ATORVASTATIN CALCIUM 40 MG TABLET PO SCH (21:09)
[2018-10-05] MEDS: ROPINIROLE HCL 2 MG TABLET PO SCH (21:10)
[2018-10-06] MEDS: LEVALBUTEROL HCL NEB 0.63 MG/3 ML AMPUL NEB SCH ×4 (02:09→20:08)
[2018-10-06 05:41] LABS: ANION GAP 6 (5-19); BLOOD UREA NITROGEN 30 mg/dL (7-20); CALCIUM 8.7 mg/dL (8.4-10.2); CARBON DIOXIDE 38 mmol/L (22-30); CHLORIDE 94 mmol/L (98-107); GLUCOSE 107 mg/dL (75-110); POTASSIUM 3.6 mmol/L (3.6-5.0); SODIUM 138.4 mmol/L (137-145)
[2018-10-06] MEDS: FUROSEMIDE 20 MG TABLET PO SCH ×2 (06:08→17:45)
[2018-10-06] MEDS: FAMOTIDINE 20 MG TABLET PO SCH ×3 (06:09→21:48)
[2018-10-06] MEDS: CARVEDILOL 3.125 MG TABLET PO SCH ×2 (09:32→21:51)
[2018-10-06] MEDS: AMLODIPINE BESYLATE 2.5 MG TABLET PO SCH (09:33)
[2018-10-06] MEDS: CLOPIDOGREL BISULFATE 75 MG TABLET PO SCH (09:33)
[2018-10-06] MEDS: FLUTICASONE NASAL SPRAY 50 MCG/SPRY 120 SPRAY/16 GM NASL SCH ×2 (09:33→21:49)
[2018-10-06] MEDS: ASPIRIN 81 MG TABLET, ENT COATED PO SCH (09:33)
[2018-10-06] MEDS: AMIODARONE HCL 200 MG TABLET PO SCH (09:33)
--- NOTE | 2018-10-06 12:31 | PDOC PROGRESS REPORT ---
Subjective Progress Note for:: 10/06/18 Subjective:: Patient was seen and examined today. Creatinine is improving after we decreased Lasix dose. She still requires 5-6 L of oxygen via nasal cannula We had to stop Eliquis again due to persistent epistaxis. Reason For Visit: PNEUMONIA,DIASTOLIC HF Physical Exam Vital Signs: Temp Pulse Resp BP Pulse Ox 97.4 F 64 20 121/57 L 93 10/06/18 07:33 10/06/18 11:13 10/06/18 11:13 10/06/18 11:13 10/06/18 11:13 Intake & Output 10/05/18 10/06/18 10/07/18 06:59 06:59 06:59 Intake Total 687 450 Output Total 2150 1700 250 Balance -1463 -1250 -250 Weight 198 lb 6.656 oz 197 lb 15.602 oz General appearance: PRESENT: cooperative, obese Head exam: PRESENT: atraumatic, normocephalic Eye exam: PRESENT: EOMI, PERRLA. ABSENT: conjunctival injection Ear exam: ABSENT: bleeding, drainage Mouth exam: PRESENT: moist, neck supple Neck exam: ABSENT: meningismus, tenderness Respiratory exam: PRESENT: crackles, rhonchi. ABSENT: accessory muscle use Cardiovascular exam: PRESENT: irregular rhythm GI/Abdominal exam: PRESENT: normal bowel sounds, soft Rectal exam: PRESENT: deferred Neurological exam: PRESENT: alert, awake, oriented to person, oriented to place, oriented to time, oriented to situation Results Laboratory Results: 10/05/18 05:39 10/06/18 04:44 10/06/18 04:44 Sodium 138.4 Potassium 3.6 Chloride 94 L Carbon Dioxide 38 H Anion Gap 6 BUN 30 H Creatinine 0.99 Est GFR ( Amer) > 60 Est GFR (Non-Af Amer) 54 L Glucose 107 Calcium 8.7 Magnesium 2.2 09/24/18 09/24/18 09/24/18 00:38 00:38 03:01 Creatine Kinase 37 CK-MB (CK-2) 1.67 Troponin I 0.074 0.078 NT-Pro-B Natriuret Pep 43653 H 09/25/18 09/25/18 09/25/18 10:13 10:13 19:16 Creatine Kinase 22 L CK-MB (CK-2) 1.63 Troponin I 0.074 0.073 NT-Pro-B Natriuret Pep Impressions: Chest X-Ray 10/05/18 06:00 IMPRESSION: No interval change in the chest allowing for slight differences in technique. Assessment & Plan - Diagnosis (1) Acute and chronic respiratory failure with hypoxia Is this a current diagnosis for this admission?: Yes Plan: Likely due to CHF. Continue Lasix 20 mg 3 times daily. Continue oxygen supplements as needed. BiPAP at night. EF is 55-60%. Monitor renal function. (2) Atrial fibrillation Qualifiers: Atrial fibrillation type: paroxysmal Qualified Code(s): I48.0 - Paroxysmal atrial fibrillation Is this a current diagnosis for this admission?: Yes Plan: Currently rate controlled. Continue current treatment. Stop Eliquis due to per sistent epistaxis. Hematuria resolved. (3) CAD (coronary artery disease) Is this a current diagnosis for this admission?: Yes Plan: Continue current management with aspirin and Plavix. She is status post stent in LAD recently. (4) New onset of congestive heart failure Is this a current diagnosis for this admission?: Yes Plan: As above. The need to check I's and O's and daily weight (5) Obstructive sleep apnea Is this a current diagnosis for this admission?: Yes Plan: Continue current management. (6) Hypertension Qualifiers: Hypertension type: unspecified secondary hypertension Qualified Code(s): I15.9 - Secondary hypertension, unspecified Is this a current diagnosis for this admission?: Yes Plan: Continue current medications. Monitor blood pressure. - Plan Summary Plan Summary: Ambulate with physical therapy. Remove Perdue catheter. Hopefully discharge in 1-2 days.
[2018-10-06] MEDS: ALPRAZOLAM 0.25 MG TABLET PO PRN (15:51)
[2018-10-06] MEDS: GABAPENTIN 300 MG CAPSULE PO SCH (17:46)
[2018-10-06] MEDS: SODIUM CHLORIDE NASAL SPRAY 44 ML NASL SCH (17:49)
[2018-10-06] MEDS ORDERED: MORPHINE SULFATE 10 MG/ML INJ ONE (18:25)
[2018-10-06] MEDS ORDERED: MORPHINE SULFATE 10 MG/ML INJ IV ONE (19:00)
[2018-10-06] MEDS: ATORVASTATIN CALCIUM 40 MG TABLET PO SCH (21:48)
[2018-10-06] MEDS: ROPINIROLE HCL 2 MG TABLET PO SCH (21:50)
[2018-10-07] MEDS: MORPHINE SULFATE 10 MG/ML INJ IV PRN (00:12)
[2018-10-07] MEDS: ACETAMINOPHEN 325 MG TABLET PO PRN (02:43)
[2018-10-07] MEDS: LEVALBUTEROL HCL NEB 0.63 MG/3 ML AMPUL NEB SCH ×4 (03:09→20:09)
[2018-10-07] MEDS ORDERED: MORPHINE SULFATE 10 MG/ML INJ IV ONE (04:00)
[2018-10-07 05:01] LABS: HEMATOCRIT 28.3 % (36.0-47.0); HEMOGLOBIN 9.5 g/dL (12.0-15.5); MEAN CORPUSCULAR HEMOGLOBIN 31.3 pg (27.0-33.4); MEAN CORPUSCULAR HGB CONC 33.7 g/dL (32.0-36.0); MEAN CORPUSCULAR VOLUME 93 fl (80-97); PLATELET COUNT 265 10^3/uL (150-450); RED BLOOD COUNT 3.05 10^6/uL (3.72-5.28); WHITE BLOOD COUNT 11.5 10^3/uL (4.0-10.5)
[2018-10-07 05:27] LABS: ANION GAP 10 (5-19); BLOOD UREA NITROGEN 35 mg/dL (7-20); CALCIUM 8.4 mg/dL (8.4-10.2); CARBON DIOXIDE 33 mmol/L (22-30); CHLORIDE 95 mmol/L (98-107); GLUCOSE 109 mg/dL (75-110); POTASSIUM 3.7 mmol/L (3.6-5.0); SODIUM 138.1 mmol/L (137-145)
[2018-10-07] MEDS: FAMOTIDINE 20 MG TABLET PO SCH ×3 (05:29→22:25)
[2018-10-07 05:39] LABS: ARTERIAL BLOOD BASE EXCESS 10.1 mmol/L; ARTERIAL BLOOD HCO3 35.1 mmol/L (20-24); ARTERIAL BLOOD O2 SATURATION 94.3 % (94-98); ARTERIAL BLOOD PCO2 49.7 mmHg (35-45); ARTERIAL BLOOD PH 7.47 (7.35-7.45); ARTERIAL BLOOD PO2 67.7 mmHg (80-100); ARTERIAL BLOOD TOTAL CO2 36.6 mmol/L (21-25)
[2018-10-07 05:40] LABS: ARTERIAL BLOOD FIO2 6LNC
[2018-10-07] MEDS: FUROSEMIDE 20 MG TABLET PO SCH ×2 (09:23→17:06)
[2018-10-07] MEDS: CLOPIDOGREL BISULFATE 75 MG TABLET PO SCH (09:23)
[2018-10-07] MEDS: CARVEDILOL 3.125 MG TABLET PO SCH ×2 (09:23→22:25)
[2018-10-07] MEDS: AMLODIPINE BESYLATE 2.5 MG TABLET PO SCH (09:23)
[2018-10-07] MEDS: ASPIRIN 81 MG TABLET, ENT COATED PO SCH (09:24)
[2018-10-07] MEDS: FLUTICASONE NASAL SPRAY 50 MCG/SPRY 120 SPRAY/16 GM NASL SCH ×2 (09:24→22:25)
[2018-10-07] MEDS: AMIODARONE HCL 200 MG TABLET PO SCH (09:24)
[2018-10-07] MEDS: SODIUM CHLORIDE NASAL SPRAY 44 ML NASL SCH ×2 (09:25→17:07)
--- NOTE | 2018-10-07 10:31 | RADIOLOGY REPORT (SQ) ---
EXAM DESCRIPTION: CHEST 2 VIEWS COMPLETED DATE/TIME: 10/07/2018 10:15 am REASON FOR STUDY: chf COMPARISON: 10/05/2018 EXAM PARAMETERS: NUMBER OF VIEWS: two views TECHNIQUE: Digital Frontal and Lateral radiographic views of the chest acquired. RADIATION DOSE: NA LIMITATIONS: none FINDINGS: LUNGS AND PLEURA: 6 scattered parenchymal opacities. No significant improvement. Finding s appear to be related to interstitial lung disease. MEDIASTINUM AND HILAR STRUCTURES: No masses or contour abnormalities. HEART AND VASCULAR STRUCTURES: Heart normal size. No evidence for failure. BONES: No acute findings. HARDWARE: None in the chest. OTHER: No other significant finding. IMPRESSION: No radiographic evidence for congestive failure. Parenchymal opacities in the lungs who le largely interstitial and likely chronic. TECHNICAL DOCUMENTATION: JOB ID: [id number] [employer]- All Rights Reserved Reading location - IP/workstation name: [email or web address]
--- NOTE | 2018-10-07 11:55 | PDOC PROGRESS REPORT ---
Subjective Progress Note for:: 10/07/18 Subjective:: Patient was seen and examined today. Patient says she is feeling better. She is moving more. Perdue catheter was removed yesterday. She is still on 6 L of oxygen. Eliquis was stopped due to persistent epistaxis. Lasix was increased to 30 mg twice daily. Creatinine slightly increased today. Reason For Visit: PNEUMONIA,DIASTOLIC HF Physical Exam Vital Signs: Temp Pulse Resp BP Pulse Ox 97.4 F 65 16 120/52 L 95 10/07/18 08:00 10/07/18 08:22 10/07/18 08:22 10/07/18 08:00 10/07/18 08:22 Intake & Output 10/06/18 10/07/18 10/08/18 06:59 06:59 06:59 Intake Total 450 222 Output Total 1700 700 Balance -1250 -478 Weight 197 lb 15.602 oz 193 lb 5.526 oz General appearance: PRESENT: no acute distress, cooperative, obese Head exam: PRESENT: atraumatic, normocephalic Eye exam: PRESENT: EOMI Mouth exam: PRESENT: moist, neck supple Neck exam: ABSENT: meningismus, tenderness Respiratory exam: PRESENT: crackles, rhonchi. ABSENT: accessory muscle use Cardiovascular exam: PRESENT: RRR Pulses: PRESENT: normal radial pulses GI/Abdominal exam: PRESENT: normal bowel sounds, soft Rectal exam: PRESENT: deferred Musculoskeletal exam: ABSENT: deformity Neurological exam: PRESENT: alert, awake, oriented to person, oriented to place, oriented to time, oriented to situation Results Laboratory Results: 10/07/18 04:24 10/07/18 04:24 10/07/18 10/07/18 10/07/18 04:24 04:24 05:29 WBC 11.5 H RBC 3.05 L Hgb 9.5 L Hct 28.3 L MCV 93 MCH 31.3 MCHC 33.7 RDW 15.0 H Plt Count 265 Carbonic Acid 1.50 H HCO3/H2CO3 Ratio 23:1 ABG pH 7.47 H ABG pCO2 49.7 H ABG pO2 67.7 L ABG HCO3 35.1 H ABG O2 Saturation 94.3 ABG Base Excess 10.1 FiO2 6LNC Sodium 138.1 Potassium 3.7 Chloride 95 L Carbon Dioxide 33 H Anion Gap 10 BUN 35 H Creatinine 1.17 Est GFR ( Amer) 54 L Est GFR (Non-Af Amer) 45 L Glucose 109 Calcium 8.4 Magnesium 1.8 09/24/18 09/24/18 09/24/18 00:38 00:38 03:01 Creatine Kinase 37 CK-MB (CK-2) 1.67 Troponin I 0.074 0.078 NT-Pro-B Natriuret Pep 14582 H 09/25/18 09/25/18 09/25/18 10:13 10:13 19:16 Creatine Kinase 22 L CK-MB (CK-2) 1.63 Troponin I 0.074 0.073 NT-Pro-B Natriuret Pep Impressions: Chest X-Ray 10/07/18 06:00 IMPRESSION: No radiographic evidence for congestive failure. Parenchymal opacities in the lungs whole largely interstitial and likely chronic. Assessment & Plan - Diagnosis (1) Acute and chronic respiratory failure with hypoxia Is this a current diagnosis for this admission?: Yes Plan: Likely due to CHF. Continue Lasix 30 mg BID. Renal function is sensitive to Lasix. Creatinine slightly increased today. Monitor renal function closely. Continue oxygen supplements as needed. BiPAP at night. EF is 55-60%. (2) Atrial fibrillation Qualifiers: Atrial fibrillation type: paroxysmal Qualified Code(s): I48.0 - Paroxysmal atrial fibrillation Is this a current diagnosis for this admission?: Yes Plan: Currently rate controlled. Continue current treatment. Stop Eliquis due to persistent epistaxis. Hematuria resolved. (3) CAD (coronary artery disease) Is this a current diagnosis for this admission?: Yes Plan: Continue current management with aspirin and Plavix. She is status post stent in LAD recently. And Imdur (4) New onset of congestive heart failure Is this a current diagnosis for this admission?: Yes Plan: As above. The need to check I's and O's and daily weight (5) Obstructive sleep apnea Is this a current diagnosis for this admission?: Yes Plan: Continue current management. (6) Hypertension Qualifiers: Hypertension type: unspecified secondary hypertension Qualified Code(s): I15.9 - Secondary hypertension, unspecified Is this a current diagnosis for this admission?: Yes Plan: Continue current medications. Monitor blood pressure. - Plan Summary Plan Summary: Patient has poor prognosis. Continue oxygen supplements. Monitor renal function closely. If renal function is stable, continue current regimen and may be able to discharge to home with home care since she is refusing to go to rehab.
[2018-10-07] MEDS: ISOSORBIDE MONONITRATE 30 MG TAB.ER.24H PO SCH (13:19)
[2018-10-07] MEDS: GABAPENTIN 300 MG CAPSULE PO SCH (17:07)
[2018-10-07] MEDS: ATORVASTATIN CALCIUM 40 MG TABLET PO SCH (22:25)
[2018-10-07] MEDS: ROPINIROLE HCL 2 MG TABLET PO SCH (22:25)
[2018-10-08] MEDS: ACETAMINOPHEN 325 MG TABLET PO PRN ×2 (01:51→16:34)
[2018-10-08] MEDS: LEVALBUTEROL HCL NEB 0.63 MG/3 ML AMPUL NEB SCH ×4 (02:37→19:37)
[2018-10-08 05:56] LABS: ANION GAP 9 (5-19); BLOOD UREA NITROGEN 32 mg/dL (7-20); CALCIUM 8.4 mg/dL (8.4-10.2); CARBON DIOXIDE 34 mmol/L (22-30); CHLORIDE 94 mmol/L (98-107); GLUCOSE 114 mg/dL (75-110); POTASSIUM 3.3 mmol/L (3.6-5.0); SODIUM 137.1 mmol/L (137-145)
[2018-10-08] MEDS: FAMOTIDINE 20 MG TABLET PO SCH ×3 (06:14→22:59)
[2018-10-08] MEDS: CLOPIDOGREL BISULFATE 75 MG TABLET PO SCH (09:32)
[2018-10-08] MEDS: AMLODIPINE BESYLATE 2.5 MG TABLET PO SCH (09:32)
[2018-10-08] MEDS: ASPIRIN 81 MG TABLET, ENT COATED PO SCH (09:33)
[2018-10-08] MEDS: CARVEDILOL 3.125 MG TABLET PO SCH ×2 (09:33→22:59)
[2018-10-08] MEDS: AMIODARONE HCL 200 MG TABLET PO SCH (09:33)
[2018-10-08] MEDS: ISOSORBIDE MONONITRATE 30 MG TAB.ER.24H PO SCH (09:34)
[2018-10-08] MEDS: FUROSEMIDE 20 MG TABLET PO SCH ×2 (09:34→17:41)
[2018-10-08] MEDS: FLUTICASONE NASAL SPRAY 50 MCG/SPRY 120 SPRAY/16 GM NASL SCH ×2 (09:34→23:01)
[2018-10-08] MEDS: SODIUM CHLORIDE NASAL SPRAY 44 ML NASL SCH ×2 (09:35→17:40)
[2018-10-08] MEDS ORDERED: POTASSIUM CHLORIDE 20 MEQ/15 ML UDCUP PO ONE (09:45)
[2018-10-08] MEDS: SERTRALINE HCL 50 MG TABLET PO SCH (10:55)
[2018-10-08] MEDS: ALPRAZOLAM 0.25 MG TABLET PO PRN (10:57)
--- NOTE | 2018-10-08 15:08 | PDOC PROGRESS REPORT ---
Subjective Progress Note for:: 10/08/18 Subjective:: No acute events overnight. She has been refusing to use BiPAP of anxiety caused by her underlying claustrophobia. Still requiring 6 L of O2 to have normal oxygen saturation. She gets tearful when asked about her anxiety stating this has never happened to her before. Stating that she does not sleep very well denies being depressed. Denies daily activities, has a pet that she enjoys the company of, participates and enjoys outdoor activities. Still having epistaxis "moved one clot from 1 of her nostrils." Not having any chest pain, nausea, vomiting, diarrhea, constipation, urinary symptoms. Reason For Visit: PNEUMONIA,DIASTOLIC HF Physical Exam Vital Signs: Temp Pulse Resp BP Pulse Ox 98.6 F 74 18 97/46 L 95 10/08/18 12:01 10/08/18 14:00 10/08/18 13:20 10/08/18 12:01 10/08/18 13:20 Intake & Output 10/07/18 10/08/18 10/09/18 06:59 06:59 06:59 Intake Total 222 737 Output Total 700 Balance -478 737 Weight 87.7 kg 89.6 kg General appearance: PRESENT: no acute distress, well-developed, well-nourished Head exam: PRESENT: atraumatic, normocephalic Mouth exam: PRESENT: moist, tongue midline Neck exam: ABSENT: carotid bruit, JVD, lymphadenopathy, thyromegaly Respiratory exam: PRESENT: clear to auscultation maci. ABSENT: rales, rhonchi, wheezes Cardiovascular exam: PRESENT: RRR. ABSENT: diastolic murmur, rubs, systolic murmur GI/Abdominal exam: PRESENT: normal bowel sounds, soft. ABSENT: distended, guarding, mass, organolmegaly, rebound, tenderness Extremities exam: PRESENT: full ROM. ABSENT: calf tenderness, clubbing, pedal edema Neurological exam: PRESENT: alert, awake, oriented to person, oriented to place, oriented to time, oriented to situation, CN II-XII grossly intact. ABSENT: motor sensory deficit Psychiatric exam: PRESENT: anxious Results Laboratory Results: 10/07/18 04:24 10/08/18 04:26 10/08/18 04:26 Sodium 137.1 Potassium 3.3 L Chloride 94 L Carbon Dioxide 34 H Anion Gap 9 BUN 32 H Creatinine 1.12 Est GFR ( Amer) 57 L Est GFR (Non-Af Amer) 47 L Glucose 114 H Calcium 8.4 09/24/18 09/24/18 09/24/18 00:38 00:38 03:01 Creatine Kinase 37 CK-MB (CK-2) 1.67 Troponin I 0.074 0.078 NT-Pro-B Natriuret Pep [id number] H 09/25/18 09/25/18 09/25/18 10:13 10:13 19:16 Creatine Kinase 22 L CK-MB (CK-2) 1.63 Troponin I 0.074 0.073 NT-Pro-B Natriuret Pep Impressions: Chest X-Ray 10/07/18 06:00 IMPRESSION: No radiographic evidence for congestive failure. Parenchymal opacities in the lungs whole largely interstitial and likely chronic. Assessment & Plan - Diagnosis (1) Acute and chronic respiratory failure with hypoxia Is this a current diagnosis for this admission?: Yes Plan: Mild improvement. Start more than 95% on 6 L of oxygen FiO2 44% nasal cannula. Refuses to use BiPAP due to underlying anxiety caused by her claustrophobia. She was advised to use BiPAP while at the same time receiving her antianxiety pills. She agreed to give it a try. On home O2 2 L. September 2018. 2D echo ejection fraction 55-60%. Suboptimal study. BNP on admission 51043 up from 399 on 04/23/2017. TSH 3.49. Troponins on this admission 0.0742-0.773 Weight: 89.6 kg down from 94.7 on admission. Will DC home on supplemental oxygen if oxygen requirement drops by tomorrow. Resolved without oxygen, monitor in and out, daily weights, cardiac diet, continue current meds. (2) Depression Qualifiers: Major depression recurrence: unspecified whether recurrent Is this a current diagnosis for this admission?: Yes Plan: Started on sertraline. TSH within normal limit. Follow-up with PCP for evaluation of the need for continuation of SSRIs (3) Atrial fibrillation Qualifiers: Atrial fibrillation type: paroxysmal Qualified Code(s): I48.0 - Paroxysmal atrial fibrillation Is this a current diagnosis for this admission?: Yes Plan: Controlled. Continue current meds. Eliquis held due to persistent epistaxis. Counseled on risk and benefit of continuing anticoagulation. Still undecided. (4) Anxiety Is this a current diagnosis for this admission?: Yes (5) CAD (coronary artery disease) Is this a current diagnosis for this admission?: Yes Plan: Continue aspirin, statins, Plavix, and beta-blockers. Outpatient cardiology follow-up. (6) New onset of congestive heart failure Is this a current diagnosis for this admission?: Yes Plan: September 2018. 2D echo ejection fraction 55-60%. Suboptimal study. BNP on admission 78467 up from 399 on 04/23/2017. As per problem #1. (7) Obstructive sleep apnea Is this a current diagnosis for this admission?: Yes Plan: Pulmonary and outpatient nocturnal polysomnography. (8) Hypertension Qualifiers: Hypertension type: unspecified secondary hypertension Qualified Code(s): I15.9 - Secondary hypertension, unspecified Is this a current diagnosis for this admission?: Yes Plan: Normotensive. Continue current meds. Adjust meds as needed. Outpatient PCP follow-up.
[2018-10-08] MEDS: GABAPENTIN 300 MG CAPSULE PO SCH (17:42)
[2018-10-08] MEDS: ROPINIROLE HCL 2 MG TABLET PO SCH (22:59)
[2018-10-08] MEDS: ATORVASTATIN CALCIUM 40 MG TABLET PO SCH (22:59)
[2018-10-08 23:48] LABS: ARTERIAL BLOOD BASE EXCESS 10.5 mmol/L; ARTERIAL BLOOD H2CO3 1.52 mmol/L (1.05-1.35); ARTERIAL BLOOD HCO3 35.7 mmol/L (20-24); ARTERIAL BLOOD O2 SATURATION 93.7 % (94-98); ARTERIAL BLOOD PCO2 50.4 mmHg (35-45); ARTERIAL BLOOD PH 7.47 (7.35-7.45); ARTERIAL BLOOD PO2 65.4 mmHg (80-100); ARTERIAL BLOOD TOTAL CO2 37.2 mmol/L (21-25)
--- NOTE | 2018-10-08 23:54 | RADIOLOGY REPORT (SQ) ---
EXAM DESCRIPTION: XR CHEST 1 VIEW COMPLETED DATE/TME: 10/08/2018 00:00 CLINICAL HISTORY: 78 years, Female, ams Compared to 2-3-19. FINDINGS: Heart is borderline enlarged. Right upper lobe airspace disease consistent with pneumonia. Right lower lobe airspace disease as well. No pneumothorax. No pleural effusion. IMPRESSION: Multifocal pneumonia, similar to prior study..
[2018-10-09 00:06] LABS: ANION GAP 6 (5-19); BLOOD UREA NITROGEN 33 mg/dL (7-20); CALCIUM 8.4 mg/dL (8.4-10.2); CARBON DIOXIDE 34 mmol/L (22-30); CHLORIDE 97 mmol/L (98-107); GLUCOSE 129 mg/dL (75-110); POTASSIUM 3.8 mmol/L (3.6-5.0); SODIUM 137.4 mmol/L (137-145)
[2018-10-09 00:09] LABS: CREATINE KINASE < 20 U/L (30-135)
[2018-10-09 00:22] LABS: CREATINE KINASE MB 0.38 ng/mL (<4.55); TROPONIN I 0.039 ng/mL
[2018-10-09] MEDS: LEVALBUTEROL HCL NEB 0.63 MG/3 ML AMPUL NEB SCH ×4 (01:45→20:16)
[2018-10-09] MEDS ORDERED: ALPRAZOLAM 0.25 MG TABLET PO PRN (03:25)
[2018-10-09] MEDS: FAMOTIDINE 20 MG TABLET PO SCH ×3 (05:42→21:11)
[2018-10-09 06:38] LABS: HEMOGLOBIN 9.3 g/dL (12.0-15.5); MEAN CORPUSCULAR HEMOGLOBIN 30.4 pg (27.0-33.4); MEAN CORPUSCULAR HGB CONC 33.1 g/dL (32.0-36.0); MEAN CORPUSCULAR VOLUME 92 fl (80-97); PLATELET COUNT 243 10^3/uL (150-450); RED BLOOD COUNT 3.05 10^6/uL (3.72-5.28); RED CELL DISTRIBUTION WIDTH 14.7 % (11.5-14.0); WHITE BLOOD COUNT 11.1 10^3/uL (4.0-10.5)
[2018-10-09 07:08] LABS: ABSOLUTE LYMPHOCYTES# (MANUAL) 0.7 10^3/uL (0.5-4.7); ABSOLUTE MONOCYTES # (MANUAL) 0.3 10^3/uL (0.1-1.4); BASOPHILS % (MANUAL) 0 % (0-2); EOSINOPHILS % (MANUAL) 1 % (0-6); LYMPHOCYTES % (MANUAL) 6 % (13-45); MONOCYTES % (MANUAL) 3 % (3-13); SEGMENTED NEUTROPHILS % (MAN) 90 % (42-78); TOTAL CELLS COUNTED 100
[2018-10-09 07:09] LABS: ANISOCYTOSIS 1+; PLATELET COMMENT ADEQUATE; POLYCHROMASIA 1+
[2018-10-09 07:17] LABS: ALANINE AMINOTRANSFERASE 39 U/L (9-52); ALKALINE PHOSPHATASE 100 U/L (38-126); ANION GAP 8 (5-19); ASPARTATE AMINO TRANSFERASE 23 U/L (14-36); BILIRUBIN,DIRECT 0.3 mg/dL (0.0-0.4); BLOOD UREA NITROGEN 31 mg/dL (7-20); CALCIUM 8.4 mg/dL (8.4-10.2); CARBON DIOXIDE 33 mmol/L (22-30); CHLORIDE 98 mmol/L (98-107); GLUCOSE 117 mg/dL (75-110); POTASSIUM 3.9 mmol/L (3.6-5.0); SODIUM 139.3 mmol/L (137-145); TOTAL PROTEIN 5.8 g/dL (6.3-8.2)
[2018-10-09 07:19] LABS: CREATINE KINASE MB 0.38 ng/mL (<4.55); TROPONIN I 0.049 ng/mL
[2018-10-09 07:20] LABS: CREATINE KINASE < 20 U/L (30-135)
[2018-10-09] MEDS: CLOPIDOGREL BISULFATE 75 MG TABLET PO SCH (09:44)
[2018-10-09] MEDS: ASPIRIN 81 MG TABLET, ENT COATED PO SCH (09:44)
[2018-10-09] MEDS: AMIODARONE HCL 200 MG TABLET PO SCH (09:48)
[2018-10-09] MEDS: SERTRALINE HCL 50 MG TABLET PO SCH (09:48)
[2018-10-09] MEDS: FUROSEMIDE 20 MG TABLET PO SCH ×2 (09:48→17:18)
[2018-10-09] MEDS: SODIUM CHLORIDE NASAL SPRAY 44 ML NASL SCH ×2 (09:51→17:27)
[2018-10-09] MEDS: CARVEDILOL 3.125 MG TABLET PO SCH ×2 (09:51→21:10)
[2018-10-09] MEDS: ISOSORBIDE MONONITRATE 30 MG TAB.ER.24H PO SCH (09:51)
[2018-10-09] MEDS: FLUTICASONE NASAL SPRAY 50 MCG/SPRY 120 SPRAY/16 GM NASL SCH ×2 (09:51→21:12)
[2018-10-09] MEDS: AMLODIPINE BESYLATE 2.5 MG TABLET PO SCH (09:52)
[2018-10-09 12:41] LABS: CREATINE KINASE MB 0.41 ng/mL (<4.55); TROPONIN I 0.042 ng/mL
--- NOTE | 2018-10-09 16:18 | PDOC PROGRESS REPORT ---
Subjective Progress Note for:: 10/09/18 Subjective:: Patient was lethargic and less arousable last night. An ABG was done which showed persistent hypoxia. CXR no acute changes. May have been due to Xanax that she received because of her claustrophobia earlier in the day. In the morning patient alert oriented x3 sitting in bed in no apparent distress wearing supplemental oxygen through nasal cannula 6 L. She stating she is feeling better today compared to yesterday. She denies any chest pain, nausea, vomiting, diarrhea, constipation or any urinary symptoms. Has not had any repeat of her epistaxis. Stating she does not want to continue anticoagulation for her underlying A. fib because she feels very weak and she has a history of recurrent falls. Reason For Visit: PNEUMONIA,DIASTOLIC HF Physical Exam Vital Signs: Temp Pulse Resp BP Pulse Ox 98.9 F 69 28 H 113/51 L 96 10/09/18 11:54 10/09/18 14:00 10/09/18 13:49 10/09/18 11:54 10/09/18 13:49 Intake & Output 10/08/18 10/09/18 10/10/18 06:59 06:59 06:59 Intake Total 737 751 Balance 737 751 Weight 89.6 kg 89.9 kg Results Laboratory Results: 10/09/18 05:19 10/09/18 05:19 10/08/18 10/08/18 10/09/18 23:35 23:43 05:19 WBC 11.1 H RBC 3.05 L Hgb 9.3 L Hct 28.0 L MCV 92 MCH 30.4 MCHC 33.1 RDW 14.7 H Plt Count 243 Seg Neutrophils % Not Reportable Lymphocytes % Not Reportable Monocytes % Not Reportable Eosinophils % Not Reportable Basophils % Not Reportable Absolute Neutrophils Not Reportable Absolute Lymphocytes Not Reportable Absolute Monocytes Not Reportable Absolute Eosinophils Not Reportable Absolute Basophils Not Reportable Carbonic Acid 1.52 H HCO3/H2CO3 Ratio 23:1 ABG pH 7.47 H ABG pCO2 50.4 H ABG pO2 65.4 L ABG HCO3 35.7 H ABG O2 Saturation 93.7 L ABG Base Excess 10.5 FiO2 44% Sodium 137.4 Potassium 3.8 Chloride 97 L Carbon Dioxide 34 H Anion Gap 6 BUN 33 H Creatinine 1.22 Est GFR ( Amer) 51 L Est GFR (Non-Af Amer) 42 L Glucose 129 H Calcium 8.4 Magnesium Total Bilirubin AST ALT Alkaline Phosphatase Total Protein Albumin 10/09/18 05:19 WBC RBC Hgb Hct MCV MCH MCHC RDW Plt Count Seg Neutrophils % Lymphocytes % Monocytes % Eosinophils % Basophils % Absolute Neutrophils Absolute Lymphocytes Absolute Monocytes Absolute Eosinophils Absolute Basophils Carbonic Acid HCO3/H2CO3 Ratio ABG pH ABG pCO2 ABG pO2 ABG HCO3 ABG O2 Saturation ABG Base Excess FiO2 Sodium 139.3 Potassium 3.9 Chloride 98 Carbon Dioxide 33 H Anion Gap 8 BUN 31 H Creatinine 1.12 Est GFR ( Amer) 57 L Est GFR (Non-Af Amer) 47 L Glucose 117 H Calcium 8.4 Magnesium 2.0 Total Bilirubin 1.0 AST 23 ALT 39 Alkaline Phosphatase 100 Total Protein 5.8 L Albumin 3.0 L 09/24/18 09/24/18 09/24/18 00:38 00:38 03:01 Creatine Kinase 37 CK-MB (CK-2) 1.67 Troponin I 0.074 0.078 NT-Pro-B Natriuret Pep [id number] H 09/25/18 09/25/18 09/25/18 10:13 10:13 19:16 Creatine Kinase 22 L CK-MB (CK-2) 1.63 Troponin I 0.074 0.073 NT-Pro-B Natriuret Pep 10/08/18 10/08/18 10/09/18 23:43 23:43 05:19 Creatine Kinase < 20 L < 20 L CK-MB (CK-2) 0.38 Troponin I 0.039 NT-Pro-B Natriuret Pep 10/09/18 10/09/18 10/09/18 05:19 11:49 11:49 Creatine Kinase < 20 L CK-MB (CK-2) 0.38 0.41 Troponin I 0.049 0.042 NT-Pro-B Natriuret Pep Impressions: Chest X-Ray 10/08/18 00:00 IMPRESSION: Multifocal pneumonia, similar to prior study.. Assessment & Plan - Diagnosis (1) Acute and chronic respiratory failure with hypoxia Is this a current diagnosis for this admission?: Yes Plan: Mild improvement. O2 sat 96% on 6 L FiO2 50% nasal cannula. Refuses to use BiPAP due to underlying anxiety caused by her claustrophobia fortunately antianxiety pills makes her too lethargic and sleepy. On home O2 2 L. September 2018. 2D echo ejection fraction 55-60%. Suboptimal study. BNP on admission 44514 up from 399 on 04/23/2017. TSH 3.49. Troponins on this admission 0.0742-0.773 Weight: 89.6 kg down from 94.7 on admission. Will DC home on supplemental oxygen if oxygen requirement drops by tomorrow. (2) Pneumonia Is this a current diagnosis for this admission?: Yes Plan: Likely hospital-acquired. Persistent leukocytosis, hypoxia, fever, no chest x- ray changes. Completed a course of antibiotics since admission however no significant improvement. Start on levofloxacin and vancomycin for empiric nosocomial pneumonia treatment. Obtain sputum and blood culture. If no improvement consult pulmonary. (3) Depression Qualifiers: Major depression recurrence: unspecified whether recurrent Is this a current diagnosis for this admission?: Yes Plan: Started on sertraline. TSH within normal limit. Follow-up with PCP for evaluation of the need for continuation of SSRIs (4) Atrial fibrillation Qualifiers: Atrial fibrillation type: paroxysmal Qualified Code(s): I48.0 - Paroxysmal atrial fibrillation Is this a current diagnosis for this admission?: Yes Plan: Controlled. Continue current meds. Initially Eliquis was held due to persistent epistaxis after counseling patient about the risk and benefit of anticoagulation she has decided not to continue anticoagulation because of the risk of bleeding and also her underlying history of recurrent falls and weakness. (5) Anxiety Is this a current diagnosis for this admission?: Yes Plan: Benzo as needed decreased dosage. (6) CAD (coronary artery disease) Is this a current diagnosis for this admission?: Yes Plan: Continue aspirin, statins, Plavix, and beta-blockers. Outpatient cardiology follow-up. (7) New onset of congestive heart failure Is this a current diagnosis for this admission?: Yes Plan: September 2018. 2D echo ejection fraction 55-60%. Suboptimal study. BNP on admission 69600 up from 399 on 04/23/2017. As per problem #1. (8) Obstructive sleep apnea Is this a current diagnosis for this admission?: Yes Plan: Pulmonary and outpatient nocturnal polysomnography. (9) Hypertension Qualifiers: Hypertension type: unspecified secondary hypertension Qualified Code(s): I15.9 - Secondary hypertension, unspecified Is this a current diagnosis for this admission?: Yes Plan: Normotensive. Continue current meds. Adjust meds as needed. Outpatient PCP follow-up.
[2018-10-09] MEDS ORDERED: VANCOMYCIN HCL 0 MG in DEXTROSE 5%-WATER 250 ML IV NR (16:45)
[2018-10-09] MEDS: GABAPENTIN 300 MG CAPSULE PO SCH (17:19)
[2018-10-09] MEDS ORDERED: LEVOFLOXACIN 500 MG/D5W RTU 500 MG/100 ML RTUPB IV SCH (18:00)
[2018-10-09] MEDS: ROPINIROLE HCL 2 MG TABLET PO SCH (21:11)
[2018-10-09] MEDS: ATORVASTATIN CALCIUM 40 MG TABLET PO SCH (21:11)
[2018-10-09] MEDS: VANCOMYCIN HCL 750 MG in DEXTROSE 5%-WATER 250 ML IV SCH (21:12)
[2018-10-09] MEDS: ACETAMINOPHEN 325 MG TABLET PO PRN (21:13)
[2018-10-09] MEDS: ONDANSETRON HCL INJ/PF 4 MG/2 ML SDV IV PRN (21:13)
[2018-10-10] MEDS: LEVALBUTEROL HCL NEB 0.63 MG/3 ML AMPUL NEB SCH ×4 (01:42→20:51)
[2018-10-10 05:51] LABS: ABSOLUTE EOSINOPHILS # (AUTO) 0.4 10^3/uL (0.0-0.6); ABSOLUTE NEUT (AUTO) 9.3 10^3/uL (1.7-8.2); BASOPHILS % (AUTO) 0.4 % (0-2); EOSINOPHILS % (AUTO) 3.7 % (0-6); HEMOGLOBIN 8.8 g/dL (12.0-15.5); LYMPHOCYTES % (AUTO) 8.6 % (13-45); MEAN CORPUSCULAR HEMOGLOBIN 31.3 pg (27.0-33.4); MEAN CORPUSCULAR VOLUME 92 fl (80-97); MONOCYTES % (AUTO) 8.6 % (3-13); PLATELET COUNT 252 10^3/uL (150-450); RED BLOOD COUNT 2.82 10^6/uL (3.72-5.28); SEGMENTED NEUTROPHILS % (AUTO) 78.7 % (42-78); TOTAL CELLS COUNTED % (AUTO) 100 %; WHITE BLOOD COUNT 11.8 10^3/uL (4.0-10.5)
[2018-10-10] MEDS: FAMOTIDINE 20 MG TABLET PO SCH ×3 (05:57→21:39)
[2018-10-10 06:34] LABS: ARTERIAL BLOOD BASE EXCESS 9.5 mmol/L; ARTERIAL BLOOD H2CO3 1.63 mmol/L (1.05-1.35); ARTERIAL BLOOD HCO3 35.1 mmol/L (20-24); ARTERIAL BLOOD O2 SATURATION 95.8 % (94-98); ARTERIAL BLOOD PCO2 54.1 mmHg (35-45); ARTERIAL BLOOD PH 7.43 (7.35-7.45); ARTERIAL BLOOD PO2 79.7 mmHg (80-100); ARTERIAL BLOOD TOTAL CO2 36.8 mmol/L (21-25)
[2018-10-10 06:35] LABS: ARTERIAL BLOOD FIO2 40%
[2018-10-10 06:45] LABS: ALANINE AMINOTRANSFERASE 40 U/L (9-52); ALKALINE PHOSPHATASE 98 U/L (38-126); ANION GAP 9 (5-19); ASPARTATE AMINO TRANSFERASE 29 U/L (14-36); BILIRUBIN,DIRECT 0.2 mg/dL (0.0-0.4); BILIRUBIN,TOTAL 0.8 mg/dL (0.2-1.3); BLOOD UREA NITROGEN 26 mg/dL (7-20); CALCIUM 8.5 mg/dL (8.4-10.2); CARBON DIOXIDE 33 mmol/L (22-30); CHLORIDE 95 mmol/L (98-107); GLUCOSE 98 mg/dL (75-110); POTASSIUM 3.7 mmol/L (3.6-5.0); TOTAL PROTEIN 5.7 g/dL (6.3-8.2)
[2018-10-10] MEDS: AMLODIPINE BESYLATE 2.5 MG TABLET PO SCH (10:55)
--- NOTE | 2018-10-10 10:55 | RADIOLOGY REPORT (SQ) ---
EXAM DESCRIPTION: PICC INSERTION; FLUORO/CV PLACEMENT; U/S GUIDE FOR VASCULAR ACCESS COMPLETED DATE/TIME: 10/10/2018 10:29 am REASON FOR STUDY: Need IV antibiotic and Lab draws; IV ABX COMPARISON: AP chest 10/08/2018 FLUOROSCOPY TIME: 12 seconds 1 digital C-arm and 1 ultrasound images saved to PACS. TECHNIQUE: Fluoroscopic and ultrasound guided PICC placement. LIMITATIONS: None. PROCEDURE: After written consent and assessment were obtained, the patient was brought into the fluo roscopy room and placed supine on the table. Ultrasound evaluation of potential access sites were per formed. After successfully identifying a patent left basilic vein, the left arm was prepped and drape d in a sterile fashion along with the ultrasound probe. The entry site was anesthetized with 1% lidoc david. A 21 gauge 7 cm needle was advanced through the skin and into the basilic vein under live ultra sound guidance. An ultrasound image was saved to PACS confirming access site. A .018 guide wire was then inserted through the needle and into the venous system. The needle was then removed and an 11 b lade scalpel was used to make a 1cm skin incision. A 5 fr peel-away sheath was advanced over the wir e and into the venous system. A measurement was then made using the existing wire and live fluoroscop ic guidance. The wire was then removed and trimmed. The PICC was advanced through the peel-away sheat h and into the venous system. The peel-away sheath was removed and the catheter was adhered to the pa tients arm with a stat lock. The catheter was then aspirated and flushed and a sterile bandage was pl aced over the access site. A fluoroscopic spot image was saved to PACS confirming the catheter tip w ithin the superior vena cava. IMPRESSION: SUCCESSFUL PLACEMENT OF A 5 FR DUAL LUMEN 42 CM PICC IN THE LEFT BASILIC VEIN. COMMENT: Patient medication list reviewed: Yes- Quality ID# [id number]:Eligible professional attests to doc umenting in the medical record they obtained, updated, or reviewed the patient's current medications. . Quality ID 145: Final reports for procedures using fluoroscopy that document radiation exposure ying ana, or exposure time and number of fluorographic images (if radiation exposure indices are not avail able) Quality ID #76: The patient was prepped and draped using maximum sterile barrier technique including cap, mask, sterile gown, sterile gloves, a large sterile sheet, hand hygiene, and 2% Chlorhexidine fo r cutaneous antisepsis. When ultrasound is used, sterile ultrasound techniques are followed requiring sterile gel and sterile probes. TECHNICAL DOCUMENTATION: JOB ID: [id number] [employer]- All Rights Reserved rev-01/19 Reading location - IP/workstation name: [email or web address]
[2018-10-10] MEDS: CLOPIDOGREL BISULFATE 75 MG TABLET PO SCH (10:56)
[2018-10-10] MEDS: ASPIRIN 81 MG TABLET, ENT COATED PO SCH (10:56)
[2018-10-10] MEDS: AMIODARONE HCL 200 MG TABLET PO SCH (10:56)
[2018-10-10] MEDS: SERTRALINE HCL 50 MG TABLET PO SCH (10:56)
[2018-10-10] MEDS: ISOSORBIDE MONONITRATE 30 MG TAB.ER.24H PO SCH (10:56)
[2018-10-10] MEDS: SODIUM CHLORIDE NASAL SPRAY 44 ML NASL SCH ×2 (10:57→17:32)
[2018-10-10] MEDS: FLUTICASONE NASAL SPRAY 50 MCG/SPRY 120 SPRAY/16 GM NASL SCH ×2 (10:58→21:41)
[2018-10-10] MEDS: VANCOMYCIN HCL 750 MG in DEXTROSE 5%-WATER 250 ML IV SCH ×2 (11:00→21:39)
[2018-10-10] MEDS: CARVEDILOL 3.125 MG TABLET PO SCH ×2 (12:20→21:40)
[2018-10-10] MEDS: FUROSEMIDE 20 MG TABLET PO SCH (12:21)
[2018-10-10] MEDS ORDERED: NORMAL SALINE 10 ML SDV (AFTER EACH USE) IV PRN (13:30)
--- NOTE | 2018-10-10 13:38 | PDOC PROGRESS REPORT ---
Subjective Progress Note for:: 10/10/18 Subjective:: No significant improvement. No acute events overnight. Patient has been able to use BiPAP overnight. Still complaining of generalized weakness and shortness of breath. Denies any fever, chills, nausea, vomiting, diarrhea, constipation or any urinary symptoms. Reason For Visit: PNEUMONIA,DIASTOLIC HF Physical Exam Vital Signs: Temp Pulse Resp BP Pulse Ox 99.1 F 66 16 117/47 L 91 L 10/10/18 08:16 10/10/18 08:16 10/10/18 08:16 10/10/18 08:16 10/10/18 08:16 Intake & Output 10/09/18 10/10/18 10/11/18 06:59 06:59 06:59 Intake Total 751 764 Output Total 0 Balance 751 764 Weight 89.9 kg 92.9 kg General appearance: PRESENT: mild distress Head exam: PRESENT: atraumatic, normocephalic Respiratory exam: PRESENT: clear to auscultation maci. ABSENT: rales, rhonchi, wheezes Cardiovascular exam: PRESENT: RRR. ABSENT: diastolic murmur, rubs, systolic murmur GI/Abdominal exam: PRESENT: normal bowel sounds, soft. ABSENT: distended, guarding, mass, organolmegaly, rebound, tenderness Extremities exam: PRESENT: full ROM. ABSENT: calf tenderness, clubbing, pedal edema Neurological exam: PRESENT: alert, awake, oriented to person, oriented to place, oriented to time, oriented to situation, CN II-XII grossly intact. ABSENT: motor sensory deficit Results Laboratory Results: 10/10/18 05:24 10/10/18 05:24 10/10/18 10/10/18 10/10/18 05:24 05:24 06:05 WBC 11.8 H RBC 2.82 L Hgb 8.8 L Hct 26.0 L MCV 92 MCH 31.3 MCHC 34.0 RDW 15.0 H Plt Count 252 Seg Neutrophils % 78.7 H Lymphocytes % 8.6 L Monocytes % 8.6 Eosinophils % 3.7 Basophils % 0.4 Absolute Neutrophils 9.3 H Absolute Lymphocytes 1.0 Absolute Monocytes 1.0 Absolute Eosinophils 0.4 Absolute Basophils 0.0 Carbonic Acid 1.63 H HCO3/H2CO3 Ratio 21:1 ABG pH 7.43 ABG pCO2 54.1 H ABG pO2 79.7 L ABG HCO3 35.1 H ABG O2 Saturation 95.8 ABG Base Excess 9.5 FiO2 40% Sodium 137.0 Potassium 3.7 Chloride 95 L Carbon Dioxide 33 H Anion Gap 9 BUN 26 H Creatinine 1.15 Est GFR ( Amer) 55 L Est GFR (Non-Af Amer) 45 L Glucose 98 Calcium 8.5 Magnesium 2.0 Total Bilirubin 0.8 AST 29 ALT 40 Alkaline Phosphatase 98 Total Protein 5.7 L Albumin 3.0 L 09/24/18 09/24/18 09/24/18 00:38 00:38 03:01 Creatine Kinase 37 CK-MB (CK-2) 1.67 Troponin I 0.074 0.078 NT-Pro-B Natriuret Pep 69007 H 09/25/18 09/25/18 09/25/18 10:13 10:13 19:16 Creatine Kinase 22 L CK-MB (CK-2) 1.63 Troponin I 0.074 0.073 NT-Pro-B Natriuret Pep 10/08/18 10/08/18 10/09/18 23:43 23:43 05:19 Creatine Kinase < 20 L < 20 L CK-MB (CK-2) 0.38 Troponin I 0.039 NT-Pro-B Natriuret Pep 10/09/18 10/09/18 10/09/18 05:19 11:49 11:49 Creatine Kinase < 20 L CK-MB (CK-2) 0.38 0.41 Troponin I 0.049 0.042 NT-Pro-B Natriuret Pep Impressions: Chest X-Ray 10/08/18 00:00 IMPRESSION: Multifocal pneumonia, similar to prior study.. Guidance Fluoroscopy 10/10/18 00:00 IMPRESSION: SUCCESSFUL PLACEMENT OF A 5 FR DUAL LUMEN 42 CM PICC IN THE LEFT BASILIC VEIN. Interventional Vascular Procedure 10/10/18 00:00 IMPRESSION: SUCCESSFUL PLACEMENT OF A 5 FR DUAL LUMEN 42 CM PICC IN THE LEFT BASILIC VEIN. PICC Line Insertion 10/10/18 06:00 IMPRESSION: SUCCESSFUL PLACEMENT OF A 5 FR DUAL LUMEN 42 CM PICC IN THE LEFT BASILIC VEIN. Assessment & Plan - Diagnosis (1) Acute and chronic respiratory failure with hypoxia Is this a current diagnosis for this admission?: Yes Plan: No significant changes. SBP 103-113, T 99.1, sat 91-95 on 5-8 L FiO2 50%.O2 sat 96% on 6 L FiO2 50% nasal cannula. Continue BiPAP, nebs, supplemental oxygen, broad-spectrum antibiotics for possible multifocal pneumonia. On home O2 2 L. September 2018. 2D echo ejection fraction 55-60%. Suboptimal study. BNP on admission 75637 up from 399 on 04/23/2017. TSH 3.49. Troponins on this admission 0.0742-0.773 Weight: 89.6 kg down from 94.7 on admission. Will DC home on supplemental oxygen if oxygen requirement drops by tomorrow. (2) Pneumonia Is this a current diagnosis for this admission?: Yes Plan: Likely hospital-acquired. Persistent leukocytosis, hypoxia, fever, no chest x- ray changes. Completed a course of antibiotics since admission however no significant improvement. Start on empiric IV antibiotics to cover nosocomial pneumonia. Cultures no growth. If no improvement consult pulmonary. (3) Depression Qualifiers: Major depression recurrence: unspecified whether recurrent Is this a current diagnosis for this admission?: Yes Plan: Started on sertraline. TSH within normal limit. Follow-up with PCP for evaluation of the need for continuation of SSRIs (4) Atrial fibrillation Qualifiers: Atrial fibrillation type: paroxysmal Qualified Code(s): I48.0 - Paroxysmal atrial fibrillation Is this a current diagnosis for this admission?: Yes Plan: Controlled. Continue current meds. Initially Eliquis was held due to persistent epistaxis after counseling patient about the risk and benefit of anticoagulation she has decided not to continue anticoagulation because of the risk of bleeding and also her underlying history of recurrent falls and weakness. (5) Anxiety Is this a current diagnosis for this admission?: Yes Plan: Benzo as needed decreased dosage. (6) CAD (coronary artery disease) Is this a current diagnosis for this admission?: Yes Plan: Continue aspirin, statins, Plavix, and beta-blockers. Outpatient cardiology follow-up. (7) New onset of congestive heart failure Is this a current diagnosis for this admission?: Yes Plan: September 2018. 2D echo ejection fraction 55-60%. Suboptimal study. BNP on admission 18322 up from 399 on 04/23/2017. As per problem #1. (8) Obstructive sleep apnea Is this a current diagnosis for this admission?: Yes Plan: Pulmonary and outpatient nocturnal polysomnography. (9) Hypertension Qualifiers: Hypertension type: unspecified secondary hypertension Qualified Code(s): I15.9 - Secondary hypertension, unspecified Is this a current diagnosis for this admission?: Yes Plan: SBP 103-113, T 99.1, sat 91-95 on 5-8 L FiO2 50%. Normotensive. Continue current meds. Adjust meds as needed. Outpatient PCP follow-up. (10) Physical deconditioning Is this a current diagnosis for this admission?: Yes Plan: Continue PT. Outpatient rehab.
[2018-10-10] MEDS: ACETAMINOPHEN 325 MG TABLET PO PRN (13:54)
[2018-10-10] MEDS: PIPERACILLIN SODIUM/TAZOBACTAM 3.375 GM in NORMAL SALINE 100 ML IV SCH (17:33)
[2018-10-10] MEDS: GABAPENTIN 300 MG CAPSULE PO SCH (17:34)
[2018-10-10] MEDS: ROPINIROLE HCL 2 MG TABLET PO SCH (21:39)
[2018-10-10] MEDS: NORMAL SALINE 10 ML SDV (SCHEDULED) IV SCH (21:40)
[2018-10-10] MEDS: ATORVASTATIN CALCIUM 40 MG TABLET PO SCH (21:40)
[2018-10-11] MEDS: PIPERACILLIN SODIUM/TAZOBACTAM 3.375 GM in NORMAL SALINE 100 ML IV SCH ×4 (01:30→18:19)
[2018-10-11] MEDS: LEVALBUTEROL HCL NEB 0.63 MG/3 ML AMPUL NEB SCH ×4 (02:05→20:18)
[2018-10-11] MEDS: FAMOTIDINE 20 MG TABLET PO SCH ×3 (06:44→22:19)
[2018-10-11] MEDS: ASPIRIN 81 MG TABLET, ENT COATED PO SCH (09:52)
[2018-10-11] MEDS: CARVEDILOL 3.125 MG TABLET PO SCH ×2 (09:52→22:19)
[2018-10-11] MEDS: AMIODARONE HCL 200 MG TABLET PO SCH (09:52)
[2018-10-11] MEDS: AMLODIPINE BESYLATE 2.5 MG TABLET PO SCH (09:52)
[2018-10-11] MEDS: SERTRALINE HCL 50 MG TABLET PO SCH (09:52)
[2018-10-11] MEDS: CLOPIDOGREL BISULFATE 75 MG TABLET PO SCH (09:52)
[2018-10-11] MEDS: SODIUM CHLORIDE NASAL SPRAY 44 ML NASL SCH ×2 (09:55→18:31)
[2018-10-11] MEDS: FLUTICASONE NASAL SPRAY 50 MCG/SPRY 120 SPRAY/16 GM NASL SCH ×2 (09:55→22:21)
[2018-10-11] MEDS: VANCOMYCIN HCL 750 MG in DEXTROSE 5%-WATER 250 ML IV SCH ×2 (10:08→22:19)
[2018-10-11] MEDS: NORMAL SALINE 10 ML SDV (SCHEDULED) IV SCH ×2 (10:13→22:20)
[2018-10-11 10:38] LABS: ABSOLUTE EOSINOPHILS # (AUTO) 0.3 10^3/uL (0.0-0.6); ABSOLUTE LYMPHOCYTES (AUTO) 0.6 10^3/uL (0.5-4.7); ABSOLUTE MONOCYTES (AUTO) 0.9 10^3/uL (0.1-1.4); BASOPHILS % (AUTO) 0.4 % (0-2); EOSINOPHILS % (AUTO) 2.7 % (0-6); HEMATOCRIT 25.3 % (36.0-47.0); HEMOGLOBIN 8.5 g/dL (12.0-15.5); LYMPHOCYTES % (AUTO) 5.5 % (13-45); MEAN CORPUSCULAR HEMOGLOBIN 31.2 pg (27.0-33.4); MEAN CORPUSCULAR HGB CONC 33.5 g/dL (32.0-36.0); MEAN CORPUSCULAR VOLUME 93 fl (80-97); PLATELET COUNT 256 10^3/uL (150-450); RED BLOOD COUNT 2.72 10^6/uL (3.72-5.28); SEGMENTED NEUTROPHILS % (AUTO) 83.4 % (42-78); TOTAL CELLS COUNTED % (AUTO) 100 %; WHITE BLOOD COUNT 10.8 10^3/uL (4.0-10.5)
[2018-10-11 11:06] LABS: ANION GAP 10 (5-19); BLOOD UREA NITROGEN 20 mg/dL (7-20); CALCIUM 8.3 mg/dL (8.4-10.2); CARBON DIOXIDE 32 mmol/L (22-30); CHLORIDE 95 mmol/L (98-107); GLUCOSE 165 mg/dL (75-110); POTASSIUM 3.5 mmol/L (3.6-5.0); SODIUM 136.9 mmol/L (137-145)
--- NOTE | 2018-10-11 16:03 | PDOC PROGRESS REPORT ---
Subjective Progress Note for:: 10/11/18 Subjective:: Mild improvement. No acute events overnight. Patient has been in her BiPAP. Still complaining of generalized weakness and shortness of breath on exertion. Denies any fever, chills, nausea, vomiting, diarrhea, constipation or any urinary symptoms. Reason For Visit: PNEUMONIA,DIASTOLIC HF Physical Exam Vital Signs: Temp Pulse Resp BP Pulse Ox 98.2 F 65 15 106/51 L 95 10/11/18 11:41 10/11/18 13:56 10/11/18 13:56 10/11/18 11:41 10/11/18 13:56 Intake & Output 10/10/18 10/11/18 10/12/18 06:59 06:59 06:59 Intake Total 764 1281 825 Output Total 0 Balance 764 1281 825 Weight 92.9 kg 93.7 kg General appearance: PRESENT: no acute distress, well-developed, well-nourished Head exam: PRESENT: atraumatic, normocephalic Respiratory exam: PRESENT: clear to auscultation maci. ABSENT: rales, rhonchi, wheezes Cardiovascular exam: PRESENT: RRR. ABSENT: diastolic murmur, rubs, systolic murmur GI/Abdominal exam: PRESENT: normal bowel sounds, soft. ABSENT: distended, guarding, mass, organolmegaly, rebound, tenderness Extremities exam: PRESENT: full ROM. ABSENT: calf tenderness, clubbing, pedal edema Neurological exam: PRESENT: alert, awake, oriented to person, oriented to place, oriented to time, oriented to situation, CN II-XII grossly intact. ABSENT: motor sensory deficit Results Laboratory Results: 10/11/18 10:00 10/11/18 10:00 10/11/18 10/11/18 10:00 10:00 WBC 10.8 H RBC 2.72 L Hgb 8.5 L Hct 25.3 L MCV 93 MCH 31.2 MCHC 33.5 RDW 15.0 H Plt Count 256 Seg Neutrophils % 83.4 H Lymphocytes % 5.5 L Monocytes % 8.0 Eosinophils % 2.7 Basophils % 0.4 Absolute Neutrophils 9.0 H Absolute Lymphocytes 0.6 Absolute Monocytes 0.9 Absolute Eosinophils 0.3 Absolute Basophils 0.0 Sodium 136.9 L Potassium 3.5 L Chloride 95 L Carbon Dioxide 32 H Anion Gap 10 BUN 20 Creatinine 1.06 Est GFR ( Amer) > 60 Est GFR (Non-Af Amer) 50 L Glucose 165 H Calcium 8.3 L 09/24/18 09/24/18 09/24/18 00:38 00:38 03:01 Creatine Kinase 37 CK-MB (CK-2) 1.67 Troponin I 0.074 0.078 NT-Pro-B Natriuret Pep 24664 H 09/25/18 09/25/18 09/25/18 10:13 10:13 19:16 Creatine Kinase 22 L CK-MB (CK-2) 1.63 Troponin I 0.074 0.073 NT-Pro-B Natriuret Pep 10/08/18 10/08/18 10/09/18 23:43 23:43 05:19 Creatine Kinase < 20 L < 20 L CK-MB (CK-2) 0.38 Troponin I 0.039 NT-Pro-B Natriuret Pep 10/09/18 10/09/18 10/09/18 05:19 11:49 11:49 Creatine Kinase < 20 L CK-MB (CK-2) 0.38 0.41 Troponin I 0.049 0.042 NT-Pro-B Natriuret Pep Impressions: Chest X-Ray 10/08/18 00:00 IMPRESSION: Multifocal pneumonia, similar to prior study.. Guidance Fluoroscopy 10/10/18 00:00 IMPRESSION: SUCCESSFUL PLACEMENT OF A 5 FR DUAL LUMEN 42 CM PICC IN THE LEFT BASILIC VEIN. Interventional Vascular Procedure 10/10/18 00:00 IMPRESSION: SUCCESSFUL PLACEMENT OF A 5 FR DUAL LUMEN 42 CM PICC IN THE LEFT B ASILIC VEIN. PICC Line Insertion 10/10/18 06:00 IMPRESSION: SUCCESSFUL PLACEMENT OF A 5 FR DUAL LUMEN 42 CM PICC IN THE LEFT BASILIC VEIN. Assessment & Plan - Diagnosis (1) Acute and chronic respiratory failure with hypoxia Is this a current diagnosis for this admission?: Yes Plan: mild improvement. O2 sat 93-96, on 6 L, 44% Continue BiPAP, nebs, supplemental oxygen, broad-spectrum antibiotics for possible multifocal pneumonia. On home O2 2 L. September 2018. 2D echo ejection fraction 55-60%. Suboptimal study. BNP on admission 27313 up from 399 on 04/23/2017. TSH 3.49. Troponins on this admission 0.0742-0.773 Weight: 89.6 kg down from 94.7 on admission. Will DC home on supplemental oxygen if oxygen requirement drops by tomorrow. (2) Pneumonia Is this a current diagnosis for this admission?: Yes Plan: Likely hospital-acquired. Persistent leukocytosis, hypoxia, fever, no chest x- ray changes. Completed a course of antibiotics since admission however no significant improvement. Restarted on Vanco and Zosyn on 10/09/2018. Cultures no growth. Pulmonary consulted for possible bronchoscopy. (3) Depression Qualifiers: Major depression recurrence: unspecified whether recurrent Is this a current diagnosis for this admission?: Yes Plan: Started on sertraline. TSH within normal limit. Follow-up with PCP for evaluation of the need for continuation of SSRIs (4) Atrial fibrillation Qualifiers: Atrial fibrillation type: paroxysmal Qualified Code(s): I48.0 - Paroxysmal atrial fibrillation Is this a current diagnosis for this admission?: Yes Plan: Controlled. Continue current meds. Initially Eliquis was held due to persistent epistaxis after counseling patient about the risk and benefit of anticoagulation she has decided not to continue anticoagulation because of the risk of bleeding and also her underlying history of recurrent falls and weakness. (5) Anxiety Is this a current diagnosis for this admission?: Yes Plan: Benzo as needed decreased dosage. (6) CAD (coronary artery disease) Is this a current diagnosis for this admission?: Yes Plan: Continue aspirin, statins, Plavix, and beta-blockers. Outpatient cardiology follow-up. (7) New onset of congestive heart failure Is this a current diagnosis for this admission?: Yes Plan: September 2018. 2D echo ejection fraction 55-60%. Suboptimal study. BNP on admission 68121 up from 399 on 04/23/2017. As per problem #1. (8) Obstructive sleep apnea Is this a current diagnosis for this admission?: Yes Plan: Pulmonary and outpatient nocturnal polysomnography. (9) Hypertension Qualifiers: Hypertension type: unspecified secondary hypertension Qualified Code(s): I15.9 - Secondary hypertension, unspecified Is this a current diagnosis for this admission?: Yes Plan: Normotensive. Continue current meds. Adjust meds as needed. Outpatient PCP follow-up. (10) Physical deconditioning Is this a current diagnosis for this admission?: Yes Plan: Continue PT. Outpatient rehab.
[2018-10-11] MEDS ORDERED: POTASSIUM CHLORIDE 10 MEQ CAPSULE.ER PO ONE (16:30)
[2018-10-11] MEDS: GABAPENTIN 300 MG CAPSULE PO SCH (18:19)
[2018-10-11] MEDS: ATORVASTATIN CALCIUM 40 MG TABLET PO SCH (22:19)
[2018-10-11] MEDS: ROPINIROLE HCL 2 MG TABLET PO SCH (22:23)
[2018-10-12] MEDS: PIPERACILLIN SODIUM/TAZOBACTAM 3.375 GM in NORMAL SALINE 100 ML IV SCH ×5 (00:16→23:40)
[2018-10-12] MEDS: LEVALBUTEROL HCL NEB 0.63 MG/3 ML AMPUL NEB SCH ×4 (01:46→20:57)
[2018-10-12] MEDS: FAMOTIDINE 20 MG TABLET PO SCH ×3 (06:30→21:45)
--- NOTE | 2018-10-12 09:52 | CONSULTATION REPORT E ---
Consultation Report NAME: BENJI MCGEE : 1940 AGE: 77Y DATE: 10/11/2018 ROOM: 321 B TO: DIANA MATA M.D. FROM: SARAY WHATLEY M.D. Requesting Physician HISTORY OF PRESENT ILLNESS: The patient is a 77-year-old female who came in and was treated for pulmonary edema and pneumonia bilaterally. She claimed that she is not coughing out any phlegm. She denies any fever or chills, increasing cough, purulent sputum production, or hemoptysis. She claims that she is feeling a lot better and breathing better. No chest pain, no angina, no headache, no dizziness. The white count has been improving from 17,400 to 10,800 this morning, hemoglobin remains stable at 8.5, and hematocrit is 35.3. PAST MEDICAL HISTORY: Atrial fibrillation, coronary artery disease, myocardial infarction, hyperlipidemia, hypertension, asthma, sleep apnea, migraines, hypothyroidism, GERD, arthritis, fibromyalgia, depression, and anemia. PAST SURGICAL HISTORY: Cardiac cath and stenting in 2006, cholecystectomy, and hysterectomy. SOCIAL HISTORY: The patient lives with her family. Never smoked. Denies any illicit drug use or alcohol use. FAMILY HISTORY: History of COPD. MEDICATIONS: Medications at home include lisinopril, Celebrex, Requip, Cymbalta, gabapentin, Eliquis, atorvastatin, vitamin D3, hydrochlorothiazide, Sotalol and *------*. ALLERGIES: No known drug allergies. REVIEW OF SYSTEMS: CONSTITUTIONAL: No fever or chills. No weakness. EYES: There are no visual disturbances. EARS: No hearing changes or ear discharge. CARDIOVASCULAR: Increased exertional dyspnea, edema, palpitations. RESPIRATORY: Cough and dyspnea. No sputum production. GASTROINTESTINAL: Constipation. GENITOURINARY: Denies any dysuria or hematuria. MUSCULOSKELETAL: No joint swelling. SKIN: No rash or wounds. NERVOUS SYSTEM: No history of abnormal gait or abnormal speech. No history of confusion, dizziness, or focal weakness or any syncope. PHYSICAL EXAMINATION: GENERAL: The patient is awake, alert, coherent, oriented x3. VITAL SIGNS: Temperature is 98.8 with a T-max of 98.8. Heart rate is 78, blood pressure is 115/79, respiratory rate is 20, saturation is 94%. EYES: No jaundice or pallor. EARS, NOSE, AND THROAT: No ear drainage. No nasal discharge. CHEST AND LUNGS: No wheezing, no rhonchi, no coarse crackles. CARDIOVASCULAR: S1, S2 distinct. Normal rate, regular rhythm. ABDOMEN: Flabby. Positive bowel sounds. Soft, nondistended, and nontender. EXTREMITIES: No joint swelling and no cellulitis. LABORATORY: CBC done yesterday showed a white count of 10.8, hemoglobin is 8.5, hematocrit is 35.3, and platelet count is 256,000 with segmented neutrophils 83%, leukocytes 5.5%, no eosinophilia noted. Chest x-ray showed pulmonary infiltrate bilaterally. CAT scan of the chest done on September 24 showed bilateral pulmonary infiltrates, possibly pneumonia versus pulmonary edema. PLAN/RECOMMENDATIONS: Continue nebulizer treatment and DuoNeb every 6 hours as needed. Continue nebulizer treatments every 6 hours. Continue Zosyn 3.3 g IV every 6 hours and vancomycin 750 mg IV once every 12 hours. Recommend Pulmonary Clinic followup after 4 weeks from hospital discharge. DICTATING PHYSICIAN: DIANA MATA MD,TIMMY,MPH [id number] PHY#: [id number] 2010 ID: [id number] JOB#: [id number] ACCT: [id number] cc:DIANA MATA M.D. > MTDRed
[2018-10-12] MEDS: AMLODIPINE BESYLATE 2.5 MG TABLET PO SCH (10:00)
[2018-10-12] MEDS: CLOPIDOGREL BISULFATE 75 MG TABLET PO SCH (10:00)
[2018-10-12] MEDS: ASPIRIN 81 MG TABLET, ENT COATED PO SCH (10:00)
[2018-10-12] MEDS: SERTRALINE HCL 50 MG TABLET PO SCH (10:00)
[2018-10-12] MEDS ORDERED: METHYLPREDNISOLONE INJ 40 MG/1 ML SDV IV SCH (10:00)
[2018-10-12] MEDS: CARVEDILOL 3.125 MG TABLET PO SCH ×2 (10:01→21:38)
[2018-10-12] MEDS: VANCOMYCIN HCL 750 MG in DEXTROSE 5%-WATER 250 ML IV SCH ×2 (10:02→21:45)
[2018-10-12] MEDS: AMIODARONE HCL 200 MG TABLET PO SCH (10:02)
[2018-10-12] MEDS: FLUTICASONE NASAL SPRAY 50 MCG/SPRY 120 SPRAY/16 GM NASL SCH ×2 (10:31→21:41)
[2018-10-12] MEDS: SODIUM CHLORIDE NASAL SPRAY 44 ML NASL SCH ×2 (10:32→17:12)
--- NOTE | 2018-10-12 10:39 | PDOC PROGRESS REPORT ---
Subjective Progress Note for:: 10/12/18 Subjective:: No significant change since yesterday. No acute events overnight. Dependent on BiPAP complaining of shortness of breath and generalized weakness and shortness of breath on exertion. Denies any fever, chills, nausea, vomiting, diarrhea, constipation or any urinary symptoms. Reason For Visit: PNEUMONIA,DIASTOLIC HF Physical Exam Vital Signs: Temp Pulse Resp BP Pulse Ox 98.0 F 60 22 H 147/58 H 95 10/12/18 07:16 10/12/18 08:02 10/12/18 08:02 10/12/18 07:16 10/12/18 08:02 Intake & Output 10/11/18 10/12/18 10/13/18 06:59 06:59 06:59 Intake Total 1281 2152 Balance 1281 2152 Weight 93.7 kg 96.7 kg General appearance: PRESENT: no acute distress, well-developed, well-nourished Head exam: PRESENT: atraumatic, normocephalic Respiratory exam: PRESENT: accessory muscle use, crackles, prolonged expiratory phas, symmetrical, tachypnea. ABSENT: rales, rhonchi, wheezes Cardiovascular exam: PRESENT: irregular rhythm. ABSENT: diastolic murmur, rubs, systolic murmur GI/Abdominal exam: PRESENT: normal bowel sounds, soft. ABSENT: distended, guarding, mass, organolmegaly, rebound, tenderness Extremities exam: PRESENT: full ROM. ABSENT: calf tenderness, clubbing, pedal edema Neurological exam: PRESENT: alert, awake, oriented to person, oriented to place, oriented to time, oriented to situation, CN II-XII grossly intact. ABSENT: motor sensory deficit Results Laboratory Results: 10/11/18 10:00 10/11/18 10:00 10/11/18 10/11/18 10:00 10:00 WBC 10.8 H RBC 2.72 L Hgb 8.5 L Hct 25.3 L MCV 93 MCH 31.2 MCHC 33.5 RDW 15.0 H Plt Count 256 Seg Neutrophils % 83.4 H Lymphocytes % 5.5 L Monocytes % 8.0 Eosinophils % 2.7 Basophils % 0.4 Absolute Neutrophils 9.0 H Absolute Lymphocytes 0.6 Absolute Monocytes 0.9 Absolute Eosinophils 0.3 Absolute Basophils 0.0 Sodium 136.9 L Potassium 3.5 L Chloride 95 L Carbon Dioxide 32 H Anion Gap 10 BUN 20 Creatinine 1.06 Est GFR ( Amer) > 60 Est GFR (Non-Af Amer) 50 L Glucose 165 H Calcium 8.3 L 09/24/18 09/24/18 09/24/18 00:38 00:38 03:01 Creatine Kinase 37 CK-MB (CK-2) 1.67 Troponin I 0.074 0.078 NT-Pro-B Natriuret Pep 41899 H 09/25/18 09/25/18 09/25/18 10:13 10:13 19:16 Creatine Kinase 22 L CK-MB (CK-2) 1.63 Troponin I 0.074 0.073 NT-Pro-B Natriuret Pep 10/08/18 10/08/18 10/09/18 23:43 23:43 05:19 Creatine Kinase < 20 L < 20 L CK-MB (CK-2) 0.38 Troponin I 0.039 NT-Pro-B Natriuret Pep 10/09/18 10/09/18 10/09/18 05:19 11:49 11:49 Creatine Kinase < 20 L CK-MB (CK-2) 0.38 0.41 Troponin I 0.049 0.042 NT-Pro-B Natriuret Pep Impressions: Chest X-Ray 10/08/18 00:00 IMPRESSION: Multifocal pneumonia, similar to prior study.. Guidance Fluoroscopy 10/10/18 00:00 IMPRESSION: SUCCESSFUL PLACEMENT OF A 5 FR DUAL LUMEN 42 CM PICC IN THE LEFT BASILIC VEIN. Interventional Vascular Procedure 10/10/18 00:00 IMPRESSION: SUCCESSFUL PLACEMENT OF A 5 FR DUAL LUMEN 42 CM PICC IN THE LEFT BASILIC VEIN. PICC Line Insertion 10/10/18 06:00 IMPRESSION: SUCCESSFUL PLACEMENT OF A 5 FR DUAL LUMEN 42 CM PICC IN THE LEFT BASILIC VEIN. Assessment & Plan - Diagnosis (1) Acute and chronic respiratory failure with hypoxia Is this a current diagnosis for this admission?: Yes Plan: No significant change. Still dependent on BiPAP. O2 sat 93-96, on 6 L, 50% Continue BiPAP, nebs, supplemental oxygen, broad-spectrum antibiotics for possible multifocal pneumonia. On home O2 2 L. September 2018. 2D echo ejection fraction 55-60%. Suboptimal study. BNP on admission 04040 up from 399 on 04/23/2017. TSH 3.49. Troponins on this admission 0.0742-0.773 Weight: 89.6 kg down from 94.7 on admission. Will DC home on supplemental oxygen if oxygen requirement drops by tomorrow. (2) Pneumonia Is this a current diagnosis for this admission?: Yes Plan: Hospital-acquired. Patient was at [facility] hospitalized for PCI but ended up staying in the hospital for 12 days because she developed flu followed by pneumonia. She was sent home but presented here at [place] 2 days later for similar complaints. Persistent leukocytosis, hypoxia, fever, no chest x-ray changes. Completed a course of antibiotics since admission however no significant improvement. Day 4 of Vanco and Zosyn. Restarted on Vanco and Zosyn on 10/09/2018. Cultures no growth. Pulmonary on board. Possible bronchoscopy. (3) Depression Qualifiers: Major depression recurrence: unspecified whether recurrent Is this a current diagnosis for this admission?: Yes Plan: Started on sertraline. TSH within normal limit. Follow-up with PCP for evaluation of the need for continuation of SSRIs (4) Atrial fibrillation Qualifiers: Atrial fibrillation type: paroxysmal Qualified Code(s): I48.0 - Paroxysmal atrial fibrillation Is this a current diagnosis for this admission?: Yes Plan: Controlled. Continue current meds. Initially Eliquis was held due to persistent epistaxis after counseling patient about the risk and benefit of anticoagulation she has decided not to continue anticoagulation because of the risk of bleeding and also her underlying history of recurrent falls and weakness. (5) Anxiety Is this a current diagnosis for this admission?: Yes Plan: Benzo as needed decreased dosage. (6) CAD (coronary artery disease) Is this a current diagnosis for this admission?: Yes Plan: Status post PCI stent placement x4 Last 1 at [facility] September of this year. Continue aspirin, statins, Plavix, and beta-blockers. Outpatient cardiology follow-up. (7) New onset of congestive heart failure Is this a current diagnosis for this admission?: Yes Plan: September 2018. 2D echo ejection fraction 55-60%. Suboptimal study. BNP on admission 37408 up from 399 on 04/23/2017. As per problem #1. (8) Obstructive sleep apnea Is this a current diagnosis for this admission?: Yes Plan: Pulmonary and outpatient nocturnal polysomnography. (9) Hypertension Qualifiers: Hypertension type: unspecified secondary hypertension Qualified Code(s): I15.9 - Secondary hypertension, unspecified Is this a current diagnosis for this admission?: Yes Plan: Normotensive. Continue current meds. Adjust meds as needed. Outpatient PCP follow-up. (10) Physical deconditioning Is this a current diagnosis for this admission?: Yes Plan: Continue PT. Outpatient rehab.
[2018-10-12] MEDS: TRAMADOL HCL 50 MG TABLET PO PRN (11:28)
[2018-10-12] MEDS: NORMAL SALINE 10 ML SDV (SCHEDULED) IV SCH ×2 (11:35→21:43)
[2018-10-12 11:47] LABS: ALANINE AMINOTRANSFERASE 40 U/L (9-52); ALBUMIN 2.9 g/dL (3.5-5.0); ALKALINE PHOSPHATASE 110 U/L (38-126); ANION GAP 9 (5-19); ASPARTATE AMINO TRANSFERASE 41 U/L (14-36); BILIRUBIN,DIRECT 0.2 mg/dL (0.0-0.4); BLOOD UREA NITROGEN 14 mg/dL (7-20); CALCIUM 8.5 mg/dL (8.4-10.2); CARBON DIOXIDE 31 mmol/L (22-30); CHLORIDE 97 mmol/L (98-107); GLUCOSE 147 mg/dL (75-110); POTASSIUM 3.7 mmol/L (3.6-5.0); SODIUM 137.1 mmol/L (137-145); TOTAL PROTEIN 5.6 g/dL (6.3-8.2)
[2018-10-12 11:48] LABS: CREATINE KINASE < 20 U/L (30-135)
[2018-10-12 11:58] LABS: CREATINE KINASE MB 0.51 ng/mL (<4.55); TROPONIN I 0.032 ng/mL
[2018-10-12 13:24] LABS: ARTERIAL BLOOD BASE EXCESS 7.1 mmol/L; ARTERIAL BLOOD FIO2 50%; ARTERIAL BLOOD H2CO3 1.41 mmol/L (1.05-1.35); ARTERIAL BLOOD HCO3 31.7 mmol/L (20-24); ARTERIAL BLOOD O2 SATURATION 97.7 % (94-98); ARTERIAL BLOOD PCO2 46.7 mmHg (35-45); ARTERIAL BLOOD PH 7.45 (7.35-7.45); ARTERIAL BLOOD PO2 99.7 mmHg (80-100); ARTERIAL BLOOD TOTAL CO2 33.2 mmol/L (21-25)
[2018-10-12 14:02] LABS: ABSOLUTE EOSINOPHILS # (AUTO) 0.3 10^3/uL (0.0-0.6); ABSOLUTE LYMPHOCYTES (AUTO) 0.6 10^3/uL (0.5-4.7); ABSOLUTE MONOCYTES (AUTO) 1.1 10^3/uL (0.1-1.4); ABSOLUTE NEUT (AUTO) 8.6 10^3/uL (1.7-8.2); BASOPHILS % (AUTO) 0.4 % (0-2); EOSINOPHILS % (AUTO) 2.6 % (0-6); HEMATOCRIT 26.1 % (36.0-47.0); HEMOGLOBIN 8.6 g/dL (12.0-15.5); LYMPHOCYTES % (AUTO) 5.7 % (13-45); MEAN CORPUSCULAR HEMOGLOBIN 30.7 pg (27.0-33.4); MEAN CORPUSCULAR VOLUME 93 fl (80-97); MONOCYTES % (AUTO) 10.2 % (3-13); PLATELET COUNT 261 10^3/uL (150-450); RED BLOOD COUNT 2.81 10^6/uL (3.72-5.28); RED CELL DISTRIBUTION WIDTH 14.9 % (11.5-14.0); SEGMENTED NEUTROPHILS % (AUTO) 81.1 % (42-78); TOTAL CELLS COUNTED % (AUTO) 100 %; WHITE BLOOD COUNT 10.6 10^3/uL (4.0-10.5)
[2018-10-12] MEDS: ACETAMINOPHEN 325 MG TABLET PO PRN (17:09)
[2018-10-12] MEDS: GABAPENTIN 300 MG CAPSULE PO SCH (17:10)
[2018-10-12] MEDS ORDERED: FUROSEMIDE 20 MG TABLET PO SCH (21:15)
[2018-10-12] MEDS: ROPINIROLE HCL 2 MG TABLET PO SCH (21:39)
[2018-10-12] MEDS: ATORVASTATIN CALCIUM 40 MG TABLET PO SCH (21:39)
[2018-10-12] MEDS: METHYLPREDNISOLONE INJ 40 MG/1 ML SDV IV SCH (21:39)
[2018-10-12] MEDS: FLUTICASONE/SALMETEROL DISKUS 250-50 MCG/DOSE IH SCH (21:59)
[2018-10-13] MEDS: LEVALBUTEROL HCL NEB 0.63 MG/3 ML AMPUL NEB SCH ×4 (02:20→20:29)
[2018-10-13] MEDS: FAMOTIDINE 20 MG TABLET PO SCH ×3 (05:35→21:39)
[2018-10-13] MEDS: PIPERACILLIN SODIUM/TAZOBACTAM 3.375 GM in NORMAL SALINE 100 ML IV SCH ×3 (05:38→17:48)
[2018-10-13 05:53] LABS: ARTERIAL BLOOD BASE EXCESS 3.1 mmol/L; ARTERIAL BLOOD H2CO3 1.38 mmol/L (1.05-1.35); ARTERIAL BLOOD HCO3 28.2 mmol/L (20-24); ARTERIAL BLOOD O2 SATURATION 93.9 % (94-98); ARTERIAL BLOOD PCO2 45.9 mmHg (35-45); ARTERIAL BLOOD PH 7.41 (7.35-7.45); ARTERIAL BLOOD PO2 69.4 mmHg (80-100); ARTERIAL BLOOD TOTAL CO2 29.6 mmol/L (21-25)
[2018-10-13 06:07] LABS: ARTERIAL BLOOD FIO2 40%
[2018-10-13 06:33] LABS: HEMATOCRIT 25.1 % (36.0-47.0); HEMOGLOBIN 8.5 g/dL (12.0-15.5); MEAN CORPUSCULAR HEMOGLOBIN 31.2 pg (27.0-33.4); MEAN CORPUSCULAR HGB CONC 33.6 g/dL (32.0-36.0); MEAN CORPUSCULAR VOLUME 93 fl (80-97); PLATELET COUNT 274 10^3/uL (150-450); RED BLOOD COUNT 2.71 10^6/uL (3.72-5.28); WHITE BLOOD COUNT 9.4 10^3/uL (4.0-10.5)
[2018-10-13 07:00] LABS: ALANINE AMINOTRANSFERASE 45 U/L (9-52); ALKALINE PHOSPHATASE 118 U/L (38-126); ANION GAP 8 (5-19); ASPARTATE AMINO TRANSFERASE 32 U/L (14-36); BILIRUBIN,DIRECT 0.3 mg/dL (0.0-0.4); BILIRUBIN,TOTAL 0.7 mg/dL (0.2-1.3); BLOOD UREA NITROGEN 16 mg/dL (7-20); CARBON DIOXIDE 32 mmol/L (22-30); CHLORIDE 97 mmol/L (98-107); GLUCOSE 154 mg/dL (75-110); POTASSIUM 4.6 mmol/L (3.6-5.0); SODIUM 136.5 mmol/L (137-145); TOTAL PROTEIN 5.9 g/dL (6.3-8.2)
[2018-10-13 07:17] LABS: ABSOLUTE LYMPHOCYTES# (MANUAL) 0.6 10^3/uL (0.5-4.7); ABSOLUTE NEUTROPHILS# (MANUAL) 8.8 10^3/uL (1.7-8.2); BASOPHILS % (MANUAL) 0 % (0-2); EOSINOPHILS % (MANUAL) 0 % (0-6); LYMPHOCYTES % (MANUAL) 6 % (13-45); MONOCYTES % (MANUAL) 0 % (3-13); SEGMENTED NEUTROPHILS % (MAN) 94 % (42-78); TOTAL CELLS COUNTED 100; TOXIC GRANULATION 1+; TOXIC VACUOLATION PRESENT
[2018-10-13 07:19] LABS: ANISOCYTOSIS 1+; HELMET CELLS SLIGHT; OVALOCYTES 1+; PLATELET COMMENT ADEQUATE; POIKILOCYTOSIS 1+; SCHISTOCYTES SLIGHT; TEAR DROP CELLS 1+
[2018-10-13] MEDS: METHYLPREDNISOLONE INJ 40 MG/1 ML SDV IV SCH ×2 (09:38→21:41)
[2018-10-13] MEDS: FLUTICASONE/SALMETEROL DISKUS 250-50 MCG/DOSE IH SCH ×2 (09:39→21:37)
[2018-10-13] MEDS: CARVEDILOL 3.125 MG TABLET PO SCH ×2 (09:39→21:38)
[2018-10-13] MEDS: FLUTICASONE NASAL SPRAY 50 MCG/SPRY 120 SPRAY/16 GM NASL SCH ×2 (09:39→21:38)
[2018-10-13] MEDS: AMLODIPINE BESYLATE 2.5 MG TABLET PO SCH (09:39)
[2018-10-13] MEDS: ASPIRIN 81 MG TABLET, ENT COATED PO SCH (09:39)
[2018-10-13] MEDS: CLOPIDOGREL BISULFATE 75 MG TABLET PO SCH (09:39)
[2018-10-13] MEDS: SERTRALINE HCL 50 MG TABLET PO SCH (09:39)
[2018-10-13] MEDS: AMIODARONE HCL 200 MG TABLET PO SCH (09:39)
[2018-10-13] MEDS: NORMAL SALINE 10 ML SDV (SCHEDULED) IV SCH ×2 (09:40→21:39)
[2018-10-13] MEDS: SODIUM CHLORIDE NASAL SPRAY 44 ML NASL SCH ×2 (09:40→17:49)
[2018-10-13] MEDS: VANCOMYCIN HCL 750 MG in DEXTROSE 5%-WATER 250 ML IV SCH ×2 (09:41→21:41)
[2018-10-13] MEDS ORDERED: FUROSEMIDE 20 MG TABLET PO SCH (10:00)
--- NOTE | 2018-10-13 11:26 | PDOC PROGRESS REPORT ---
Subjective Progress Note for:: 10/13/18 Subjective:: No significant change since yesterday. No acute events overnight. Still dependent on BiPAP complaining of shortness of breath and generalized weakness and shortness of breath on exertion. Denies any fever, chills, nausea, vomiting, diarrhea, constipation or any urinary symptoms. Reason For Visit: PNEUMONIA,DIASTOLIC HF Physical Exam Vital Signs: Temp Pulse Resp BP Pulse Ox 97.6 F 62 27 H 127/78 H 94 10/13/18 07:38 10/13/18 07:38 10/13/18 07:38 10/13/18 07:38 10/13/18 07:38 Pulse Oximeter Continuous Start: 10/12/18 2 1:15 Freq: RTQ4 Status: Active Protocol: Document 10/13/18 04:36 [facility] (Rec: 10/13/18 04:37 [facility] [id number]) Pulse Oximetry Assessment Oxygen Saturation (92-100) 95 Oxygen Delivery Method Bi-pap Fraction of Inspired Oxygen (FIO2) 40 Equipment Usage Equipment in Use Continuous SpO2 Machine # [id number] Intake & Output 10/12/18 10/13/18 10/14/18 06:59 06:59 06:59 Intake Total 2152 2172 Balance 2152 2172 Weight 96.7 kg 95.9 kg General appearance: PRESENT: no acute distress, mild distress, well-developed, well-nourished Head exam: PRESENT: atraumatic, normocephalic Respiratory exam: PRESENT: crackles, decreased breath sounds. ABSENT: rales, rhonchi, wheezes Cardiovascular exam: PRESENT: RRR. ABSENT: diastolic murmur, rubs, systolic murmur GI/Abdominal exam: PRESENT: normal bowel sounds, soft. ABSENT: distended, guarding, mass, organolmegaly, rebound, tenderness Extremities exam: PRESENT: full ROM. ABSENT: calf tenderness, clubbing, pedal edema Neurological exam: PRESENT: alert, awake, oriented to person, oriented to place, oriented to time, oriented to situation, CN II-XII grossly intact. ABSENT: motor sensory deficit Results Laboratory Results: 10/13/18 05:18 10/13/18 05:18 10/12/18 10/12/18 10/12/18 11:05 11:05 13:00 WBC 10.6 H RBC 2.81 L Hgb 8.6 L Hct 26.1 L MCV 93 MCH 30.7 MCHC 33.0 RDW 14.9 H Plt Count 261 Seg Neutrophils % 81.1 H Lymphocytes % 5.7 L Monocytes % 10.2 Eosinophils % 2.6 Basophils % 0.4 Absolute Neutrophils 8.6 H Absolute Lymphocytes 0.6 Absolute Monocytes 1.1 Absolute Eosinophils 0.3 Absolute Basophils 0.0 Carbonic Acid 1.41 H HCO3/H2CO3 Ratio 22:1 ABG pH 7.45 ABG pCO2 46.7 H ABG pO2 99.7 ABG HCO3 31.7 H ABG O2 Saturation 97.7 ABG Base Excess 7.1 FiO2 50% Sodium 137.1 Potassium 3.7 Chloride 97 L Carbon Dioxide 31 H Anion Gap 9 BUN 14 Creatinine 0.95 Est GFR ( Amer) > 60 Est GFR (Non-Af Amer) 57 L Glucose 147 H Calcium 8.5 Magnesium Total Bilirubin 1.0 AST 41 H ALT 40 Alkaline Phosphatase 110 Total Protein 5.6 L Albumin 2.9 L 10/13/18 10/13/18 10/13/18 05:18 05:18 05:40 WBC 9.4 RBC 2.71 L Hgb 8.5 L Hct 25.1 L MCV 93 MCH 31.2 MCHC 33.6 RDW 15.0 H Plt Count 274 Seg Neutrophils % Not Reportable Lymphocytes % Not Reportable Monocytes % Not Reportable Eosinophils % Not Reportable Basophils % Not Reportable Absolute Neutrophils Not Reportable Absolute Lymphocytes Not Reportable Absolute Monocytes Not Reportable Absolute Eosinophils Not Reportable Absolute Basophils Not Reportable Carbonic Acid 1.38 H HCO3/H2CO3 Ratio 20:1 ABG pH 7.41 ABG pCO2 45.9 H ABG pO2 69.4 L ABG HCO3 28.2 H ABG O2 Saturation 93.9 L ABG Base Excess 3.1 FiO2 40% Sodium 136.5 L Potassium 4.6 Chloride 97 L Carbon Dioxide 32 H Anion Gap 8 BUN 16 Creatinine 0.94 Est GFR ( Amer) > 60 Est GFR (Non-Af Amer) 57 L Glucose 154 H Calcium 9.0 Magnesium 2.3 Total Bilirubin 0.7 AST 32 ALT 45 Alkaline Phosphatase 118 Total Protein 5.9 L Albumin 3.0 L 09/24/18 09/24/18 09/24/18 00:38 00:38 03:01 Creatine Kinase 37 CK-MB (CK-2) 1.67 Troponin I 0.074 0.078 NT-Pro-B Natriuret Pep 39500 H 09/25/18 09/25/18 09/25/18 10:13 10:13 19:16 Creatine Kinase 22 L CK-MB (CK-2) 1.63 Troponin I 0.074 0.073 NT-Pro-B Natriuret Pep 10/08/18 10/08/18 10/09/18 23:43 23:43 05:19 Creatine Kinase < 20 L < 20 L CK-MB (CK-2) 0.38 Troponin I 0.039 NT-Pro-B Natriuret Pep 10/09/18 10/09/18 10/09/18 05:19 11:49 11:49 Creatine Kinase < 20 L CK-MB (CK-2) 0.38 0.41 Troponin I 0.049 0.042 NT-Pro-B Natriuret Pep 10/12/18 10/12/18 11:05 11:05 Creatine Kinase < 20 L CK-MB (CK-2) 0.51 Troponin I 0.032 NT-Pro-B Natriuret Pep Impressions: Chest X-Ray 10/08/18 00:00 IMPRESSION: Multifocal pneumonia, similar to prior study.. Guidance Fluoroscopy 10/10/18 00:00 IMPRESSION: SUCCESSFUL PLACEMENT OF A 5 FR DUAL LUMEN 42 CM PICC IN THE LEFT BASILIC VEIN. Interventional Vascular Procedure 10/10/18 00:00 IMPRESSION: SUCCESSFUL PLACEMENT OF A 5 FR DUAL LUMEN 42 CM PICC IN THE LEFT BASILIC VEIN. PICC Line Insertion 10/10/18 06:00 IMPRESSION: SUCCESSFUL PLACEMENT OF A 5 FR DUAL LUMEN 42 CM PICC IN THE LEFT BASILIC VEIN. Assessment & Plan - Diagnosis (1) Pneumonia Qualifiers: Laterality: bilateral Is this a current diagnosis for this admission?: Yes Plan: Hospital-acquired. Patient was at [place] hospitalized for PCI but ended up staying in the hospital for 12 days because she developed flu followed by pneumonia. She was sent home but presented here at [place] 2 days later for similar complaints. Persistent hypoxia. Leukocytosis improved. X-ray no changes. Afebrile. Day 5 of Vanco and Zosyn. Restarted on Vanco and Zosyn on 10/09/2018. Cultures no growth. Pulmonary on board. Recommendation is to continue current treatment and follow- up as outpatient. Will be reevaluated for possible bronchoscopy if no improvement. Completed a course of antibiotics since admission however no significant improvement. (2) Acute and chronic respiratory failure with hypoxia Is this a current diagnosis for this admission?: Yes Plan: No significant change. Still dependent on BiPAP. O2 sat 93-96, on 6 L, 50% Continue BiPAP, nebs, supplemental oxygen, broad-spectrum antibiotics hospital-acquired pneumonia. September 2018. 2D echo ejection fraction 55-60%. Suboptimal study. BNP on admission 58433 up from 399 on 04/23/2017. TSH 3.49. Troponins on this admission 0.0742-0.773 Will DC home on supplemental oxygen if oxygen requirement drops by tomorrow. On home O2 2 L. (3) Atrial fibrillation Qualifiers: Atrial fibrillation type: paroxysmal Qualified Code(s): I48.0 - Paroxysmal atrial fibrillation Is this a current diagnosis for this admission?: Yes Plan: Controlled. Continue current meds. Initially Eliquis was held due to persistent epistaxis after counseling patient about the risk and benefit of anticoagulation she has decided not to continue an ticoagulation because of the risk of bleeding and also her underlying history of recurrent falls and weakness. (4) Depression Qualifiers: Major depression recurrence: unspecified whether recurrent Is this a current diagnosis for this admission?: Yes Plan: Started on sertraline. TSH within normal limit. Follow-up with PCP for evaluation of the need for continuation of SSRIs (5) Anxiety Is this a current diagnosis for this admission?: Yes Plan: Benzo as needed decreased dosage. (6) CAD (coronary artery disease) Is this a current diagnosis for this admission?: Yes Plan: Status post PCI stent placement x4 Last one at [place] September 2018. Continue aspirin, statins, Plavix, and beta-blockers. Outpatient cardiology follow-up. (7) New onset of congestive heart failure Is this a current diagnosis for this admission?: Yes Plan: September 2018. 2D echo ejection fraction 55-60%. Suboptimal study. BNP on admission 08886 up from 399 on 04/23/2017. Cardiac diet, p.o. Lasix, strict in and out. (8) Obstructive sleep apnea Is this a current diagnosis for this admission?: Yes Plan: Continue BiPAP. Pulmonary and outpatient nocturnal polysomnography. (9) Hypertension Qualifiers: Hypertension type: unspecified secondary hypertension Qualified Code(s): I15.9 - Secondary hypertension, unspecified Is this a current diagnosis for this admission?: Yes Plan: Normotensive. Continue current meds. Adjust meds as needed. Outpatient PCP follow-up. (10) Physical deconditioning Is this a current diagnosis for this admission?: Yes Plan: Continue PT. Outpatient rehab.
[2018-10-13] MEDS: GUAIFENESIN 600 MG TABLET.SA PO SCH ×2 (13:27→21:39)
[2018-10-13] MEDS: GABAPENTIN 300 MG CAPSULE PO SCH (17:48)
[2018-10-13] MEDS: FUROSEMIDE 20 MG TABLET PO SCH (17:59)
[2018-10-13] MEDS: ATORVASTATIN CALCIUM 40 MG TABLET PO SCH (21:38)
[2018-10-13] MEDS: TRAMADOL HCL 50 MG TABLET PO PRN (21:40)
[2018-10-13] MEDS: ROPINIROLE HCL 2 MG TABLET PO SCH (21:43)
[2018-10-14] MEDS: PIPERACILLIN SODIUM/TAZOBACTAM 3.375 GM in NORMAL SALINE 100 ML IV SCH ×4 (00:44→18:14)
[2018-10-14] MEDS: LEVALBUTEROL HCL NEB 0.63 MG/3 ML AMPUL NEB SCH ×4 (01:31→20:53)
[2018-10-14] MEDS: FAMOTIDINE 20 MG TABLET PO SCH ×3 (05:26→22:09)
--- NOTE | 2018-10-14 09:02 | PROGRESS NOTE E ---
Progress Note NAME: BENJI MCGEE : 1940 AGE: 77Y DATE: 10/12/2018 ROOM: 321 SUBJECTIVE: The patient is an 78-year-old female who came in with increased shortness of breath, coughing yellow-green phlegm with significant leukocytosis at 17,000. Treated for pneumonia and pulmonary edema. Appeared to be improving. Currently, patient denies any fever, chills. Denies any vomiting, chest pain, increased shortness of breath. Denies any increasing purulent sputum production or increasing cough. Complains about severe dyspnea and could hardly walk and is currently using a BiPAP to help her breathe better. OBJECTIVE: GENERAL: The patient is awake, alert, coherent, oriented x3, afebrile, not in apparent severe respiratory distress. VITAL SIGNS: A temperature of 97.4 with a T-max of 98.2 degrees Fahrenheit, heart rate 66, blood pressure 110/45, respiratory rate is 23, saturation is 99 on BiPAP, and FiO2 is 50%. No continuous pulse ox at bedside to determine oxygen saturation on oxygen therapy. EYES: No jaundice or pallor. EARS, NOSE, AND THROAT: No ear drainage. No nasal discharge. CHEST AND LUNGS: No wheezing, no rhonchi, no coarse crackles. CARDIOVASCULAR: S1, S2 distinct. Normal rate. ABDOMEN: Flabby. Positive bowel sounds. Soft, nondistended, nontender. EXTREMITIES: No joint swelling. No cellulitis. LABORATORY: CBC done today showed white count of 10.6 from 17.4 on admission. Hemoglobin is 8.6, hematocrit is 26.1, platelet count is 461. No bands noted. ABG done today pH of 7.45, PCO2 of 30.7, PO2 of 29.7, bicarb is 33, and on 50% FiO2. Chemistry done today showed sodium is 137, potassium 3.7, chloride 97, CO2 is 37, BUN 14, creatinine 0.95, glucose 147, and calcium is 8.5. SGOT is 41, SGPT 40, alkaline phos 110. Chest x-ray done 4 days ago showed infiltrate bilaterally, appeared to be stable and no pleural effusion, no pneumothorax. ASSESSMENT: 1. PULMONARY INFILTRATE BILATERALLY, POSSIBLE PNEUMONIC PROCESS, APPEARED TO BE IMPROVING, VERSUS PULMONARY EDEMA. PULMONARY EDEMA CANNOT BE COMPLETELY EXCLUDED BASED ON THE CAT SCAN RESULTS. NO SPUTUM CULTURE AVAILABLE. BLOOD CULTURES ARE NEGATIVE. 2. UNDERLYING INTERSTITIAL LUNG DISEASE CANNOT BE COMPLETELY EXCLUDED. 3. PATIENT COMPLETED PROBABLY ABOUT MORE THAN 1 WEEK OF IV ANTIBIOTIC THERAPY HAS BEEN AFEBRILE SINCE THEN. 4. SEVERE HYPOXEMIA. PLAN/RECOMMENDATIONS: 1. May consider changing IV antibiotics to oral antibiotics, doxycycline and Levaquin. 2. IV solumedrol dose to 20 mg q 12 hours. 3. Start patient on low-dose Lasix 20 mg tablet p.o. daily and adjust other antihypertensive medications for now. During the chest CT scan, pulmonary edema could not be completely excluded. 4. Recommend home oxygen therapy evaluation by respiratory therapist. 5. Recommend pulmonary clinic followup in 4 weeks after hospitalization. 6. Will start patient on Advair 1 puff bid daily. 7. Will consider flexible bronchoscopy as an outpatient. Transbronchial lung biopsy by bronchoscopy usually not sufficient to establish diagnosis. Surgical lung biopsy, is usually needed to establish specific ILD diagnosis, depending upon the residual pulmonary parenchymal abnormalities on repeat chest CT scan. DICTATING PHYSICIAN: DIANA MATA MD,TIMMY,MPH [id number] PHY#: [id number] ID: [id number] JOB#: [id number] ACCT: [id number] cc: > MARCELOD
[2018-10-14] MEDS: FUROSEMIDE 20 MG TABLET PO SCH ×2 (10:12→18:14)
[2018-10-14] MEDS: FLUTICASONE NASAL SPRAY 50 MCG/SPRY 120 SPRAY/16 GM NASL SCH ×2 (10:13→22:10)
[2018-10-14] MEDS: SERTRALINE HCL 50 MG TABLET PO SCH (10:13)
[2018-10-14] MEDS: FLUTICASONE/SALMETEROL DISKUS 250-50 MCG/DOSE IH SCH ×2 (10:13→22:08)
[2018-10-14] MEDS: GUAIFENESIN 600 MG TABLET.SA PO SCH ×2 (10:13→22:09)
[2018-10-14] MEDS: AMIODARONE HCL 200 MG TABLET PO SCH (10:13)
[2018-10-14] MEDS: SODIUM CHLORIDE NASAL SPRAY 44 ML NASL SCH ×2 (10:13→18:14)
[2018-10-14] MEDS: ASPIRIN 81 MG TABLET, ENT COATED PO SCH (10:13)
[2018-10-14] MEDS: CLOPIDOGREL BISULFATE 75 MG TABLET PO SCH (10:13)
[2018-10-14] MEDS: CARVEDILOL 3.125 MG TABLET PO SCH ×2 (10:13→22:09)
[2018-10-14] MEDS: METHYLPREDNISOLONE INJ 40 MG/1 ML SDV IV SCH ×2 (10:14→22:09)
[2018-10-14] MEDS: VANCOMYCIN HCL 750 MG in DEXTROSE 5%-WATER 250 ML IV SCH ×2 (10:14→22:10)
[2018-10-14] MEDS: NORMAL SALINE 10 ML SDV (SCHEDULED) IV SCH ×2 (10:15→22:11)
--- NOTE | 2018-10-14 12:23 | PDOC PROGRESS REPORT ---
Subjective Progress Note for:: 10/14/18 Subjective:: Moderate improvement since yesterday. Saturating 98% on 6 L FiO2 44%. Complaining of generalized weakness, dyspnea on exertion but overall she feels more energy than yesterday. Any chest pain, nausea, vomiting, diarrhea, constipation or any urinary symptoms. Reason For Visit: PNEUMONIA,DIASTOLIC HF Physical Exam Vital Signs: Temp Pulse Resp BP Pulse Ox 97.4 F 66 17 105/42 L 94 10/14/18 08:02 10/14/18 08:43 10/14/18 08:43 10/14/18 08:02 10/14/18 08:43 Pulse Oximeter Continuous Start: 10/12/18 21:15 Freq: RTQ4 Status: Active Protocol: Document 10/14/18 08:43 [facility] (Rec: 10/14/18 11:22 [facility] [id number]) Pulse Oximetry Assessment Equipment Usage Equipment Discontinued Continuous SpO2 Machine # 2 Intake & Output 10/13/18 10/14/18 10/15/18 06:59 06:59 06:59 Intake Total 2172 2674 100 Balance 2172 2674 100 Weight 95.9 kg 94.4 kg General appearance: PRESENT: no acute distress, mild distress, well-developed, well-nourished Head exam: PRESENT: atraumatic, normocephalic Respiratory exam: PRESENT: decreased breath sounds. ABSENT: rales, rhonchi, wheezes Cardiovascular exam: PRESENT: RRR. ABSENT: diastolic murmur, rubs, systolic murmur Pulses: PRESENT: normal dorsalis pedis pul GI/Abdominal exam: PRESENT: normal bowel sounds, soft. ABSENT: distended, guarding, mass, organolmegaly, rebound, tenderness Extremities exam: PRESENT: full ROM, +1 edema. ABSENT: calf tenderness, clubbing, pedal edema Neurological exam: PRESENT: alert, awake, oriented to person, oriented to place, oriented to time, oriented to situation, CN II-XII grossly intact. ABSENT: motor sensory deficit Results Laboratory Results: 10/13/18 05:18 10/13/18 05:18 09/24/18 09/24/18 09/24/18 00:38 00:38 03:01 Creatine Kinase 37 CK-MB (CK-2) 1.67 Troponin I 0.074 0.078 NT-Pro-B Natriuret Pep 74419 H 09/25/18 09/25/18 09/25/18 10:13 10:13 19:16 Creatine Kinase 22 L CK-MB (CK-2) 1.63 Troponin I 0.074 0.073 NT-Pro-B Natriuret Pep 10/08/18 10/08/18 10/09/18 23:43 23:43 05:19 Creatine Kinase < 20 L < 20 L CK-MB (CK-2) 0.38 Troponin I 0.039 NT-Pro-B Natriuret Pep 10/09/18 10/09/18 10/09/18 05:19 11:49 11:49 Creatine Kinase < 20 L CK-MB (CK-2) 0.38 0.41 Troponin I 0.049 0.042 NT-Pro-B Natriuret Pep 10/12/18 10/12/18 11:05 11:05 Creatine Kinase < 20 L CK-MB (CK-2) 0.51 Troponin I 0.032 NT-Pro-B Natriuret Pep Impressions: Chest X-Ray 10/08/18 00:00 IMPRESSION: Multifocal pneumonia, similar to prior study.. Guidance Fluoroscopy 10/10/18 00:00 IMPRESSION: SUCCESSFUL PLACEMENT OF A 5 FR DUAL LUMEN 42 CM PICC IN THE LEFT BASILIC VEIN. Interventional Vascular Procedure 10/10/18 00:00 IMPRESSION: SUCCESSFUL PLACEMENT OF A 5 FR DUAL LUMEN 42 CM PICC IN THE LEFT BASILIC VEIN. PICC Line Insertion 10/10/18 06:00 IMPRESSION: SUCCESSFUL PLACEMENT OF A 5 FR DUAL LUMEN 42 CM PICC IN THE LEFT BASILIC VEIN. Assessment & Plan - Diagnosis (1) Pneumonia Qualifiers: Laterality: bilateral Is this a current diagnosis for this admission?: Yes Plan: Hospital-acquired. Patient was at [place] hospitalized for PCI but ended up staying in the hospital for 12 days because she developed flu followed by pneumonia. She was sent home but presented here at [place] 2 days later for similar complaints. Persistent hypoxia. Leukocytosis improved. X-ray no changes. Afebrile. Day 6 of Vanco and Zosyn. Restarted on Vanco and Zosyn on 10/09/2018. Cultures no growth. Pulmonary on board. Recommendation is to continue current treatment and follow- up as outpatient. Will be reevaluated for possible bronchoscopy if no improvement. Completed a course of antibiotics since admission however no significant improvement. (2) Acute and chronic respiratory failure with hypoxia Is this a current diagnosis for this admission?: Yes Plan: Moderate improvement but still dependent on BiPAP. Saturating 98% on 6 L FiO2 44%. O2 sat 93-96, on 6 L, 50% Continue BiPAP, nebs, supplemental oxygen, broad-spectrum antibiotics hospital- acquired pneumonia. September 2018. 2D echo ejection fraction 55-60%. Suboptimal study. BNP on admission up from 399 on 04/23/2017. TSH 3.49. Troponins on this admission 0.0742-0.773 Will DC home on supplemental oxygen if oxygen requirement drops by tomorrow. On home O2 2 L. (3) Atrial fibrillation Qualifiers: Atrial fibrillation type: paroxysmal Qualified Code(s): I48.0 - Paroxysmal atrial fibrillation Is this a current diagnosis for this admission?: Yes Plan: Controlled. Continue current meds. Initially Eliquis was held due to persistent epistaxis after counseling patient about the risk and benefit of anticoagulation she has decided not to continue anticoagulation because of the risk of bleeding and also her underlying history of recurrent falls and weakness. (4) Depression Qualifiers: Major depression recurrence: unspecified whether recurrent Is this a current diagnosis for this admission?: Yes Plan: Started on sertraline. TSH within normal limit. Follow-up with PCP for evaluation of the need for continuation of SSRIs (5) Anxiety Is this a current diagnosis for this admission?: Yes Plan: Benzo as needed decreased dosage. (6) CAD (coronary artery disease) Is this a current diagnosis for this admission?: Yes Plan: Status post PCI stent placement x4 Last one at [place] September 2018. Continue aspirin, statins, Plavix, and beta-blockers. Outpatient cardiology follow-up. (7) New onset of congestive heart failure Is this a current diagnosis for this admission?: Yes Plan: September 2018. 2D echo ejection fraction 55-60%. Suboptimal study. BNP on admission 71253 up from 399 on 04/23/2017. Cardiac diet, p.o. Lasix, strict in and out. (8) Obstructive sleep apnea Is this a current diagnosis for this admission?: Yes Plan: Continue BiPAP. Pulmonary and outpatient nocturnal polysomnography. (9) Hypertension Qualifiers: Hypertension type: unspecified secondary hypertension Qualified Code(s): I15.9 - Secondary hypertension, unspecified Is this a current diagnosis for this admission?: Yes Plan: Normotensive. Continue current meds. Adjust meds as needed. Outpatient PCP follow-up. (10) Physical deconditioning Is this a current diagnosis for this admission?: Yes Plan: Continue PT. Outpatient rehab.
[2018-10-14] MEDS: MAG HYDROX/AL HYDROX/SIMETH SUSP 30 ML UDCUP PO PRN (12:50)
[2018-10-14] MEDS ORDERED: OXYCODONE-ACETAMINOPHEN 5-325 MG TABLET PO ONE (13:00)
[2018-10-14] MEDS: TRAMADOL HCL 50 MG TABLET PO PRN (13:18)
[2018-10-14] MEDS ORDERED: LORAZEPAM INJ 2 MG/1 ML VIAL IV ONE (13:41)
[2018-10-14] MEDS: GABAPENTIN 300 MG CAPSULE PO SCH (18:14)
[2018-10-14] MEDS: ATORVASTATIN CALCIUM 40 MG TABLET PO SCH (22:09)
[2018-10-14] MEDS: ROPINIROLE HCL 2 MG TABLET PO SCH (22:13)
[2018-10-15] MEDS: PIPERACILLIN SODIUM/TAZOBACTAM 3.375 GM in NORMAL SALINE 100 ML IV SCH ×5 (00:07→23:31)
[2018-10-15] MEDS: LEVALBUTEROL HCL NEB 0.63 MG/3 ML AMPUL NEB SCH ×4 (01:48→20:17)
[2018-10-15] MEDS: FAMOTIDINE 20 MG TABLET PO SCH ×3 (05:03→21:25)
[2018-10-15] MEDS: CARVEDILOL 3.125 MG TABLET PO SCH ×2 (10:17→21:25)
[2018-10-15] MEDS: METHYLPREDNISOLONE INJ 40 MG/1 ML SDV IV SCH (10:17)
[2018-10-15] MEDS: CLOPIDOGREL BISULFATE 75 MG TABLET PO SCH (10:17)
[2018-10-15] MEDS: AMIODARONE HCL 200 MG TABLET PO SCH (10:17)
[2018-10-15] MEDS: GUAIFENESIN 600 MG TABLET.SA PO SCH ×2 (10:18→21:25)
[2018-10-15] MEDS: FUROSEMIDE 20 MG TABLET PO SCH ×2 (10:18→17:23)
[2018-10-15] MEDS: FLUTICASONE/SALMETEROL DISKUS 250-50 MCG/DOSE IH SCH ×2 (10:18→21:24)
[2018-10-15] MEDS: ASPIRIN 81 MG TABLET, ENT COATED PO SCH (10:18)
[2018-10-15] MEDS: SERTRALINE HCL 50 MG TABLET PO SCH (10:18)
[2018-10-15] MEDS: VANCOMYCIN HCL 750 MG in DEXTROSE 5%-WATER 250 ML IV SCH ×2 (10:19→21:26)
[2018-10-15] MEDS: NORMAL SALINE 10 ML SDV (SCHEDULED) IV SCH ×2 (10:19→21:25)
[2018-10-15] MEDS: SODIUM CHLORIDE NASAL SPRAY 44 ML NASL SCH ×2 (10:22→17:24)
[2018-10-15] MEDS: FLUTICASONE NASAL SPRAY 50 MCG/SPRY 120 SPRAY/16 GM NASL SCH ×2 (10:22→21:26)
--- NOTE | 2018-10-15 10:46 | PDOC PROGRESS REPORT ---
Subjective Progress Note for:: 10/15/18 Subjective:: Moderate improvement since yesterday. Saturating 98% on 6 L FiO2 44%. Complaining of generalized weakness, dyspnea on exertion but overall she feels more energy than yesterday. Any chest pain, nausea, vomiting, diarrhea, constipation or any urinary symptoms. Reason For Visit: PNEUMONIA,DIASTOLIC HF Physical Exam Vital Signs: Temp Pulse Resp BP Pulse Ox 98.3 F 90 19 112/54 L 94 10/15/18 07:31 10/15/18 08:00 10/15/18 08:00 10/15/18 07:31 10/15/18 08:00 Pulse Oximeter Continuous Start: 10/12/18 21:15 Freq: RTQ4 Status: Complete Protocol: Document 10/14/18 08:43 [facility] (Rec: 10/14/18 11:22 [facility] [id number]) Pulse Oximetry Assessment Equipment Usage Equipment Discontinued Continuous SpO2 Machine # 2 Intake & Output 10/14/18 10/15/18 10/16/18 06:59 06:59 06:59 Intake Total 2674 2299 Output Total 1 Balance 2674 2298 Weight 94.4 kg 93.2 kg General appearance: PRESENT: no acute distress, mild distress, well-developed, well-nourished Head exam: PRESENT: atraumatic, normocephalic Neck exam: ABSENT: carotid bruit, JVD, lymphadenopathy, thyromegaly Respiratory exam: PRESENT: crackles - Diffuse. ABSENT: rales, rhonchi, wheezes Cardiovascular exam: PRESENT: RRR. ABSENT: diastolic murmur, rubs, systolic murmur GI/Abdominal exam: PRESENT: normal bowel sounds, soft. ABSENT: distended, guarding, mass, organolmegaly, rebound, tenderness Extremities exam: PRESENT: full ROM. ABSENT: calf tenderness, clubbing, pedal edema Neurological exam: PRESENT: alert, awake, oriented to person, oriented to place, oriented to time, oriented to situation, CN II-XII grossly intact. ABSENT: m otor sensory deficit Results Laboratory Results: 10/13/18 05:18 10/13/18 05:18 10/09/18 18:00 Blood Blood Culture - Final NO GROWTH IN 5 DAYS 10/09/18 16:41 Blood Blood Culture - Final NO GROWTH IN 5 DAYS 0109/24/18 09/24/18 00:38 00:38 03:01 Creatine Kinase 37 CK-MB (CK-2) 1.67 Troponin I 0.074 0.078 NT-Pro-B Natriuret Pep 85155 H 09/25/18 09/25/18 09/25/18 10:13 10:13 19:16 Creatine Kinase 22 L CK-MB (CK-2) 1.63 Troponin I 0.074 0.073 NT-Pro-B Natriuret Pep 10/08/18 10/08/18 10/09/18 23:43 23:43 05:19 Creatine Kinase < 20 L < 20 L CK-MB (CK-2) 0.38 Troponin I 0.039 NT-Pro-B Natriuret Pep 10/09/18 10/09/18 10/09/18 05:19 11:49 11:49 Creatine Kinase < 20 L CK-MB (CK-2) 0.38 0.41 Troponin I 0.049 0.042 NT-Pro-B Natriuret Pep 10/12/18 10/12/18 11:05 11:05 Creatine Kinase < 20 L CK-MB (CK-2) 0.51 Troponin I 0.032 NT-Pro-B Natriuret Pep Impressions: Chest X-Ray 10/08/18 00:00 IMPRESSION: Multifocal pneumonia, similar to prior study.. Guidance Fluoroscopy 10/10/18 00:00 IMPRESSION: SUCCESSFUL PLACEMENT OF A 5 FR DUAL LUMEN 42 CM PICC IN THE LEFT BASILIC VEIN. Interventional Vascular Procedure 10/10/18 00:00 IMPRESSION: SUCCESSFUL PLACEMENT OF A 5 FR DUAL LUMEN 42 CM PICC IN THE LEFT BASILIC VEIN. PICC Line Insertion 10/10/18 06:00 IMPRESSION: SUCCESSFUL PLACEMENT OF A 5 FR DUAL LUMEN 42 CM PICC IN THE LEFT B ASILIC VEIN. Assessment & Plan - Diagnosis (1) Pneumonia Qualifiers: Laterality: bilateral Is this a current diagnosis for this admission?: Yes Plan: Hospital-acquired. Patient was at [place] hospitalized for PCI but ended up staying in the hospital for 12 days because she developed flu followed by pneumonia. She was sent home but presented here at [facility] 2 days later for similar complaints. Persistent hypoxia. Leukocytosis improved. X-ray no changes. Afebrile. Day 7 of Vanco and Zosyn. Restarted on Vanco and Zosyn on 10/09/2018. Cultures no growth. Pulmonary on board. Recommendation is to continue current treatment and follow- up as outpatient. Will be reevaluated for possible bronchoscopy if no improvement. Completed a course of antibiotics since admission however no significant improvement. (2) Acute and chronic respiratory failure with hypoxia Is this a current diagnosis for this admission?: Yes Plan: Moderate improvement but still dependent on BiPAP. Saturating 94% on 5-6 L, FiO2 44% Continue BiPAP, nebs, supplemental oxygen, broad-spectrum antibiotics hospital- acquired pneumonia. September 2018. 2D echo ejection fraction 55-60%. Suboptimal study. BNP on admission 00022 up from 399 on 04/23/2017. TSH 3.49. Troponins on this admission 0.0742-0.773 Patient will need to be sent to rehab once is stable. On home O2 2 L. (3) Atrial fibrillation Qualifiers: Atrial fibrillation type: paroxysmal Qualified Code(s): I48.0 - Paroxysmal atrial fibrillation Is this a current diagnosis for this admission?: Yes Plan: Controlled. Continue current meds. Initially Eliquis was held due to persistent epistaxis after counseling patient about the risk and benefit of anticoagulation she has decided not to continue anticoagulation because of the risk of bleeding and also her underlying history of recurrent falls and weakness. (4) Depression Qualifiers: Major depression recurrence: unspecified whether recurrent Is this a current diagnosis for this admission?: Yes Plan: Started on sertraline. TSH within normal limit. Follow-up with PCP for evaluation of the need for continuation of SSRIs (5) Anxiety Is this a current diagnosis for this admission?: Yes Plan: Benzo as needed decreased dosage. (6) CAD (coronary artery disease) Is this a current diagnosis for this admission?: Yes Plan: Status post PCI stent placement x4 Last one at [place] September 2018. Continue aspirin, statins, Plavix, and beta-blockers. Outpatient cardiology follow-up. (7) New onset of congestive heart failure Is this a current diagnosis for this admission?: Yes Plan: September 2018. 2D echo ejection fraction 55-60%. Suboptimal study. BNP on admission 13277 up from 399 on 04/23/2017. Cardiac diet, p.o. Lasix, strict in and out. (8) Obstructive sleep apnea Is this a current diagnosis for this admission?: Yes Plan: Continue BiPAP. Pulmonary and outpatient nocturnal polysomnography. (9) Hypertension Qualifiers: Hypertension type: unspecified secondary hypertension Qualified Code(s): I15.9 - Secondary hypertension, unspecified Is this a current diagnosis for this admission?: Yes Plan: Normotensive. Continue current meds. Adjust meds as needed. Outpatient PCP follow-up. (10) Physical deconditioning Is this a current diagnosis for this admission?: Yes Plan: Continue PT. patient will probably need to be transferred to inpatient rehab once stable.
[2018-10-15] MEDS: GABAPENTIN 300 MG CAPSULE PO SCH (17:23)
--- NOTE | 2018-10-15 20:03 | RADIOLOGY REPORT (SQ) ---
EXAM DESCRIPTION: CHEST SINGLE VIEW COMPLETED DATE/TIME: 10/15/2018 7:41 pm REASON FOR STUDY: pneumonia; pulmonary edema COMPARISON: Chest films 10/08/2018, 10/07/2018 CT chest 09/24/2018 EXAM PARAMETERS: NUMBER OF VIEWS: One view. TECHNIQUE: Single frontal radiographic view of the chest acquired. RADIATION DOSE: NA LIMITATIONS: None. FINDINGS: LUNGS AND PLEURA: No change in bilateral alveolar/ interstitial infiltrates. No pleural e ffusion or pneumothorax. MEDIASTINUM AND HILAR STRUCTURES: No masses. Contour normal. HEART AND VASCULAR STRUCTURES: Stable mild cardiomegaly BONES: No acute findings. HARDWARE: Unchanged left-sided PICC line OTHER: No other significant finding. IMPRESSION: No change compared to previous chest films from 10/08/2018, 10/07/2018 TECHNICAL DOCUMENTATION: JOB ID: [id number] [employer]- All Rights Reserved Reading location - IP/workstation name: [email or web address]
[2018-10-15] MEDS: ATORVASTATIN CALCIUM 40 MG TABLET PO SCH (21:25)
[2018-10-15] MEDS: ROPINIROLE HCL 2 MG TABLET PO SCH (21:25)
[2018-10-15] MEDS: TIOTROPIUM BROMIDE DPI 5 CAP/KIT (18 MCG/CAP) IH SCH (21:29)
[2018-10-16] MEDS: LEVALBUTEROL HCL NEB 0.63 MG/3 ML AMPUL NEB SCH ×4 (02:12→20:14)
[2018-10-16] MEDS: PIPERACILLIN SODIUM/TAZOBACTAM 3.375 GM in NORMAL SALINE 100 ML IV SCH ×3 (06:35→17:20)
[2018-10-16] MEDS: FAMOTIDINE 20 MG TABLET PO SCH ×3 (06:35→22:05)
[2018-10-16] MEDS ORDERED: ALBUTEROL SULFATE 0.083% NEB 2.5 MG/3 ML AMPUL NEB ONE (08:00)
[2018-10-16] MEDS ORDERED: PREDNISONE 10 MG TABLET PO SCH (10:00)
[2018-10-16] MEDS: CLOPIDOGREL BISULFATE 75 MG TABLET PO SCH (10:00)
[2018-10-16] MEDS: ASPIRIN 81 MG TABLET, ENT COATED PO SCH (10:00)
[2018-10-16] MEDS: AMIODARONE HCL 200 MG TABLET PO SCH (10:00)
[2018-10-16] MEDS: CARVEDILOL 3.125 MG TABLET PO SCH ×2 (10:00→22:05)
[2018-10-16] MEDS: GUAIFENESIN 600 MG TABLET.SA PO SCH ×2 (10:01→22:05)
[2018-10-16] MEDS: FUROSEMIDE 20 MG TABLET PO SCH ×2 (10:01→17:19)
[2018-10-16] MEDS: SERTRALINE HCL 50 MG TABLET PO SCH (10:01)
[2018-10-16] MEDS: FLUTICASONE/SALMETEROL DISKUS 250-50 MCG/DOSE IH SCH ×2 (10:02→22:06)
[2018-10-16] MEDS: TIOTROPIUM BROMIDE DPI 5 CAP/KIT (18 MCG/CAP) IH SCH (10:02)
[2018-10-16] MEDS: NORMAL SALINE 10 ML SDV (SCHEDULED) IV SCH ×2 (10:03→22:18)
[2018-10-16] MEDS: SODIUM CHLORIDE NASAL SPRAY 44 ML NASL SCH ×2 (10:03→17:20)
[2018-10-16] MEDS: FLUTICASONE NASAL SPRAY 50 MCG/SPRY 120 SPRAY/16 GM NASL SCH ×2 (10:04→22:06)
[2018-10-16 10:24] LABS: VANCOMYCIN,TROUGH 24.7 ug/mL (5.0-20.0)
[2018-10-16] MEDS: VANCOMYCIN HCL 750 MG in DEXTROSE 5%-WATER 250 ML IV SCH (10:27)
--- NOTE | 2018-10-16 15:29 | PDOC PROGRESS REPORT ---
Subjective Progress Note for:: 10/16/18 Subjective:: Ms. Bansal is an 78-year-old female with a past medical history of atrial fibrillation was on Eliquis and amiodarone, CAD with recent stenting of the LAD at [facility] and recent influenza who presented with rest of breath. Patient was admitted for possible new onset CHF versus HCAP. She had a CT of the chest showed pulmonary edema vs bilateral pneumonia vs ILD. She was started on diuretics and broad-spectrum antibiotics. She has had little progress in her pulmonary status and eventually was placed on BiPAP. No acute event overnight. Upon encounter this morning, patient appears comfortable on BiPAP. However she says that she continues to have shortness of breath. No fever or chills. she has very minimal cough. Reason For Visit: PNEUMONIA,DIASTOLIC HF Physical Exam Vital Signs: Temp Pulse Resp BP Pulse Ox 98.3 F 60 24 H 128/60 H 100 10/16/18 12:11 10/16/18 14:36 10/16/18 14:36 10/16/18 12:11 10/16/18 14:36 Pulse Oximeter Continuous Start: 10/12/18 21:15 Freq: RTQ4 Status: Complete Protocol: Document 10/14/18 08:43 [facility] (Rec: 10/14/18 11:22 [facility] [id number]) Pulse Oximetry Assessment Equipment Usage Equipment Discontinued Continuous SpO2 Machine # 2 Intake & Output 10/15/18 10/16/18 10/17/18 06:59 06:59 06:59 Intake Total 2299 1817 668 Output Total 1 1250 Balance 2298 1817 -582 Weight 205 lb 7.533 oz 208 lb 5.389 oz General appearance: PRESENT: no acute distress, well-developed, well-nourished Head exam: PRESENT: atraumatic, normocephalic Eye exam: PRESENT: conjunctiva pink, EOMI, PERRLA. ABSENT: scleral icterus Ear exam: PRESENT: normal external ear exam Mouth exam: PRESENT: moist, tongue midline Neck exam: ABSENT: carotid bruit, JVD, lymphadenopathy, thyromegaly Respiratory exam: PRESENT: rales - bases, rhonchi. ABSENT: wheezes Cardiovascular exam: PRESENT: RRR. ABSENT: diastolic murmur, rubs, systolic murmur Pulses: PRESENT: normal dorsalis pedis pul GI/Abdominal exam: PRESENT: normal bowel sounds, soft. ABSENT: distended, guarding, mass, organolmegaly, rebound, tenderness Rectal exam: PRESENT: deferred Neurological exam: PRESENT: alert, awake, oriented to person, oriented to place, oriented to time, oriented to situation, CN II-XII grossly intact. ABSENT: motor sensory deficit Results Laboratory Results: 10/13/18 05:18 10/16/18 09:45 10/16/18 10/16/18 06:33 09:45 Creatinine 1.02 Est GFR ( Amer) > 60 Est GFR (Non-Af Amer) 52 L C-Reactive Protein 16.6 H 09/24/18 09/24/18 09/24/18 00:38 00:38 03:01 Creatine Kinase 37 CK-MB (CK-2) 1.67 Troponin I 0.074 0.078 NT-Pro-B Natriuret Pep [id number] H 09/25/18 09/25/18 09/25/18 10:13 10:13 19:16 Creatine Kinase 22 L CK-MB (CK-2) 1.63 Troponin I 0.074 0.073 NT-Pro-B Natriuret Pep 10/08/18 10/08/18 10/09/18 23:43 23:43 05:19 Creatine Kinase < 20 L < 20 L CK-MB (CK-2) 0.38 Troponin I 0.039 NT-Pro-B Natriuret Pep 10/09/18 10/09/18 10/09/18 05:19 11:49 11:49 Creatine Kinase < 20 L CK-MB (CK-2) 0.38 0.41 Troponin I 0.049 0.042 NT-Pro-B Natriuret Pep 10/12/18 10/12/18 11:05 11:05 Creatine Kinase < 20 L CK-MB (CK-2) 0.51 Troponin I 0.032 NT-Pro-B Natriuret Pep Impressions: Guidance Fluoroscopy 10/10/18 00:00 IMPRESSION: SUCCESSFUL PLACEMENT OF A 5 FR DUAL LUMEN 42 CM PICC IN THE LEFT BASILIC VEIN. Interventional Vascular Procedure 10/10/18 00:00 IMPRESSION: SUCCESSFUL PLACEMENT OF A 5 FR DUAL LUMEN 42 CM PICC IN THE LEFT BASILIC VEIN. PICC Line Insertion 10/10/18 06:00 IMPRESSION: SUCCESSFUL PLACEMENT OF A 5 FR DUAL LUMEN 42 CM PICC IN THE LEFT BASILIC VEIN. Chest X-Ray 10/15/18 19:20 IMPRESSION: No change compared to previous chest films from 10/08/2018, 10/07/2018 Assessment & Plan - Diagnosis (1) Acute and chronic respiratory failure with hypoxia Is this a current diagnosis for this admission?: Yes Plan: Exact etiology unclear at the moment. Patient has been empirically treated for HCAP. She is also being diuresed for possible pulmonary edema. She had an unremarkable echo. Pulmonology and cardiology following. Possibility of ILD versus amiodarone toxicity is being considered. Amiodarone d/keo. High resolution CT of the chest ordered. MUGA scan also ordered per cardio recommendation. (2) Atrial fibrillation Qualifiers: Atrial fibrillation type: paroxysmal Qualified Code(s): I48.0 - Paroxysmal atrial fibrillation Is this a current diagnosis for this admission?: Yes Plan: Eliquis was discontinued by previous provider after lengthy conversation with patient due to her recurrent epistaxis and history of recurrent falls. Discontinue amiodarone. - Time Time Spent with patient: 35 or more minutes
[2018-10-16] MEDS: GABAPENTIN 300 MG CAPSULE PO SCH (17:20)
[2018-10-16] MEDS: METHYLPREDNISOLONE INJ 40 MG/1 ML SDV IV SCH (22:05)
[2018-10-16] MEDS: ATORVASTATIN CALCIUM 40 MG TABLET PO SCH (22:05)
[2018-10-16] MEDS: ROPINIROLE HCL 2 MG TABLET PO SCH (22:05)
[2018-10-17] MEDS: PIPERACILLIN SODIUM/TAZOBACTAM 3.375 GM in NORMAL SALINE 100 ML IV SCH ×3 (00:57→11:34)
[2018-10-17] MEDS: LEVALBUTEROL HCL NEB 0.63 MG/3 ML AMPUL NEB SCH ×4 (02:21→20:31)
[2018-10-17] MEDS: FAMOTIDINE 20 MG TABLET PO SCH ×3 (05:27→22:17)
[2018-10-17] MEDS: VANCOMYCIN HCL 1,000 MG in DEXTROSE 5%-WATER 250 ML IV SCH (05:28)
[2018-10-17] MEDS ORDERED: LEVALBUTEROL HCL NEB 0.63 MG/3 ML AMPUL NEB ONE (08:45)
[2018-10-17] MEDS: FLUTICASONE/SALMETEROL DISKUS 250-50 MCG/DOSE IH SCH (09:30)
[2018-10-17] MEDS: TIOTROPIUM BROMIDE DPI 5 CAP/KIT (18 MCG/CAP) IH SCH (09:30)
[2018-10-17] MEDS: SERTRALINE HCL 50 MG TABLET PO SCH (09:31)
[2018-10-17] MEDS: CLOPIDOGREL BISULFATE 75 MG TABLET PO SCH (09:31)
[2018-10-17] MEDS: GUAIFENESIN 600 MG TABLET.SA PO SCH ×2 (09:31→22:17)
[2018-10-17] MEDS: CARVEDILOL 3.125 MG TABLET PO SCH ×2 (09:32→22:17)
[2018-10-17] MEDS: ASPIRIN 81 MG TABLET, ENT COATED PO SCH (09:32)
[2018-10-17] MEDS: FUROSEMIDE 20 MG TABLET PO SCH ×2 (09:32→17:29)
[2018-10-17] MEDS: METHYLPREDNISOLONE INJ 40 MG/1 ML SDV IV SCH ×2 (09:33→22:18)
[2018-10-17] MEDS: NORMAL SALINE 10 ML SDV (SCHEDULED) IV SCH ×2 (09:34→22:16)
[2018-10-17] MEDS: FLUTICASONE NASAL SPRAY 50 MCG/SPRY 120 SPRAY/16 GM NASL SCH ×2 (09:35→22:17)
[2018-10-17] MEDS: SODIUM CHLORIDE NASAL SPRAY 44 ML NASL SCH ×2 (09:35→17:30)
[2018-10-17] MEDS ORDERED: PREDNISONE 10 MG TABLET PO SCH (10:00)
[2018-10-17 14:39] LABS: ANTICHROMATIN AB <0.2 AI (0.0-0.9); CENTROMERE B AB <0.2 AI (0.0-0.9); JO-1 ANTIBODY (ANACOMP) <0.2 AI (0.0-0.9); SJOGREN'S ANTI-SS-B AB <0.2 AI (0.0-0.9); SJOGREN'S SS-A ANTIBODY <0.2 AI (0.0-0.9)
[2018-10-17 14:58] LABS: DNA DOUBLE STRAND ANTIBODY ANA 1 IU/mL (0-9)
[2018-10-17 16:39] LABS: ANTIMYELOPEROXIDASE (MPO) AB <9.0 U/mL (0.0-9.0); CYTOPLASMIC (C-ANCA) <1:20 titer (Neg:<1:20)
[2018-10-17] MEDS: GABAPENTIN 300 MG CAPSULE PO SCH (17:29)
--- NOTE | 2018-10-17 18:19 | PDOC PROGRESS REPORT ---
Subjective Progress Note for:: 10/17/18 Subjective:: Ms. Bansal is an 78-year-old female with a past medical history of atrial fibrillation was on Eliquis and amiodarone, CAD with recent stenting of the LAD at [facility] and recent influenza who presented with rest of breath. Patient was admitted for possible new onset CHF versus HCAP. She had a CT of the chest showed pulmonary edema vs bilateral pneumonia vs ILD. She was started on diuretics and broad-spectrum antibiotics. She has had little progress in her pulmonary status and eventually was placed on BiPAP. 10/16: Upon encounter this morning, patient appears comfortable on BiPAP. However she says that she continues to have shortness of breath. No fever or chills. She has very minimal cough. 10/17: No acute event overnight. Patient is suspected to have possibly amiodarone pulmonary toxicity given CT findings and no improvement with broad spectrum antibiotics and diuresis. She was recently started on amiodarone when she was admitted in [facility] earlier this year. She is not able to tolerate lying down for a high resolution CT and MUGA scan. She was empirically started on IV steroids last night. Also discussed in length with daughter on conference call and patient about Eliquis. Patient has also history of recurrent falls and expressed she does not want to take the risk of bleeding and does not want to be on anticoagulation for her AFib. Her Eliquis has already been discontinued. Both are amenable on just keeping her on aspirin and Plavix. Discussed possible need for rehab/SNF placement as well. Reason For Visit: PNEUMONIA,DIASTOLIC HF Physical Exam Vital Signs: Temp Pulse Resp BP Pulse Ox 98.5 F 65 19 132/56 H 95 10/17/18 16:38 10/17/18 16:38 10/17/18 17:00 10/17/18 16:38 10/17/18 17:00 Pulse Oximeter Continuous Start: 10/12/18 21:15 Freq: RTQ4 Status: Complete Protocol: Document 10/14/18 08:43 [facility] (Rec: 10/14/18 11:22 [facility] [id number]) Pulse Oximetry Assessment Equipment Usage Equipment Discontinued Continuous SpO2 Machine # 2 Intake & Output 10/16/18 10/17/18 10/18/18 06:59 06:59 06:59 Intake Total 1817 1758 Output Total 1250 Balance 1817 508 Weight 208 lb 5.389 oz 198 lb 10.184 oz General appearance: PRESENT: no acute distress, well-developed, well-nourished Head exam: PRESENT: atraumatic, normocephalic Eye exam: PRESENT: conjunctiva pink, EOMI, PERRLA. ABSENT: scleral icterus Respiratory exam: PRESENT: rales, rhonchi. ABSENT: wheezes Cardiovascular exam: PRESENT: RRR. ABSENT: diastolic murmur, rubs, systolic murmur Pulses: PRESENT: normal dorsalis pedis pul GI/Abdominal exam: PRESENT: normal bowel sounds, soft. ABSENT: distended, guarding, mass, organolmegaly, rebound, tenderness Rectal exam: PRESENT: deferred Neurological exam: PRESENT: alert, awake, oriented to person, oriented to place, oriented to time, oriented to situation, CN II-XII grossly intact. ABSENT: motor sensory deficit Results Laboratory Results: 10/13/18 05:18 10/16/18 09:45 09/24/18 09/24/18 09/24/18 00:38 00:38 03:01 Creatine Kinase 37 CK-MB (CK-2) 1.67 Troponin I 0.074 0.078 NT-Pro-B Natriuret Pep [id number] H 09/25/18 09/25/18 09/25/18 10:13 10:13 19:16 Creatine Kinase 22 L CK-MB (CK-2) 1.63 Troponin I 0.074 0.073 NT-Pro-B Natriuret Pep 10/08/18 10/08/18 10/09/18 23:43 23:43 05:19 Creatine Kinase < 20 L < 20 L CK-MB (CK-2) 0.38 Troponin I 0.039 NT-Pro-B Natriuret Pep 10/09/18 10/09/18 10/09/18 05:19 11:49 11:49 Creatine Kinase < 20 L CK-MB (CK-2) 0.38 0.41 Troponin I 0.049 0.042 NT-Pro-B Natriuret Pep 10/12/18 10/12/18 11:05 11:05 Creatine Kinase < 20 L CK-MB (CK-2) 0.51 Troponin I 0.032 NT-Pro-B Natriuret Pep Impressions: Guidance Fluoroscopy 10/10/18 00:00 IMPRESSION: SUCCESSFUL PLACEMENT OF A 5 FR DUAL LUMEN 42 CM PICC IN THE LEFT BASILIC VEIN. Interventional Vascular Procedure 10/10/18 00:00 IMPRESSION: SUCCESSFUL PLACEMENT OF A 5 FR DUAL LUMEN 42 CM PICC IN THE LEFT BASILIC VEIN. PICC Line Insertion 10/10/18 06:00 IMPRESSION: SUCCESSFUL PLACEMENT OF A 5 FR DUAL LUMEN 42 CM PICC IN THE LEFT BASILIC VEIN. Chest X-Ray 10/15/18 19:20 IMPRESSION: No change compared to previous chest films from 10/08/2018, 10/07/2018 Assessment & Plan - Diagnosis (1) Acute and chronic respiratory failure with hypoxia Is this a current diagnosis for this admission?: Yes Plan: Patient has been empirically treated for HCAP. She is also being diuresed for possible pulmonary edema. Now considering possible amiodarone pulmonary toxicity. Pulmonology and cardiology following. Possibility of ILD versus amiodarone toxicity is being considered. Amiodarone d/keo. She is unable to tolerate lying down for high resolution CT or MUGA. Continue IV steroids. (2) Atrial fibrillation Qualifiers: Atrial fibrillation type: paroxysmal Qualified Code(s): I48.0 - Paroxysmal atrial fibrillation Is this a current diagnosis for this admission?: Yes Plan: Eliquis was discontinued lengthy conversation with patient due to her recurrent epistaxis and history of recurrent falls. Discontinue amiodarone. (3) CAD (coronary artery disease) Is this a current diagnosis for this admission?: Yes Plan: Continue aspirin, clopidogrel and statin. - Time Time Spent with patient: 25-34 minutes
[2018-10-17] MEDS: ROPINIROLE HCL 2 MG TABLET PO SCH (22:16)
[2018-10-17] MEDS: ATORVASTATIN CALCIUM 40 MG TABLET PO SCH (22:17)
[2018-10-17] MEDS: FLUTICASONE/SALMETEROL DISKUS 500-50 MCG/DOSE IH SCH (22:24)
[2018-10-18] MEDS: LEVALBUTEROL HCL NEB 0.63 MG/3 ML AMPUL NEB SCH ×4 (02:19→20:43)
[2018-10-18 03:19] LABS: ATYPICAL PANCA <1:20 titer (Neg:<1:20); PERINUCLEAR (P-ANCA) <1:20 titer (Neg:<1:20)
[2018-10-18] MEDS: FAMOTIDINE 20 MG TABLET PO SCH ×3 (05:52→22:07)
[2018-10-18] MEDS: VANCOMYCIN HCL 1,000 MG in DEXTROSE 5%-WATER 250 ML IV SCH (05:52)
[2018-10-18 06:26] LABS: HEMATOCRIT 28.9 % (36.0-47.0); HEMOGLOBIN 9.5 g/dL (12.0-15.5); MEAN CORPUSCULAR HEMOGLOBIN 29.9 pg (27.0-33.4); MEAN CORPUSCULAR HGB CONC 32.8 g/dL (32.0-36.0); MEAN CORPUSCULAR VOLUME 91 fl (80-97); PLATELET COUNT 359 10^3/uL (150-450); RED BLOOD COUNT 3.17 10^6/uL (3.72-5.28); RED CELL DISTRIBUTION WIDTH 15.2 % (11.5-14.0); WHITE BLOOD COUNT 12.8 10^3/uL (4.0-10.5)
[2018-10-18 06:31] LABS: ALANINE AMINOTRANSFERASE 52 U/L (9-52); ALBUMIN 3.3 g/dL (3.5-5.0); ALKALINE PHOSPHATASE 102 U/L (38-126); ANION GAP 7 (5-19); ASPARTATE AMINO TRANSFERASE 18 U/L (14-36); BILIRUBIN,DIRECT 0.1 mg/dL (0.0-0.4); BILIRUBIN,TOTAL 0.5 mg/dL (0.2-1.3); BLOOD UREA NITROGEN 29 mg/dL (7-20); CALCIUM 8.8 mg/dL (8.4-10.2); CARBON DIOXIDE 34 mmol/L (22-30); CHLORIDE 99 mmol/L (98-107); GLUCOSE 167 mg/dL (75-110); POTASSIUM 4.1 mmol/L (3.6-5.0); SODIUM 140.4 mmol/L (137-145)
[2018-10-18 07:04] LABS: ABSOLUTE LYMPHOCYTES# (MANUAL) 0.1 10^3/uL (0.5-4.7); ABSOLUTE MONOCYTES # (MANUAL) 0.1 10^3/uL (0.1-1.4); ABSOLUTE NEUTROPHILS# (MANUAL) 12.5 10^3/uL (1.7-8.2); BASOPHILS % (MANUAL) 0 % (0-2); EOSINOPHILS % (MANUAL) 0 % (0-6); LYMPHOCYTES % (MANUAL) 1 % (13-45); MONOCYTES % (MANUAL) 1 % (3-13); SEGMENTED NEUTROPHILS % (MAN) 98 % (42-78); TOTAL CELLS COUNTED 100
[2018-10-18 07:05] LABS: HYPOCHROMASIA SLIGHT; POIKILOCYTOSIS 1+; POLYCHROMASIA SLIGHT
[2018-10-18 07:06] LABS: PLATELET COMMENT ADEQUATE; STOMATOCYTES 1+; TARGET CELLS SLIGHT
--- NOTE | 2018-10-18 08:37 | PROGRESS NOTE E ---
Progress Note NAME: BENJI MCGEE : 1940 AGE: 77Y DATE: 10/15/2018 ROOM: 321 SUBJECTIVE: The patient is an 78-year-old female who came in with pulmonary edema, multilobular pneumonia, and possible interstitial lung disease. The patient has been on BiPAP for the last several days and titrated to nasal cannula. The patient has been doing well. No fever. No chills for the last few hours. No chest pain. OBJECTIVE: GENERAL: The patient is awake, alert, coherent, oriented x3. VITAL SIGNS: Temperature is 98.6, with a T-max of 98.8, heart rate of 82, blood pressure 115/51, respiratory rate is 22, saturation is 92% on 6 L nasal cannula. EYES: No jaundice or pallor. EARS, NOSE, AND THROAT: No ear drainage. No nasal discharge. CHEST AND LUNGS: No wheezing, no rhonchi, no coarse crackles noted. CARDIOVASCULAR: S1, S2 distinct. Normal rate, regular rhythm. ABDOMEN: Flabby. Positive bowel sounds. Soft, nondistended. EXTREMITIES: No joint swelling or cellulitis. LABORATORY: CBC done 2 days ago, 10/13, showed a white count of 9.4, hemoglobin 8.5, hematocrit is 35.1, platelet count of 274. Chemistry showed sodium is 136, potassium 4.6, chloride 97, CO2 is 32, BUN 16, creatinine is 0.94, glucose 154, calcium is 9. SGOT is 32, SGPT 45. ABG done on 10/13/2018 showed pH of 7.41, PCO2 is 45.9, PO2 is 69.4, ABG saturation 93.9 on 40% FiO2. Chest x-ray ordered tonight. ASSESSMENT: 1. PULMONARY EDEMA. Appears to be improving. 2. PNEUMONIA. Seems to be stable and improving. White count is normal at this time. Currently on Zosyn 3.375 g q. 6 hours and vancomycin IV. 3. INTERSTITIAL LUNG DISEASE POSSIBLE, currently on amiodarone. 4. COPD -posssible. Will do a spirometry at bedside tomorrow. PLAN/RECOMMENDATIONS: 1. Optimize COPD/ asthma therapy and D/C Solu-Medrol dose and start on prednisone 10 mg tablet p.o. daily. 2. Continue Advair 250 diskhaler 1 puff b.i.d. 3. Do spirometry tomorrow at bedside pre- and postbronchodilator. 4. Recommend pulmonary clinic followup in 2-3 weeks after hospital discharge. 5. Home oxygen therapy evaluation by respiratory therapist. DICTATING PHYSICIAN: DIANA MATA MD,TIMMY,MPH [id number] PHY#: [id number] ID: [id number] JOB#: [id number] ACCT: [id number] cc:DIANA MATA M.D. > MTDD
--- NOTE | 2018-10-18 08:44 | PROGRESS NOTE E ---
Progress Note NAME: BENJI MCGEE : 1940 AGE: 77Y DATE: 10/18/2018 ROOM: 321 SUBJECTIVE: The patient is an 78-year-old female who came in with spbuz-to-pogcfrm respiratory failure requiring BiPAP therapy for several days. Had pneumonia and pulmonary edema, a recent coronary stent placement x 5 stents. Was placed on amiodarone. The patient has been treated for pneumonia for over a week. Denies any purulent sputum production. No hemoptysis. No increasing cough. Complains of history of short of breath and about the same, or very slightly better or very slight improvement. Complained about severe exertional dyspnea. Complained about chest pain when having exertional dyspnea. No nausea, vomiting, diarrhea. No blood in the stool and no hematuria. OBJECTIVE: GENERAL: The patient is awake, alert, coherent, oriented x3, afebrile, not in apparent severe respiratory distress, currently on BiPAP therapy 14 and 6, and unable to tolerate nasal cannula, on FiO2 of 50%. VITAL SIGNS: Temperature is 98.5, with a T-max of 98.7. The heart rate of 87, blood pressure is 135/56, respiratory rate is 19, saturation is 95% on BiPAP with 50% FiO2 and 16 and 6 cmH2O. EYES: No jaundice or pallor. EARS, NOSE, MOUTH, AND THROAT: No ear drainage. No nasal discharge. CHEST AND LUNGS: No wheezing. No rhonchi. No coarse crackles. CARDIOVASCULAR: S1, S2 distinct. Normal rate, regular rhythm. ABDOMEN: Flabby. Positive bowel sounds. Soft, nondistended. EXTREMITIES: No joint swelling or cellulitis. LABORATORY DATA: There is no new CBC done, ABG, or chemistry done yesterday and today. ASSESSMENT: 1. CHRONIC RESPIRATORY FAILURE REQUIRING BIPAP THERAPY. Unable to tolerate nasal cannula at 6 L. The patient may require BiPAP ST- the same settingsg upon discharge. Consulted public health social worker for evaluation and assistance for patient in getting a BiPAP machine. 2. INTERSTITIAL LUNG DISEASE POSSIBLE AND CANNOT BE COMPLETELY EXCLUDED, MAY BE DUE TO AMIODARONE TOXICITY OR CONNECTIVE TISSUE DISEASE. Currently on IV Solu-Medrol 40 mg. Has been on steroid for the last 7-10 days. May consider surgical lung biopsy eventually after optimization of CHF therapy and pneumonia therapy. 3. COPD/ASTHMA, currently stable and not in acute exacerbation. Recent spirometry showed severe obstructive airway defect COPD/chronic bronchitis, severe form. We will discontinue Advair 250 inhaler and change to Advair 500 Diskhaler 1 puff b.i.d. Will continue the Spiriva inhaler 1 capsule daily and albuterol 2 puffs every 4 hours as needed. 4. PNEUMONIA, currently appears to be improving and white count has been stable and normal for the last few days. Off IV Zosyn tonight and currently still on vancomycin. Blood cultures have been negative. May consider discontinuing IV antibiotics and watch the patient. 5. PULMONARY EDEMA TO UNDERLYING CARDIAC ETIOLOGY. Still recommend optimizing CHF therapy and consulting patient's flyer builder at [facility] for further evaluation and management of the patient. DICTATING PHYSICIAN: DIANA MATA MD,TIMMY,MPH [id number] PHY#: [id number] ID: [id number] JOB#: [id number] ACCT: [id number] cc: > MARCELOD
[2018-10-18] MEDS: METHYLPREDNISOLONE INJ 40 MG/1 ML SDV IV SCH ×2 (10:39→22:08)
[2018-10-18] MEDS: TIOTROPIUM BROMIDE DPI 5 CAP/KIT (18 MCG/CAP) IH SCH (10:40)
[2018-10-18] MEDS: CARVEDILOL 3.125 MG TABLET PO SCH ×2 (10:40→22:07)
[2018-10-18] MEDS: ASPIRIN 81 MG TABLET, ENT COATED PO SCH (10:40)
[2018-10-18] MEDS: CLOPIDOGREL BISULFATE 75 MG TABLET PO SCH (10:40)
[2018-10-18] MEDS: FLUTICASONE/SALMETEROL DISKUS 500-50 MCG/DOSE IH SCH ×2 (10:40→22:07)
[2018-10-18] MEDS: GUAIFENESIN 600 MG TABLET.SA PO SCH ×2 (10:40→22:08)
[2018-10-18] MEDS: FUROSEMIDE 20 MG TABLET PO SCH ×2 (10:40→18:12)
[2018-10-18] MEDS: SERTRALINE HCL 50 MG TABLET PO SCH (10:40)
[2018-10-18] MEDS: NORMAL SALINE 10 ML SDV (SCHEDULED) IV SCH ×2 (10:41→22:08)
[2018-10-18] MEDS: FLUTICASONE NASAL SPRAY 50 MCG/SPRY 120 SPRAY/16 GM NASL SCH ×2 (10:47→22:08)
[2018-10-18] MEDS: SODIUM CHLORIDE NASAL SPRAY 44 ML NASL SCH ×2 (10:47→18:13)
--- NOTE | 2018-10-18 11:07 | PULMONARY FUNCTION TEST ---
PULMONARY FUNCTION TEST PATIENT NAME: BENJI MCGEE MR#: [id number] ROOM#: 321 DATE OF STUDY: 10/16/2018 AGE/RACE/GENDER: 78 F REFERRING MD: Diana Mata MD Procedure: Spirometry pre and post bronchodilator INDICATION: Admitted with pulmonary edema, multilobular pneumonia, and possible interstitial lung disease. REPORT The spirometry showed obstructive airway defect with FEV-1/FVC ratio of 69% predicted pre-bronchodilator and 64% predicted post bronchodilator. IMPRESSION There is severe obstructive airway defect based on the post bronchodilator FEV-1 of 39% predicted. These findings are consistent with severe COPD-chronic bronchitis based on the post bronchodilator FEV-1 of 39%. INTERPRETING PHYSICIAN: DIANA MATA MD,TIMMY,MPH /: MTEFFT TT: 1034 ID: [id number] /: [id number] TD: 2038 JOB: [id number] cc:Emiliano ARNOLD M.D. > MTDD
--- NOTE | 2018-10-18 16:53 | PDOC PROGRESS REPORT ---
Subjective Progress Note for:: 10/18/18 Subjective:: Ms. Bansal is an 78-year-old female with a past medical history of atrial fibrillation was on Eliquis and amiodarone, CAD with recent stenting of the LAD at [facility] and recent influenza who presented with rest of breath. Patient was admitted for possible new onset CHF versus HCAP. She had a CT of the chest showed pulmonary edema vs bilateral pneumonia vs ILD. She was started on diuretics and broad-spectrum antibiotics. She has had little progress in her pulmonary status with antibiotics and diuresis. She has been requiring BiPAP. 10/16: Upon encounter this morning, patient appears comfortable on BiPAP. However she says that she continues to have shortness of breath. No fever or chills. She has very minimal cough. 10/17: Patient is suspected to have possibly amiodarone pulmonary toxicity given CT findings and no improvement with broad spectrum antibiotics and diuresis. She was recently started on amiodarone when she was admitted in [facility] earlier this year. She is not able to tolerate lying down for a high resolution CT and MUGA scan. She was empirically started on IV steroids last night. Also discussed in length with daughter on conference call and patient about Eliquis. Patient has also history of recurrent falls and expressed she does not want to take the risk of bleeding and does not want to be on anticoagulation for her AFib. Her Eliquis has already been discontinued. Both are amenable on just keeping her on aspirin and Plavix. Discussed possible need for rehab/SNF placement as well. 10/18: No acute event overnight. Patient says she still feels SOB but this has slightly improved today. She denies chest pain. She still has significant orthopnea and is unable to participate with HRCT and MUGA scan. She desaturates to low 80s off BIPAP. Reason For Visit: PNEUMONIA,DIASTOLIC HF Physical Exam Vital Signs: Temp Pulse Resp BP Pulse Ox 97.2 F 67 38 H 122/48 L 100 10/18/18 15:54 10/18/18 15:54 10/18/18 15:54 10/18/18 15:54 10/18/18 15:54 Pulse Oximeter Continuous Start: 10/12/18 21:15 Freq: RTQ4 Status: Complete Protocol: Document 10/14/18 08:43 [facility] (Rec: 10/14/18 11:22 [facility] [id number]) Pulse Oximetry Assessment Equipment Usage Equipment Discontinued Continuous SpO2 Machine # 2 Intake & Output 10/17/18 10/18/18 10/19/18 06:59 06:59 06:59 Intake Total 1758 300 118 Output Total 1250 Balance 508 300 118 Weight 198 lb 10.184 oz 206 lb 9.17 oz General appearance: PRESENT: no acute distress, well-developed, well-nourished Head exam: PRESENT: atraumatic, normocephalic Eye exam: PRESENT: conjunctiva pink, EOMI, PERRLA. ABSENT: scleral icterus Ear exam: PRESENT: normal external ear exam Neck exam: ABSENT: carotid bruit, JVD, lymphadenopathy, thyromegaly Respiratory exam: PRESENT: rales, rhonchi. ABSENT: wheezes Cardiovascular exam: PRESENT: RRR. ABSENT: diastolic murmur, rubs, systolic murmur Pulses: PRESENT: normal dorsalis pedis pul GI/Abdominal exam: PRESENT: normal bowel sounds, soft. ABSENT: distended, guarding, mass, organolmegaly, rebound, tenderness Rectal exam: PRESENT: deferred Extremities exam: PRESENT: +1 edema Neurological exam: PRESENT: alert, awake, oriented to person, oriented to place, oriented to time, oriented to situation, CN II-XII grossly intact. ABSENT: motor sensory deficit Results Laboratory Results: 10/18/18 05:55 10/18/18 05:55 10/18/18 10/18/18 05:55 05:55 WBC 12.8 H RBC 3.17 L Hgb 9.5 L Hct 28.9 L MCV 91 MCH 29.9 MCHC 32.8 RDW 15.2 H Plt Count 359 Seg Neutrophils % Not Reportable Lymphocytes % Not Reportable Monocytes % Not Reportable Eosinophils % Not Reportable Basophils % Not Reportable Absolute Neutrophils Not Reportable Absolute Lymphocytes Not Reportable Absolute Monocytes Not Reportable Absolute Eosinophils Not Reportable Absolute Basophils Not Reportable Sodium 140.4 Potassium 4.1 Chloride 99 Carbon Dioxide 34 H Anion Gap 7 BUN 29 H Creatinine 0.97 Est GFR ( Amer) > 60 Est GFR (Non-Af Amer) 55 L Glucose 167 H Calcium 8.8 Total Bilirubin 0.5 AST 18 ALT 52 Alkaline Phosphatase 102 Total Protein 6.0 L Albumin 3.3 L 09/24/18 09/24/18 09/24/18 00:38 00:38 03:01 Creatine Kinase 37 CK-MB (CK-2) 1.67 Troponin I 0.074 0.078 NT-Pro-B Natriuret Pep 14230 H 09/25/18 09/25/18 09/25/18 10:13 10:13 19:16 Creatine Kinase 22 L CK-MB (CK-2) 1.63 Troponin I 0.074 0.073 NT-Pro-B Natriuret Pep 10/08/18 10/08/18 10/09/18 23:43 23:43 05:19 Creatine Kinase < 20 L < 20 L CK-MB (CK-2) 0.38 Troponin I 0.039 NT-Pro-B Natriuret Pep 10/09/18 10/09/18 10/09/18 05:19 11:49 11:49 Creatine Kinase < 20 L CK-MB (CK-2) 0.38 0.41 Troponin I 0.049 0.042 NT-Pro-B Natriuret Pep 10/12/18 10/12/18 10/18/18 11:05 11:05 05:55 Creatine Kinase < 20 L CK-MB (CK-2) 0.51 Troponin I 0.032 NT-Pro-B Natriuret Pep 5030 H Impressions: Guidance Fluoroscopy 10/10/18 00:00 IMPRESSION: SUCCESSFUL PLACEMENT OF A 5 FR DUAL LUMEN 42 CM PICC IN THE LEFT BASILIC VEIN. Interventional Vascular Procedure 10/10/18 00:00 IMPRESSION: SUCCESSFUL PLACEMENT OF A 5 FR DUAL LUMEN 42 CM PICC IN THE LEFT BASILIC VEIN. PICC Line Insertion 10/10/18 06:00 IMPRESSION: SUCCESSFUL PLACEMENT OF A 5 FR DUAL LUMEN 42 CM PICC IN THE LEFT BASILIC VEIN. Chest X-Ray 10/15/18 19:20 IMPRESSION: No change compared to previous chest films from 10/08/2018, 10/07/2018 Assessment & Plan - Diagnosis (1) Acute and chronic respiratory failure with hypoxia Is this a current diagnosis for this admission?: Yes Plan: Patient has been empirically treated for HCAP. She is also being diuresed for possible pulmonary edema. She has not had significant response and improvement with both treatment course. 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 She was started on IV steroids on 10/16/18. Pulmonology and cardiology following. Possibility of ILD versus amiodarone toxicity is being considered. Amiodarone d/keo. She is unable to tolerate lying down for high resolution CT or MUGA. 10/17: She says she feels slightly better today but remain BIPAP-dependent. Continue IV steroids. (2) Atrial fibrillation Qualifiers: Atrial fibrillation type: paroxysmal Qualified Code(s): I48.0 - Paroxysmal atrial fibrillation Is this a current diagnosis for this admission?: Yes Plan: Eliquis was discontinued lengthy conversation with patient due to her recurrent epistaxis and history of recurrent falls. Discontinued amiodarone as well. (3) CAD (coronary artery disease) Is this a current diagnosis for this admission?: Yes Plan: Continue aspirin, clopidogrel and statin. - Time Time Spent with patient: 35 or more minutes
[2018-10-18] MEDS: GABAPENTIN 300 MG CAPSULE PO SCH (18:12)
[2018-10-18] MEDS: ROPINIROLE HCL 2 MG TABLET PO SCH (22:07)
[2018-10-18] MEDS: ATORVASTATIN CALCIUM 40 MG TABLET PO SCH (22:07)
[2018-10-19] MEDS: LEVALBUTEROL HCL NEB 0.63 MG/3 ML AMPUL NEB SCH ×4 (02:17→20:22)
[2018-10-19] MEDS: FAMOTIDINE 20 MG TABLET PO SCH ×3 (05:41→22:19)
[2018-10-19] MEDS: FLUTICASONE/SALMETEROL DISKUS 500-50 MCG/DOSE IH SCH ×2 (09:26→22:24)
[2018-10-19] MEDS: TIOTROPIUM BROMIDE DPI 5 CAP/KIT (18 MCG/CAP) IH SCH (09:27)
[2018-10-19] MEDS: FUROSEMIDE 20 MG TABLET PO SCH ×2 (09:27→17:10)
[2018-10-19] MEDS: CLOPIDOGREL BISULFATE 75 MG TABLET PO SCH (09:28)
[2018-10-19] MEDS: CARVEDILOL 3.125 MG TABLET PO SCH ×2 (09:28→22:18)
[2018-10-19] MEDS: METHYLPREDNISOLONE INJ 40 MG/1 ML SDV IV SCH ×2 (09:28→22:19)
[2018-10-19] MEDS: SERTRALINE HCL 50 MG TABLET PO SCH (09:28)
[2018-10-19] MEDS: GUAIFENESIN 600 MG TABLET.SA PO SCH ×2 (09:28→22:18)
[2018-10-19] MEDS: ASPIRIN 81 MG TABLET, ENT COATED PO SCH (09:28)
[2018-10-19] MEDS: FLUTICASONE NASAL SPRAY 50 MCG/SPRY 120 SPRAY/16 GM NASL SCH ×2 (09:29→22:20)
[2018-10-19] MEDS: SODIUM CHLORIDE NASAL SPRAY 44 ML NASL SCH ×2 (09:29→17:46)
[2018-10-19] MEDS: NORMAL SALINE 10 ML SDV (SCHEDULED) IV SCH ×2 (09:35→22:20)
--- NOTE | 2018-10-19 12:13 | PDOC PROGRESS REPORT ---
Subjective Progress Note for:: 10/19/18 Subjective:: Ms. Bansal is an 78-year-old female with a past medical history of atrial fibrillation was on Eliquis and amiodarone, CAD with recent stenting of the LAD at [facility] and recent influenza who presented with rest of breath. Patient was admitted for possible new onset CHF versus HCAP. She had a CT of the chest showed pulmonary edema vs bilateral pneumonia vs ILD. She was started on diuretics and broad-spectrum antibiotics. She has had little progress in her pulmonary status with antibiotics and diuresis. She has been requiring BiPAP. 10/16: Upon encounter this morning, patient appears comfortable on BiPAP. However she says that she continues to have shortness of breath. No fever or chills. She has very minimal cough. 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 She was recently started on amiodarone when she was admitted in [facility] earlier this year. She is not able to tolerate lying down for a high resolution CT and MUGA scan. She was empirically started on IV steroids last night. Also discussed in length with daughter on conference call and patient about Eliquis. Patient has also history of recurrent falls and expressed she does not want to take the risk of bleeding and does not want to be on anticoagulation for her AFib. Her Eliquis has already been discontinued. Both are amenable on just keeping her on aspirin and Plavix. Discussed possible need for rehab/SNF placement as well. 10/18: Patient says she still feels SOB but this has slightly improved today. She denies chest pain. 10/19: No acute event overnight. She says she has felt improvement in her breathing today. She still has significant orthopnea and is unable to participate with HRCT and MUGA scan. She still desaturates off BIPAP. Reason For Visit: PNEUMONIA,DIASTOLIC HF Physical Exam Vital Signs: Temp Pulse Resp BP Pulse Ox 97.8 F 108 H 22 H 140/55 H 95 10/19/18 08:23 10/19/18 08:23 10/19/18 11:04 10/19/18 08:23 10/19/18 11:04 Pulse Oximeter Continuous Start: 10/12/18 21:15 Freq: RTQ4 Status: Complete Protocol: Document 02/10/19 08:43 [facility] (Rec: 10/14/18 11:22 [facility] [id number]) Pulse Oximetry Assessment Equipment Usage Equipment Discontinued Continuous SpO2 Machine # 2 Intake & Output 10/18/18 10/19/18 10/20/18 06:59 06:59 06:59 Intake Total 300 718 Balance 300 718 Weight 206 lb 9.17 oz 202 lb 6.15 oz General appearance: PRESENT: no acute distress, well-developed, well-nourished Head exam: PRESENT: atraumatic, normocephalic Eye exam: PRESENT: conjunctiva pink, EOMI, PERRLA. ABSENT: scleral icterus Ear exam: PRESENT: normal external ear exam Mouth exam: PRESENT: moist, tongue midline Neck exam: ABSENT: carotid bruit, JVD, lymphadenopathy, thyromegaly Respiratory exam: PRESENT: rales, rhonchi. ABSENT: wheezes Cardiovascular exam: PRESENT: RRR. ABSENT: diastolic murmur, rubs, systolic murmur Pulses: PRESENT: normal dorsalis pedis pul GI/Abdominal exam: PRESENT: normal bowel sounds, soft. ABSENT: distended, guarding, mass, organolmegaly, rebound, tenderness Rectal exam: PRESENT: deferred Extremities exam: PRESENT: +1 edema Neurological exam: PRESENT: alert, awake, oriented to person, oriented to place, oriented to time, oriented to situation, CN II-XII grossly intact. ABSENT: motor sensory deficit Results Laboratory Results: 10/18/18 05:55 10/18/18 05:55 09/24/18 09/24/18 09/24/18 00:38 00:38 03:01 Creatine Kinase 37 CK-MB (CK-2) 1.67 Troponin I 0.074 0.078 NT-Pro-B Natriuret Pep 56729 H 09/25/18 09/25/18 09/25/18 10:13 10:13 19:16 Creatine Kinase 22 L CK-MB (CK-2) 1.63 Troponin I 0.074 0.073 NT-Pro-B Natriuret Pep 10/08/18 10/08/18 10/09/18 23:43 23:43 05:19 Creatine Kinase < 20 L < 20 L CK-MB (CK-2) 0.38 Troponin I 0.039 NT-Pro-B Natriuret Pep 10/09/18 10/09/18 10/09/18 05:19 11:49 11:49 Creatine Kinase < 20 L CK-MB (CK-2) 0.38 0.41 Troponin I 0.049 0.042 NT-Pro-B Natriuret Pep 10/12/18 10/12/18 10/18/18 11:05 11:05 05:55 Creatine Kinase < 20 L CK-MB (CK-2) 0.51 Troponin I 0.032 NT-Pro-B Natriuret Pep 5030 H Impressions: Guidance Fluoroscopy 10/10/18 00:00 IMPRESSION: SUCCESSFUL PLACEMENT OF A 5 FR DUAL LUMEN 42 CM PICC IN THE LEFT BASILIC VEIN. Interventional Vascular Procedure 10/10/18 00:00 IMPRESSION: SUCCESSFUL PLACEMENT OF A 5 FR DUAL LUMEN 42 CM PICC IN THE LEFT BASILIC VEIN. PICC Line Insertion 10/10/18 06:00 IMPRESSION: SUCCESSFUL PLACEMENT OF A 5 FR DUAL LUMEN 42 CM PICC IN THE LEFT BASILIC VEIN. Chest X-Ray 10/15/18 19:20 IMPRESSION: No change compared to previous chest films from 10/08/2018, 10/07/2018 Assessment & Plan - Diagnosis (1) Acute and chronic respiratory failure with hypoxia Is this a current diagnosis for this admission?: Yes Plan: Patient has been empirically treated for HCAP. She is also being diuresed for possible pulmonary edema. She has not had significant response and improvement with both treatment course. 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 She was started on IV steroids on 10/16/18. Pulmonology and cardiology following. Possibility of ILD versus amiodarone toxicity is being considered. Amiodarone d/keo. She is unable to tolerate lying down for high resolution CT or MUGA. 10/17: She says she feels slightly better today but remain BIPAP-dependent. Continue IV steroids. 10/19: She says she has felt improvement in her breathing today. She still has significant orthopnea and is unable to participate with HRCT and MUGA scan. She still desaturates off BIPAP. (2) Atrial fibrillation Qualifiers: Atrial fibrillation type: paroxysmal Qualified Code(s): I48.0 - Paroxysmal atrial fibrillation Is this a current diagnosis for this admission?: Yes Plan: Eliquis was discontinued lengthy conversation with patient due to her recurrent epistaxis and history of recurrent falls. Discontinued amiodarone as well. (3) CAD (coronary artery disease) Is this a current diagnosis for this admission?: Yes Plan: Continue aspirin, clopidogrel and statin. - Time Time Spent with patient: 25-34 minutes
[2018-10-19] MEDS: GABAPENTIN 300 MG CAPSULE PO SCH (17:10)
[2018-10-19] MEDS: ATORVASTATIN CALCIUM 40 MG TABLET PO SCH (22:19)
[2018-10-19] MEDS: ROPINIROLE HCL 2 MG TABLET PO SCH (22:23)
[2018-10-20] MEDS: LEVALBUTEROL HCL NEB 0.63 MG/3 ML AMPUL NEB SCH ×4 (02:28→20:45)
[2018-10-20] MEDS: FAMOTIDINE 20 MG TABLET PO SCH ×3 (05:50→21:40)
[2018-10-20] MEDS: CARVEDILOL 3.125 MG TABLET PO SCH ×2 (11:25→21:37)
[2018-10-20] MEDS: FUROSEMIDE 20 MG TABLET PO SCH ×2 (11:26→17:15)
[2018-10-20] MEDS: NORMAL SALINE 10 ML SDV (SCHEDULED) IV SCH ×2 (11:26→21:39)
[2018-10-20] MEDS: ASPIRIN 81 MG TABLET, ENT COATED PO SCH (11:26)
[2018-10-20] MEDS: GUAIFENESIN 600 MG TABLET.SA PO SCH ×2 (11:26→21:39)
[2018-10-20] MEDS: CLOPIDOGREL BISULFATE 75 MG TABLET PO SCH (11:26)
[2018-10-20] MEDS: FLUTICASONE/SALMETEROL DISKUS 500-50 MCG/DOSE IH SCH ×2 (11:27→21:36)
[2018-10-20] MEDS: METHYLPREDNISOLONE INJ 40 MG/1 ML SDV IV SCH ×2 (11:27→21:41)
[2018-10-20] MEDS: SERTRALINE HCL 50 MG TABLET PO SCH (11:27)
[2018-10-20] MEDS: TIOTROPIUM BROMIDE DPI 5 CAP/KIT (18 MCG/CAP) IH SCH (11:27)
[2018-10-20] MEDS: SODIUM CHLORIDE NASAL SPRAY 44 ML NASL SCH ×2 (11:34→17:16)
[2018-10-20] MEDS: FLUTICASONE NASAL SPRAY 50 MCG/SPRY 120 SPRAY/16 GM NASL SCH ×2 (11:34→21:38)
--- NOTE | 2018-10-20 15:04 | PDOC PROGRESS REPORT ---
Subjective Progress Note for:: 10/20/18 Subjective:: Ms. Bansal is an 78-year-old female with a past medical history of atrial fibrillation was on Eliquis and amiodarone, CAD with recent stenting of the LAD [facility] and recent influenza who presented with rest of breath. Patient was admitted for possible new onset CHF versus HCAP. She had a CT of the chest showed pulmonary edema vs bilateral pneumonia vs ILD. She was started on diuretics and broad-spectrum antibiotics. She has had little progress in her pulmonary status with antibiotics and diuresis. She has been requiring BiPAP. 10/16: Upon encounter this morning, patient appears comfortable on BiPAP. However she says that she continues to have shortness of breath. No fever or chills. She has very minimal cough. 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 She was recently started on amiodarone when she was admitted in [facility] earlier this year. She is not able to tolerate lying down for a high resolution CT and MUGA scan. She was empirically started on IV steroids last night. Also discussed in length with daughter on conference call and patient about Eliquis. Patient has also history of recurrent falls and expressed she does not want to take the risk of bleeding and does not want to be on anticoagulation for her AFib. Her Eliquis has already been discontinued. Both are amenable on just keeping her on aspirin and Plavix. Discussed possible need for rehab/SNF placement as well but patient is not amenable to going to rehab/SNF. 10/18: Patient says she still feels SOB but this has slightly improved today. She denies chest pain. 10/19: She says she has felt improvement in her breathing today. She still has significant orthopnea and is unable to participate with HRCT and MUGA scan. She still desaturates off BIPAP. 10/20: No acute event overnight. This morning, she says she has not felt significant improvement compared to yesterday. She remains BIPAP-dependent. Reason For Visit: PNEUMONIA,DIASTOLIC HF Physical Exam Vital Signs: Temp Pulse Resp BP Pulse Ox 97.4 F 67 21 H 91/74 L 97 10/20/18 11:46 10/20/18 13:48 10/20/18 13:48 10/20/18 11:46 10/20/18 13:48 Pulse Oximeter Continuous Start: 10/12/18 21:15 Freq: RTQ4 Status: Complete Protocol: Document 10/14/18 08:43 [facility] (Rec: 10/14/18 11:22 [facility] [id number]) Pulse Oximetry Assessment Equipment Usage Equipment Discontinued Continuous SpO2 Machine # 2 Intake & Output 10/19/18 10/20/18 10/21/18 06:59 06:59 06:59 Intake Total 718 1472 Output Total 1 Balance 718 1471 Weight 202 lb 6.15 oz 201 lb 0.985 oz General appearance: PRESENT: no acute distress, well-developed, well-nourished Head exam: PRESENT: atraumatic, normocephalic Eye exam: PRESENT: conjunctiva pink, EOMI, PERRLA. ABSENT: scleral icterus Ear exam: PRESENT: normal external ear exam Mouth exam: PRESENT: moist, tongue midline Neck exam: ABSENT: carotid bruit, JVD, lymphadenopathy, thyromegaly Respiratory exam: PRESENT: rales, rhonchi. ABSENT: wheezes Cardiovascular exam: PRESENT: RRR. ABSENT: diastolic murmur, rubs, systolic murmur Pulses: PRESENT: normal dorsalis pedis pul GI/Abdominal exam: PRESENT: normal bowel sounds, soft. ABSENT: distended, guarding, mass, organolmegaly, rebound, tenderness Rectal exam: PRESENT: deferred Extremities exam: PRESENT: +1 edema Neurological exam: PRESENT: alert, awake, oriented to person, oriented to place, oriented to time, oriented to situation, CN II-XII grossly intact. ABSENT: motor sensory deficit Results Laboratory Results: 10/18/18 05:55 10/18/18 05:55 09/24/18 09/24/18 09/24/18 00:38 00:38 03:01 Creatine Kinase 37 CK-MB (CK-2) 1.67 Troponin I 0.074 0.078 NT-Pro-B Natriuret Pep 45144 H 09/25/18 09/25/18 09/25/18 10:13 10:13 19:16 Creatine Kinase 22 L CK-MB (CK-2) 1.63 Troponin I 0.074 0.073 NT-Pro-B Natriuret Pep 10/08/18 10/08/18 10/09/18 23:43 23:43 05:19 Creatine Kinase < 20 L < 20 L CK-MB (CK-2) 0.38 Troponin I 0.039 NT-Pro-B Natriuret Pep 10/09/18 10/09/18 10/09/18 05:19 11:49 11:49 Creatine Kinase < 20 L CK-MB (CK-2) 0.38 0.41 Troponin I 0.049 0.042 NT-Pro-B Natriuret Pep 10/12/18 10/12/18 10/18/18 11:05 11:05 05:55 Creatine Kinase < 20 L CK-MB (CK-2) 0.51 Troponin I 0.032 NT-Pro-B Natriuret Pep 5030 H 10/20/18 13:20 Creatine Kinase CK-MB (CK-2) Troponin I 0.038 NT-Pro-B Natriuret Pep Impressions: Guidance Fluoroscopy 10/10/18 00:00 IMPRESSION: SUCCESSFUL PLACEMENT OF A 5 FR DUAL LUMEN 42 CM PICC IN THE LEFT BASILIC VEIN. Interventional Vascular Procedure 10/10/18 00:00 IMPRESSION: SUCCESSFUL PLACEMENT OF A 5 FR DUAL LUMEN 42 CM PICC IN THE LEFT BASILIC VEIN. PICC Line Insertion 10/10/18 06:00 IMPRESSION: SUCCESSFUL PLACEMENT OF A 5 FR DUAL LUMEN 42 CM PICC IN THE LEFT BASILIC VEIN. Chest X-Ray 10/15/18 19:20 IMPRESSION: No change compared to previous chest films from 10/08/2018, 10/07/2018 Assessment & Plan - Diagnosis (1) Acute and chronic respiratory failure with hypoxia Is this a current diagnosis for this admission?: Yes Plan: Patient has been empirically treated for HCAP. She is also being diuresed for possible pulmonary edema. She has not had significant response and improvement with both treatment course. 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 She was started on IV steroids on 10/16/18. Pulmonology and cardiology following. Possibility of ILD versus amiodarone toxicity is being considered. Amiodarone d/keo. She is unable to tolerate lying down for high resolution CT or MUGA. Bedside PFT is suggestive of obstructive airway defect. 10/17: She says she feels slightly better today but remain BIPAP-dependent. Continue IV steroids. 10/19: She says she has felt improvement in her breathing today. She still has significant orthopnea and is unable to participate with HRCT and MUGA scan. She still desaturates off BIPAP. 10/20: She does not feel improvement in her breathing today from yesterday. Will repeat chest CT to reassess lung parenchyma today. (2) Atrial fibrillation Qualifiers: Atrial fibrillation type: paroxysmal Qualified Code(s): I48.0 - Paroxysmal atrial fibrillation Is this a current diagnosis for this admission?: Yes Plan: Eliquis was discontinued lengthy conversation with patient due to her recurrent epistaxis and history of recurrent falls. Discontinued amiodarone as well. (3) CAD (coronary artery disease) Is this a current diagnosis for this admission?: Yes Plan: Continue aspirin, clopidogrel and statin. - Time Time Spent with patient: 25-34 minutes
[2018-10-20] MEDS: GABAPENTIN 300 MG CAPSULE PO SCH (17:15)
--- NOTE | 2018-10-20 18:35 | RADIOLOGY REPORT (SQ) ---
EXAM DESCRIPTION: CT CHEST WITHOUT COMPLETED DATE/TIME: 10/20/2018 4:48 pm REASON FOR STUDY: ?amiodarone pulm toxicity COMPARISON: Chest x-ray 10/15/2018, CT chest 09/24/2018 TECHNIQUE: Prone and supine high resolution technique imaging performed through the lungs windowed f or lung windows. Additional focused imaging through the levels of the aortic arch, bhakti and diaphr agm. Limited evaluation of the mediastinum. All CT scanners at this facility use dose modulation, iterative reconstruction, and/or weight based d osing when appropriate to reduce radiation dose to as low as reasonably achievable (ALARA). [facility]: Dose Right [facility]: CareDose [facility]: Dose Right [facility]: Teradose 4D [facility]: [employer] RADIATION DOSE: CT Rad equipment meets quality standard of care and radiation dose reduction techniq ues were employed. CTDIvol: 4.6 mGy. DLP: 133 mGy-cm. mGy. LIMITATIONS: There is motion artifact. FINDINGS: LUNGS AND PLEURA: There is bilateral bronchiectasis. There are patchy bilateral inter air space opacities. There are trace bilateral pleural effusions. No pneumothorax. LIMITED MEDIASTINUM: Calcified lymph nodes are seen at the mediastinum and right hilum. Coronary art eries calcifications are noted. BONES: Degenerative changes at the spine. IMPRESSION: Small bilateral pleural effusions with bronchiectasis and bilateral interstitial and air space opacities; differential considerations include interstitial drug-induced lung disease such as a miodarone toxicity, interstitial pneumonia, hypersensitivity pneumonitis. TECHNICAL DOCUMENTATION: JOB ID: [id number] [facility] Quality ID # [id number]: Final reports with documentation of one or more dose reduction techniques (e.g., Au tomated exposure control, adjustment of the mA and/or kV according to patient size, use of iterative reconstruction technique) 2010 [employer]- All Rights Reserved Reading location - IP/workstation name: [email or web address]
--- NOTE | 2018-10-20 19:42 | EKG REPORT ---
SEVERITY:- ABNORMAL ECG - SINUS RHYTHM MULTIPLE VENTRICULAR PREMATURE COMPLEXES LEFT AXIS DEVIATION ABNORMAL T, CONSIDER ISCHEMIA, ANT-LAT LEADS BORDERLINE PROLONGED QT INTERVAL : Confirmed by: Julia Stoll MD 20-Oct-2018 19:41:23
[2018-10-20] MEDS: ATORVASTATIN CALCIUM 40 MG TABLET PO SCH (21:38)
[2018-10-20] MEDS: ROPINIROLE HCL 2 MG TABLET PO SCH (21:40)
[2018-10-21] MEDS: LEVALBUTEROL HCL NEB 0.63 MG/3 ML AMPUL NEB SCH ×4 (02:42→19:58)
[2018-10-21] MEDS: FAMOTIDINE 20 MG TABLET PO SCH ×3 (06:44→22:52)
[2018-10-21 07:09] LABS: ANION GAP 7 (5-19); BLOOD UREA NITROGEN 30 mg/dL (7-20); CALCIUM 8.8 mg/dL (8.4-10.2); CARBON DIOXIDE 32 mmol/L (22-30); CHLORIDE 100 mmol/L (98-107); GLUCOSE 143 mg/dL (75-110); POTASSIUM 3.9 mmol/L (3.6-5.0)
[2018-10-21 07:12] LABS: HEMATOCRIT 29.4 % (36.0-47.0); MEAN CORPUSCULAR HEMOGLOBIN 30.8 pg (27.0-33.4); MEAN CORPUSCULAR HGB CONC 33.9 g/dL (32.0-36.0); MEAN CORPUSCULAR VOLUME 91 fl (80-97); PLATELET COUNT 350 10^3/uL (150-450); RED BLOOD COUNT 3.24 10^6/uL (3.72-5.28); RED CELL DISTRIBUTION WIDTH 15.1 % (11.5-14.0); WHITE BLOOD COUNT 8.2 10^3/uL (4.0-10.5)
[2018-10-21 07:26] LABS: ABSOLUTE LYMPHOCYTES# (MANUAL) 0.2 10^3/uL (0.5-4.7); ABSOLUTE MONOCYTES # (MANUAL) 0.1 10^3/uL (0.1-1.4); ABSOLUTE NEUTROPHILS# (MANUAL) 7.9 10^3/uL (1.7-8.2); BASOPHILS % (MANUAL) 0 % (0-2); EOSINOPHILS % (MANUAL) 0 % (0-6); LYMPHOCYTES % (MANUAL) 3 % (13-45); MONOCYTES % (MANUAL) 1 % (3-13); SEGMENTED NEUTROPHILS % (MAN) 96 % (42-78); TOTAL CELLS COUNTED 100
[2018-10-21 07:27] LABS: ANISOCYTOSIS SLIGHT; PLATELET COMMENT ADEQUATE
[2018-10-21] MEDS: GUAIFENESIN 600 MG TABLET.SA PO SCH ×2 (10:36→22:52)
[2018-10-21] MEDS: CARVEDILOL 3.125 MG TABLET PO SCH ×2 (10:36→22:55)
[2018-10-21] MEDS: SERTRALINE HCL 50 MG TABLET PO SCH (10:36)
[2018-10-21] MEDS: FUROSEMIDE 20 MG TABLET PO SCH ×2 (10:36→18:37)
[2018-10-21] MEDS: NORMAL SALINE 10 ML SDV (SCHEDULED) IV SCH ×2 (10:36→22:53)
[2018-10-21] MEDS: FLUTICASONE/SALMETEROL DISKUS 500-50 MCG/DOSE IH SCH ×2 (10:36→22:55)
[2018-10-21] MEDS: TIOTROPIUM BROMIDE DPI 5 CAP/KIT (18 MCG/CAP) IH SCH (10:36)
[2018-10-21] MEDS: ASPIRIN 81 MG TABLET, ENT COATED PO SCH (10:36)
[2018-10-21] MEDS: CLOPIDOGREL BISULFATE 75 MG TABLET PO SCH (10:36)
[2018-10-21] MEDS: METHYLPREDNISOLONE INJ 40 MG/1 ML SDV IV SCH ×2 (10:37→22:53)
[2018-10-21] MEDS: FLUTICASONE NASAL SPRAY 50 MCG/SPRY 120 SPRAY/16 GM NASL SCH ×2 (10:37→22:56)
[2018-10-21] MEDS: SODIUM CHLORIDE NASAL SPRAY 44 ML NASL SCH ×2 (10:37→18:37)
--- NOTE | 2018-10-21 14:02 | PDOC PROGRESS REPORT ---
Subjective Progress Note for:: 10/21/18 Subjective:: Ms. Bansal is an 78-year-old female with a past medical history of atrial fibrillation was on Eliquis and amiodarone, CAD with recent stenting of the LAD at [facility] and recent influenza who presented with rest of breath. Patient was admitted for possible new onset CHF versus HCAP. She had a CT of the chest showed pulmonary edema vs bilateral pneumonia vs ILD. She was started on diuretics and broad-spectrum antibiotics. She has had little progress in her pulmonary status with antibiotics and diuresis. She has been requiring BiPAP. 10/16: Upon encounter this morning, patient appears comfortable on BiPAP. However she says that she continues to have shortness of breath. No fever or chills. She has very minimal cough. 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 She was recently started on amiodarone when she was admitted in [facility] earlier this year. She is not able to tolerate lying down for a high resolution CT and MUGA scan. She was empirically started on IV steroids last night. Also discussed in length with daughter on conference call and patient about Eliquis. Patient has also history of recurrent falls and expressed she does not want to take the risk of bleeding and does not want to be on anticoagulation for her AFib. Her Eliquis has already been discontinued. Both are amenable on just keeping her on aspirin and Plavix. Discussed possible need for rehab/SNF placement as well but patient is not amenable to going to rehab/SNF. 10/18: Patient says she still feels SOB but this has slightly improved today. She denies chest pain. 10/19: She says she has felt improvement in her breathing today. She still has significant orthopnea and is unable to participate with HRCT and MUGA scan. She still desaturates off BIPAP. 10/20: This morning, she says she has not felt significant improvement compared to yesterday. She remains BIPAP-dependent. 10/21: No acute event overnight. High resolution CT was done last night and results are suggestive of drug induced lung injury supportive of amiodarone- toxicity in this clinical context. Patient says her breathing has not significantly improved today. Discussed results in length including chcf treatment with steroids. Discussed the only definite way to diagnose if this is amiodarone-toxicity or another ILD entity is through a lung biopsy which at this time, she is not interested. Rediscussed recommendation about rehab/SNF placement as she lives alone and is expected to have significant functional limitation with her being highly depen dent on BIPAP. She says wants to live at her daughter's house and at this time is not amenable to rehab/SNF placement. Reason For Visit: PNEUMONIA,DIASTOLIC HF Physical Exam Vital Signs: Temp Pulse Resp BP Pulse Ox 97.6 F 55 L 23 H 102/46 L 98 10/21/18 11:37 10/21/18 11:37 10/21/18 11:37 10/21/18 11:37 10/21/18 11:37 Pulse Oximeter Continuous Start: 10/12/18 21:15 Freq: RTQ4 Status: Complete Protocol: Document 10/14/18 08:43 [facility] (Rec: 10/14/18 11:22 [facility] [id number]) Pulse Oximetry Assessment Equipment Usage Equipment Discontinued Continuous SpO2 Machine # 2 Intake & Output 10/20/18 10/21/18 10/22/18 06:59 06:59 06:59 Intake Total 1472 1098 Output Total 1 Balance 1471 1098 Weight 201 lb 0.985 oz 201 lb 0.985 oz General appearance: PRESENT: no acute distress - not in distress on BIPAP, well- developed, well-nourished Head exam: PRESENT: atraumatic, normocephalic Eye exam: PRESENT: conjunctiva pink, EOMI, PERRLA. ABSENT: scleral icterus Mouth exam: PRESENT: moist, tongue midline Neck exam: ABSENT: carotid bruit, JVD, lymphadenopathy, thyromegaly Respiratory exam: PRESENT: rales, rhonchi. ABSENT: wheezes Cardiovascular exam: PRESENT: RRR. ABSENT: diastolic murmur, rubs, systolic murmur Pulses: PRESENT: normal dorsalis pedis pul GI/Abdominal exam: PRESENT: normal bowel sounds, soft. ABSENT: distended, guarding, mass, organolmegaly, rebound, tenderness Rectal exam: PRESENT: deferred Extremities exam: PRESENT: +1 edema Neurological exam: PRESENT: alert, awake, oriented to person, oriented to place, oriented to time, oriented to situation, CN II-XII grossly intact. ABSENT: motor sensory deficit Results Laboratory Results: 10/21/18 06:45 10/21/18 06:45 10/21/18 10/21/18 06:45 06:45 WBC 8.2 RBC 3.24 L Hgb 10.0 L Hct 29.4 L MCV 91 MCH 30.8 MCHC 33.9 RDW 15.1 H Plt Count 350 Seg Neutrophils % Not Reportable Lymphocytes % Not Reportable Monocytes % Not Reportable Eosinophils % Not Reportable Basophils % Not Reportable Absolute Neutrophils Not Reportable Absolute Lymphocytes Not Reportable Absolute Monocytes Not Reportable Absolute Eosinophils Not Reportable Absolute Basophils Not Reportable Sodium 139.0 Potassium 3.9 Chloride 100 Carbon Dioxide 32 H Anion Gap 7 BUN 30 H Creatinine 0.78 Est GFR ( Amer) > 60 Est GFR (Non-Af Amer) > 60 Glucose 143 H Calcium 8.8 09/24/18 09/24/18 09/24/18 00:38 00:38 03:01 Creatine Kinase 37 CK-MB (CK-2) 1.67 Troponin I 0.074 0.078 NT-Pro-B Natriuret Pep 28366 H 09/25/18 09/25/18 09/25/18 10:13 10:13 19:16 Creatine Kinase 22 L CK-MB (CK-2) 1.63 Troponin I 0.074 0.073 NT-Pro-B Natriuret Pep 10/08/18 10/08/18 10/09/18 23:43 23:43 05:19 Creatine Kinase < 20 L < 20 L CK-MB (CK-2) 0.38 Troponin I 0.039 NT-Pro-B Natriuret Pep 10/09/18 10/09/18 10/09/18 05:19 11:49 11:49 Creatine Kinase < 20 L CK-MB (CK-2) 0.38 0.41 Troponin I 0.049 0.042 NT-Pro-B Natriuret Pep 10/12/18 10/12/18 10/18/18 11:05 11:05 05:55 Creatine Kinase < 20 L CK-MB (CK-2) 0.51 Troponin I 0.032 NT-Pro-B Natriuret Pep 5030 H 10/20/18 13:20 Creatine Kinase CK-MB (CK-2) Troponin I 0.038 NT-Pro-B Natriuret Pep Impressions: Guidance Fluoroscopy 10/10/18 00:00 IMPRESSION: SUCCESSFUL PLACEMENT OF A 5 FR DUAL LUMEN 42 CM PICC IN THE LEFT BASILIC VEIN. Interventional Vascular Procedure 10/10/18 00:00 IMPRESSION: SUCCESSFUL PLACEMENT OF A 5 FR DUAL LUMEN 42 CM PICC IN THE LEFT BASILIC VEIN. PICC Line Insertion 10/10/18 06:00 IMPRESSION: SUCCESSFUL PLACEMENT OF A 5 FR DUAL LUMEN 42 CM PICC IN THE LEFT BASILIC VEIN. Chest X-Ray 10/15/18 19:20 IMPRESSION: No change compared to previous chest films from 10/08/2018, 10/07/[address] 10/20/18 14:30 IMPRESSION: Small bilateral pleural effusions with bronchiectasis and bilateral interstitial and airspace opacities; differential considerations include interstitial drug-induced lung disease such as amiodarone toxicity, interstitial pneumonia, hypersensitivity pneumonitis. Assessment & Plan - Diagnosis (1) Acute and chronic respiratory failure with hypoxia Is this a current diagnosis for this admission?: Yes Plan: Patient has been empirically treated for HCAP. She is also being diuresed for possible pulmonary edema. She has not had significant response and improvement with both treatment course. 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 She was started on IV steroids on 10/16/18. Pulmonology and cardiology following. Possibility of ILD versus amiodarone toxicity is being considered. Amiodarone d/keo. She is unable to tolerate lying down for high resolution CT or MUGA. Bedside PFT is suggestive of obstructive airway defect. Unable to check DLCO at this time. 10/17: She says she feels slightly better today but remain BIPAP-dependent. Continue IV steroids. 10/19: She says she has felt improvement in her breathing today. She still has significant orthopnea and is unable to participate with HRCT and MUGA scan. She still desaturates off BIPAP. 10/20: She does not feel improvement in her breathing today from yesterday. Will repeat chest CT vs attempting to perform HRCT to reassess lung parenchyma today. 10/21: High resolution CT was finally done last night and results are suggestive of drug induced lung injury supportive of amiodarone-toxicity in this clinical context. Patient says her breathing has not significantly improved today. Discussed results in length including chcf treatment with steroids. Discussed the only definite way to diagnose if this is amiodarone-toxicity or another ILD entity is through a lung biopsy which at this time, she is not interested. Discussed that recovery from amiodarone lung toxicity is slow and may take several months and that there is a chance, she will not return to her baseline. Rediscussed recommendation about rehab/SNF placement as she lives alone and is expected to have significant functional limitation with her being highly dependent on BIPAP. She says wants to live at her daughter's house and at this time is not amenable to rehab/SNF placement. (2) Atrial fibrillation Qualifiers: Atrial fibrillation type: paroxysmal Qualified Code(s): I48.0 - Paroxysmal atrial fibrillation Is this a current diagnosis for this admission?: Yes Plan: Eliquis was discontinued lengthy conversation with patient due to her recurrent epistaxis and history of recurrent falls. Discontinued amiodarone as well. (3) CAD (coronary artery disease) Is this a current diagnosis for this admission?: Yes Plan: Continue aspirin, clopidogrel and statin. - Time Time Spent with patient: 35 or more minutes
[2018-10-21] MEDS: GABAPENTIN 300 MG CAPSULE PO SCH (18:37)
[2018-10-21] MEDS: ROPINIROLE HCL 2 MG TABLET PO SCH (22:52)
[2018-10-21] MEDS: ATORVASTATIN CALCIUM 40 MG TABLET PO SCH (22:52)
[2018-10-22] MEDS: LEVALBUTEROL HCL NEB 0.63 MG/3 ML AMPUL NEB SCH ×4 (01:58→21:07)
[2018-10-22] MEDS: FAMOTIDINE 20 MG TABLET PO SCH ×3 (05:35→21:42)
[2018-10-22] MEDS: FLUTICASONE/SALMETEROL DISKUS 500-50 MCG/DOSE IH SCH ×2 (11:12→21:45)
[2018-10-22] MEDS: TIOTROPIUM BROMIDE DPI 5 CAP/KIT (18 MCG/CAP) IH SCH (11:12)
[2018-10-22] MEDS: ASPIRIN 81 MG TABLET, ENT COATED PO SCH (11:13)
[2018-10-22] MEDS: METHYLPREDNISOLONE INJ 40 MG/1 ML SDV IV SCH ×2 (11:13→21:43)
[2018-10-22] MEDS: FUROSEMIDE 20 MG TABLET PO SCH ×2 (11:13→17:29)
[2018-10-22] MEDS: GUAIFENESIN 600 MG TABLET.SA PO SCH ×2 (11:13→21:42)
[2018-10-22] MEDS: CARVEDILOL 3.125 MG TABLET PO SCH ×2 (11:13→21:42)
[2018-10-22] MEDS: NORMAL SALINE 10 ML SDV (SCHEDULED) IV SCH ×2 (11:14→21:43)
[2018-10-22] MEDS: CLOPIDOGREL BISULFATE 75 MG TABLET PO SCH (11:14)
[2018-10-22] MEDS: SERTRALINE HCL 50 MG TABLET PO SCH (11:14)
[2018-10-22] MEDS: FLUTICASONE NASAL SPRAY 50 MCG/SPRY 120 SPRAY/16 GM NASL SCH ×2 (11:23→21:43)
[2018-10-22] MEDS: SODIUM CHLORIDE NASAL SPRAY 44 ML NASL SCH ×2 (11:24→17:29)
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
[2018-10-22] MEDS: GABAPENTIN 300 MG CAPSULE PO SCH (17:29)
[2018-10-22] MEDS: ATORVASTATIN CALCIUM 40 MG TABLET PO SCH (21:42)
[2018-10-22] MEDS: ROPINIROLE HCL 2 MG TABLET PO SCH (21:45)
[2018-10-23] MEDS: LEVALBUTEROL HCL NEB 0.63 MG/3 ML AMPUL NEB SCH ×4 (02:26→19:55)
[2018-10-23] MEDS: FAMOTIDINE 20 MG TABLET PO SCH ×3 (06:32→21:23)
[2018-10-23] MEDS: FLUTICASONE/SALMETEROL DISKUS 500-50 MCG/DOSE IH SCH ×2 (09:51→21:22)
[2018-10-23] MEDS: FLUTICASONE NASAL SPRAY 50 MCG/SPRY 120 SPRAY/16 GM NASL SCH ×2 (09:52→21:24)
[2018-10-23] MEDS: METHYLPREDNISOLONE INJ 40 MG/1 ML SDV IV SCH ×2 (09:52→21:23)
[2018-10-23] MEDS: CLOPIDOGREL BISULFATE 75 MG TABLET PO SCH (09:53)
[2018-10-23] MEDS: CARVEDILOL 3.125 MG TABLET PO SCH ×2 (09:53→21:23)
[2018-10-23] MEDS: GUAIFENESIN 600 MG TABLET.SA PO SCH ×2 (09:53→21:23)
[2018-10-23] MEDS: FUROSEMIDE 20 MG TABLET PO SCH ×2 (09:53→17:11)
[2018-10-23] MEDS: SERTRALINE HCL 50 MG TABLET PO SCH (09:53)
[2018-10-23] MEDS: ASPIRIN 81 MG TABLET, ENT COATED PO SCH (09:53)
[2018-10-23] MEDS: NORMAL SALINE 10 ML SDV (SCHEDULED) IV SCH ×2 (09:54→21:24)
[2018-10-23] MEDS: SODIUM CHLORIDE NASAL SPRAY 44 ML NASL SCH ×2 (09:54→17:12)
[2018-10-23] MEDS: TIOTROPIUM BROMIDE DPI 5 CAP/KIT (18 MCG/CAP) IH SCH (09:55)
--- NOTE | 2018-10-23 15:47 | PDOC PROGRESS REPORT ---
Subjective Progress Note for:: 10/23/18 Subjective:: Ms. Tamar Khan is 78-year-old female with a past medical history of atrial fibrillation was on Eliquis and amiodarone, CAD with recent stenting of the LAD at [facility] and recent influenza who presented with shortness of breath on 09/24/2018. Patient was admitted for possible new onset CHF versus HCAP. She had a CT of the chest showed pulmonary edema vs bilateral pneumonia vs ILD. She was started on diuretics and broad-spectrum antibiotics. She has had little progress in her pulmonary status with antibiotics and diuresis. She has been requiring BiPAP. 10/23/2018. No acute events overnight. No significant improvement since yesterday. Still remains dependent on BiPAP. Denies any chest pain, nausea, vomiting, diarrhea, constipation or any urinary symptoms. Patient has agreed to be transferred to [facility] to be evaluated by pulmonology. Had a chance to talk with Dr. Gurrola at [facility] who graciously accepted to transfer patient to [facility] for further care and management. Unfortunately they did not have any rooms available immediately but she is on the list to be transferred to [facility]. We will continue current supportive measures. Reason For Visit: PNEUMONIA,DIASTOLIC HF Physical Exam Vital Signs: Temp Pulse Resp BP Pulse Ox 98.6 F 60 17 140/58 H 99 10/23/18 11:19 10/23/18 14:20 10/23/18 14:20 10/23/18 11:19 10/23/18 14:20 Pulse Oximeter Continuous Start: 10/12/18 21:15 Freq: RTQ4 Status: Complete Protocol: Document 10/14/18 08:43 [facility] (Rec: 10/14/18 11:22 [facility] [id number]) Pulse Oximetry Assessment Equipment Usage Equipment Discontinued Continuous SpO2 Machine # 2 Intake & Output 10/22/18 10/23/18 10/24/18 06:59 06:59 06:59 Intake Total 1663 290 Output Total 250 Balance 1663 40 Weight 91.2 kg 91.6 kg General appearance: PRESENT: mild distress Head exam: PRESENT: atraumatic, normocephalic Neck exam: ABSENT: carotid bruit, JVD, lymphadenopathy, thyromegaly Respiratory exam: PRESENT: accessory muscle use, crackles, decreased breath sounds, symmetrical. ABSENT: rales, rhonchi, wheezes Cardiovascular exam: PRESENT: irregular rhythm, RRR. ABSENT: diastolic murmur, rubs Pulses: PRESENT: normal dorsalis pedis pul GI/Abdominal exam: PRESENT: normal bowel sounds, soft. ABSENT: distended, guarding, mass, organolmegaly, rebound, tenderness Extremities exam: PRESENT: full ROM. ABSENT: calf tenderness, clubbing, pedal edema Neurological exam: PRESENT: alert, awake, oriented to person, oriented to place, oriented to time, oriented to situation, CN II-XII grossly intact. ABSENT: motor sensory deficit Results Laboratory Results: 10/21/18 06:45 10/21/18 06:45 09/24/18 09/24/18 09/24/18 00:38 00:38 03:01 Creatine Kinase 37 CK-MB (CK-2) 1.67 Troponin I 0.074 0.078 NT-Pro-B Natriuret Pep [id number] H 09/25/18 09/25/18 09/25/18 10:13 10:13 19:16 Creatine Kinase 22 L CK-MB (CK-2) 1.63 Troponin I 0.074 0.073 NT-Pro-B Natriuret Pep 10/08/18 10/08/18 10/09/18 23:43 23:43 05:19 Creatine Kinase < 20 L < 20 L CK-MB (CK-2) 0.38 Troponin I 0.039 NT-Pro-B Natriuret Pep 10/09/18 10/09/18 10/09/18 05:19 11:49 11:49 Creatine Kinase < 20 L CK-MB (CK-2) 0.38 0.41 Troponin I 0.049 0.042 NT-Pro-B Natriuret Pep 10/12/18 10/12/18 10/18/18 11:05 11:05 05:55 Creatine Kinase < 20 L CK-MB (CK-2) 0.51 Troponin I 0.032 NT-Pro-B Natriuret Pep 5030 H 10/20/18 13:20 Creatine Kinase CK-MB (CK-2) Troponin I 0.038 NT-Pro-B Natriuret Pep Impressions: Guidance Fluoroscopy 10/10/18 00:00 IMPRESSION: SUCCESSFUL PLACEMENT OF A 5 FR DUAL LUMEN 42 CM PICC IN THE LEFT BASILIC VEIN. Interventional Vascular Procedure 10/10/18 00:00 IMPRESSION: SUCCESSFUL PLACEMENT OF A 5 FR DUAL LUMEN 42 CM PICC IN THE LEFT BASILIC VEIN. PICC Line Insertion 10/10/18 06:00 IMPRESSION: SUCCESSFUL PLACEMENT OF A 5 FR DUAL LUMEN 42 CM PICC IN THE LEFT BA SILIC VEIN. Chest X-Ray 10/15/18 19:20 IMPRESSION: No change compared to previous chest films from 10/08/2018, 10/07/[address] 10/20/18 14:30 IMPRESSION: Small bilateral pleural effusions with bronchiectasis and bilateral interstitial and airspace opacities; differential considerations include interstitial drug-induced lung disease such as amiodarone toxicity, interstitial pneumonia, hypersensitivity pneumonitis. Assessment & Plan - Diagnosis (1) Acute and chronic respiratory failure with hypoxia Is this a current diagnosis for this admission?: Yes Plan: Persistent hypoxia. BiPAP dependent. 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 September 2018. 2D echo ejection fraction 55-60%. Suboptimal study. BNP on admission 04925 up from 399 on 04/23/2017. TSH 3.49. Troponins on this admission 0.0742-0.773 She has been empirically treated for HCAP/COPD exacerbation/pulmonary edema with no significant movement. Possibility of ILD versus amiodarone toxicity is being considered. Amiodarone d/keo. Was not able to get a high-resolution CT due to persistent shortness of breath but able to do high resolution CT on 10/21/2018 which was suggestive of drug induced lung injury supportive of amiodarone-toxicity in this clinical context (another DDx is ILD). Attempted attempted to call [facility], unable to discuss with a sticker hand. [facility] is at capacity at the moment. Patient has been hesitant to be transferred to tertiary care for possible lung biopsy and further evaluation by a sticker hand, patient eventually consented to be transferred and [facility] in [place] was called on 10/22/2018 and discussed in length with [facility] Pulmonology, Dr. Blankenship. They recommend transferring patient for further evaluation. On 10/23/2018 I called [facility] talk to Dr. Gurrola in length about the patient's condition who graciously accepted to transfer the patient under his care unfortunately no rooms available at this moment but she will be on the transfer list. Meanwhile will continue supplemental oxygen, BiPAP, nebs, IV steroids. (2) Atrial fibrillation Qualifiers: Atrial fibrillation type: paroxysmal Qualified Code(s): I48.0 - Paroxysmal atrial fibrillation Is this a current diagnosis for this admission?: Yes Plan: Controlled. Continue current meds. Initially Eliquis was held due to persistent epistaxis after counseling patient about the risk and benefit of anticoagulation she has decided not to continue anticoagulation because of the risk of bleeding and also her underlying history of recurrent falls and weakness. (3) Depression Qualifiers: Major depression recurrence: unspecified whether recurrent Is this a current diagnosis for this admission?: Yes Plan: Started on sertraline. TSH within normal limit. Follow-up with PCP for evaluation of the need for continuation of SSRIs (4) CAD (coronary artery disease) Is this a current diagnosis for this admission?: Yes Plan: Status post PCI stent placement x4 Last one at [facility] September 2018. Continue aspirin, statins, Plavix, and beta-blockers. Outpatient cardiology follow-up. (5) Obstructive sleep apnea Is this a current diagnosis for this admission?: Yes Plan: Continue BiPAP. Pulmonary and outpatient nocturnal polysomnography. (6) Hypertension Qualifiers: Hypertension type: unspecified secondary hypertension Qualified Code(s): I15.9 - Secondary hypertension, unspecified Is this a current diagnosis for this admission?: Yes Plan: Normotensive. Continue current meds. Adjust meds as needed. Outpatient PCP follow-up. (7) Physical deconditioning Is this a current diagnosis for this admission?: Yes Plan: Continue PT. patient has been refusing to be transferred to SNF. Pending transfer to [facility] for further workup and management of her underlying persistent hypoxia. (8) Chronic intermittent steroid use Is this a current diagnosis for this admission?: Yes Plan: Patient has been on IV steroids on and off since admission for underlying hypoxic respiratory failure and would need to be tapered off slowly was suggestion has been made to stop her steroids.
[2018-10-23] MEDS: ACETAMINOPHEN 325 MG TABLET PO PRN (16:21)
[2018-10-23] MEDS: GABAPENTIN 300 MG CAPSULE PO SCH (17:11)
[2018-10-23] MEDS ORDERED: PHENOL/SODIUM PHENOLATE 100 SPRAY/177 ML BOTTLE PO PRN (17:59)
[2018-10-23] MEDS: ATORVASTATIN CALCIUM 40 MG TABLET PO SCH (21:23)
[2018-10-23] MEDS: ROPINIROLE HCL 2 MG TABLET PO SCH (21:24)
[2018-10-24] MEDS: LEVALBUTEROL HCL NEB 0.63 MG/3 ML AMPUL NEB SCH ×4 (01:18→21:00)
[2018-10-24] MEDS: FAMOTIDINE 20 MG TABLET PO SCH ×3 (05:36→22:32)
[2018-10-24 06:41] LABS: HEMATOCRIT 28.5 % (36.0-47.0); HEMOGLOBIN 9.7 g/dL (12.0-15.5); MEAN CORPUSCULAR VOLUME 91 fl (80-97); PLATELET COUNT 299 10^3/uL (150-450); RED BLOOD COUNT 3.13 10^6/uL (3.72-5.28); RED CELL DISTRIBUTION WIDTH 15.5 % (11.5-14.0); WHITE BLOOD COUNT 10.8 10^3/uL (4.0-10.5)
[2018-10-24 07:07] LABS: ABSOLUTE LYMPHOCYTES# (MANUAL) 0.5 10^3/uL (0.5-4.7); ABSOLUTE MONOCYTES # (MANUAL) 0.2 10^3/uL (0.1-1.4); BASOPHILS % (MANUAL) 0 % (0-2); EOSINOPHILS % (MANUAL) 0 % (0-6); LYMPHOCYTES % (MANUAL) 5 % (13-45); METAMYELOCYTES % (MANUAL) 1 % (0); MONOCYTES % (MANUAL) 2 % (3-13); SEGMENTED NEUTROPHILS % (MAN) 92 % (42-78); TOTAL CELLS COUNTED 100
[2018-10-24 07:08] LABS: ANISOCYTOSIS 1+; PLATELET COMMENT ADEQUATE
[2018-10-24 07:18] LABS: ARTERIAL BLOOD BASE EXCESS 5.3 mmol/L; ARTERIAL BLOOD H2CO3 1.29 mmol/L (1.05-1.35); ARTERIAL BLOOD HCO3 29.7 mmol/L (20-24); ARTERIAL BLOOD O2 SATURATION 96.2 % (94-98); ARTERIAL BLOOD PCO2 42.8 mmHg (35-45); ARTERIAL BLOOD PH 7.46 (7.35-7.45); ARTERIAL BLOOD PO2 78.9 mmHg (80-100)
[2018-10-24 07:19] LABS: ARTERIAL BLOOD FIO2 5 L
[2018-10-24 08:12] LABS: ALANINE AMINOTRANSFERASE 44 U/L (9-52); ALBUMIN 3.1 g/dL (3.5-5.0); ALKALINE PHOSPHATASE 92 U/L (38-126); ANION GAP 6 (5-19); ASPARTATE AMINO TRANSFERASE 18 U/L (14-36); BILIRUBIN,DIRECT 0.2 mg/dL (0.0-0.4); BILIRUBIN,TOTAL 0.6 mg/dL (0.2-1.3); BLOOD UREA NITROGEN 36 mg/dL (7-20); CALCIUM 8.7 mg/dL (8.4-10.2); CARBON DIOXIDE 31 mmol/L (22-30); CHLORIDE 101 mmol/L (98-107); GLUCOSE 148 mg/dL (75-110); POTASSIUM 4.4 mmol/L (3.6-5.0); TOTAL PROTEIN 5.7 g/dL (6.3-8.2)
[2018-10-24] MEDS: TIOTROPIUM BROMIDE DPI 5 CAP/KIT (18 MCG/CAP) IH SCH (09:10)
[2018-10-24] MEDS: FLUTICASONE/SALMETEROL DISKUS 500-50 MCG/DOSE IH SCH ×2 (09:10→22:32)
[2018-10-24] MEDS: GUAIFENESIN 600 MG TABLET.SA PO SCH ×2 (09:11→22:32)
[2018-10-24] MEDS: METHYLPREDNISOLONE INJ 40 MG/1 ML SDV IV SCH ×2 (09:11→22:32)
[2018-10-24] MEDS: NORMAL SALINE 10 ML SDV (SCHEDULED) IV SCH ×2 (09:11→22:33)
[2018-10-24] MEDS: SERTRALINE HCL 50 MG TABLET PO SCH (09:11)
[2018-10-24] MEDS: ASPIRIN 81 MG TABLET, ENT COATED PO SCH (09:12)
[2018-10-24] MEDS: SODIUM CHLORIDE NASAL SPRAY 44 ML NASL SCH ×2 (09:12→17:34)
[2018-10-24] MEDS: FLUTICASONE NASAL SPRAY 50 MCG/SPRY 120 SPRAY/16 GM NASL SCH ×2 (09:12→22:33)
[2018-10-24] MEDS: CLOPIDOGREL BISULFATE 75 MG TABLET PO SCH (09:12)
[2018-10-24] MEDS: FUROSEMIDE 20 MG TABLET PO SCH ×2 (09:12→17:34)
[2018-10-24] MEDS: CARVEDILOL 3.125 MG TABLET PO SCH ×2 (09:12→22:32)
--- NOTE | 2018-10-24 11:59 | PDOC PROGRESS REPORT ---
Subjective Progress Note for:: 10/24/18 Subjective:: Ms. Tamar Khan is 78-year-old female with a past medical history of atrial fibrillation was on Eliquis and amiodarone, CAD with recent stenting of the LAD at [facility] and recent influenza who presented with shortness of breath on 09/24/2018. Patient was admitted for possible new onset CHF versus HCAP. She had a CT of the chest showed pulmonary edema vs bilateral pneumonia vs ILD. She was started on diuretics and broad-spectrum antibiotics. She has had little progress in her pulmonary status with antibiotics and diuresis. She has been requiring BiPAP. 10/23/2018. No acute events overnight. No significant improvement since yesterday. Still remains dependent on BiPAP. Denies any chest pain, nausea, vomiting, diarrhea, constipation or any urinary symptoms. Patient has agreed to be transferred to [facility] to be evaluated by pulmonology. Had a chance to talk with Dr. Gurrola at [facility] who graciously accepted to transfer patient to [facility] for further care and management. Unfortunately they did not have any rooms available immediately but she is on the list to be transferred to [facility]. We will continue current supportive measures. 10/24/2018. No acute events overnight. Patient stating that she is feeling better than yesterday. Was able to tolerate nasal cannula for a while. Denies any chest pain, nausea, vomiting, diarrhea, constipation or any urinary symptoms. Reason For Visit: PNEUMONIA,DIASTOLIC HF Physical Exam Vital Signs: Temp Pulse Resp BP Pulse Ox 98.5 F 60 14 146/59 H 98 10/24/18 07:37 10/24/18 08:05 10/24/18 08:05 10/24/18 07:37 10/24/18 08:05 Pulse Oximeter Continuous Start: 10/12/18 21:15 Freq: RTQ4 Status: Complete Protocol: Document 10/14/18 08:43 [facility] (Rec: 10/14/18 11:22 [facility] [id number]) Pulse Oximetry Assessment Equipment Usage Equipment Discontinued Continuous SpO2 Machine # 2 Intake & Output 10/23/18 10/24/18 10/25/18 06:59 06:59 06:59 Intake Total 290 300 Output Total 250 Balance 40 300 Weight 91.6 kg General appearance: PRESENT: mild distress, obese Head exam: PRESENT: atraumatic, normocephalic Respiratory exam: PRESENT: crackles, decreased breath sounds. ABSENT: rales, rhonchi, wheezes Cardiovascular exam: PRESENT: irregular rhythm. ABSENT: diastolic murmur, rubs, systolic murmur Pulses: PRESENT: normal dorsalis pedis pul GI/Abdominal exam: PRESENT: distended, normal bowel sounds, soft. ABSENT: guarding, mass, organolmegaly, rebound, tenderness Neurological exam: PRESENT: alert, awake, oriented to person, oriented to place, oriented to time, oriented to situation, CN II-XII grossly intact. ABSENT: motor sensory deficit Results Laboratory Results: 10/24/18 06:25 10/24/18 06:25 10/24/18 10/24/18 10/24/18 06:25 06:25 06:45 WBC 10.8 H RBC 3.13 L Hgb 9.7 L Hct 28.5 L MCV 91 MCH 31.0 MCHC 34.0 RDW 15.5 H Plt Count 299 Seg Neutrophils % Not Reportable Lymphocytes % Not Reportable Monocytes % Not Reportable Eosinophils % Not Reportable Basophils % Not Reportable Absolute Neutrophils Not Reportable Absolute Lymphocytes Not Reportable Absolute Monocytes Not Reportable Absolute Eosinophils Not Reportable Absolute Basophils Not Reportable Carbonic Acid 1.29 HCO3/H2CO3 Ratio 23:1 ABG pH 7.46 H ABG pCO2 42.8 ABG pO2 78.9 L ABG HCO3 29.7 H ABG O2 Saturation 96.2 ABG Base Excess 5.3 FiO2 5 L Sodium 138.0 Potassium 4.4 Chloride 101 Carbon Dioxide 31 H Anion Gap 6 BUN 36 H Creatinine 0.94 Est GFR ( Amer) > 60 Est GFR (Non-Af Amer) 57 L Glucose 148 H Calcium 8.7 Magnesium 2.7 H Total Bilirubin 0.6 AST 18 ALT 44 Alkaline Phosphatase 92 Total Protein 5.7 L Albumin 3.1 L 09/24/18 09/24/18 09/24/18 00:38 00:38 03:01 Creatine Kinase 37 CK-MB (CK-2) 1.67 Troponin I 0.074 0.078 NT-Pro-B Natriuret Pep 38746 H 09/25/18 09/25/18 09/25/18 10:13 10:13 19:16 Creatine Kinase 22 L CK-MB (CK-2) 1.63 Troponin I 0.074 0.073 NT-Pro-B Natriuret Pep 10/08/18 10/08/18 10/09/18 23:43 23:43 05:19 Creatine Kinase < 20 L < 20 L CK-MB (CK-2) 0.38 Troponin I 0.039 NT-Pro-B Natriuret Pep 10/09/18 10/09/18 10/09/18 05:19 11:49 11:49 Creatine Kinase < 20 L CK-MB (CK-2) 0.38 0.41 Troponin I 0.049 0.042 NT-Pro-B Natriuret Pep 10/12/18 10/12/18 10/18/18 11:05 11:05 05:55 Creatine Kinase < 20 L CK-MB (CK-2) 0.51 Troponin I 0.032 NT-Pro-B Natriuret Pep 5030 H 10/20/18 13:20 Creatine Kinase CK-MB (CK-2) Troponin I 0.038 NT-Pro-B Natriuret Pep Impressions: Guidance Fluoroscopy 10/10/18 00:00 IMPRESSION: SUCCESSFUL PLACEMENT OF A 5 FR DUAL LUMEN 42 CM PICC IN THE LEFT BASILIC VEIN. Interventional Vascular Procedure 10/10/18 00:00 IMPRESSION: SUCCESSFUL PLACEMENT OF A 5 FR DUAL LUMEN 42 CM PICC IN THE LEFT BASILIC VEIN. PICC Line Insertion 10/10/18 06:00 IMPRESSION: SUCCESSFUL PLACEMENT OF A 5 FR DUAL LUMEN 42 CM PICC IN THE LEFT BASILIC VEIN. Chest X-Ray 10/15/18 19:20 IMPRESSION: No change compared to previous chest films from 10/08/2018, 10/07/[address] 10/20/18 14:30 IMPRESSION: Small bilateral pleural effusions with bronchiectasis and bilateral interstitial and airspace opacities; differential considerations include interstitial drug-induced lung disease such as amiodarone toxicity, interstitial pneumonia, hypersensitivity pneumonitis. Assessment & Plan - Diagnosis (1) Acute and chronic respiratory failure with hypoxia Is this a current diagnosis for this admission?: Yes Plan: Persistent hypoxia. BiPAP dependent. 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 September 2018. 2D echo ejection fraction 55-60%. Suboptimal study. BNP on admission 25985 up from 399 on 04/23/2017. TSH 3.49. Troponins on this admission 0.0742-0.773 She has been empirically treated for HCAP/COPD exacerbation/pulmonary edema with no significant movement. Possibility of ILD versus amiodarone toxicity is being considered. Amiodarone d/keo. Was not able to get a high-resolution CT due to persistent shortness of breath but able to do high resolution CT on 10/21/2018 which was suggestive of drug induced lung injury supportive of amiodarone-toxicity in this clinical context (another DDx is ILD). Attempted attempted to call [facility], unable to discuss with a international trade compliance manager. [facility] is at capacity at the moment. Patient has been hesitant to be transferred to tertiary care for possible lung biopsy and further evaluation by a international trade compliance manager, patient eventually consented to be transferred and [facility] in [place] was called on 10/22/2018 and discussed in length with [facility] Pulmonology, Dr. Blankenship. They recommend transferring patient for further evaluation. On 10/23/2018 I called [facility] talk to Dr. Gurrola in length about the patient's condition who graciously accepted to transfer the patient under his care unfortunately no rooms available at this moment but she will be on the transfer list. Meanwhile will continue supplemental oxygen, BiPAP, nebs, IV steroids. (2) Atrial fibrillation Qualifiers: Atrial fibrillation type: paroxysmal Qualified Code(s): I48.0 - Paroxysmal atrial fibrillation Is this a current diagnosis for this admission?: Yes Plan: Controlled. Continue current meds. Initially Eliquis was held due to persistent epistaxis after counseling patient about the risk and benefit of anticoagulation she has decided not to continue anticoagulation because of the risk of bleeding and also her underlying history of recurrent falls and weakness. (3) Depression Qualifiers: Major depression recurrence: unspecified whether recurrent Is this a current diagnosis for this admission?: Yes Plan: Started on sertraline. TSH within normal limit. Follow-up with PCP for evaluation of the need for continuation of SSRIs (4) CAD (coronary artery disease) Is this a current diagnosis for this admission?: Yes Plan: Status post PCI stent placement x4 Last one at [place] September 2018. Continue aspirin, statins, Plavix, and beta-blockers. Outpatient cardiology fo llow-up. (5) Obstructive sleep apnea Is this a current diagnosis for this admission?: Yes Plan: Continue BiPAP. Pulmonary and outpatient nocturnal polysomnography. (6) Hypertension Qualifiers: Hypertension type: unspecified secondary hypertension Qualified Code(s): I15.9 - Secondary hypertension, unspecified Is this a current diagnosis for this admission?: Yes Plan: Normotensive. Continue current meds. Adjust meds as needed. Outpatient PCP follow-up. (7) Physical deconditioning Is this a current diagnosis for this admission?: Yes Plan: Continue PT. patient has been refusing to be transferred to SNF. Pending transfer to [facility] for further workup and management of her underlying persistent hypoxia. (8) Chronic intermittent steroid use Is this a current diagnosis for this admission?: Yes Plan: Patient has been on IV steroids on and off since admission for underlying hypoxic respiratory failure and would need to be tapered off slowly was stark ggestion has been made to stop her steroids.
[2018-10-24] MEDS: GABAPENTIN 300 MG CAPSULE PO SCH (17:34)
[2018-10-24] MEDS: ATORVASTATIN CALCIUM 40 MG TABLET PO SCH (22:32)
[2018-10-24] MEDS: BENZOCAINE/MENTHOL SORE THROAT LOZENGE BUCCAL PRN (22:32)
[2018-10-24] MEDS: ROPINIROLE HCL 2 MG TABLET PO SCH (22:33)
[2018-10-25] MEDS: LEVALBUTEROL HCL NEB 0.63 MG/3 ML AMPUL NEB SCH ×4 (02:11→20:17)
[2018-10-25] MEDS: FAMOTIDINE 20 MG TABLET PO SCH ×3 (05:50→21:07)
[2018-10-25 06:25] LABS: HEMATOCRIT 29.3 % (36.0-47.0); HEMOGLOBIN 9.9 g/dL (12.0-15.5); MEAN CORPUSCULAR HEMOGLOBIN 30.6 pg (27.0-33.4); MEAN CORPUSCULAR HGB CONC 33.8 g/dL (32.0-36.0); MEAN CORPUSCULAR VOLUME 91 fl (80-97); PLATELET COUNT 297 10^3/uL (150-450); RED BLOOD COUNT 3.24 10^6/uL (3.72-5.28); RED CELL DISTRIBUTION WIDTH 15.9 % (11.5-14.0); WHITE BLOOD COUNT 11.7 10^3/uL (4.0-10.5)
[2018-10-25 06:48] LABS: ALANINE AMINOTRANSFERASE 47 U/L (9-52); ALBUMIN 2.9 g/dL (3.5-5.0); ALKALINE PHOSPHATASE 84 U/L (38-126); ANION GAP 7 (5-19); ASPARTATE AMINO TRANSFERASE 19 U/L (14-36); BILIRUBIN,DIRECT 0.1 mg/dL (0.0-0.4); BILIRUBIN,TOTAL 0.6 mg/dL (0.2-1.3); BLOOD UREA NITROGEN 36 mg/dL (7-20); CARBON DIOXIDE 28 mmol/L (22-30); CHLORIDE 103 mmol/L (98-107); GLUCOSE 142 mg/dL (75-110); POTASSIUM 4.2 mmol/L (3.6-5.0); TOTAL PROTEIN 5.1 g/dL (6.3-8.2)
[2018-10-25 07:08] LABS: ABSOLUTE LYMPHOCYTES# (MANUAL) 0.5 10^3/uL (0.5-4.7); ABSOLUTE MONOCYTES # (MANUAL) 0.1 10^3/uL (0.1-1.4); ABSOLUTE NEUTROPHILS# (MANUAL) 11.1 10^3/uL (1.7-8.2); BASOPHILS % (MANUAL) 0 % (0-2); EOSINOPHILS % (MANUAL) 0 % (0-6); HYPOCHROMASIA 1+; LYMPHOCYTES % (MANUAL) 4 % (13-45); MONOCYTES % (MANUAL) 1 % (3-13); PLATELET COMMENT ADEQUATE; POLYCHROMASIA SLIGHT; SEGMENTED NEUTROPHILS % (MAN) 95 % (42-78); TOTAL CELLS COUNTED 100; TOXIC GRANULATION SLIGHT
[2018-10-25] MEDS: BENZOCAINE/MENTHOL SORE THROAT LOZENGE BUCCAL PRN ×2 (10:21→21:11)
[2018-10-25] MEDS: GUAIFENESIN 600 MG TABLET.SA PO SCH ×2 (10:21→21:07)
[2018-10-25] MEDS: SERTRALINE HCL 50 MG TABLET PO SCH (10:21)
[2018-10-25] MEDS: FUROSEMIDE 20 MG TABLET PO SCH ×2 (10:21→17:19)
[2018-10-25] MEDS: METHYLPREDNISOLONE INJ 40 MG/1 ML SDV IV SCH ×2 (10:21→21:07)
[2018-10-25] MEDS: CARVEDILOL 3.125 MG TABLET PO SCH ×2 (10:21→21:07)
[2018-10-25] MEDS: FLUTICASONE/SALMETEROL DISKUS 500-50 MCG/DOSE IH SCH ×2 (10:22→21:07)
[2018-10-25] MEDS: TIOTROPIUM BROMIDE DPI 5 CAP/KIT (18 MCG/CAP) IH SCH (10:22)
[2018-10-25] MEDS: FLUTICASONE NASAL SPRAY 50 MCG/SPRY 120 SPRAY/16 GM NASL SCH ×2 (10:23→21:08)
[2018-10-25] MEDS: SODIUM CHLORIDE NASAL SPRAY 44 ML NASL SCH ×2 (10:23→17:19)
[2018-10-25] MEDS: NORMAL SALINE 10 ML SDV (SCHEDULED) IV SCH ×2 (10:23→21:07)
--- NOTE | 2018-10-25 14:54 | PDOC PROGRESS REPORT ---
Subjective Progress Note for:: 10/25/18 Subjective:: Ms. Tamar Khan is 78-year-old female with a past medical history of atrial fibrillation was on Eliquis and amiodarone, CAD with recent stenting of the LAD at [facility] and recent influenza who presented with shortness of breath on 09/24/2018. Patient was admitted for possible new onset CHF versus HCAP. She had a CT of the chest showed pulmonary edema vs bilateral pneumonia vs ILD. She was started on diuretics and broad-spectrum antibiotics. She has had little progress in her pulmonary status with antibiotics and diuresis. She has been requiring BiPAP. 10/23/2018. No acute events overnight. No significant improvement since yesterday. Still remains dependent on BiPAP. Denies any chest pain, nausea, vomiting, diarrhea, constipation or any urinary symptoms. Patient has agreed to be transferred to [facility] to be evaluated by pulmonology. Had a chance to talk with Dr. Gurrola at [facility] who graciously accepted to transfer patient to [facility] for further care and management. Unfortunately they did not have any rooms available immediately but she is on the list to be transferred to [facility]. We will continue current supportive measures. 10/24/2018. No acute events overnight. Patient stating that she is feeling better than yesterday. Was able to tolerate nasal cannula for a while. Denies any chest pain, nausea, vomiting, diarrhea, constipation or any urinary symptoms. 10/25/2018. No acute events overnight. Not much improvement since yesterday. Patient is complaining of hoarse voice and sore throat. Denies any fever, chills, nausea, vomiting, diarrhea, constipation or any urinary symptoms. Patient still pending to be transferred to [facility]. [facility] was called today and they had stated that she is still on the list. Reason For Visit: PNEUMONIA,DIASTOLIC HF Physical Exam Vital Signs: Temp Pulse Resp BP Pulse Ox 98.0 F 58 L 19 143/76 H 98 10/25/18 11:28 10/25/18 13:49 10/25/18 13:49 10/25/18 11:28 10/25/18 13:49 Pulse Oximeter Continuous Start: 10/12/18 21:15 Freq: RTQ4 Status: Complete Protocol: Document 10/14/18 08:43 [facility] (Rec: 10/14/18 11:22 [facility] [id number]) Pulse Oximetry Assessment Equipment Usage Equipment Discontinued Continuous SpO2 Machine # 2 Intake & Output 10/24/18 10/25/18 10/26/18 06:59 06:59 06:59 Intake Total 300 835 100 Balance 300 835 100 General appearance: PRESENT: obese Head exam: PRESENT: atraumatic, normocephalic Mouth exam: PRESENT: moist, neck supple, tongue midline Neck exam: ABSENT: carotid bruit, JVD, lymphadenopathy, thyromegaly Respiratory exam: PRESENT: crackles, decreased breath sounds. ABSENT: rales, rhonchi, wheezes GI/Abdominal exam: PRESENT: normal bowel sounds, soft. ABSENT: distended, guarding, mass, organolmegaly, rebound, tenderness Extremities exam: PRESENT: full ROM. ABSENT: calf tenderness, clubbing, pedal edema Neurological exam: PRESENT: alert, awake, oriented to person, oriented to place, oriented to time, oriented to situation, CN II-XII grossly intact. ABSENT: motor sensory deficit Results Laboratory Results: 10/25/18 06:00 10/25/18 06:00 10/25/18 10/25/18 06:00 06:00 WBC 11.7 H RBC 3.24 L Hgb 9.9 L Hct 29.3 L MCV 91 MCH 30.6 MCHC 33.8 RDW 15.9 H Plt Count 297 Seg Neutrophils % Not Reportable Lymphocytes % Not Reportable Monocytes % Not Reportable Eosinophils % Not Reportable Basophils % Not Reportable Absolute Neutrophils Not Reportable Absolute Lymphocytes Not Reportable Absolute Monocytes Not Reportable Absolute Eosinophils Not Reportable Absolute Basophils Not Reportable Sodium 138.0 Potassium 4.2 Chloride 103 Carbon Dioxide 28 Anion Gap 7 BUN 36 H Creatinine 0.88 Est GFR ( Amer) > 60 Est GFR (Non-Af Amer) > 60 Glucose 142 H Calcium 8.0 L Magnesium 2.3 Total Bilirubin 0.6 AST 19 ALT 47 Alkaline Phosphatase 84 Total Protein 5.1 L Albumin 2.9 L 09/24/18 09/24/18 09/24/18 00:38 00:38 03:01 Creatine Kinase 37 CK-MB (CK-2) 1.67 Troponin I 0.074 0.078 NT-Pro-B Natriuret Pep 54510 H 09/25/18 09/25/18 09/25/18 10:13 10:13 19:16 Creatine Kinase 22 L CK-MB (CK-2) 1.63 Troponin I 0.074 0.073 NT-Pro-B Natriuret Pep 10/08/18 10/08/18 10/09/18 23:43 23:43 05:19 Creatine Kinase < 20 L < 20 L CK-MB (CK-2) 0.38 Troponin I 0.039 NT-Pro-B Natriuret Pep 10/09/18 10/09/18 10/09/18 05:19 11:49 11:49 Creatine Kinase < 20 L CK-MB (CK-2) 0.38 0.41 Troponin I 0.049 0.042 NT-Pro-B Natriuret Pep 10/12/18 10/12/18 10/18/18 11:05 11:05 05:55 Creatine Kinase < 20 L CK-MB (CK-2) 0.51 Troponin I 0.032 NT-Pro-B Natriuret Pep 5030 H 10/20/18 13:20 Creatine Kinase CK-MB (CK-2) Troponin I 0.038 NT-Pro-B Natriuret Pep Impressions: Guidance Fluoroscopy 10/10/18 00:00 IMPRESSION: SUCCESSFUL PLACEMENT OF A 5 FR DUAL LUMEN 42 CM PICC IN THE LEFT BASILIC VEIN. Interventional Vascular Procedure 10/10/18 00:00 IMPRESSION: SUCCESSFUL PLACEMENT OF A 5 FR DUAL LUMEN 42 CM PICC IN THE LEFT BASILIC VEIN. PICC Line Insertion 10/10/18 06:00 IMPRESSION: SUCCESSFUL PLACEMENT OF A 5 FR DUAL LUMEN 42 CM PICC IN THE LEFT BASILIC VEIN. Chest X-Ray 10/15/18 19:20 IMPRESSION: No change compared to previous chest films from 10/08/2018, 10/07/[address] 10/20/18 14:30 IMPRESSION: Small bilateral pleural effusions with bronchiectasis and bilateral interstitial and airspace opacities; differential considerations include interstitial drug-induced lung disease such as amiodarone toxicity, interstitial pneumonia, hypersensitivity pneumonitis. Assessment & Plan - Diagnosis (1) Acute and chronic respiratory failure with hypoxia Is this a current diagnosis for this admission?: Yes Plan: Persistent hypoxia. BiPAP dependent. 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 September 2018. 2D echo ejection fraction 55-60%. Suboptimal study. BNP on admission 91074 up from 399 on 04/23/2017. TSH 3.49. Troponins on this admission 0.0742-0.773 She has been empirically treated for HCAP/COPD exacerbation/pulmonary edema with no significant movement. Possibility of ILD versus amiodarone toxicity is being considered. Amiodarone d/keo. Was not able to get a high-resolution CT due to persistent shortness of breath but able to do high resolution CT on 10/21/2018 which was suggestive of drug induced lung injury supportive of amiodarone-toxicity in this clinical context (another DDx is ILD). Patient has been hesitant to be transferred to tertiary care for possible lung biopsy and further evaluation by a end trimmer, but she eventually consented to be transferred. Dr. Amish Mascorro had called [facility] in [place] on 10/22/2018 and discussed in length with [facility] Pulmonology, Dr. Blankenship. They recommend transferring patient for further evaluation. On 10/23/2018 I called [facility] talk to Dr. Gurrola in length about the patient's condition who graciously accepted to transfer the patient under his care unfortunately no rooms available at this moment but she will be on the transfer list. Meanwhile will continue supplemental oxygen, BiPAP, nebs, IV steroids. (2) Atrial fibrillation Qualifiers: Atrial fibrillation type: paroxysmal Qualified Code(s): I48.0 - Paroxysmal atrial fibrillation Is this a current diagnosis for this admission?: Yes Plan: Controlled. Continue current meds. Initially Eliquis was held due to persistent epistaxis after counseling patient about the risk and benefit of anticoagulation she has decided not to continue anticoagulation because of the risk of bleeding and also her underlying history of recurrent falls and weakness. (3) Depression Qualifiers: Major depression recurrence: unspecified whether recurrent Is this a current diagnosis for this admission?: Yes Plan: Started on sertraline. TSH within normal limit. Follow-up with PCP for evaluation of the need for continuation of SSRIs (4) CAD (coronary artery disease) Is this a current diagnosis for this admission?: Yes Plan: Status post PCI stent placement x4 Last one at [place] September 2018. Continue aspirin, statins, Plavix, and beta-blockers. Outpatient cardiology follow-up. (5) Obstructive sleep apnea Is this a current diagnosis for this admission?: Yes Plan: Continue BiPAP. Pulmonary and outpatient nocturnal polysomnography. (6) Hypertension Qualifiers: Hypertension type: unspecified secondary hypertension Qualified Code(s): I15.9 - Secondary hypertension, unspecified Is this a current diagnosis for this admission?: Yes Plan: Normotensive. Continue current meds. Adjust meds as needed. Outpatient PCP follow-up. (7) Physical deconditioning Is this a current diagnosis for this admission?: Yes Plan: Continue PT. patient has been refusing to be transferred to SNF. Pending transfer to [facility] for further workup and management of her underlying persistent hypoxia. (8) Chronic intermittent steroid use Is this a current diagnosis for this admission?: Yes Plan: Patient has been on IV steroids on and off since admission for underlying hypoxic respiratory failure and would need to be tapered off slowly was suggestion has been made to stop her steroids.
[2018-10-25] MEDS: OXYMETAZOLINE HCL 0.05% NASAL SPRAY 15 ML BOTTLE NASL PRN (21:21)
[2018-10-26] MEDS: LEVALBUTEROL HCL NEB 0.63 MG/3 ML AMPUL NEB SCH ×4 (02:15→20:22)
[2018-10-26] MEDS: ACETAMINOPHEN 325 MG TABLET PO PRN ×2 (04:15→09:23)
[2018-10-26] MEDS: FAMOTIDINE 20 MG TABLET PO SCH ×3 (06:09→22:14)
[2018-10-26] MEDS: SERTRALINE HCL 50 MG TABLET PO SCH (09:23)
[2018-10-26] MEDS: METHYLPREDNISOLONE INJ 40 MG/1 ML SDV IV SCH ×2 (09:23→22:16)
[2018-10-26] MEDS: FUROSEMIDE 20 MG TABLET PO SCH ×2 (09:23→17:19)
[2018-10-26] MEDS: GUAIFENESIN 600 MG TABLET.SA PO SCH ×2 (09:23→22:14)
[2018-10-26] MEDS: CARVEDILOL 3.125 MG TABLET PO SCH ×2 (09:23→22:14)
[2018-10-26] MEDS: TIOTROPIUM BROMIDE DPI 5 CAP/KIT (18 MCG/CAP) IH SCH (09:24)
[2018-10-26] MEDS: NORMAL SALINE 10 ML SDV (SCHEDULED) IV SCH ×2 (09:24→22:16)
[2018-10-26] MEDS: FLUTICASONE/SALMETEROL DISKUS 500-50 MCG/DOSE IH SCH ×2 (09:24→22:14)
[2018-10-26] MEDS: FLUTICASONE NASAL SPRAY 50 MCG/SPRY 120 SPRAY/16 GM NASL SCH ×2 (09:25→22:17)
[2018-10-26] MEDS: SODIUM CHLORIDE NASAL SPRAY 44 ML NASL SCH ×2 (09:25→17:19)
--- NOTE | 2018-10-26 13:15 | PDOC PROGRESS REPORT ---
Subjective Progress Note for:: 10/26/18 Subjective:: Ms. Tamar Khan is 78-year-old female with a past medical history of atrial fibrillation was on Eliquis and amiodarone, CAD with recent stenting of the LAD at [facility] and recent influenza who presented with shortness of breath on 09/24/2018. Patient was admitted for possible new onset CHF versus HCAP. She had a CT of the chest showed pulmonary edema vs bilateral pneumonia vs ILD. She was started on diuretics and broad-spectrum antibiotics. She has had little progress in her pulmonary status with antibiotics and diuresis. She has been requiring BiPAP. 10/23/2018. No acute events overnight. No significant improvement since yesterday. Still remains dependent on BiPAP. Denies any chest pain, nausea, vomiting, diarrhea, constipation or any urinary symptoms. Patient has agreed to be transferred to [facility] to be evaluated by pulmonology. Had a chance to talk with Dr. Gurrola at [facility] who graciously accepted to transfer patient to [facility] for further care and management. Unfortunately they did not have any rooms available immediately but she is on the list to be transferred to [facility]. We will continue current supportive measures. 10/24/2018. No acute events overnight. Patient stating that she is feeling better than yesterday. Was able to tolerate nasal cannula for a while. Denies any chest pain, nausea, vomiting, diarrhea, constipation or any urinary symptoms. 10/25/2018. No acute events overnight. Not much improvement since yesterday. Patient is complaining of hoarse voice and sore throat. Denies any fever, chills, nausea, vomiting, diarrhea, constipation or any urinary symptoms. Patient still pending to be transferred to [facility]. [facility] was called today and they had stated that she is still on the list. 10/26/2018. No acute events overnight. Not much improvement since yesterday. Patient still complaining of hoarse voice and sore throat. Denies fever, chills, nausea, vomiting, diarrhea, constipation or any urinary symptoms. [facility] has been called still no beds available for transfer. Reason For Visit: PNEUMONIA,DIASTOLIC HF Physical Exam Vital Signs: Temp Pulse Resp BP Pulse Ox 98.2 F 58 L 19 131/53 H 99 10/26/18 08:15 10/26/18 08:15 10/26/18 08:15 10/26/18 08:15 10/26/18 08:15 Pulse Oximeter Continuous Start: 10/12/18 21:15 Freq: RTQ4 Status: Complete Protocol: Document 10/14/18 08:43 [facility] (Rec: 10/14/18 11:22 [facility] [id number]) Pulse Oximetry Assessment Equipment Usage Equipment Discontinued Continuous SpO2 Machine # 2 Intake & Output 10/25/18 10/26/18 10/27/18 06:59 06:59 06:59 Intake Total 835 550 Balance 835 550 General appearance: PRESENT: no acute distress, well-developed, well-nourished Head exam: PRESENT: atraumatic, normocephalic Throat exam: ABSENT: post pharyngeal erythema, tonsillar erythema, tonsillar exudate, tonsillogmegaly, other Respiratory exam: PRESENT: crackles, decreased breath sounds. ABSENT: rales, rhonchi, wheezes Cardiovascular exam: PRESENT: RRR. ABSENT: diastolic murmur, rubs, systolic murmur Pulses: PRESENT: normal dorsalis pedis pul GI/Abdominal exam: PRESENT: normal bowel sounds, soft. ABSENT: distended, guarding, mass, organolmegaly, rebound, tenderness Neurological exam: PRESENT: alert, awake, oriented to person, oriented to place, oriented to time, oriented to situation, CN II-XII grossly intact. ABSENT: motor sensory deficit Results Laboratory Results: 10/25/18 06:00 10/25/18 06:00 09/24/18 09/24/18 09/24/18 00:38 00:38 03:01 Creatine Kinase 37 CK-MB (CK-2) 1.67 Troponin I 0.074 0.078 NT-Pro-B Natriuret Pep 02663 H 09/25/18 09/25/18 09/25/18 10:13 10:13 19:16 Creatine Kinase 22 L CK-MB (CK-2) 1.63 Troponin I 0.074 0.073 NT-Pro-B Natriuret Pep 10/08/18 10/08/18 10/09/18 23:43 23:43 05:19 Creatine Kinase < 20 L < 20 L CK-MB (CK-2) 0.38 Troponin I 0.039 NT-Pro-B Natriuret Pep 10/09/18 10/09/18 10/09/18 05:19 11:49 11:49 Creatine Kinase < 20 L CK-MB (CK-2) 0.38 0.41 Troponin I 0.049 0.042 NT-Pro-B Natriuret Pep 10/12/18 10/12/18 10/18/18 11:05 11:05 05:55 Creatine Kinase < 20 L CK-MB (CK-2) 0.51 Troponin I 0.032 NT-Pro-B Natriuret Pep 5030 H 10/20/18 13:20 Creatine Kinase CK-MB (CK-2) Troponin I 0.038 NT-Pro-B Natriuret Pep Impressions: Guidance Fluoroscopy 10/10/18 00:00 IMPRESSION: SUCCESSFUL PLACEMENT OF A 5 FR DUAL LUMEN 42 CM PICC IN THE LEFT BASILIC VEIN. Interventional Vascular Procedure 10/10/18 00:00 IMPRESSION: SUCCESSFUL PLACEMENT OF A 5 FR DUAL LUMEN 42 CM PICC IN THE LEFT BASILIC VEIN. PICC Line Insertion 10/10/18 06:00 IMPRESSION: SUCCESSFUL PLACEMENT OF A 5 FR DUAL LUMEN 42 CM PICC IN THE LEFT BASILIC VEIN. Chest X-Ray 10/15/18 19:20 IMPRESSION: No change compared to previous chest films from 10/08/2018, 10/07/[address] 10/20/18 14:30 IMPRESSION: Small bilateral pleural effusions with bronchiectasis and bilateral interstitial and airspace opacities; differential considerations include interstitial drug-induced lung disease such as amiodarone toxicity, interstitial pneumonia, hypersensitivity pneumonitis. Assessment & Plan - Diagnosis (1) Acute and chronic respiratory failure with hypoxia Is this a current diagnosis for this admission?: Yes Plan: Persistent hypoxia. BiPAP dependent. 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 September 2018. 2D echo ejection fraction 55-60%. Suboptimal study. BNP on admission 57326 up from 399 on 04/23/2017. TSH 3.49. Troponins on this admission 0.0742-0.773 She has been empirically treated for HCAP/COPD exacerbation/pulmonary edema with no significant movement. Possibility of ILD versus amiodarone toxicity is being considered. Amiodarone d/keo. Was not able to get a high-resolution CT due to persistent shortness of breath but able to do high resolution CT on 10/21/2018 which was suggestive of drug induced lung injury supportive of amiodarone-toxicity in this clinical context (another DDx is ILD). Patient has been hesitant to be transferred to tertiary care for possible lung biopsy and further evaluation by a bull gang supervisor, but she eventually consented to be transferred. Dr. Amish Mascorro had called [facility] in [place] on 10/22/2018 and discussed in length with [facility] Pulmonology, Dr. Blankenship. They recommend transferring patient for further evaluation. On 10/23/2018 I called [facility] talk to Dr. Gurrola in length about the patient's condition who graciously accepted to transfer the patient under his care unfortunately no rooms available at this moment but she will be on the transfer list. Meanwhile will continue supplemental oxygen, BiPAP, nebs, IV steroids. (2) Atrial fibrillation Qualifiers: Atrial fibrillation type: paroxysmal Qualified Code(s): I48.0 - Paroxysmal atrial fibrillation Is this a current diagnosis for this admission?: Yes Plan: Controlled. Continue current meds. Initially Eliquis was held due to persistent epistaxis after counseling patient about the risk and benefit of anticoagulation she has decided not to continue anticoagulation because of the risk of bleeding and also her underlying history of recurrent falls and weakness. (3) Depression Qualifiers: Major depression recurrence: unspecified whether recurrent Is this a current diagnosis for this admission?: Yes Plan: Started on sertraline. TSH within normal limit. Follow-up with PCP for evaluation of the need for continuation of SSRIs (4) CAD (coronary artery disease) Is this a current diagnosis for this admission?: Yes Plan: Status post PCI stent placement x4 Last one at [place] September 2018. Continue aspirin, statins, Plavix, and beta-blockers. Outpatient cardiology follow-up. (5) Obstructive sleep apnea Is this a current diagnosis for this admission?: Yes Plan: Continue BiPAP. Pulmonary and outpatient nocturnal polysomnography. (6) Hypertension Qualifiers: Hypertension type: unspecified secondary hypertension Qualified Code(s): I15.9 - Secondary hypertension, unspecified Is this a current diagnosis for this admission?: Yes Plan: Normotensive. Continue current meds. Adjust meds as needed. Outpatient PCP follow-up. (7) Physical deconditioning Is this a current diagnosis for this admission?: Yes Plan: Continue PT. patient has been refusing to be transferred to SNF. Pending transfer to [facility] for further workup and management of her underlying persistent hypoxia. (8) Chronic intermittent steroid use Is this a current diagnosis for this admission?: Yes Plan: Patient has been on IV steroids on and off since admission for underlying hypoxic respiratory failure and would need to be tapered off slowly was suggestion has been made to stop her steroids.
[2018-10-26] MEDS ORDERED: AZITHROMYCIN 250 MG TABLET PO ONE (14:00)
[2018-10-26] MEDS: BENZOCAINE/MENTHOL SORE THROAT LOZENGE BUCCAL PRN (22:22)
[2018-10-26] MEDS ORDERED: ROPINIROLE HCL 2 MG TABLET ONE (23:09)
[2018-10-26] MEDS ORDERED: ATORVASTATIN CALCIUM 40 MG TABLET PO ONE (23:10)
[2018-10-26] MEDS ORDERED: GABAPENTIN 300 MG CAPSULE PO ONE (23:10)
[2018-10-26] MEDS ORDERED: ROPINIROLE HCL 2 MG TABLET PO ONE (23:10)
[2018-10-27] MEDS: LEVALBUTEROL HCL NEB 0.63 MG/3 ML AMPUL NEB SCH ×4 (02:01→19:46)
[2018-10-27] MEDS: BENZOCAINE/MENTHOL SORE THROAT LOZENGE BUCCAL PRN ×2 (03:27→08:01)
[2018-10-27] MEDS: FAMOTIDINE 20 MG TABLET PO SCH ×3 (05:22→21:20)
[2018-10-27 06:33] LABS: HEMATOCRIT 31.1 % (36.0-47.0); HEMOGLOBIN 10.3 g/dL (12.0-15.5); MEAN CORPUSCULAR HEMOGLOBIN 29.8 pg (27.0-33.4); MEAN CORPUSCULAR VOLUME 90 fl (80-97); PLATELET COUNT 289 10^3/uL (150-450); RED BLOOD COUNT 3.44 10^6/uL (3.72-5.28); RED CELL DISTRIBUTION WIDTH 15.9 % (11.5-14.0); WHITE BLOOD COUNT 12.9 10^3/uL (4.0-10.5)
[2018-10-27 07:02] LABS: ALANINE AMINOTRANSFERASE 35 U/L (9-52); ALBUMIN 3.2 g/dL (3.5-5.0); ALKALINE PHOSPHATASE 83 U/L (38-126); ANION GAP 7 (5-19); ASPARTATE AMINO TRANSFERASE 16 U/L (14-36); BILIRUBIN,DIRECT 0.2 mg/dL (0.0-0.4); BILIRUBIN,TOTAL 0.9 mg/dL (0.2-1.3); BLOOD UREA NITROGEN 40 mg/dL (7-20); CALCIUM 8.6 mg/dL (8.4-10.2); CARBON DIOXIDE 30 mmol/L (22-30); CHLORIDE 100 mmol/L (98-107); GLUCOSE 173 mg/dL (75-110); POTASSIUM 4.4 mmol/L (3.6-5.0); TOTAL PROTEIN 5.5 g/dL (6.3-8.2)
[2018-10-27 07:08] LABS: ABSOLUTE LYMPHOCYTES# (MANUAL) 0.4 10^3/uL (0.5-4.7); ABSOLUTE MONOCYTES # (MANUAL) 0.3 10^3/uL (0.1-1.4); ABSOLUTE NEUTROPHILS# (MANUAL) 12.3 10^3/uL (1.7-8.2); ANISOCYTOSIS 1+; BAND NEUTROPHILS % (MANUAL) 1 % (3-5); BASOPHILS % (MANUAL) 0 % (0-2); EOSINOPHILS % (MANUAL) 0 % (0-6); LYMPHOCYTES % (MANUAL) 3 % (13-45); METAMYELOCYTES % (MANUAL) 1 % (0); MONOCYTES % (MANUAL) 2 % (3-13); PLATELET COMMENT ADEQUATE; SEGMENTED NEUTROPHILS % (MAN) 93 % (42-78); TOTAL CELLS COUNTED 100
[2018-10-27] MEDS: CLOPIDOGREL BISULFATE 75 MG TABLET PO SCH (10:49)
[2018-10-27] MEDS: FUROSEMIDE 20 MG TABLET PO SCH ×2 (10:49→17:28)
[2018-10-27] MEDS: SERTRALINE HCL 50 MG TABLET PO SCH (10:49)
[2018-10-27] MEDS: GUAIFENESIN 600 MG TABLET.SA PO SCH ×2 (10:49→21:21)
[2018-10-27] MEDS: CARVEDILOL 3.125 MG TABLET PO SCH ×2 (10:50→21:21)
[2018-10-27] MEDS: NORMAL SALINE 10 ML SDV (SCHEDULED) IV SCH ×2 (10:50→21:22)
[2018-10-27] MEDS: ASPIRIN 81 MG TABLET, ENT COATED PO SCH (10:50)
[2018-10-27] MEDS: METHYLPREDNISOLONE INJ 40 MG/1 ML SDV IV SCH ×2 (10:50→21:20)
[2018-10-27] MEDS: FLUTICASONE/SALMETEROL DISKUS 500-50 MCG/DOSE IH SCH ×2 (10:50→21:21)
[2018-10-27] MEDS: TIOTROPIUM BROMIDE DPI 5 CAP/KIT (18 MCG/CAP) IH SCH (10:51)
[2018-10-27] MEDS: SODIUM CHLORIDE NASAL SPRAY 44 ML NASL SCH ×2 (10:51→17:28)
[2018-10-27] MEDS: FLUTICASONE NASAL SPRAY 50 MCG/SPRY 120 SPRAY/16 GM NASL SCH ×2 (10:51→21:22)
--- NOTE | 2018-10-27 14:34 | PDOC PROGRESS REPORT ---
Subjective Progress Note for:: 10/27/18 Subjective:: Ms. Tamar Khan is 78-year-old female with a past medical history of atrial fibrillation was on Eliquis and amiodarone, CAD with recent stenting of the LAD at [facility] and recent influenza who presented with shortness of breath on 09/24/2018. Patient was admitted for possible new onset CHF versus HCAP. She had a CT of the chest showed pulmonary edema vs bilateral pneumonia vs ILD. She was started on diuretics and broad-spectrum antibiotics. She has had little progress in her pulmonary status with antibiotics and diuresis. She has been requiring BiPAP. 10/23/2018. No acute events overnight. No significant improvement since yesterday. Still remains dependent on BiPAP. Denies any chest pain, nausea, vomiting, diarrhea, constipation or any urinary symptoms. Patient has agreed to be transferred to [facility] to be evaluated by pulmonology. Had a chance to talk with Dr. Gurrola at [facility] who graciously accepted to transfer patient to [facility] for further care and management. Unfortunately they did not have any rooms available immediately but she is on the list to be transferred to [facility]. We will continue current supportive measures. 10/24/2018. No acute events overnight. Patient stating that she is feeling better than yesterday. Was able to tolerate nasal cannula for a while. Denies any chest pain, nausea, vomiting, diarrhea, constipation or any urinary symptoms. 10/25/2018. No acute events overnight. Not much improvement since yesterday. Patient is complaining of hoarse voice and sore throat. Denies any fever, chills, nausea, vomiting, diarrhea, constipation or any urinary symptoms. Patient still pending to be transferred to [facility]. [facility] was called today and they had stated that she is still on the list. 10/26/2018. No acute events overnight. Not much improvement since yesterday. Patient still complaining of hoarse voice and sore throat. Denies fever, chills, nausea, vomiting, diarrhea, constipation or any urinary symptoms. [facility] has been called still no beds available for transfer. 10/27/2018. No acute events overnight. Patient is complaining of hoarse voice, sore throat, burning chest pain. She thinks she might be developing pneumonia. Saturating high 90s 6 L FiO2 of 45% Alternating between BiPAP and nasal cannula. Unfortunately still being transferred to [facility]. [facility] was called and unfortunately there is no bed yet. Still in the waiting list. Denies any fever, chills, chest pain, nausea, vomiting, diarrhea, constipation or any urinary symptoms. Reason For Visit: PNEUMONIA,DIASTOLIC HF Physical Exam Vital Signs: Temp Pulse Resp BP Pulse Ox 98.2 F 60 17 126/57 H 95 10/27/18 11:24 10/27/18 13:54 10/27/18 13:54 10/27/18 11:24 10/27/18 13:54 Pulse Oximeter Continuous Start: 10/12/18 21:15 Freq: RTQ4 Status: Complete Protocol: Document 10/14/18 08:43 [facility] (Rec: 10/14/18 11:22 [facility] [id number]) Pulse Oximetry Assessment Equipment Usage Equipment Discontinued Continuous SpO2 Machine # 2 Intake & Output 10/26/18 10/27/18 10/28/18 06:59 06:59 06:59 Intake Total 550 936 Output Total 0 Balance 550 936 General appearance: PRESENT: no acute distress, well-developed, well-nourished Head exam: PRESENT: atraumatic, normocephalic Mouth exam: PRESENT: moist, tongue midline Throat exam: ABSENT: post pharyngeal erythema, tonsillar erythema, tonsillar exudate, tonsillogmegaly, other Respiratory exam: PRESENT: crackles, decreased breath sounds. ABSENT: rales, rhonchi, wheezes Cardiovascular exam: PRESENT: RRR. ABSENT: diastolic murmur, rubs, systolic mur mur GI/Abdominal exam: PRESENT: normal bowel sounds, soft. ABSENT: distended, guarding, mass, organolmegaly, rebound, tenderness Extremities exam: PRESENT: full ROM. ABSENT: calf tenderness, clubbing, pedal edema Neurological exam: PRESENT: alert, awake, oriented to person, oriented to place, oriented to time, oriented to situation, CN II-XII grossly intact. ABSENT: motor sensory deficit Skin exam: PRESENT: dry, intact, warm. ABSENT: cyanosis, rash Results Laboratory Results: 10/27/18 05:17 10/27/18 05:17 10/27/18 10/27/18 05:17 05:17 WBC 12.9 H RBC 3.44 L Hgb 10.3 L Hct 31.1 L MCV 90 MCH 29.8 MCHC 33.0 RDW 15.9 H Plt Count 289 Seg Neutrophils % Not Reportable Lymphocytes % Not Reportable Monocytes % Not Reportable Eosinophils % Not Reportable Basophils % Not Reportable Absolute Neutrophils Not Reportable Absolute Lymphocytes Not Reportable Absolute Monocytes Not Reportable Absolute Eosinophils Not Reportable Absolute Basophils Not Reportable Sodium 137.0 Potassium 4.4 Chloride 100 Carbon Dioxide 30 Anion Gap 7 BUN 40 H Creatinine 0.98 Est GFR ( Amer) > 60 Est GFR (Non-Af Amer) 55 L Glucose 173 H Calcium 8.6 Magnesium 2.5 H Total Bilirubin 0.9 AST 16 ALT 35 Alkaline Phosphatase 83 Total Protein 5.5 L Albumin 3.2 L 09/24/18 09/24/18 09/24/18 00:38 00:38 03:01 Creatine Kinase 37 CK-MB (CK-2) 1.67 Troponin I 0.074 0.078 NT-Pro-B Natriuret Pep 46496 H 09/25/18 09/25/18 09/25/18 10:13 10:13 19:16 Creatine Kinase 22 L CK-MB (CK-2) 1.63 Troponin I 0.074 0.073 NT-Pro-B Natriuret Pep 10/08/18 10/08/18 10/09/18 23:43 23:43 05:19 Creatine Kinase < 20 L < 20 L CK-MB (CK-2) 0.38 Troponin I 0.039 NT-Pro-B Natriuret Pep 10/09/18 10/09/18 10/09/18 05:19 11:49 11:49 Creatine Kinase < 20 L CK-MB (CK-2) 0.38 0.41 Troponin I 0.049 0.042 NT-Pro-B Natriuret Pep 10/12/18 10/12/18 10/18/18 11:05 11:05 05:55 Creatine Kinase < 20 L CK-MB (CK-2) 0.51 Troponin I 0.032 NT-Pro-B Natriuret Pep 5030 H 10/20/18 13:20 Creatine Kinase CK-MB (CK-2) Troponin I 0.038 NT-Pro-B Natriuret Pep Impressions: Guidance Fluoroscopy 10/10/18 00:00 IMPRESSION: SUCCESSFUL PLACEMENT OF A 5 FR DUAL LUMEN 42 CM PICC IN THE LEFT BASILIC VEIN. Interventional Vascular Procedure 10/10/18 00:00 IMPRESSION: SUCCESSFUL PLACEMENT OF A 5 FR DUAL LUMEN 42 CM PICC IN THE LEFT BASILIC VEIN. PICC Line Insertion 10/10/18 06:00 IMPRESSION: SUCCESSFUL PLACEMENT OF A 5 FR DUAL LUMEN 42 CM PICC IN THE LEFT BASILIC VEIN. Chest X-Ray 10/15/18 19:20 IMPRESSION: No change compared to previous chest films from 10/08/2018, 10/07/[address] 10/20/18 14:30 IMPRESSION: Small bilateral pleural effusions with bronchiectasis and bilateral interstitial and airspace opacities; differential considerations include interstitial drug-induced lung disease such as amiodarone toxicity, interstitial pneumonia, hypersensitivity pneumonitis. Assessment & Plan - Diagnosis (1) Acute and chronic respiratory failure with hypoxia Is this a current diagnosis for this admission?: Yes Plan: Persistent hypoxia. BiPAP dependent. 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 September 2018. 2D echo ejection fraction 55-60%. Suboptimal study. BNP on admission 90495 up from 399 on 04/23/2017. TSH 3.49. Troponins on this admission 0.0742-0.773 She has been empirically treated for HCAP/COPD exacerbation/pulmonary edema with no significant movement. Patient is having mild leukocytosis with bandemia and worsening cough. High risk for developing hospital-acquired pneumonia. Start on prophylactic levofloxacin. Sputum culture. Possibility of ILD versus amiodarone toxicity is being considered. Amiodarone d/keo. Was not able to get a high-resolution CT due to persistent shortness of breath but able to do high resolution CT on 10/21/2018 which was suggestive of drug induced lung injury supportive of amiodarone-toxicity in this clinical context (another DDx is ILD). Patient has been hesitant to be transferred to tertiary care for possible lung biopsy and further evaluation by a editor in chief, but she eventually consented to be transferred. Dr. Amish Mascorro had called [facility] in [place] on 10/22/2018 and discussed in length with [facility] Pulmonology, Dr. Blankenship. They recommend transf erring patient for further evaluation. On 10/23/2018 I called [facility] talk to Dr. Gurrola in length about the patient's condition who graciously accepted to transfer the patient under his care unfortunately no rooms available at this moment but she will be on the transfer list. Meanwhile will continue supplemental oxygen, BiPAP, nebs, IV steroids. (2) Atrial fibrillation Qualifiers: Atrial fibrillation type: paroxysmal Qualified Code(s): I48.0 - Paroxysmal atrial fibrillation Is this a current diagnosis for this admission?: Yes Plan: Controlled. Continue current meds. Initially Eliquis was held due to persistent epistaxis after counseling patient about the risk and benefit of anticoagulation she has decided not to continue anticoagulation because of the risk of bleeding and also her underlying history of recurrent falls and weakness. (3) Depression Qualifiers: Major depression recurrence: unspecified whether recurrent Is this a current diagnosis for this admission?: Yes Plan: Started on sertraline. TSH within normal limit. Follow-up with PCP for evaluation of the need for continuation of SSRIs (4) CAD (coronary artery disease) Is this a current diagnosis for this admission?: Yes Plan: Status post PCI stent placement x4 Last one at [place] September 2018. Continue aspirin, statins, Plavix, and beta-blockers. Outpatient cardiology follow-up. (5) Obstructive sleep apnea Is this a current diagnosis for this admission?: Yes Plan: Continue BiPAP. Pulmonary and outpatient nocturnal polysomnography. (6) Hypertension Qualifiers: Hypertension type: unspecified secondary hypertension Qualified Code(s): I15.9 - Secondary hypertension, unspecified Is this a current diagnosis for this admission?: Yes Plan: Normotensive. Continue current meds. Adjust meds as needed. Outpatient PCP follow-up. (7) Physical deconditioning Is this a current diagnosis for this admission?: Yes Plan: Continue PT. patient has been refusing to be transferred to SNF. Pending transfer to [facility] for further workup and management of her underlying persistent hypoxia. (8) Chronic intermittent steroid use Is this a current diagnosis for this admission?: Yes Plan: Patient has been on IV steroids on and off since admission for underlying hy poxic respiratory failure and would need to be tapered off slowly was suggestion has been made to stop her steroids.
[2018-10-27] MEDS: LEVOFLOXACIN 750 MG TABLET PO SCH (17:28)
[2018-10-27] MEDS: GABAPENTIN 300 MG CAPSULE PO SCH (17:28)
[2018-10-27] MEDS: ATORVASTATIN CALCIUM 40 MG TABLET PO SCH (21:21)
[2018-10-27] MEDS: ROPINIROLE HCL 2 MG TABLET PO SCH (21:22)
[2018-10-28] MEDS: LEVALBUTEROL HCL NEB 0.63 MG/3 ML AMPUL NEB SCH ×4 (02:22→19:48)
[2018-10-28] MEDS: FAMOTIDINE 20 MG TABLET PO SCH ×3 (05:26→21:17)
[2018-10-28 05:42] LABS: HEMATOCRIT 32.3 % (36.0-47.0); HEMOGLOBIN 10.8 g/dL (12.0-15.5); MEAN CORPUSCULAR HEMOGLOBIN 30.3 pg (27.0-33.4); MEAN CORPUSCULAR HGB CONC 33.3 g/dL (32.0-36.0); MEAN CORPUSCULAR VOLUME 91 fl (80-97); PLATELET COUNT 282 10^3/uL (150-450); RED BLOOD COUNT 3.55 10^6/uL (3.72-5.28); WHITE BLOOD COUNT 16.8 10^3/uL (4.0-10.5)
[2018-10-28 05:52] LABS: ALANINE AMINOTRANSFERASE 53 U/L (9-52); ALBUMIN 3.2 g/dL (3.5-5.0); ALKALINE PHOSPHATASE 79 U/L (38-126); ANION GAP 7 (5-19); ASPARTATE AMINO TRANSFERASE 26 U/L (14-36); BILIRUBIN,DIRECT 0.1 mg/dL (0.0-0.4); BILIRUBIN,TOTAL 1.3 mg/dL (0.2-1.3); BLOOD UREA NITROGEN 37 mg/dL (7-20); CALCIUM 8.5 mg/dL (8.4-10.2); CARBON DIOXIDE 30 mmol/L (22-30); CHLORIDE 101 mmol/L (98-107); GLUCOSE 140 mg/dL (75-110); POTASSIUM 4.4 mmol/L (3.6-5.0); SODIUM 138.3 mmol/L (137-145); TOTAL PROTEIN 5.6 g/dL (6.3-8.2)
[2018-10-28 06:06] LABS: ABSOLUTE LYMPHOCYTES# (MANUAL) 0.2 10^3/uL (0.5-4.7); ABSOLUTE MONOCYTES # (MANUAL) 0.8 10^3/uL (0.1-1.4); ABSOLUTE NEUTROPHILS# (MANUAL) 15.8 10^3/uL (1.7-8.2); BASOPHILS % (MANUAL) 0 % (0-2); EOSINOPHILS % (MANUAL) 0 % (0-6); LYMPHOCYTES % (MANUAL) 1 % (13-45); METAMYELOCYTES % (MANUAL) 2 % (0); MONOCYTES % (MANUAL) 5 % (3-13); SEGMENTED NEUTROPHILS % (MAN) 92 % (42-78); TOTAL CELLS COUNTED 100
[2018-10-28 06:07] LABS: ANISOCYTOSIS 1+; OVALOCYTES 1+; PLATELET COMMENT ADEQUATE; POIKILOCYTOSIS 1+; POLYCHROMASIA SLIGHT
[2018-10-28 06:43] LABS: ARTERIAL BLOOD BASE EXCESS 3.8 mmol/L; ARTERIAL BLOOD FIO2 45%; ARTERIAL BLOOD HCO3 27.9 mmol/L (20-24); ARTERIAL BLOOD O2 SATURATION 97.5 % (94-98); ARTERIAL BLOOD PCO2 39.9 mmHg (35-45); ARTERIAL BLOOD PH 7.46 (7.35-7.45); ARTERIAL BLOOD PO2 93.3 mmHg (80-100); ARTERIAL BLOOD TOTAL CO2 29.1 mmol/L (21-25)
--- NOTE | 2018-10-28 10:04 | PDOC PROGRESS REPORT ---
Subjective Progress Note for:: 10/28/18 Subjective:: Ms. Tamar Khan is 78-year-old female with a past medical history of atrial fibrillation was on Eliquis and amiodarone, CAD with recent stenting of the LAD at [facility] and recent influenza who presented with shortness of breath on 09/24/2018. Patient was admitted for possible new onset CHF versus HCAP. She had a CT of the chest showed pulmonary edema vs bilateral pneumonia vs ILD. She was started on diuretics and broad-spectrum antibiotics. She has had little progress in her pulmonary status with antibiotics and diuresis. She has been requiring BiPAP. 10/23/2018. No acute events overnight. No significant improvement since yesterday. Still remains dependent on BiPAP. Denies any chest pain, nausea, vomiting, diarrhea, constipation or any urinary symptoms. Patient has agreed to be transferred to [facility] to be evaluated by pulmonology. Had a chance to talk with Dr. Gurrola at [facility] who graciously accepted to transfer patient to [facility] for further care and management. Unfortunately they did not have any rooms available immediately but she is on the list to be transferred to [facility]. We will continue current supportive measures. 10/24/2018. No acute events overnight. Patient stating that she is feeling better than yesterday. Was able to tolerate nasal cannula for a while. Denies any chest pain, nausea, vomiting, diarrhea, constipation or any urinary symptoms. 10/25/2018. No acute events overnight. Not much improvement since yesterday. Patient is complaining of hoarse voice and sore throat. Denies any fever, chills, nausea, vomiting, diarrhea, constipation or any urinary symptoms. Patient still pending to be transferred to [facility]. [facility] was called today and they had stated that she is still on the list. 10/26/2018. No acute events overnight. Not much improvement since yesterday. Patient still complaining of hoarse voice and sore throat. Denies fever, chills, nausea, vomiting, diarrhea, constipation or any urinary symptoms. [facility] has been called still no beds available for transfer. 10/27/2018. No acute events overnight. Patient is complaining of hoarse voice, sore throat, burning chest pain. She thinks she might be developing pneumonia. Saturating high 90s 6 L FiO2 of 45% Alternating between BiPAP and nasal cannula. Unfortunately still being transferred to [facility]. [facility] was called and unfortunately there is no bed yet. Still in the waiting list. Denies any fever, chills, chest pain, nausea, vomiting, diarrhea, constipation or any urinary symptoms. 10/28/2018. No acute events overnight. Still complaining of hoarse voice and sore throat. Saturating in the high 90s on 5-6 L FiO2 45%. ABG shows improvement of hypoxia. PO2 90. Complaining of shortness of breath denies any fever, chills, nausea, vomiting, diarrhea, constipation or any urinary symptoms. Pending transfer to [facility]. Reason For Visit: PNEUMONIA,DIASTOLIC HF Physical Exam Vital Signs: Temp Pulse Resp BP Pulse Ox 98.1 F 68 18 112/46 L 96 10/28/18 07:50 10/28/18 07:50 10/28/18 07:50 10/28/18 07:50 10/28/18 07:50 Pulse Oximeter Continuous Start: 10/12/18 21:15 Freq: RTQ4 Status: Complete Protocol: Document 10/14/18 08:[address] [facility] (Rec: 10/14/18 11:[address] [facility] [id number]) Pulse Oximetry Assessment Equipment Usage Equipment Discontinued Continuous SpO2 Machine # 2 Intake & Output 10/27/18 10/28/18 10/29/18 06:59 06:59 06:59 Intake Total 936 Output Total 0 Balance 936 Weight 91.7 kg General appearance: PRESENT: mild distress, obese Head exam: PRESENT: atraumatic, normocephalic Respiratory exam: PRESENT: clear to auscultation maci. ABSENT: rales, rhonchi, wheezes Cardiovascular exam: PRESENT: RRR. ABSENT: diastolic murmur, rubs, systolic murmur GI/Abdominal exam: PRESENT: normal bowel sounds, soft. ABSENT: distended, guarding, mass, organolmegaly, rebound, tenderness Extremities exam: PRESENT: full ROM. ABSENT: calf tenderness, clubbing, pedal edema Neurological exam: PRESENT: alert, awake, oriented to person, oriented to place, oriented to time, oriented to situation, CN II-XII grossly intact. ABSENT: motor sensory deficit Results Laboratory Results: 10/28/18 05:30 10/28/18 05:30 10/28/18 10/28/1819 05:30 05:30 06:33 WBC 16.8 H RBC 3.55 L Hgb 10.8 L Hct 32.3 L MCV 91 MCH 30.3 MCHC 33.3 RDW 16.0 H Plt Count 282 Seg Neutrophils % Not Reportable Lymphocytes % Not Reportable Monocytes % Not Reportable Eosinophils % Not Reportable Basophils % Not Reportable Absolute Neutrophils Not Reportable Absolute Lymphocytes Not Reportable Absolute Monocytes Not Reportable Absolute Eosinophils Not Reportable Absolute Basophils Not Reportable Carbonic Acid 1.20 HCO3/H2CO3 Ratio 23:1 ABG pH 7.46 H ABG pCO2 39.9 ABG pO2 93.3 ABG HCO3 27.9 H ABG O2 Saturation 97.5 ABG Base Excess 3.8 FiO2 45% Sodium 138.3 Potassium 4.4 Chloride 101 Carbon Dioxide 30 Anion Gap 7 BUN 37 H Creatinine 0.91 Est GFR ( Amer) > 60 Est GFR (Non-Af Amer) 59 L Glucose 140 H Calcium 8.5 Total Bilirubin 1.3 AST 26 ALT 53 H Alkaline Phosphatase 79 Total Protein 5.6 L Albumin 3.2 L 09/24/18 09/24/18 09/24/18 00:38 00:38 03:01 Creatine Kinase 37 CK-MB (CK-2) 1.67 Troponin I 0.074 0.078 NT-Pro-B Natriuret Pep [id number] H 09/25/18 09/25/18 09/25/18 10:13 10:13 19:16 Creatine Kinase 22 L CK-MB (CK-2) 1.63 Troponin I 0.074 0.073 NT-Pro-B Natriuret Pep 10/08/18 10/08/18 10/09/18 23:43 23:43 05:19 Creatine Kinase < 20 L < 20 L CK-MB (CK-2) 0.38 Troponin I 0.039 NT-Pro-B Natriuret Pep 10/09/18 10/09/18 10/09/18 05:19 11:49 11:49 Creatine Kinase < 20 L CK-MB (CK-2) 0.38 0.41 Troponin I 0.049 0.042 NT-Pro-B Natriuret Pep 10/12/18 10/12/18 10/18/18 11:05 11:05 05:55 Creatine Kinase < 20 L CK-MB (CK-2) 0.51 Troponin I 0.032 NT-Pro-B Natriuret Pep 5030 H 10/20/18 13:20 Creatine Kinase CK-MB (CK-2) Troponin I 0.038 NT-Pro-B Natriuret Pep Impressions: Guidance Fluoroscopy 10/10/18 00:00 IMPRESSION: SUCCESSFUL PLACEMENT OF A 5 FR DUAL LUMEN 42 CM PICC IN THE LEFT BASILIC VEIN. Interventional Vascular Procedure 10/10/18 00:00 IMPRESSION: SUCCESSFUL PLACEMENT OF A 5 FR DUAL LUMEN 42 CM PICC IN THE LEFT BASILIC VEIN. PICC Line Insertion 10/10/18 06:00 IMPRESSION: SUCCESSFUL PLACEMENT OF A 5 FR DUAL LUMEN 42 CM PICC IN THE LEFT BASILIC VEIN. Chest X-Ray 10/15/18 19:20 IMPRESSION: No change compared to previous chest films from 10/08/2018, 10/07/[address] 10/20/18 14:30 IMPRESSION: Small bilateral pleural effusions with bronchiectasis and bilateral interstitial and airspace opacities; differential considerations include interstitial drug-induced lung disease such as amiodarone toxicity, interstitial pneumonia, hypersensitivity pneumonitis. Assessment & Plan - Diagnosis (1) Acute and chronic respiratory failure with hypoxia Is this a current diagnosis for this admission?: Yes Plan: Persistent hypoxia. BiPAP dependent. 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 September 2018. 2D echo ejection fraction 55-60%. Suboptimal study. BNP on admission 31668 up from 399 on 04/23/2017. TSH 3.49. Troponins on this admission 0.0742-0.773 She has been empirically treated for HCAP/COPD exacerbation/pulmonary edema with no significant movement. Patient is having mild leukocytosis with bandemia and worsening cough. High risk for developing hospital-acquired pneumonia. Start on prophylactic levofloxacin. Sputum culture. Possibility of ILD versus amiodarone toxicity is being considered. Amiodarone d/keo. Was not able to get a high-resolution CT due to persistent shortness of breath but able to do high resolution CT on 10/21/2018 which was suggestive of drug induced lung injury supportive of amiodarone-toxicity in this clinical context (another DDx is ILD). Patient has been hesitant to be transferred to tertiary care for possible lung biopsy and further evaluation by a cash specialist, but she eventually consented to be transferred. Dr. Amish Mascorro had called [facility] in [place] on 10/22/2018 and discussed in length with [facility] Pulmonology, Dr. Blankenship. They recommend transferring patient for further evaluation. On 10/23/2018 I called [facility] talk to Dr. Gurrola in length about the patient's condition who graciously accepted to transfer the patient under his care unfortunately no rooms available at this moment but she will be on the transfer list. Meanwhile will continue supplemental oxygen, BiPAP, nebs, IV steroids. (2) Atrial fibrillation Qualifiers: Atrial fibrillation type: paroxysmal Qualified Code(s): I48.0 - Paroxysmal atrial fibrillation Is this a current diagnosis for this admission?: Yes Plan: Controlled. Continue current meds. Initially Eliquis was held due to persistent epistaxis after counseling patient about the risk and benefit of anticoagulation she has decided not to continue anticoagulation because of the risk of bleeding and also her underlying history of recurrent falls and weakness. (3) Depression Qualifiers: Major depression recurrence: unspecified whether recurrent Is this a current diagnosis for this admission?: Yes Plan: Started on sertraline. TSH within normal limit. Follow-up with PCP for evaluation of the need for continuation of SSRIs (4) CAD (coronary artery disease) Is this a current diagnosis for this admission?: Yes Plan: Status post PCI stent placement x4 Last one at [facility] September 2018. Continue aspirin, statins, Plavix, and beta-blockers. Outpatient cardiology follow-up. (5) Obstructive sleep apnea Is this a current diagnosis for this admission?: Yes Plan: Continue BiPAP. Pulmonary and outpatient nocturnal polysomnography. (6) Hypertension Qualifiers: Hypertension type: unspecified secondary hypertension Qualified Code(s): I15.9 - Secondary hypertension, unspecified Is this a current diagnosis for this admission?: Yes Plan: Normotensive. Continue current meds. Adjust meds as needed. Outpatient PCP follow-up. (7) Physical deconditioning Is this a current diagnosis for this admission?: Yes Plan: Continue PT. patient has been refusing to be transferred to SNF. Pending transfer to [facility] for further workup and management of her underlying persistent hypoxia. (8) Chronic intermittent steroid use Is this a current diagnosis for this admission?: Yes Plan: Patient has been on IV steroids on and off since admission for underlying hypoxic respiratory failure and would need to be tapered off slowly was suggestion has been made to stop her steroids.
[2018-10-28] MEDS: FUROSEMIDE 20 MG TABLET PO SCH ×2 (10:14→18:30)
[2018-10-28] MEDS: METHYLPREDNISOLONE INJ 40 MG/1 ML SDV IV SCH ×2 (10:14→21:16)
[2018-10-28] MEDS: SERTRALINE HCL 50 MG TABLET PO SCH (10:15)
[2018-10-28] MEDS: ASPIRIN 81 MG TABLET, ENT COATED PO SCH (10:15)
[2018-10-28] MEDS: CLOPIDOGREL BISULFATE 75 MG TABLET PO SCH (10:15)
[2018-10-28] MEDS: GUAIFENESIN 600 MG TABLET.SA PO SCH ×2 (10:15→21:17)
[2018-10-28] MEDS: CARVEDILOL 3.125 MG TABLET PO SCH ×2 (10:15→21:18)
[2018-10-28] MEDS: FLUTICASONE NASAL SPRAY 50 MCG/SPRY 120 SPRAY/16 GM NASL SCH ×2 (10:17→21:19)
[2018-10-28] MEDS: NORMAL SALINE 10 ML SDV (SCHEDULED) IV SCH ×2 (10:18→21:18)
[2018-10-28] MEDS: SODIUM CHLORIDE NASAL SPRAY 44 ML NASL SCH ×2 (10:18→18:53)
[2018-10-28] MEDS: TIOTROPIUM BROMIDE DPI 5 CAP/KIT (18 MCG/CAP) IH SCH (10:23)
[2018-10-28] MEDS: FLUTICASONE/SALMETEROL DISKUS 500-50 MCG/DOSE IH SCH ×2 (10:24→21:17)
[2018-10-28] MEDS: LEVOFLOXACIN 750 MG TABLET PO SCH (18:29)
[2018-10-28] MEDS: GABAPENTIN 300 MG CAPSULE PO SCH (18:30)
[2018-10-28] MEDS: ROPINIROLE HCL 2 MG TABLET PO SCH (21:16)
[2018-10-28] MEDS: ATORVASTATIN CALCIUM 40 MG TABLET PO SCH (21:18)
[2018-10-29] MEDS: LEVALBUTEROL HCL NEB 0.63 MG/3 ML AMPUL NEB SCH ×4 (01:30→20:40)
[2018-10-29] MEDS: FAMOTIDINE 20 MG TABLET PO SCH ×3 (05:25→22:52)
[2018-10-29 06:05] LABS: HEMATOCRIT 31.2 % (36.0-47.0); HEMOGLOBIN 10.6 g/dL (12.0-15.5); MEAN CORPUSCULAR HEMOGLOBIN 30.6 pg (27.0-33.4); MEAN CORPUSCULAR HGB CONC 33.8 g/dL (32.0-36.0); MEAN CORPUSCULAR VOLUME 90 fl (80-97); PLATELET COUNT 243 10^3/uL (150-450); RED BLOOD COUNT 3.45 10^6/uL (3.72-5.28); RED CELL DISTRIBUTION WIDTH 15.9 % (11.5-14.0); WHITE BLOOD COUNT 13.6 10^3/uL (4.0-10.5)
[2018-10-29 06:38] LABS: ABSOLUTE LYMPHOCYTES# (MANUAL) 0.1 10^3/uL (0.5-4.7); ABSOLUTE NEUTROPHILS# (MANUAL) 13.5 10^3/uL (1.7-8.2); BASOPHILS % (MANUAL) 0 % (0-2); EOSINOPHILS % (MANUAL) 0 % (0-6); LYMPHOCYTES % (MANUAL) 1 % (13-45); MONOCYTES % (MANUAL) 0 % (3-13); SEGMENTED NEUTROPHILS % (MAN) 99 % (42-78); TOTAL CELLS COUNTED 100
[2018-10-29 06:39] LABS: ANISOCYTOSIS 1+; PLATELET COMMENT ADEQUATE; POLYCHROMASIA 1+
[2018-10-29] MEDS: MAG HYDROX/AL HYDROX/SIMETH SUSP 30 ML UDCUP PO PRN (08:44)
[2018-10-29] MEDS: GUAIFENESIN 600 MG TABLET.SA PO SCH ×2 (09:58→22:52)
[2018-10-29] MEDS: CARVEDILOL 3.125 MG TABLET PO SCH ×2 (09:58→22:52)
[2018-10-29] MEDS: SERTRALINE HCL 50 MG TABLET PO SCH (09:58)
[2018-10-29] MEDS: METHYLPREDNISOLONE INJ 40 MG/1 ML SDV IV SCH ×2 (09:58→22:53)
[2018-10-29] MEDS: FUROSEMIDE 20 MG TABLET PO SCH ×2 (09:58→17:42)
[2018-10-29] MEDS: ASPIRIN 81 MG TABLET, ENT COATED PO SCH (09:58)
[2018-10-29] MEDS: CLOPIDOGREL BISULFATE 75 MG TABLET PO SCH (09:58)
[2018-10-29] MEDS: TIOTROPIUM BROMIDE DPI 5 CAP/KIT (18 MCG/CAP) IH SCH (09:59)
[2018-10-29] MEDS: FLUTICASONE NASAL SPRAY 50 MCG/SPRY 120 SPRAY/16 GM NASL SCH ×2 (09:59→22:54)
[2018-10-29] MEDS: OXYMETAZOLINE HCL 0.05% NASAL SPRAY 15 ML BOTTLE NASL PRN (10:01)
[2018-10-29] MEDS: SODIUM CHLORIDE NASAL SPRAY 44 ML NASL SCH ×2 (10:01→17:42)
[2018-10-29] MEDS: FLUTICASONE/SALMETEROL DISKUS 500-50 MCG/DOSE IH SCH ×2 (10:01→22:53)
[2018-10-29] MEDS: NORMAL SALINE 10 ML SDV (SCHEDULED) IV SCH ×2 (10:02→22:55)
--- NOTE | 2018-10-29 10:50 | PDOC PROGRESS REPORT ---
Subjective Progress Note for:: 10/29/18 Subjective:: Ms. Tamar Khan is 78-year-old female with a past medical history of atrial fibrillation was on Eliquis and amiodarone, CAD with recent stenting of the LAD at [facility] and recent influenza who presented with shortness of breath on 09/24/2018. Patient was admitted for possible new onset CHF versus HCAP. She had a CT of the chest showed pulmonary edema vs bilateral pneumonia vs ILD. She was started on diuretics and broad-spectrum antibiotics. She has had little progress in her pulmonary status with antibiotics and diuresis. She has been requiring BiPAP. 10/23/2018. No acute events overnight. No significant improvement since yesterday. Still remains dependent on BiPAP. Denies any chest pain, nausea, vomiting, diarrhea, constipation or any urinary symptoms. Patient has agreed to be transferred to [facility] to be evaluated by pulmonology. Had a chance to talk with Dr. Gurrola at [facility] who graciously accepted to transfer patient to [facility] for further care and management. Unfortunately they did not have any rooms available immediately but she is on the list to be transferred to [facility]. We will continue current supportive measures. 10/24/2018. No acute events overnight. Patient stating that she is feeling better than yesterday. Was able to tolerate nasal cannula for a while. Denies any chest pain, nausea, vomiting, diarrhea, constipation or any urinary symptoms. 10/25/2018. No acute events overnight. Not much improvement since yesterday. Patient is complaining of hoarse voice and sore throat. Denies any fever, chills, nausea, vomiting, diarrhea, constipation or any urinary symptoms. Patient still pending to be transferred to [facility]. [facility] was called today and they had stated that she is still on the list. 10/26/2018. No acute events overnight. Not much improvement since yesterday. Patient still complaining of hoarse voice and sore throat. Denies fever, chills, nausea, vomiting, diarrhea, constipation or any urinary symptoms. [facility] has been called still no beds available for transfer. 10/27/2018. No acute events overnight. Patient is complaining of hoarse voice, sore throat, burning chest pain. She thinks she might be developing pneumonia. Saturating high 90s 6 L FiO2 of 45% Alternating between BiPAP and nasal cannula. Unfortunately still being transferred to [facility]. [facility] was called and unfortunately there is no bed yet. Still in the waiting list. Denies any fever, chills, chest pain, nausea, vomiting, diarrhea, constipation or any urinary symptoms. 10/28/2018. No acute events overnight. Still complaining of hoarse voice and sore throat. Saturating in the high 90s on 5-6 L FiO2 45%. ABG shows improvement of hypoxia. PO2 90. Complaining of shortness of breath denies any fever, chills, nausea, vomiting, diarrhea, constipation or any urinary symptoms. Pending transfer to [facility]. 10/29/2018. No acute events overnight. Patient complaining of diarrhea since yesterday, sore throat has improved. Saturating in the high 90s on 5-6 L nasal cannula FiO2 45%. On and off of BiPAP. Denies any pain, nausea, vomiting, constipation or any urinary symptoms. Pending transfer to [facility]. [facility] was called today unfortunately no rooms available. Reason For Visit: PNEUMONIA,DIASTOLIC HF Physical Exam Vital Signs: Temp Pulse Resp BP Pulse Ox 98.6 F 65 16 128/60 H 96 10/29/18 07:37 10/29/18 08:46 10/29/18 08:46 10/29/18 07:37 10/29/18 08:46 Pulse Oximeter Continuous Start: 10/12/18 21:15 Freq: RTQ4 Status: Complete Protocol: Document 10/14/18 08:43 [facility] (Rec: 10/14/18 11:22 [facility] [id number]) Pulse Oximetry Assessment Equipment Usage Equipment Discontinued Continuous SpO2 Machine # 2 Intake & Output 10/28/18 10/29/18 10/30/18 06:59 06:59 06:59 Weight 91.7 kg 87.9 kg General appearance: PRESENT: obese Head exam: PRESENT: atraumatic, normocephalic Respiratory exam: PRESENT: clear to auscultation maci. ABSENT: rales, rhonchi, wheezes GI/Abdominal exam: PRESENT: normal bowel sounds, soft. ABSENT: distended, gua rding, mass, organolmegaly, rebound, tenderness Extremities exam: PRESENT: full ROM. ABSENT: calf tenderness, clubbing, pedal edema Neurological exam: PRESENT: alert, awake, oriented to person, oriented to place, oriented to time, oriented to situation, CN II-XII grossly intact. ABSENT: motor sensory deficit Results Laboratory Results: 10/29/18 05:20 10/28/18 05:30 10/29/18 05:20 WBC 13.6 H RBC 3.45 L Hgb 10.6 L Hct 31.2 L MCV 90 MCH 30.6 MCHC 33.8 RDW 15.9 H Plt Count 243 Seg Neutrophils % Not Reportable Lymphocytes % Not Reportable Monocytes % Not Reportable Eosinophils % Not Reportable Basophils % Not Reportable Absolute Neutrophils Not Reportable Absolute Lymphocytes Not Reportable Absolute Monocytes Not Reportable Absolute Eosinophils Not Reportable Absolute Basophils Not Reportable 10/27/18 14:50 Throat Throat Culture - Final NORMAL VANESA 09/24/18 09/24/18 09/24/18 00:38 00:38 03:01 Creatine Kinase 37 CK-MB (CK-2) 1.67 Troponin I 0.074 0.078 NT-Pro-B Natriuret Pep [id number] H 09/25/18 09/25/18 09/25/18 10:13 10:13 19:16 Creatine Kinase 22 L CK-MB (CK-2) 1.63 Troponin I 0.074 0.073 NT-Pro-B Natriuret Pep 10/08/18 10/08/18 10/09/18 23:43 23:43 05:19 Creatine Kinase < 20 L < 20 L CK-MB (CK-2) 0.38 Troponin I 0.039 NT-Pro-B Natriuret Pep 10/09/18 10/09/18 10/09/18 05:19 11:49 11:49 Creatine Kinase < 20 L CK-MB (CK-2) 0.38 0.41 Troponin I 0.049 0.042 NT-Pro-B Natriuret Pep 10/12/18 10/12/18 10/18/18 11:05 11:05 05:55 Creatine Kinase < 20 L CK-MB (CK-2) 0.51 Troponin I 0.032 NT-Pro-B Natriuret Pep 5030 H 10/20/18 13:20 Creatine Kinase CK-MB (CK-2) Troponin I 0.038 NT-Pro-B Natriuret Pep Impressions: Guidance Fluoroscopy 10/10/18 00:00 IMPRESSION: SUCCESSFUL PLACEMENT OF A 5 FR DUAL LUMEN 42 CM PICC IN THE LEFT BASILIC VEIN. Interventional Vascular Procedure 10/10/18 00:00 IMPRESSION: SUCCESSFUL PLACEMENT OF A 5 FR DUAL LUMEN 42 CM PICC IN THE LEFT BASILIC VEIN. PICC Line Insertion 10/10/18 06:00 IMPRESSION: SUCCESSFUL PLACEMENT OF A 5 FR DUAL LUMEN 42 CM PICC IN THE LEFT BASILIC VEIN. Chest X-Ray 10/15/18 19:20 IMPRESSION: No change compared to previous chest films from 10/08/2018, 10/07/[address] 10/20/18 14:30 IMPRESSION: Small bilateral pleural effusions with bronchiectasis and bilateral interstitial and airspace opacities; differential considerations include interstitial drug-induced lung disease such as amiodarone toxicity, interstitial pneumonia, hypersensitivity pneumonitis. Assessment & Plan - Diagnosis (1) Acute and chronic respiratory failure with hypoxia Is this a current diagnosis for this admission?: Yes Plan: Persistent hypoxia. BiPAP dependent. 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 September 2018. 2D echo ejection fraction 55-60%. Suboptimal study. BNP on admission 61293 up from 399 on 04/23/2017. TSH 3.49. Troponins on this admission 0.0742-0.773 She has been empirically treated for HCAP/COPD exacerbation/pulmonary edema with no significant movement. Patient is having mild leukocytosis with bandemia and worsening cough. High risk for developing hospital-acquired pneumonia. Start on prophylactic levofloxacin. Sputum culture. Possibility of ILD versus amiodarone toxicity is being considered. Amiodarone d/keo. Was not able to get a high-resolution CT due to persistent shortness of breath but able to do high resolution CT on 10/21/2018 which was suggestive of drug induced lung injury supportive of amiodarone-toxicity in this clinical context (another DDx is ILD). Patient has been hesitant to be transferred to tertiary care for possible lung biopsy and further evaluation by a metallurgist process, but she eventually consented to be transferred. Dr. Amish Mascorro had called [facility] in [place] on 10/22/2018 and discussed in length with [facility] Pulmonology, Dr. Blankenship. They recommend transferring patient for further evaluation. On 10/23/2018 I called [facility] talk to Dr. Gurrola in length about the patient's condition who graciously accepted to transfer the patient under his care unfortunately no rooms available at this moment but she will be on the transfer list. Meanwhile will continue supplemental oxygen, BiPAP, nebs, IV steroids. (2) Atrial fibrillation Qualifiers: Atrial fibrillation type: paroxysmal Qualified Code(s): I48.0 - Paroxysmal atrial fibrillation Is this a current diagnosis for this admission?: Yes Plan: Controlled. Continue current meds. Initially Eliquis was held due to persistent epistaxis after counseling patient about the risk and benefit of anticoagulation she has decided not to continue anticoagulation because of the risk of bleeding and also her underlying history of recurrent falls and weakness. (3) Depression Qualifiers: Major depression recurrence: unspecified whether recurrent Is this a current diagnosis for this admission?: Yes Plan: Started on sertraline. TSH within normal limit. Follow-up with PCP for evaluation of the need for continuation of SSRIs (4) CAD (coronary artery disease) Is this a current diagnosis for this admission?: Yes Plan: Status post PCI stent placement x4 Last one at [facility] September 2018. Continue aspirin, statins, Plavix, and beta-blockers. Outpatient cardiology follow-up. (5) Obstructive sleep apnea Is this a current diagnosis for this admission?: Yes Plan: Continue BiPAP. Pulmonary and outpatient nocturnal polysomnography. (6) Hypertension Qualifiers: Hypertension type: unspecified secondary hypertension Qualified Code(s): I15.9 - Secondary hypertension, unspecified Is this a current diagnosis for this admission?: Yes Plan: Normotensive. Continue current meds. Adjust meds as needed. Outpatient PCP follow-up. (7) Physical deconditioning Is this a current diagnosis for this admission?: Yes Plan: Continue PT. patient has been refusing to be transferred to SNF. Pending transfer to [facility] for further workup and management of her underlying persistent hypoxia. (8) Chronic intermittent steroid use Is this a current diagnosis for this admission?: Yes Plan: Patient has been on IV steroids on and off since admission for underlying hypoxic respiratory failure and would need to be tapered off slowly was suggestion has been made to stop her steroids.
[2018-10-29] MEDS: GABAPENTIN 300 MG CAPSULE PO SCH (17:42)
[2018-10-29] MEDS: LEVOFLOXACIN 750 MG TABLET PO SCH (17:42)
[2018-10-29] MEDS: ATORVASTATIN CALCIUM 40 MG TABLET PO SCH (22:52)
[2018-10-29] MEDS: ROPINIROLE HCL 2 MG TABLET PO SCH (22:55)
[2018-10-30] MEDS: LEVALBUTEROL HCL NEB 0.63 MG/3 ML AMPUL NEB SCH ×4 (01:46→20:31)
[2018-10-30] MEDS: FAMOTIDINE 20 MG TABLET PO SCH ×3 (05:14→21:53)
[2018-10-30] MEDS: BENZOCAINE/MENTHOL SORE THROAT LOZENGE BUCCAL PRN (06:08)
[2018-10-30] MEDS: TIOTROPIUM BROMIDE DPI 5 CAP/KIT (18 MCG/CAP) IH SCH (09:41)
[2018-10-30] MEDS: FLUTICASONE/SALMETEROL DISKUS 500-50 MCG/DOSE IH SCH ×2 (09:42→21:55)
[2018-10-30] MEDS: CARVEDILOL 3.125 MG TABLET PO SCH ×2 (09:43→21:53)
[2018-10-30] MEDS: FUROSEMIDE 20 MG TABLET PO SCH ×2 (09:43→17:47)
[2018-10-30] MEDS: GUAIFENESIN 600 MG TABLET.SA PO SCH ×2 (09:43→21:53)
[2018-10-30] MEDS: ASPIRIN 81 MG TABLET, ENT COATED PO SCH (09:43)
[2018-10-30] MEDS: METHYLPREDNISOLONE INJ 40 MG/1 ML SDV IV SCH ×2 (09:43→21:54)
[2018-10-30] MEDS: CLOPIDOGREL BISULFATE 75 MG TABLET PO SCH (09:43)
[2018-10-30] MEDS: SERTRALINE HCL 50 MG TABLET PO SCH (09:43)
[2018-10-30] MEDS: NORMAL SALINE 10 ML SDV (SCHEDULED) IV SCH ×2 (09:44→21:54)
[2018-10-30] MEDS: SODIUM CHLORIDE NASAL SPRAY 44 ML NASL SCH ×2 (09:45→19:36)
[2018-10-30] MEDS: FLUTICASONE NASAL SPRAY 50 MCG/SPRY 120 SPRAY/16 GM NASL SCH ×2 (09:50→21:55)
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
[2018-10-30] MEDS: DICYCLOMINE HCL 10 MG CAPSULE PO PRN (16:06)
[2018-10-30] MEDS: LEVOFLOXACIN 750 MG TABLET PO SCH (17:47)
[2018-10-30] MEDS: GABAPENTIN 300 MG CAPSULE PO SCH (17:47)
[2018-10-30] MEDS: ATORVASTATIN CALCIUM 40 MG TABLET PO SCH (21:53)
[2018-10-30] MEDS: ROPINIROLE HCL 2 MG TABLET PO SCH (21:53)
[2018-10-31] MEDS: LEVALBUTEROL HCL NEB 0.63 MG/3 ML AMPUL NEB SCH ×4 (02:30→20:45)
[2018-10-31] MEDS: FAMOTIDINE 20 MG TABLET PO SCH ×3 (05:11→22:13)
[2018-10-31] MEDS: DICYCLOMINE HCL 10 MG CAPSULE PO PRN (10:04)
[2018-10-31] MEDS: FUROSEMIDE 20 MG TABLET PO SCH ×2 (10:05→17:55)
[2018-10-31] MEDS: METHYLPREDNISOLONE INJ 40 MG/1 ML SDV IV SCH ×2 (10:05→22:16)
[2018-10-31] MEDS: GUAIFENESIN 600 MG TABLET.SA PO SCH ×2 (10:05→22:13)
[2018-10-31] MEDS: TIOTROPIUM BROMIDE DPI 5 CAP/KIT (18 MCG/CAP) IH SCH (10:05)
[2018-10-31] MEDS: FLUTICASONE NASAL SPRAY 50 MCG/SPRY 120 SPRAY/16 GM NASL SCH ×2 (10:06→22:16)
[2018-10-31] MEDS: SERTRALINE HCL 50 MG TABLET PO SCH (10:06)
[2018-10-31] MEDS: CARVEDILOL 3.125 MG TABLET PO SCH ×2 (10:06→22:15)
[2018-10-31] MEDS: CLOPIDOGREL BISULFATE 75 MG TABLET PO SCH (10:06)
[2018-10-31] MEDS: ASPIRIN 81 MG TABLET, ENT COATED PO SCH (10:06)
[2018-10-31] MEDS: FLUTICASONE/SALMETEROL DISKUS 500-50 MCG/DOSE IH SCH ×2 (10:09→22:16)
[2018-10-31] MEDS: NORMAL SALINE 10 ML SDV (SCHEDULED) IV SCH ×2 (10:10→22:16)
[2018-10-31] MEDS: SODIUM CHLORIDE NASAL SPRAY 44 ML NASL SCH ×2 (10:10→17:55)
--- NOTE | 2018-10-31 17:51 | PDOC PROGRESS REPORT ---
Subjective Progress Note for:: 10/31/18 Subjective:: No adverse events overnight. No new complaints. Breathing is stable at rest on 6 L. She does seem to get a little short of breath when she talks, having to stop and catch her breath in the middle of sentences. Reason For Visit: PNEUMONIA,DIASTOLIC HF Physical Exam Vital Signs: Temp Pulse Resp BP Pulse Ox 99.4 F 64 18 150/68 H 92 10/31/18 15:28 10/31/18 15:28 10/31/18 15:28 10/31/18 15:28 10/31/18 15:28 Pulse Oximeter Continuous Start: 10/12/18 21:15 Freq: RTQ4 Status: Complete Protocol: Document 10/14/18 08:43 [facility] (Rec: 10/14/18 11:22 [facility] [id number]) Pulse Oximetry Assessment Equipment Usage Equipment Discontinued Continuous SpO2 Machine # 2 Intake & Output 10/30/18 10/31/18 11/01/18 06:59 06:59 06:59 Intake Total 552 286 327 Balance 552 286 327 Weight 87.6 kg General appearance: PRESENT: no acute distress, well-developed, well-nourished Respiratory exam: PRESENT: Fine dry crackles at the bases. ABSENT: Rhonchi, wheezes Cardiovascular exam: PRESENT: RRR. ABSENT: diastolic murmur, rubs, systolic murmur Pulses: PRESENT: normal dorsalis pedis pul GI/Abdominal exam: PRESENT: normal bowel sounds, soft. ABSENT: distended, guarding, mass, organolmegaly, rebound, tenderness Rectal exam: PRESENT: deferred Extremities exam: PRESENT: +1 edema Neurological exam: PRESENT: alert, awake, oriented to person, oriented to place, oriented to time, oriented to situation, CN II-XII grossly intact. ABSENT: motor sensory deficit Results Laboratory Results: 10/29/18 05:20 10/28/18 05:30 09/24/18 09/24/18 09/24/18 00:38 00:38 03:01 Creatine Kinase 37 CK-MB (CK-2) 1.67 Troponin I 0.074 0.078 NT-Pro-B Natriuret Pep 02609 H 09/25/18 09/25/18 09/25/18 10:13 10:13 19:16 Creatine Kinase 22 L CK-MB (CK-2) 1.63 Troponin I 0.074 0.073 NT-Pro-B Natriuret Pep 10/08/18 10/08/18 10/09/18 23:43 23:43 05:19 Creatine Kinase < 20 L < 20 L CK-MB (CK-2) 0.38 Troponin I 0.039 NT-Pro-B Natriuret Pep 10/09/18 10/09/18 10/09/18 05:19 11:49 11:49 Creatine Kinase < 20 L CK-MB (CK-2) 0.38 0.41 Troponin I 0.049 0.042 NT-Pro-B Natriuret Pep 10/12/18 10/12/18 10/18/18 11:05 11:05 05:55 Creatine Kinase < 20 L CK-MB (CK-2) 0.51 Troponin I 0.032 NT-Pro-B Natriuret Pep 5030 H 10/20/18 13:20 Creatine Kinase CK-MB (CK-2) Troponin I 0.038 NT-Pro-B Natriuret Pep Impressions: Guidance Fluoroscopy 10/10/18 00:00 IMPRESSION: SUCCESSFUL PLACEMENT OF A 5 FR DUAL LUMEN 42 CM PICC IN THE LEFT BASILIC VEIN. Interventional Vascular Procedure 10/10/18 00:00 IMPRESSION: SUCCESSFUL PLACEMENT OF A 5 FR DUAL LUMEN 42 CM PICC IN THE LEFT BASILIC VEIN. PICC Line Insertion 10/10/18 06:00 IMPRESSION: SUCCESSFUL PLACEMENT OF A 5 FR DUAL LUMEN 42 CM PICC IN THE LEFT BASILIC VEIN. Chest X-Ray 10/15/18 19:20 IMPRESSION: No change compared to previous chest films from 10/08/2018, 10/07/[address] 10/20/18 14:30 IMPRESSION: Small bilateral pleural effusions with bronchiectasis and bilateral interstitial and airspace opacities; differential considerations include interstitial drug-induced lung disease such as amiodarone toxicity, interstitial pneumonia, hypersensitivity pneumonitis. 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 Currently using O2 per nasal cannula to maintain SPO2 greater than 90%, currently set at 6 L. Awaiting transfer to [facility] for possible lung biopsy and further management. (2) Atrial fibrillation Qualifiers: Atrial fibrillation type: paroxysmal Qualified Code(s): I48.0 - Paroxysmal atrial fibrillation Is this a current diagnosis for this admission?: Yes Plan: Currently rate controlled with current medication regimen. Anticoagulation being held because of multiple recent falls, along with episodes of epistaxis. - Time Time Spent with patient: 25-34 minutes
[2018-10-31] MEDS: GABAPENTIN 300 MG CAPSULE PO SCH (17:54)
[2018-10-31] MEDS: LEVOFLOXACIN 750 MG TABLET PO SCH (17:55)
[2018-10-31] MEDS: ATORVASTATIN CALCIUM 40 MG TABLET PO SCH (22:13)
[2018-10-31] MEDS: ROPINIROLE HCL 2 MG TABLET PO SCH (22:15)
[2018-11-01] MEDS: LEVALBUTEROL HCL NEB 0.63 MG/3 ML AMPUL NEB SCH ×4 (02:18→20:36)
[2018-11-01] MEDS: FAMOTIDINE 20 MG TABLET PO SCH ×3 (06:09→21:59)
[2018-11-01] MEDS: METHYLPREDNISOLONE INJ 40 MG/1 ML SDV IV SCH ×2 (10:15→22:00)
[2018-11-01] MEDS: GUAIFENESIN 600 MG TABLET.SA PO SCH ×2 (10:16→21:58)
[2018-11-01] MEDS: ASPIRIN 81 MG TABLET, ENT COATED PO SCH (10:16)
[2018-11-01] MEDS: CARVEDILOL 3.125 MG TABLET PO SCH ×2 (10:16→21:55)
[2018-11-01] MEDS: CLOPIDOGREL BISULFATE 75 MG TABLET PO SCH (10:16)
[2018-11-01] MEDS: FUROSEMIDE 20 MG TABLET PO SCH ×2 (10:16→17:31)
[2018-11-01] MEDS: SERTRALINE HCL 50 MG TABLET PO SCH (10:16)
[2018-11-01] MEDS: FLUTICASONE NASAL SPRAY 50 MCG/SPRY 120 SPRAY/16 GM NASL SCH ×2 (10:17→21:57)
[2018-11-01] MEDS: FLUTICASONE/SALMETEROL DISKUS 500-50 MCG/DOSE IH SCH ×2 (10:18→21:55)
[2018-11-01] MEDS: SODIUM CHLORIDE NASAL SPRAY 44 ML NASL SCH ×2 (10:18→17:32)
[2018-11-01] MEDS: NORMAL SALINE 10 ML SDV (SCHEDULED) IV SCH ×2 (10:18→22:02)
[2018-11-01] MEDS: TIOTROPIUM BROMIDE DPI 5 CAP/KIT (18 MCG/CAP) IH SCH (10:50)
--- NOTE | 2018-11-01 17:29 | PDOC PROGRESS REPORT ---
Subjective Progress Note for:: 11/01/18 Subjective:: No adverse events overnight. No new complaints. Breathing is stable at rest on 6 L. She still gets a little short of breath when she talks, having to stop and catch her breath in the middle of sentences. Unable to tolerate exertion. Reason For Visit: PNEUMONIA,DIASTOLIC HF Physical Exam Vital Signs: Temp Pulse Resp BP Pulse Ox 98.8 F 79 18 130/60 H 99 11/01/18 15:07 11/01/18 15:07 11/01/18 15:07 11/01/18 15:07 11/01/18 15:07 Pulse Oximeter Continuous Start: 10/12/18 21:15 Freq: RTQ4 Status: Complete Protocol: Document 10/14/18 08:43 [facility] (Rec: 10/14/18 11:22 [facility] [id number]) Pulse Oximetry Assessment Equipment Usage Equipment Discontinued Continuous SpO2 Machine # 2 Intake & Output 10/31/18 11/01/18 11/02/18 06:59 06:59 06:59 Intake Total 286 645 355 Balance 286 645 355 General appearance: PRESENT: no acute distress, well-developed, well-nourished Respiratory exam: PRESENT: Fine dry crackles at the bases. ABSENT: Rhonchi, wheezes Cardiovascular exam: PRESENT: RRR. ABSENT: diastolic murmur, rubs, systolic murmur Pulses: PRESENT: normal dorsalis pedis pul GI/Abdominal exam: PRESENT: normal bowel sounds, soft. ABSENT: distended, guarding, mass, organolmegaly, rebound, tenderness Rectal exam: PRESENT: deferred Extremities exam: PRESENT: +1 edema Neurological exam: PRESENT: alert, awake, oriented to person, oriented to place, oriented to time, oriented to situation, CN II-XII grossly intact. ABSENT: motor sensory deficit Results Laboratory Results: 10/29/18 05:20 10/28/18 05:30 09/24/18 09/24/18 09/24/18 00:38 00:38 03:01 Creatine Kinase 37 CK-MB (CK-2) 1.67 Troponin I 0.074 0.078 NT-Pro-B Natriuret Pep 62183 H 09/25/18 09/25/18 09/25/18 10:13 10:13 19:16 Creatine Kinase 22 L CK-MB (CK-2) 1.63 Troponin I 0.074 0.073 NT-Pro-B Natriuret Pep 10/08/18 10/08/18 10/09/18 23:43 23:43 05:19 Creatine Kinase < 20 L < 20 L CK-MB (CK-2) 0.38 Troponin I 0.039 NT-Pro-B Natriuret Pep 10/09/18 10/09/18 10/09/18 05:19 11:49 11:49 Creatine Kinase < 20 L CK-MB (CK-2) 0.38 0.41 Troponin I 0.049 0.042 NT-Pro-B Natriuret Pep 10/12/18 10/12/18 10/18/18 11:05 11:05 05:55 Creatine Kinase < 20 L CK-MB (CK-2) 0.51 Troponin I 0.032 NT-Pro-B Natriuret Pep 5030 H 10/20/18 13:20 Creatine Kinase CK-MB (CK-2) Troponin I 0.038 NT-Pro-B Natriuret Pep Impressions: Guidance Fluoroscopy 10/10/18 00:00 IMPRESSION: SUCCESSFUL PLACEMENT OF A 5 FR DUAL LUMEN 42 CM PICC IN THE LEFT BASILIC VEIN. Interventional Vascular Procedure 10/10/18 00:00 IMPRESSION: SUCCESSFUL PLACEMENT OF A 5 FR DUAL LUMEN 42 CM PICC IN THE LEFT BASILIC VEIN. PICC Line Insertion 10/10/18 06:00 IMPRESSION: SUCCESSFUL PLACEMENT OF A 5 FR DUAL LUMEN 42 CM PICC IN THE LEFT BASILIC VEIN. Chest X-Ray 10/15/18 19:20 IMPRESSION: No change compared to previous chest films from 10/08/2018, 10/07/[address] 10/20/18 14:30 IMPRESSION: Small bilateral pleural effusions with bronchiectasis and bilateral interstitial and airspace opacities; differential considerations include interstitial drug-induced lung disease such as amiodarone toxicity, interstitial pneumonia, hypersensitivity pneumonitis. 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 Currently using O2 per nasal cannula to maintain SPO2 greater than 90%, currently set at 6 L. Awaiting transfer to [facility] for possible lung biopsy and further management. Currently on steroids. (2) Atrial fibrillation Qualifiers: Atrial fibrillation type: paroxysmal Qualified Code(s): I48.0 - Paroxysmal atrial fibrillation Is this a current diagnosis for this admission?: Yes Plan: Currently rate controlled with current medication regimen. Anticoagulation being held because of multiple recent falls, along with episodes of epistaxis. - Time Time Spent with patient: 15-24 minutes
[2018-11-01] MEDS: GABAPENTIN 300 MG CAPSULE PO SCH (17:31)
[2018-11-01] MEDS: LEVOFLOXACIN 750 MG TABLET PO SCH (17:31)
[2018-11-01] MEDS: ATORVASTATIN CALCIUM 40 MG TABLET PO SCH (21:58)
[2018-11-01] MEDS: ROPINIROLE HCL 2 MG TABLET PO SCH (22:00)
[2018-11-02] MEDS: LEVALBUTEROL HCL NEB 0.63 MG/3 ML AMPUL NEB SCH ×4 (02:28→20:22)
[2018-11-02] MEDS: ACETAMINOPHEN 325 MG TABLET PO PRN (02:54)
[2018-11-02] MEDS: FAMOTIDINE 20 MG TABLET PO SCH ×3 (06:07→21:33)
[2018-11-02] MEDS: CLOPIDOGREL BISULFATE 75 MG TABLET PO SCH (09:20)
[2018-11-02] MEDS: METHYLPREDNISOLONE INJ 40 MG/1 ML SDV IV SCH ×2 (09:20→21:34)
[2018-11-02] MEDS: GUAIFENESIN 600 MG TABLET.SA PO SCH ×2 (09:20→21:31)
[2018-11-02] MEDS: CARVEDILOL 3.125 MG TABLET PO SCH ×2 (09:20→21:30)
[2018-11-02] MEDS: ASPIRIN 81 MG TABLET, ENT COATED PO SCH (09:20)
[2018-11-02] MEDS: FLUTICASONE/SALMETEROL DISKUS 500-50 MCG/DOSE IH SCH ×2 (09:20→21:29)
[2018-11-02] MEDS: TIOTROPIUM BROMIDE DPI 5 CAP/KIT (18 MCG/CAP) IH SCH (09:21)
[2018-11-02] MEDS: NORMAL SALINE 10 ML SDV (SCHEDULED) IV SCH ×2 (09:21→21:32)
[2018-11-02] MEDS: SERTRALINE HCL 50 MG TABLET PO SCH (09:21)
[2018-11-02] MEDS: FUROSEMIDE 20 MG TABLET PO SCH ×2 (09:21→18:36)
[2018-11-02] MEDS: SODIUM CHLORIDE NASAL SPRAY 44 ML NASL SCH ×2 (09:22→18:36)
[2018-11-02] MEDS: FLUTICASONE NASAL SPRAY 50 MCG/SPRY 120 SPRAY/16 GM NASL SCH ×2 (09:23→21:30)
--- NOTE | 2018-11-02 16:23 | PDOC PROGRESS REPORT ---
Subjective Progress Note for:: 11/02/18 Subjective:: No adverse events overnight. No new complaints. She still sitting on around 6 L with oxygen saturations in the upper 90s at rest. She has very little tolerance for activity. She has had no real change in her clinical condition over the last few days. I spoke with pulmonology up at [facility], they did not think that she needed to be transferred up there anymore. She is no longer BiPAP dependent and is stable on nasal cannula, and is getting the prednisone. They d id say that she can follow-up with them in their interstitial lung disease clinic after she is discharged, but that probably would not be for a couple of months. When I went in with a discharge planning to speak with her today, and we talked to her about her discharge options. She cannot move very much without getting really short of breath, and she does not have anyone at home that can be with her during the day. However, the patient was refusing to go to a long term facility, saying "they just do not take care of you there." She got visibly upset talking about it, but she also acknowledged that she does not have the level of support available to her at home if she were to go home right now. Reason For Visit: PNEUMONIA,DIASTOLIC HF Physical Exam Vital Signs: Temp Pulse Resp BP Pulse Ox 98.0 F 65 18 138/84 H 94 11/02/18 07:28 11/02/18 14:23 11/02/18 14:23 11/02/18 07:28 11/02/18 14:23 Pulse Oximeter Continuous Start: 10/12/18 21:1 5 Freq: RTQ4 Status: Complete Protocol: Document 10/14/18 08:43 [facility] (Rec: 10/14/18 11:22 [facility] [id number]) Pulse Oximetry Assessment Equipment Usage Equipment Discontinued Continuous SpO2 Machine # 2 Intake & Output 11/01/18 11/02/18 11/03/18 06:59 06:59 06:59 Intake Total 645 1180 425 Balance 645 1180 425 Weight 87.6 kg General appearance: PRESENT: no acute distress, well-developed, well-nourished Respiratory exam: PRESENT: Fine dry crackles at the bases. ABSENT: Rhonchi, wheezes Cardiovascular exam: PRESENT: RRR. ABSENT: diastolic murmur, rubs, systolic murmur Pulses: PRESENT: normal dorsalis pedis pul GI/Abdominal exam: PRESENT: normal bowel sounds, soft. ABSENT: distended, guarding, mass, organolmegaly, rebound, tenderness Rectal exam: PRESENT: deferred Extremities exam: PRESENT: +1 edema Neurological exam: PRESENT: alert, awake, oriented to person, oriented to place, oriented to time, oriented to situation, CN II-XII grossly intact. ABSENT: motor sensory deficit Results Laboratory Results: 10/29/18 05:20 10/28/18 05:30 10/28/18 12:23 Blood Blood Culture - Final NO GROWTH IN 5 DAYS 10/28/18 09:30 Blood Blood Culture - Final NO GROWTH IN 5 DAYS 09/24/18 09/24/18 09/24/18 00:38 00:38 03:01 Creatine Kinase 37 CK-MB (CK-2) 1.67 Troponin I 0.074 0.078 NT-Pro-B Natriuret Pep 17770 H 09/25/18 09/25/18 09/25/18 10:13 10:13 19:16 Creatine Kinase 22 L CK-MB (CK-2) 1.63 Troponin I 0.074 0.073 NT-Pro-B Natriuret Pep 10/08/18 10/08/18 10/09/18 23:43 23:43 05:19 Creatine Kinase < 20 L < 20 L CK-MB (CK-2) 0.38 Troponin I 0.039 NT-Pro-B Natriuret Pep 10/09/18 10/09/18 10/09/18 05:19 11:49 11:49 Creatine Kinase < 20 L CK-MB (CK-2) 0.38 0.41 Troponin I 0.049 0.042 NT-Pro-B Natriuret Pep 10/12/18 10/12/18 10/18/18 11:05 11:05 05:55 Creatine Kinase < 20 L CK-MB (CK-2) 0.51 Troponin I 0.032 NT-Pro-B Natriuret Pep 5030 H 10/20/18 13:20 Creatine Kinase CK-MB (CK-2) Troponin I 0.038 NT-Pro-B Natriuret Pep Impressions: Guidance Fluoroscopy 10/10/18 00:00 IMPRESSION: SUCCESSFUL PLACEMENT OF A 5 FR DUAL LUMEN 42 CM PICC IN THE LEFT BASILIC VEIN. Interventional Vascular Procedure 10/10/18 00:00 IMPRESSION: SUCCESSFUL PLACEMENT OF A 5 FR DUAL LUMEN 42 CM PICC IN THE LEFT BASILIC VEIN. PICC Line Insertion 10/10/18 06:00 IMPRESSION: SUCCESSFUL PLACEMENT OF A 5 FR DUAL LUMEN 42 CM PICC IN THE LEFT BASILIC VEIN. Chest X-Ray 10/15/18 19:20 IMPRESSION: No change compared to previous chest films from 10/08/2018, 10/07/[address] 10/20/18 14:30 IMPRESSION: Small bilateral pleural effusions with bronchiectasis and bilateral interstitial and airspace opacities; differential considerations include interstitial drug-induced lung disease such as amiodarone toxicity, interstitial pneumonia, hypersensitivity pneumonitis. 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 Currently using O2 per nasal cannula to maintain SPO2 greater than 90%, currently set at 6 L. Transfer to [facility] no longer deemed necessary but can see flap curer. Currently on steroids, will likely be on prednisone for several months. We are trying to convince her to go to a long term facility, because going home is not a safe option for her right now. (2) Atrial fibrillation Qualifiers: Atrial fibrillation type: paroxysmal Qualified Code(s): I48.0 - Paroxysmal atrial fibrillation Is this a current diagnosis for this admission?: Yes Plan: Currently rate controlled with current medication regimen. Anticoagulation being held because of multiple recent falls, along with episodes of epistaxis. - Time Time Spent with patient: 25-34 minutes
[2018-11-02] MEDS: GABAPENTIN 300 MG CAPSULE PO SCH (18:36)
[2018-11-02] MEDS: LEVOFLOXACIN 750 MG TABLET PO SCH (18:36)
[2018-11-02] MEDS: ATORVASTATIN CALCIUM 40 MG TABLET PO SCH (21:31)
[2018-11-02] MEDS: ROPINIROLE HCL 2 MG TABLET PO SCH (21:33)
[2018-11-02] MEDS: DICYCLOMINE HCL 10 MG CAPSULE PO PRN (23:35)
[2018-11-03] MEDS: LEVALBUTEROL HCL NEB 0.63 MG/3 ML AMPUL NEB SCH ×4 (02:31→20:02)
[2018-11-03] MEDS: FAMOTIDINE 20 MG TABLET PO SCH ×3 (05:52→22:51)
[2018-11-03] MEDS: SODIUM CHLORIDE NASAL SPRAY 44 ML NASL SCH ×2 (10:46→17:39)
[2018-11-03] MEDS: FLUTICASONE NASAL SPRAY 50 MCG/SPRY 120 SPRAY/16 GM NASL SCH ×2 (10:46→22:46)
[2018-11-03] MEDS: GUAIFENESIN 600 MG TABLET.SA PO SCH ×2 (10:48→22:51)
[2018-11-03] MEDS: NORMAL SALINE 10 ML SDV (SCHEDULED) IV SCH ×2 (10:48→22:54)
[2018-11-03] MEDS: CLOPIDOGREL BISULFATE 75 MG TABLET PO SCH (10:48)
[2018-11-03] MEDS: FUROSEMIDE 20 MG TABLET PO SCH ×2 (10:48→17:39)
[2018-11-03] MEDS: CARVEDILOL 3.125 MG TABLET PO SCH ×2 (10:48→22:46)
[2018-11-03] MEDS: ASPIRIN 81 MG TABLET, ENT COATED PO SCH (10:49)
[2018-11-03] MEDS: SERTRALINE HCL 50 MG TABLET PO SCH (10:49)
[2018-11-03] MEDS: TIOTROPIUM BROMIDE DPI 5 CAP/KIT (18 MCG/CAP) IH SCH (10:49)
[2018-11-03] MEDS: FLUTICASONE/SALMETEROL DISKUS 500-50 MCG/DOSE IH SCH ×2 (10:49→22:44)
[2018-11-03] MEDS: METHYLPREDNISOLONE INJ 40 MG/1 ML SDV IV SCH ×2 (10:50→22:50)
[2018-11-03] MEDS: DICYCLOMINE HCL 10 MG CAPSULE PO PRN ×2 (10:50→22:50)
--- NOTE | 2018-11-03 17:01 | PDOC PROGRESS REPORT ---
Subjective Progress Note for:: 11/03/18 Subjective:: No adverse events overnight. No new complaints. She was sitting in the chair working on some martha. She told me that she talk to her daughter and she was agreeable to going to a rehab facility. Her daughter was checking out a place in [place] today. Reason For Visit: PNEUMONIA,DIASTOLIC HF Physical Exam Vital Signs: Temp Pulse Resp BP Pulse Ox 97.3 F 67 24 H 116/59 L 97 11/03/18 15:28 11/03/18 15:28 11/03/18 15:28 11/03/18 15:28 11/03/18 15:28 Pulse Oximeter Continuous Start: 10/12/18 21:15 Freq: RTQ4 Status: Complete Protocol: Document 10/14/18 08:43 [facility] (Rec: 10/14/18 11:22 [facility] [id number]) Pulse Oximetry Assessment Equipment Usage Equipment Discontinued Continuous SpO2 Machine # 2 Intake & Output 11/02/18 11/03/18 11/04/18 06:59 06:59 06:59 Intake Total 1180 425 177 Balance 1180 425 177 Weight 87.6 kg 86.3 kg General appearance: PRESENT: no acute distress, well-developed, well-nourished Respiratory exam: PRESENT: Fine dry crackles at the bases. ABSENT: Rhonchi, wheezes Cardiovascular exam: PRESENT: RRR. ABSENT: diastolic murmur, rubs, systolic murmur Pulses: PRESENT: normal dorsalis pedis pul GI/Abdominal exam: PRESENT: normal bowel sounds, soft. ABSENT: distended, guarding, mass, organolmegaly, rebound, tenderness Rectal exam: PRESENT: deferred Extremities exam: PRESENT: +1 edema Neurological exam: PRESENT: alert, awake, oriented to person, oriented to place, oriented to time, oriented to situation, CN II-XII grossly intact. ABSENT: motor sensory deficit Results Laboratory Results: 10/29/18 05:20 10/28/18 05:30 10/28/18 12:23 Blood Blood Culture - Final NO GROWTH IN 5 DAYS 09/24/18 09/24/18 09/24/18 00:38 00:38 03:01 Creatine Kinase 37 CK-MB (CK-2) 1.67 Troponin I 0.074 0.078 NT-Pro-B Natriuret Pep 93290 H 09/25/18 09/25/18 09/25/18 10:13 10:13 19:16 Creatine Kinase 22 L CK-MB (CK-2) 1.63 Troponin I 0.074 0.073 NT-Pro-B Natriuret Pep 10/08/18 10/08/18 10/09/18 23:43 23:43 05:19 Creatine Kinase < 20 L < 20 L CK-MB (CK-2) 0.38 Troponin I 0.039 NT-Pro-B Natriuret Pep 10/09/18 10/09/18 10/09/18 05:19 11:49 11:49 Creatine Kinase < 20 L CK-MB (CK-2) 0.38 0.41 Troponin I 0.049 0.042 NT-Pro-B Natriuret Pep 10/12/18 10/12/18 10/18/18 11:05 11:05 05:55 Creatine Kinase < 20 L CK-MB (CK-2) 0.51 Troponin I 0.032 NT-Pro-B Natriuret Pep 5030 H 10/20/18 13:20 Creatine Kinase CK-MB (CK-2) Troponin I 0.038 NT-Pro-B Natriuret Pep Impressions: Guidance Fluoroscopy 10/10/18 00:00 IMPRESSION: SUCCESSFUL PLACEMENT OF A 5 FR DUAL LUMEN 42 CM PICC IN THE LEFT BASILIC VEIN. Interventional Vascular Procedure 10/10/18 00:00 IMPRESSION: SUCCESSFUL PLACEMENT OF A 5 FR DUAL LUMEN 42 CM PICC IN THE LEFT BASILIC VEIN. PICC Line Insertion 10/10/18 06:00 IMPRESSION: SUCCESSFUL PLACEMENT OF A 5 FR DUAL LUMEN 42 CM PICC IN THE LEFT BA SILIC VEIN. Chest X-Ray 10/15/18 19:20 IMPRESSION: No change compared to previous chest films from 10/08/2018, 10/07/[address] 10/20/18 14:30 IMPRESSION: Small bilateral pleural effusions with bronchiectasis and bilateral interstitial and airspace opacities; differential considerations include interstitial drug-induced lung disease such as amiodarone toxicity, interstitial pneumonia, hypersensitivity pneumonitis. 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 Currently using O2 per nasal cannula to maintain SPO2 greater than 90%, currently set at 6 L. Transfer to [facility] no longer deemed necessary but can see evp operations. Currently on steroids, will likely be on prednisone for several months. She has decided she would be willing to go to a [facility] facility, and her daughter is investigating a place in [place]. (2) Atrial fibrillation Qualifiers: Atrial fibrillation type: paroxysmal Qualified Code(s): I48.0 - Paroxysmal atrial fibrillation Is this a current diagnosis for this admission?: Yes Plan: Currently rate controlled with current medication regimen. Anticoagulation being held because of multiple recent falls, along with episodes of epistaxis. - Time Time Spent with patient: 15-24 minutes
[2018-11-03] MEDS: GABAPENTIN 300 MG CAPSULE PO SCH (17:39)
[2018-11-03] MEDS: ROPINIROLE HCL 2 MG TABLET PO SCH (22:50)
[2018-11-03] MEDS: ATORVASTATIN CALCIUM 40 MG TABLET PO SCH (22:52)
[2018-11-04] MEDS: LEVALBUTEROL HCL NEB 0.63 MG/3 ML AMPUL NEB SCH ×4 (02:31→19:54)
[2018-11-04] MEDS: FAMOTIDINE 20 MG TABLET PO SCH (05:31)
[2018-11-04] MEDS: FLUTICASONE/SALMETEROL DISKUS 500-50 MCG/DOSE IH SCH ×2 (10:00→21:10)
[2018-11-04] MEDS: TIOTROPIUM BROMIDE DPI 5 CAP/KIT (18 MCG/CAP) IH SCH (10:01)
[2018-11-04] MEDS: FLUTICASONE NASAL SPRAY 50 MCG/SPRY 120 SPRAY/16 GM NASL SCH ×2 (10:04→21:12)
[2018-11-04] MEDS: NORMAL SALINE 10 ML SDV (SCHEDULED) IV SCH ×2 (10:04→21:19)
[2018-11-04] MEDS: CARVEDILOL 3.125 MG TABLET PO SCH ×2 (10:05→21:11)
[2018-11-04] MEDS: CLOPIDOGREL BISULFATE 75 MG TABLET PO SCH (10:05)
[2018-11-04] MEDS: SERTRALINE HCL 50 MG TABLET PO SCH (10:05)
[2018-11-04] MEDS: METHYLPREDNISOLONE INJ 40 MG/1 ML SDV IV SCH ×2 (10:05→21:16)
[2018-11-04] MEDS: SODIUM CHLORIDE NASAL SPRAY 44 ML NASL SCH (10:05)
[2018-11-04] MEDS: FUROSEMIDE 20 MG TABLET PO SCH ×2 (10:05→17:26)
[2018-11-04] MEDS: GUAIFENESIN 600 MG TABLET.SA PO SCH ×2 (10:05→21:13)
[2018-11-04] MEDS: ASPIRIN 81 MG TABLET, ENT COATED PO SCH (10:05)
[2018-11-04] MEDS ORDERED: SODIUM CHLORIDE NASAL SPRAY 44 ML NASL PRN (16:19)
--- NOTE | 2018-11-04 16:22 | PDOC PROGRESS REPORT ---
Subjective Progress Note for:: 11/04/18 Subjective:: No adverse events overnight. Clinical condition remains unchanged. She is having a little bit of nasal dryness from the nasal cannula. Eating and drinking without difficulty. Said she was able to sleep for about a 4-hour stretch without waking up last night. Reason For Visit: PNEUMONIA,DIASTOLIC HF Physical Exam Vital Signs: Temp Pulse Resp BP Pulse Ox 98.0 F 68 18 135/73 H 99 11/04/18 11:28 11/04/18 14:00 11/04/18 13:52 11/04/18 11:28 11/04/18 13:52 Pulse Oximeter Continuous Start: 10/12/18 21:15 Freq: RTQ4 Status: Complete Protocol: Document 10/14/18 08:43 [facility] (Rec: 10/14/18 11:22 [facility] [id number]) Pulse Oximetry Assessment Equipment Usage Equipment Discontinued Continuous SpO2 Machine # 2 Intake & Output 11/03/18 11/04/18 11/05/18 06:59 06:59 06:59 Intake Total 425 317 118 Balance 425 317 118 Weight 86.3 kg General appearance: PRESENT: no acute distress, well-developed, well-nourished Respiratory exam: PRESENT: Fine dry crackles at the bases. ABSENT: Rhonchi, wheezes Cardiovascular exam: PRESENT: RRR. ABSENT: diastolic murmur, rubs, systolic murmur Pulses: PRESENT: normal dorsalis pedis pul GI/Abdominal exam: PRESENT: normal bowel sounds, soft. ABSENT: distended, guarding, mass, organolmegaly, rebound, tenderness Rectal exam: PRESENT: deferred Extremities exam: PRESENT: +1 edema Neurological exam: PRESENT: alert, awake, oriented to person, oriented to place, oriented to time, oriented to situation, CN II-XII grossly intact. ABSENT: motor sensory deficit Results Laboratory Results: 10/29/18 05:20 10/28/18 05:30 09/24/18 09/24/18 09/24/18 00:38 00:38 03:01 Creatine Kinase 37 CK-MB (CK-2) 1.67 Troponin I 0.074 0.078 NT-Pro-B Natriuret Pep 60081 H 09/25/18 09/25/18 09/25/18 10:13 10:13 19:16 Creatine Kinase 22 L CK-MB (CK-2) 1.63 Troponin I 0.074 0.073 NT-Pro-B Natriuret Pep 10/08/18 10/08/18 10/09/18 23:43 23:43 05:19 Creatine Kinase < 20 L < 20 L CK-MB (CK-2) 0.38 Troponin I 0.039 NT-Pro-B Natriuret Pep 10/09/18 10/09/18 10/09/18 05:19 11:49 11:49 Creatine Kinase < 20 L CK-MB (CK-2) 0.38 0.41 Troponin I 0.049 0.042 NT-Pro-B Natriuret Pep 10/12/18 10/12/18 10/18/18 11:05 11:05 05:55 Creatine Kinase < 20 L CK-MB (CK-2) 0.51 Troponin I 0.032 NT-Pro-B Natriuret Pep 5030 H 10/20/18 13:20 Creatine Kinase CK-MB (CK-2) Troponin I 0.038 NT-Pro-B Natriuret Pep Impressions: Guidance Fluoroscopy 10/10/18 00:00 IMPRESSION: SUCCESSFUL PLACEMENT OF A 5 FR DUAL LUMEN 42 CM PICC IN THE LEFT BASILIC VEIN. Interventional Vascular Procedure 10/10/18 00:00 IMPRESSION: SUCCESSFUL PLACEMENT OF A 5 FR DUAL LUMEN 42 CM PICC IN THE LEFT BASILIC VEIN. PICC Line Insertion 10/10/18 06:00 IMPRESSION: SUCCESSFUL PLACEMENT OF A 5 FR DUAL LUMEN 42 CM PICC IN THE LEFT BASILIC VEIN. Chest X-Ray 10/15/18 19:20 IMPRESSION: No change compared to previous chest films from 10/08/2018, 10/07/[address] 10/20/18 14:30 IMPRESSION: Small bilateral pleural effusions with bronchiectasis and bilateral interstitial and airspace opacities; differential considerations include interstitial drug-induced lung disease such as amiodarone toxicity, interstitial pneumonia, hypersensitivity pneumonitis. 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 Currently using O2 per nasal cannula to maintain SPO2 greater than 90%, currently set at 6 L. Transfer to [facility] no longer deemed necessary but can see electrical power station technician. Currently on steroids, will likely be on prednisone for several months. She has decided she would be willing to go to a alf facility, and her daughter is investigating a place in [place]. (2) Atrial fibrillation Qualifiers: Atrial fibrillation type: paroxysmal Qualified Code(s): I48.0 - Paroxysmal atrial fibrillation Is this a current diagnosis for this admission?: Yes Plan: Currently rate controlled with current medication regimen. Anticoagulation being held because of multiple recent falls, along with episodes of epistaxis. - Time Time Spent with patient: 15-24 minutes
[2018-11-04] MEDS: GABAPENTIN 300 MG CAPSULE PO SCH (17:27)
[2018-11-04] MEDS: ATORVASTATIN CALCIUM 40 MG TABLET PO SCH (21:14)
[2018-11-04] MEDS: ROPINIROLE HCL 2 MG TABLET PO SCH (21:15)
[2018-11-04] MEDS: MAG HYDROX/AL HYDROX/SIMETH SUSP 30 ML UDCUP PO PRN (21:18)
[2018-11-05] MEDS: LEVALBUTEROL HCL NEB 0.63 MG/3 ML AMPUL NEB SCH ×4 (02:21→20:17)
[2018-11-05] MEDS: FLUTICASONE/SALMETEROL DISKUS 500-50 MCG/DOSE IH SCH ×2 (09:30→22:26)
[2018-11-05] MEDS: FLUTICASONE NASAL SPRAY 50 MCG/SPRY 120 SPRAY/16 GM NASL SCH ×2 (09:31→22:29)
[2018-11-05] MEDS: ASPIRIN 81 MG TABLET, ENT COATED PO SCH (09:31)
[2018-11-05] MEDS: CARVEDILOL 3.125 MG TABLET PO SCH ×2 (09:31→22:29)
[2018-11-05] MEDS: CLOPIDOGREL BISULFATE 75 MG TABLET PO SCH (09:32)
[2018-11-05] MEDS: METHYLPREDNISOLONE INJ 40 MG/1 ML SDV IV SCH ×2 (09:32→22:26)
[2018-11-05] MEDS: NORMAL SALINE 10 ML SDV (SCHEDULED) IV SCH ×2 (09:32→22:27)
[2018-11-05] MEDS: FUROSEMIDE 20 MG TABLET PO SCH ×2 (09:32→17:44)
[2018-11-05] MEDS: GUAIFENESIN 600 MG TABLET.SA PO SCH ×2 (09:32→22:26)
[2018-11-05] MEDS: TIOTROPIUM BROMIDE DPI 5 CAP/KIT (18 MCG/CAP) IH SCH (09:32)
[2018-11-05] MEDS: SERTRALINE HCL 50 MG TABLET PO SCH (09:33)
[2018-11-05] MEDS: GABAPENTIN 300 MG CAPSULE PO SCH (17:44)
--- NOTE | 2018-11-05 20:20 | PDOC PROGRESS REPORT ---
Subjective Progress Note for:: 11/05/18 Subjective:: No adverse events overnight. No new complaints. Vital signs remained stable. She is eating and drink without difficulty. Still gets short of breath with exertion. Fairly comfortable at rest. Reason For Visit: PNEUMONIA,DIASTOLIC HF Physical Exam Vital Signs: Temp Pulse Resp BP Pulse Ox 98.2 F 75 16 121/60 96 11/05/18 16:02 11/05/18 19:00 11/05/18 16:02 11/05/18 16:02 11/05/18 16:02 Pulse Oximeter Continuous Start: 10/12/18 21:15 Freq: RTQ4 Status: Complete Protocol: Document 10/14/18 08:43 [facility] (Rec: 10/14/18 11:22 [facility] [id number]) Pulse Oximetry Assessment Equipment Usage Equipment Discontinued Continuous SpO2 Machine # 2 Intake & Output 11/04/18 11/05/18 11/06/18 06:59 06:59 06:59 Intake Total 317 476 651 Output Total 900 Balance 317 -424 651 General appearance: PRESENT: no acute distress, well-developed, well-nourished Respiratory exam: PRESENT: Fine dry crackles at the bases. ABSENT: Rhonchi, wheezes Cardiovascular exam: PRESENT: RRR. ABSENT: diastolic murmur, rubs, systolic murmur Pulses: PRESENT: normal dorsalis pedis pul GI/Abdominal exam: PRESENT: normal bowel sounds, soft. ABSENT: distended, guarding, mass, organolmegaly, rebound, tenderness Rectal exam: PRESENT: deferred Extremities exam: PRESENT: +1 edema Neurological exam: PRESENT: alert, awake, oriented to person, oriented to place, oriented to time, oriented to situation, CN II-XII grossly intact. ABSENT: motor sensory deficit Results Laboratory Results: 10/29/18 05:20 10/28/18 05:30 09/24/18 09/24/18 09/24/18 00:38 00:38 03:01 Creatine Kinase 37 CK-MB (CK-2) 1.67 Troponin I 0.074 0.078 NT-Pro-B Natriuret Pep 25905 H 09/25/18 09/25/18 09/25/18 10:13 10:13 19:16 Creatine Kinase 22 L CK-MB (CK-2) 1.63 Troponin I 0.074 0.073 NT-Pro-B Natriuret Pep 10/08/18 10/08/18 10/09/18 23:43 23:43 05:19 Creatine Kinase < 20 L < 20 L CK-MB (CK-2) 0.38 Troponin I 0.039 NT-Pro-B Natriuret Pep 10/09/18 10/09/18 10/09/18 05:19 11:49 11:49 Creatine Kinase < 20 L CK-MB (CK-2) 0.38 0.41 Troponin I 0.049 0.042 NT-Pro-B Natriuret Pep 10/12/18 10/12/18 10/18/18 11:05 11:05 05:55 Creatine Kinase < 20 L CK-MB (CK-2) 0.51 Troponin I 0.032 NT-Pro-B Natriuret Pep 5030 H 10/20/18 13:20 Creatine Kinase CK-MB (CK-2) Troponin I 0.038 NT-Pro-B Natriuret Pep Impressions: Guidance Fluoroscopy 10/10/18 00:00 IMPRESSION: SUCCESSFUL PLACEMENT OF A 5 FR DUAL LUMEN 42 CM PICC IN THE LEFT BASILIC VEIN. Interventional Vascular Procedure 10/10/18 00:00 IMPRESSION: SUCCESSFUL PLACEMENT OF A 5 FR DUAL LUMEN 42 CM PICC IN THE LEFT BASILIC VEIN. PICC Line Insertion 10/10/18 06:00 IMPRESSION: SUCCESSFUL PLACEMENT OF A 5 FR DUAL LUMEN 42 CM PICC IN THE LEFT BASILIC VEIN. Chest X-Ray 10/15/18 19:20 IMPRESSION: No change compared to previous chest films from 10/08/2018, 10/07/[address] 10/20/18 14:30 IMPRESSION: Small bilateral pleural effusions with bronchiectasis and bilateral interstitial and airspace opacities; differential considerations include interstitial drug-induced lung disease such as amiodarone toxicity, interstitial pneumonia, hypersensitivity pneumonitis. 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 Currently using O2 per nasal cannula to maintain SPO2 greater than 90%, currently set at 6 L. Transfer to [facility] no longer deemed necessary but can see r d manager. Currently on steroids, will likely be on prednisone for several months. She has decided she would be willing to go to a alf facility, and her daughter is investigating a place in [place]. She may be able to go as soon as tomorrow. (2) Atrial fibrillation Qualifiers: Atrial fibrillation type: paroxysmal Qualified Code(s): I48.0 - Paroxysmal atrial fibrillation Is this a current diagnosis for this admission?: Yes Plan: Currently rate controlled with current medication regimen. Anticoagulation being held because of multiple recent falls, along with episodes of epistaxis. - Time Time Spent with patient: 15-24 minutes
--- NOTE | 2018-11-05 20:32 | PDOC TRANSFER SUMMARY ---
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 Amiodarone has been withdrawn. She is been put on a course of steroids. She was BiPAP dependent for quite some time, now her oxygen saturations are stable on about 6 L per nasal cannula. She was initially going to be transferred to [facility], but no better opened up. I spoke with the hat cleaner at [facility] a few days ago who did not think she still need to be transferred, but did recommend that she follow-up with them in their interstitial lung disease clinic once she is released from long term facility. (2) Atrial fibrillation Is this a current diagnosis for this admission?: Yes Summary: She had been on amiodarone which was discontinued as noted above. In the hospital, she is been on metoprolol and diltiazem and has had good rate control. - Additional Information Resuscitation Status: Full Code Discharge Diet: Cardiac Discharge Activity: Activity As Tolerated, Balance Activity w/Rest, Weigh Daily Home Medications: Activated Charcoal [Charcocaps] 520 mg PO DAILYP PRN 09/24/18 Amiodarone HCl [Cordarone 200 mg Tablet] 400 mg PO [id number] MDD 1-20,1-21,1-22,1-23 09/24/18 Amiodarone HCl [Pacerone] 200 mg PO DAILY MDD AFTER 400MG FINISHED 09/24/18 Apixaban [Eliquis 5 mg Tablet] 5 mg PO Q12 09/24/18 Aspirin [Adult Aspirin] 81 mg PO DAILY 09/24/18 Atorvastatin Calcium [Lipitor 40 mg Tablet] 40 mg PO QHS 09/24/18 Calcium Carbonate/Vitamin D3 [Oyster Shell 500-Vit D3 200 Tb] 1 tab PO MEALS 09/24/18 Celecoxib [Celebrex 200 mg Capsule] 200 mg PO DAILY 09/24/18 Clopidogrel Bisulfate [Plavix 75 mg Tablet] 75 mg PO DAILY 09/24/18 Gabapentin [Neurontin] 600 mg PO QPM 09/24/18 Ipratropium/Albuterol Sulfate [Combivent Respimat 4 gm Mdi] 1 puff IH QID 09/24/18 Prednisone [Deltasone] 40 mg PO [id number] 09/24/18 Ranitidine HCl [Zantac 150 mg Tablet] 150 mg PO BID 09/24/18 Ropinirole HCl [Requip] 4 mg PO QHS 09/24/18 History of Present Illness Admission Date/PCP: 09/24/18 04:27 TAQUERIA RICHARDS MD History of Present Illness: BENJI MCGEE is a 78 year old female with a past medical history of sleep apnea, hypothyroidism, hypertension, coronary artery disease with stent revision 7 days ago at [facility] where she was admitted with chest pain. During her admission she was also diagnosed with influenza pneumonia and subsequently discharged 5 days ago with Augmentin. She complains of worsening shortness of breath and nonproductive cough prompting evaluation emergency room where she is found to have bilateral infiltrates, leukocytosis of 17,000, and a chest CT suggestive of pulmonary edema in addition to pneumonia. She is started on BiPAP, Lasix, empiric antibiotics and referred to the hospitalist for admission. Patient admits to noncompliance with BiPAP at home and is unclear whether or not she filled her prescription for Augmentin. Hospital Course Hospital Course: She was initially treated for pneumonia with antibiotics. She did not really have much improvement, and cardiology recommended stopping the amiodarone. She progressed to being BiPAP dependent, and required BiPAP support off and on for several weeks. He was eventually decided that her chest had more the appearance of interstitial lung disease, and it was thought that it was possibly due to her amiodarone. Her rate has been controlled off amiodarone with metoprolol and diltiazem. Her Eliquis has been held because of multiple falls by history, and also because she had a couple of episodes of epistaxis that were difficult to control. At one point were going to try to transfer her to [facility], but the bed never opened up for a couple weeks. I spoke with the hat cleaner at [facility] who did not think she needed transfer, but did recommend she follow-up with them in their interstitial lung disease clinic once she is able to come out of the long term facility. The patient was very resistant to going initially, but ultimately she realized how debilitated she was, and that she was not going to be able to go home because resources were not in place for her to be cared for at home considering her lack of mobility and lack of enough people to be able to stay with her during the day. Eventually she was no longer BiPAP dependent has been pretty stable on about 6 L per nasal cannula. Her daughter has been looking at places for her to go, and seems to have settled on [place]. Confirmation is pending at this time, but we anticipate she will be able to go there in the next day or 2. She will need to be on an extended course of prednisone. Physical Exam Vital Signs: Temp Pulse Resp BP Pulse Ox 98.2 F 75 16 121/60 96 11/05/18 16:02 11/05/18 19:00 11/05/18 16:02 11/05/18 16:02 11/05/18 16:02 Pulse Oximeter Continuous Start: 10/12/18 21:15 Freq: RTQ4 Status: Complete Protocol: Document 10/14/18 08:43 [facility] (Rec: 10/14/18 11:22 [facility] [id number]) Pulse Oximetry Assessment Equipment Usage Equipment Discontinued Continuous SpO2 Machine # 2 Intake & Output 11/04/18 11/05/18 11/06/18 06:59 06:59 06:59 Intake Total 317 476 651 Output Total 900 Balance 317 -424 651 General appearance: PRESENT: no acute distress, well-developed, well-nourished Respiratory exam: PRESENT: Fine dry crackles at the bases. ABSENT: Rhonchi, wheezes Cardiovascular exam: PRESENT: RRR. ABSENT: diastolic murmur, rubs, systolic murmur Pulses: PRESENT: normal dorsalis pedis pul GI/Abdominal exam: PRESENT: normal bowel sounds, soft. ABSENT: distended, guarding, mass, organolmegaly, rebound, tenderness Rectal exam: PRESENT: deferred Extremities exam: PRESENT: +1 edema Neurological exam: PRESENT: alert, awake, oriented to person, oriented to place, oriented to time, oriented to situation, CN II-XII grossly intact. ABSENT: motor sensory deficit Results Laboratory Results: 10/29/18 05:20 10/28/18 05:30 09/24/18 09/24/18 09/24/18 00:38 00:38 03:01 Creatine Kinase 37 CK-MB (CK-2) 1.67 Troponin I 0.074 0.078 NT-Pro-B Natriuret Pep 78244 H 09/25/18 09/25/18 09/25/18 10:13 10:13 19:16 Creatine Kinase 22 L CK-MB (CK-2) 1.63 Troponin I 0.074 0.073 NT-Pro-B Natriuret Pep 10/08/18 10/08/18 10/09/18 23:43 23:43 05:19 Creatine Kinase < 20 L < 20 L CK-MB (CK-2) 0.38 Troponin I 0.039 NT-Pro-B Natriuret Pep 10/09/18 10/09/18 10/09/18 05:19 11:49 11:49 Creatine Kinase < 20 L CK-MB (CK-2) 0.38 0.41 Troponin I 0.049 0.042 NT-Pro-B Natriuret Pep 10/12/18 10/12/18 10/18/18 11:05 11:05 05:55 Creatine Kinase < 20 L CK-MB (CK-2) 0.51 Troponin I 0.032 NT-Pro-B Natriuret Pep 5030 H 10/20/18 13:20 Creatine Kinase CK-MB (CK-2) Troponin I 0.038 NT-Pro-B Natriuret Pep Impressions: Guidance Fluoroscopy 10/10/18 00:00 IMPRESSION: SUCCESSFUL PLACEMENT OF A 5 FR DUAL LUMEN 42 CM PICC IN THE LEFT B ASILIC VEIN. Interventional Vascular Procedure 10/10/18 00:00 IMPRESSION: SUCCESSFUL PLACEMENT OF A 5 FR DUAL LUMEN 42 CM PICC IN THE LEFT BASILIC VEIN. PICC Line Insertion 10/10/18 06:00 IMPRESSION: SUCCESSFUL PLACEMENT OF A 5 FR DUAL LUMEN 42 CM PICC IN THE LEFT BASILIC VEIN. Chest X-Ray 10/15/18 19:20 IMPRESSION: No change compared to previous chest films from 10/08/2018, 10/07/[address] 10/20/18 14:30 IMPRESSION: Small bilateral pleural effusions with bronchiectasis and bilateral interstitial and airspace opacities; differential considerations include interstitial drug-induced lung disease such as amiodarone toxicity, interstitial pneumonia, hypersensitivity pneumonitis. Transfer Plan - Disposition Transfer Plan: Transfer to long term rehab for physical therapy. May also wind up [facility] cardiopulmonary rehab as an outpatient. She would like to have a portable oxygen concentrator when she leaves the long term facility. She will need to be on an extended course of steroids, for 2-6 months depending on her response. She will need follow-up arranged at the [facility] interstitial lung disease clinic. - Time Spent with Patient Time spent with patient: Greater than 30 Minutes Qualifiers - * PATIENT BEING DISCHARGED WITH ANY OF THE FOLLOWING DIAGNOSIS: No
--- NOTE | 2018-11-05 22:08 | PROGRESS NOTE E ---
Progress Note NAME: BENJI MCGEE : 1940 AGE: 77Y DATE: 11/05/2018 ROOM: 321 SUBJECTIVE: Patient is an 78-year-old female who came in with increasing shortness of breath, treated for interstitial lung disease, pulmonary edema and pneumonia, and possible amiodarone toxicity. Amiodarone was discontinued. Currently, patient is doing well. Denies any fevers, chills, increasing cough. Denies any purulent sputum production. Denies any hemoptysis. No chest pain. Complains about severe exertional dyspnea especially upon walking a few steps, but she is breathing a lot better and does not require BiPAP all day. OBJECTIVE: GENERAL: Patient is awake, alert, coherent, oriented x3. VITAL SIGNS: Temperature is 98.2, with a T-max of 98.2. Heart rate is 35. Blood pressure is 151/60, respiratory rate is 16, saturation is 94% on 5 liters nasal cannula. EYES: No jaundice or pallor. EARS, NOSE AND THROAT: No ear drainage. No nasal discharge. CHEST AND LUNGS: No wheezing, no rhonchi. No coarse crackles. CARDIOVASCULAR: S1, S2 distinct. Normal rate, regular rhythm. ABDOMEN: Flabby. Positive bowel sounds. Soft, nondistended, tender. EXTREMITIES: No joint swelling or cellulitis. LABORATORY DATA: CBC done on October 29, 2018 showed white count of 13.6, hemoglobin is 10.6, hematocrit is 31.2, platelet count is 243,000. Blood gas on October 28, 2018 showed pH of 7.46, pCO2 of 39.9, pO2 of 93.3 and bicarb 37.9 on 45% FiO2. Chemistry showed sodium of 138, potassium 4.4, chloride 101, CO2 is 13, BUN is 37, creatinine 0.91, glucose 140. Calcium 8.5. Bilirubin is 1.3. SGOT is 26, SGPT is 53, alkaline phos 5.3. Last CAT scan was October 19, 2018 and no recent x-rays. ASSESSMENT: 1. INTERSTITIAL LUNG DISEASE. Possibly due to COPD versus other etiologies. Appears to be stable and requiring 2 liters of oxygen therapy at rest. 2. ACUTE ON CHRONIC RESPIRATORY FAILURE. Currently appears to be improving. Does not require BiPAP therapy anymore. Patient still requires oxygen 5 liters nasal cannula. Oxygen titrated to keep saturation 91% to 94%. 3. PNEUMONIA/PULMONARY EDEMA. Appears to be resolving. 4. COPD/BRONCHIAL ASTHMA. Appears to be stable. Not in acute bronchospasm. PLAN/RECOMMENDATIONS: 1. Taper IV steroids to prednisone. Taper every 3 days in the next 3 to 4 weeks. 2. Will do chest x-ray later today or tomorrow, portable upright. 3. Continue Xopenex nebulizer treatment every 5 or 6 hours. Continue Advair 500/50 inhaler 1 puff daily BID and Spiriva inhaler 1 capsule daily. 4. Recommend patient follow up at [facility] Inter[facility] Disease [facility]. 5. Will sign off tonight. If you have any questions, please feel free to call me. DICTATING PHYSICIAN: DIANA MATA MD,TIMMY,MPH [id number] PHY#: [id number] 2014 ID: [id number] JOB#: [id number] ACCT: [id number] cc: > MTDD
[2018-11-05] MEDS: ATORVASTATIN CALCIUM 40 MG TABLET PO SCH (22:26)
[2018-11-05] MEDS: ROPINIROLE HCL 2 MG TABLET PO SCH (22:26)
--- NOTE | 2018-11-05 23:08 | RADIOLOGY REPORT (SQ) ---
EXAM DESCRIPTION: XR CHEST 1 VIEW COMPLETED DATE/TME: 11/05/2018 20:00 CLINICAL HISTORY: 78 years, Female, chest x-ray,upright portable. - ILD/ pulmonary fiona COMPARISON: 10/15/2018 chest NUMBER OF VIEWS: 1 TECHNIQUE: AP portable chest LIMITATIONS: None. FINDINGS: Cardiomegaly. Left PICC catheter in place. Slight improved aeration associated with airspace opacities in the lung bases and left upper lobe. Persistent more dense consolidative change and opacity in the right apex. Calcified mediastinal and hilar lymph nodes. No discrete pneumothorax. IMPRESSION: Slight improved aeration bilaterally, as above. Continued follow-up recommended copyright 2010 [employer]- All Rights Reserved
[2018-11-06] MEDS: LEVALBUTEROL HCL NEB 0.63 MG/3 ML AMPUL NEB SCH ×4 (02:04→20:38)
[2018-11-06] MEDS: FLUTICASONE/SALMETEROL DISKUS 500-50 MCG/DOSE IH SCH ×2 (09:25→22:48)
[2018-11-06] MEDS: FLUTICASONE NASAL SPRAY 50 MCG/SPRY 120 SPRAY/16 GM NASL SCH ×2 (09:26→22:49)
[2018-11-06] MEDS: GUAIFENESIN 600 MG TABLET.SA PO SCH ×2 (09:26→22:50)
[2018-11-06] MEDS: ASPIRIN 81 MG TABLET, ENT COATED PO SCH (09:26)
[2018-11-06] MEDS: CARVEDILOL 3.125 MG TABLET PO SCH ×2 (09:26→22:48)
[2018-11-06] MEDS: FUROSEMIDE 20 MG TABLET PO SCH ×2 (09:26→18:15)
[2018-11-06] MEDS: CLOPIDOGREL BISULFATE 75 MG TABLET PO SCH (09:27)
[2018-11-06] MEDS: METHYLPREDNISOLONE INJ 40 MG/1 ML SDV IV SCH ×2 (09:27→22:51)
[2018-11-06] MEDS: NORMAL SALINE 10 ML SDV (SCHEDULED) IV SCH ×2 (09:27→22:50)
[2018-11-06] MEDS: SERTRALINE HCL 50 MG TABLET PO SCH (09:28)
[2018-11-06] MEDS: TIOTROPIUM BROMIDE DPI 5 CAP/KIT (18 MCG/CAP) IH SCH (09:28)
[2018-11-06] MEDS ORDERED: SIMETHICONE 80 MG TAB.CHEW PO PRN (14:38)
[2018-11-06] MEDS: GABAPENTIN 300 MG CAPSULE PO SCH (18:15)
[2018-11-06] MEDS: MAG HYDROX/AL HYDROX/SIMETH SUSP 30 ML UDCUP PO PRN (20:20)
[2018-11-06] MEDS: ROPINIROLE HCL 2 MG TABLET PO SCH (22:50)
[2018-11-06] MEDS: ATORVASTATIN CALCIUM 40 MG TABLET PO SCH (22:50)
[2018-11-07] MEDS: LEVALBUTEROL HCL NEB 0.63 MG/3 ML AMPUL NEB SCH ×2 (02:40→09:26)
[2018-11-07] MEDS: SERTRALINE HCL 50 MG TABLET PO SCH (11:03)
[2018-11-07] MEDS: CLOPIDOGREL BISULFATE 75 MG TABLET PO SCH (11:03)
[2018-11-07] MEDS: CARVEDILOL 3.125 MG TABLET PO SCH (11:03)
[2018-11-07] MEDS: GUAIFENESIN 600 MG TABLET.SA PO SCH (11:03)
[2018-11-07] MEDS: FUROSEMIDE 20 MG TABLET PO SCH (11:03)
[2018-11-07] MEDS: ASPIRIN 81 MG TABLET, ENT COATED PO SCH (11:03)
[2018-11-07] MEDS: METHYLPREDNISOLONE INJ 40 MG/1 ML SDV IV SCH (11:04)
[2018-11-07] MEDS: TIOTROPIUM BROMIDE DPI 5 CAP/KIT (18 MCG/CAP) IH SCH (11:04)
[2018-11-07] MEDS: FLUTICASONE NASAL SPRAY 50 MCG/SPRY 120 SPRAY/16 GM NASL SCH (11:05)
[2018-11-07] MEDS: NORMAL SALINE 10 ML SDV (SCHEDULED) IV SCH (11:05)
[2018-11-07] MEDS: FLUTICASONE/SALMETEROL DISKUS 500-50 MCG/DOSE IH SCH (11:06)
--- NOTE | 2018-11-07 11:18 | PDOC PROGRESS REPORT ---
Subjective Progress Note for:: 11/06/18 Subjective:: Complains of increased bowel gas. Still feels extremely weak and unable to ambulate. Reports that breathing is "okay ". Reason For Visit: PNEUMONIA,DIASTOLIC HF Physical Exam Vital Signs: Temp Pulse Resp BP Pulse Ox 97.8 F 61 21 H 125/42 L 98 11/06/18 12:31 11/06/18 12:31 11/06/18 12:31 11/06/18 12:31 11/06/18 12:31 Pulse Oximeter Continuous Start: 10/12/18 21:15 Freq: RTQ4 Status: Complete Protocol: Document 10/14/18 08:43 [facility] (Rec: 10/14/18 11:22 [facility] [id number]) Pulse Oximetry Assessment Equipment Usage Equipment Discontinued Continuous SpO2 Machine # 2 Intake & Output 11/05/18 11/06/18 11/07/18 06:59 06:59 06:59 Intake Total 476 1073 Output Total 900 Balance -424 1073 General appearance: PRESENT: no acute distress, obese, well-developed Head exam: PRESENT: normocephalic Mouth exam: PRESENT: moist, tongue midline Neck exam: ABSENT: carotid bruit, lymphadenopathy Respiratory exam: PRESENT: rales - Bilateral, symmetrical, unlabored. ABSENT: accessory muscle use, prolonged expiratory phas, rhonchi, stridor, wheezes Cardiovascular exam: PRESENT: irregular rhythm GI/Abdominal exam: PRESENT: normal bowel sounds, soft. ABSENT: distended, tenderness Rectal exam: PRESENT: deferred Extremities exam: PRESENT: pedal edema Musculoskeletal exam: ABSENT: ambulatory - Reports that she is extremely weak and it is very difficult to ambulate Neurological exam: PRESENT: alert, awake, oriented to person, oriented to place, oriented to situation, CN II-XII grossly intact Psychiatric exam: PRESENT: flat affect. ABSENT: agitated, anxious Focused psych exam: ABSENT: delusional, restlessness Results Laboratory Results: 10/29/18 05:20 10/28/18 05:30 09/24/18 09/24/18 09/24/18 00:38 00:38 03:01 Creatine Kinase 37 CK-MB (CK-2) 1.67 Troponin I 0.074 0.078 NT-Pro-B Natriuret Pep 94647 H 09/25/18 09/25/18 09/25/18 10:13 10:13 19:16 Creatine Kinase 22 L CK-MB (CK-2) 1.63 Troponin I 0.074 0.073 NT-Pro-B Natriuret Pep 10/08/18 10/08/18 10/09/18 23:43 23:43 05:19 Creatine Kinase < 20 L < 20 L CK-MB (CK-2) 0.38 Troponin I 0.039 NT-Pro-B Natriuret Pep 10/09/18 10/09/18 10/09/18 05:19 11:49 11:49 Creatine Kinase < 20 L CK-MB (CK-2) 0.38 0.41 Troponin I 0.049 0.042 NT-Pro-B Natriuret Pep 10/12/18 10/12/18 10/18/18 11:05 11:05 05:55 Creatine Kinase < 20 L CK-MB (CK-2) 0.51 Troponin I 0.032 NT-Pro-B Natriuret Pep 5030 H 10/20/18 13:20 Creatine Kinase CK-MB (CK-2) Troponin I 0.038 NT-Pro-B Natriuret Pep Impressions: Guidance Fluoroscopy 10/10/18 00:00 IMPRESSION: SUCCESSFUL PLACEMENT OF A 5 FR DUAL LUMEN 42 CM PICC IN THE LEFT BASILIC VEIN. Interventional Vascular Procedure 10/10/18 00:00 IMPRESSION: SUCCESSFUL PLACEMENT OF A 5 FR DUAL LUMEN 42 CM PICC IN THE LEFT BASILIC VEIN. PICC Line Insertion 10/10/18 06:00 IMPRESSION: SUCCESSFUL PLACEMENT OF A 5 FR DUAL LUMEN 42 CM PICC IN THE LEFT BASILIC VEIN. Chest CT 10/20/18 14:30 IMPRESSION: Small bilateral pleural effusions with bronchiectasis and bilateral interstitial and airspace opacities; differential considerations include interstitial drug-induced lung disease such as amiodarone toxicity, interstitial pneumonia, hypersensitivity pneumonitis. Chest X-Ray 11/05/18 20:00 IMPRESSION: Slight improved aeration bilaterally, as above. Continued follow-up recommended copyright 2010 [email or web address]- All Rights Reserved Assessment & Plan - Diagnosis (1) Acute and chronic respiratory failure with hypoxia Is this a current diagnosis for this admission?: Yes Plan: Still requires supplemental oxygen and intermittent use of BiPAP. Continue inhaler therapy with as needed nebulizers. (2) Atrial fibrillation Qualifiers: Atrial fibrillation type: paroxysmal Qualified Code(s): I48.0 - Paroxysmal atrial fibrillation Is this a current diagnosis for this admission?: Yes Plan: Reasonable rate control on the carvedilol. Continue chronic anticoagulation. (3) CAD (coronary artery disease) Is this a current diagnosis for this admission?: Yes Plan: Has been stable. No chest pain at the time of discharge. Continue aspirin and Plavix. (4) Chronic intermittent steroid use Is this a current diagnosis for this admission?: Yes Plan: Will return to prednisone therapy from [facility]. Would taper to off. - Time Time Spent with patient: 25-34 minutes Medications reviewed and adjusted accordingly: Yes Anticipated discharge: SNF - Plan Summary Plan Summary: Please [facility] Dr[facility]
--- NOTE | 2018-11-07 11:21 | PDOC PROGRESS REPORT ---
Subjective Progress Note for:: 11/07/18 Subjective:: Resting comfortably. Going to [facility] at 1:00. Reason For Visit: PNEUMONIA,DIASTOLIC HF Physical Exam Vital Signs: Temp Pulse Resp BP Pulse Ox 97.9 F 67 20 149/75 H 97 11/07/18 07:49 11/07/18 09:31 11/07/18 09:31 11/07/18 07:49 11/07/18 09:31 Pulse Oximeter Continuous Start: 10/12/18 21:15 Freq: RTQ4 Status: Complete Protocol: Document 10/14/18 08:43 [facility] (Rec: 10/14/18 11:22 [facility] [id number]) Pulse Oximetry Assessment Equipment Usage Equipment Discontinued Continuous SpO2 Machine # 2 Intake & Output 11/06/18 11/07/18 11/08/18 06:59 06:59 06:59 Intake Total 1073 1442 Balance 1073 1442 General appearance: PRESENT: no acute distress, obese, well-developed Head exam: PRESENT: normocephalic Eye exam: PRESENT: conjunctiva pink. ABSENT: scleral icterus Mouth exam: PRESENT: moist, tongue midline Neck exam: ABSENT: carotid bruit, lymphadenopathy Respiratory exam: PRESENT: rales - Bilateral, symmetrical, unlabored. ABSENT: prolonged expiratory phas, rhonchi, stridor, wheezes Cardiovascular exam: PRESENT: irregular rhythm GI/Abdominal exam: PRESENT: normal bowel sounds, soft. ABSENT: tenderness Rectal exam: PRESENT: deferred Neurological exam: PRESENT: alert, awake, oriented to person, oriented to place, oriented to time, oriented to situation, CN II-XII grossly intact Psychiatric exam: PRESENT: flat affect. ABSENT: agitated, anxious Focused psych exam: ABSENT: delusional, restlessness Results Laboratory Results: 10/29/18 05:20 10/28/18 05:30 09/24/18 09/24/18 09/24/18 00:38 00:38 03:01 Creatine Kinase 37 CK-MB (CK-2) 1.67 Troponin I 0.074 0.078 NT-Pro-B Natriuret Pep 46296 H 09/25/18 09/25/18 09/25/18 10:13 10:13 19:16 Creatine Kinase 22 L CK-MB (CK-2) 1.63 Troponin I 0.074 0.073 NT-Pro-B Natriuret Pep 10/08/18 10/08/18 10/09/18 23:43 23:43 05:19 Creatine Kinase < 20 L < 20 L CK-MB (CK-2) 0.38 Troponin I 0.039 NT-Pro-B Natriuret Pep 10/09/18 10/09/18 10/09/18 05:19 11:49 11:49 Creatine Kinase < 20 L CK-MB (CK-2) 0.38 0.41 Troponin I 0.049 0.042 NT-Pro-B Natriuret Pep 10/12/18 10/12/18 10/18/18 11:05 11:05 05:55 Creatine Kinase < 20 L CK-MB (CK-2) 0.51 Troponin I 0.032 NT-Pro-B Natriuret Pep 5030 H 10/20/18 13:20 Creatine Kinase CK-MB (CK-2) Troponin I 0.038 NT-Pro-B Natriuret Pep Impressions: Guidance Fluoroscopy 10/10/18 00:00 IMPRESSION: SUCCESSFUL PLACEMENT OF A 5 FR DUAL LUMEN 42 CM PICC IN THE LEFT BASILIC VEIN. Interventional Vascular Procedure 10/10/18 00:00 IMPRESSION: SUCCESSFUL PLACEMENT OF A 5 FR DUAL LUMEN 42 CM PICC IN THE LEFT BASILIC VEIN. PICC Line Insertion 10/10/18 06:00 IMPRESSION: SUCCESSFUL PLACEMENT OF A 5 FR DUAL LUMEN 42 CM PICC IN THE LEFT BASILIC VEIN. Chest CT 10/20/18 14:30 IMPRESSION: Small bilateral pleural effusions with bronchiectasis and bilateral interstitial and airspace opacities; differential considerations include interstitial drug-induced lung disease such as amiodarone toxicity, interstitial pneumonia, hypersensitivity pneumonitis. Chest X-Ray 11/05/18 20:00 IMPRESSION: Slight improved aeration bilaterally, as above. Continued follow-up recommended copyright 2010 [employer]- All Rights Reserved Assessment & Plan - Diagnosis (1) Acute and chronic respiratory failure with hypoxia Is this a current diagnosis for this admission?: Yes Plan: Still requires supplemental oxygen and intermittent use of BiPAP. Continue inhaler therapy with as needed nebulizers. (2) Atrial fibrillation Qualifiers: Atrial fibrillation type: paroxysmal Qualified Code(s): I48.0 - Paroxysmal atrial fibrillation Is this a current diagnosis for this admission?: Yes Plan: Reasonable rate control on the carvedilol. Continue chronic anticoagulation. (3) CAD (coronary artery disease) Is this a current diagnosis for this admission?: Yes Plan: Has been stable. No chest pain at the time of discharge. Continue aspirin and Plavix. (4) Chronic intermittent steroid use Is this a current diagnosis for this admission?: Yes Plan: Will return to prednisone therapy from [facility]. Would taper to off. - Time Time Spent with patient: 25-34 minutes Medications reviewed and adjusted accordingly: Yes Anticipated discharge: SNF - Going to be reviewed today - Plan Summary Plan Summary: See Dr. Mooney's discharge summary from November 05 for the actual transfer note. See my progress notes on the and 6 for additional days.
[2018-11-07 12:48] VITALS: BP 136/48
== END 2018-11-07 13:24 | DRG 205 ==
LOC: ER 00:20 → EH 04:27 → 3W 06:35
PROVIDERS: ADMIT Internal Medicine; ATTEND Internal Medicine
PROC: 5A09557 Assistance with Respiratory Ventilation, Greater than 96 Consecutive Hours, Continuous Positive Airway Pressure (ICD-10-PCS; 2018-09-24)
PROC: 02HV33Z Insertion of Infusion Device into Superior Vena Cava, Percutaneous Approach (ICD-10-PCS; principal; 2018-10-10)
PROC: B518ZZA Fluoroscopy of Superior Vena Cava, Guidance (ICD-10-PCS; 2018-10-10)
PROC: B548ZZA Ultrasonography of Superior Vena Cava, Guidance (ICD-10-PCS; 2018-10-10)
PROC: 3E02340 Introduction of Influenza Vaccine into Muscle, Percutaneous Approach (ICD-10-PCS; 2018-11-07)
DX: J70.4 Drug-induced interstitial lung disorders, unspecified (principal); J96.21 Acute and chronic respiratory failure with hypoxia; I48.0 Paroxysmal atrial fibrillation; E03.9 Hypothyroidism, unspecified; J18.9 Pneumonia, unspecified organism; T46.2X5A Adverse effect of other antidysrhythmic drugs, initial encounter; J44.9 Chronic obstructive pulmonary disease, unspecified; I25.10 Atherosclerotic heart disease of native coronary artery without angina pectoris; I11.0 Hypertensive heart disease with heart failure; E78.5 Hyperlipidemia, unspecified; M79.7 Fibromyalgia; G43.909 Migraine, unspecified, not intractable, without status migrainosus; F32.9 Major depressive disorder, single episode, unspecified; D72.829 Elevated white blood cell count, unspecified; M19.90 Unspecified osteoarthritis, unspecified site; G47.33 Obstructive sleep apnea (adult) (pediatric); I10 Essential (primary) hypertension; E66.9 Obesity, unspecified; R04.0 Epistaxis; F40.240 Claustrophobia; F41.9 Anxiety disorder, unspecified; Z99.81 Dependence on supplemental oxygen; Z95.5 Presence of coronary angioplasty implant and graft; Z79.01 Long term (current) use of anticoagulants; Z90.710 Acquired absence of both cervix and uterus; Z23 Encounter for immunization; Z90.49 Acquired absence of other specified parts of digestive tract; Z91.19 Patient's noncompliance with other medical treatment and regimen; I25.2 Old myocardial infarction; Z91.81 History of falling; Z75.1 Person awaiting admission to adequate facility elsewhere; Z79.52 Long term (current) use of systemic steroids
CPT/HCPCS: 36415; 36569; 36600; 51702; 71045; 71046; 71250; 71275; 74177; 76937; 77001; 80048; 80053; 80202; 81001; 82550; 82553; 82565; 82803; 82962; 83516; 83735; 83880; 84439; 84443; 84484; 85025; 85027; 85610; 85652; 85730; 86140; 86225; 86235; 86256; 86430; 87040; 87070; 87880; 90686; 93005; 93010; 93306; 94060; 94640; 94660; 94667; 94668; 94762; 94799; 96374; 96375; 99285; J0692; J1642; J1644; J1940; J1956; J2060; J2270; J2405; J2543; J2920; J2930; J3370; J3490; J7060; J7512; J7614; J7620